=== PATIENT | male | born 1935 | race Caucasian/White ===

== ENCOUNTER 2018-01-04 08:06 | Inpatient (IN) ==
--- NOTE | 2018-01-04 08:20 | ED ---
HPI General Chief Complaint: Shortness of Breath/Dyspnea Stated Complaint: sob started last night/hx a-fib Time Seen by Provider: 01/04/18 08:12 Source: patient Mode of arrival: ambulatory Limitations: no limitations History of Present Illness The patient is a 82-year-old male who presents to the emergency department via private vehicle for shortness of breath. The patient states he went to the beach yesterday for swim, his vehicle got stuck, which subsequently caused some anxiety. The patient states he went home last night feeling well, went to bed, however, was awakened 2 hours later with shortness of breath. The patient does complain of mild shortness of breath without any significant cough. He denies any chest pain, nausea, vomiting, or diaphoresis. The patient does have a history of atrial fibrillation for which she takes Cardizem and Xarelto. The patient is followed by his primary physician, Dr. Lake, and his facility service manager, Dr. Gallagher. The patient denies any significant swelling to lower extremities and denies any history of congestive heart failure. Related Data Home Medications Medication Instructions Recorded Confirmed diltiazem HCl 240 mg PO DAILY 01/04/18 01/04/18 losartan 50 mg PO DAILY 01/04/18 01/04/18 rivaroxaban [Xarelto] 20 mg PO DAILY 01/04/18 01/04/18 Allergies Allergy/AdvReac Type Severity Reaction Status Date / Time No Known Allergies Allergy Unverified 01/04/18 08:13 Review of Systems ROS: all other systems reviewed are negative [facility] Medical History Medical History History of atrial fibrillation (Acute) Hx of primary hypertension (Acute) Surgical History Surgical History No history of previous surgery (Acute) Social History Social History Substance History: No History of Abuse Second Hand Smoke Exposure: No Smoking Status: Never smoker How Often Do You Have a Drink Containing Alcohol: Monthly or less Recent Travel in [facility] within the Last 8 Weeks: No Recent Out of Country Travel within the Last 8 Weeks: No Exam Narrative Exam Narrative: GENERAL: Awake, alert, pleasant 82-year-old male who appears his stated age and is in no acute respiratory distress. SKIN: Focused skin assessment warm/dry. HEAD: Atraumatic. Normocephalic. EYES: No injection or drainage. ENT: No nasal bleeding or discharge. Mucous membranes pink and moist. NECK: Trachea midline. No JVD. CARDIOVASCULAR: Irregularly irregular. Tachycardic with a heart rate in the 130s. Systolic murmur noted. RESPIRATORY: No accessory muscle use. Few rhonchi lower bases bilaterally. GASTROINTESTINAL: Abdomen soft, non-tender, nondistended. No rebound tenderness. MUSCULOSKELETAL: No obvious deformities. No clubbing. No cyanosis. No edema. NEUROLOGICAL: Awake and alert. No obvious cranial nerve deficits. Motor grossly within normal limits. Normal speech. Nonfocal. PSYCHIATRIC: Appropriate mood and affect; insight and judgment normal. Course Initial Documented Vital Signs Pulse Oximetry 93 L 01/04/18 08:13 Last Documented Vital Signs Temperature 97.4 F L 01/04/18 08:31 Pulse Rate 101 H 01/04/18 08:47 Respiratory Rate 16 01/04/18 08:47 Blood Pressure 113/53 L 01/04/18 08:47 Pulse Oximetry 94 L 01/04/18 08:47 Critical Care Time Critical Care Time: Yes Total Critical Care Time: 35 Attestation: Aggregate critical care time was 35 minutes. Time to perform other separately billable procedures was not included in the critical care time. My time did not include minutes spent treating any other patients simultaneously or on activities that did not directly contribute to the patient's treatment. The services I provided to this patient were to treat and/or prevent clinically significant deterioration that could result in: Dysrhythmia, hypoxia, sudden . I provided critical care services requiring my management, as noted below: Chart data review, documentation time, medication orders and management, vital sign assessments/reviewing monitor data, ordering and reviewing lab tests, ordering and interpreting/reviewing x-rays and diagnostic studies, care of the patient and discussion of the patient with the admitting physicians. Medical Decision Making MDM Narrative Medical decision making narrative: IV was established, labs were drawn and sent , and the patient was placed on cardiac telemetry monitoring and continuous pulse oximetry monitoring. EKG was ordered and interpreted. Chest x-ray was obtained. The patient was administered Cardizem 15 mg intravenously and normal saline bolus 250 cc. The patient's heart rate continued to be elevated, therefore, the patient was administered a second dose of Cardizem 10 mg intravenously which brought his heart rate down into the 90s. Patient's oxygen saturation was in the high 80s and low 90s, therefore, the patient was placed on oxygen via nasal cannula 2 L. I discussed the patient with the on-call medical service, Dr. Felipe, who agrees with admission. The patient will be admitted to a telemetry floor and may benefit from gentle diuresis and echocardiogram. Medical Screen Exam Complete: Yes Emergency Medical Condition: Yes Differential Diagnosis Differential Diagnosis: Differential diagnosis includes A. fib with RVR, aortic stenosis, mitral valve prolapse, aortic regurgitation, pulmonary edema, pleural effusion, pneumonia, bronchitis, ACS. Lab Data Lab results reviewed: Yes I reviewed the patient's lab results. Lab results narrative: BNP was elevated at 378. Result diagrams: 01/04/18 08:20 01/04/18 08:20 Lab Results 01/04/18 01/04/18 01/04/18 Range/Units 08:20 08:20 08:20 CBC w Diff Auto diff final WBC 10.3 (4.0-11.0) th/mm3 RBC 4.52 (4.50-5.90) mil/mm3 Hgb 15.5 (13.0-17.0) gm/dL Hct 43.9 (39.0-51.0) % MCV 97.1 (80.0-100.0) fL MCH 34.2 H (27.0-34.0) pg MCHC 35.2 (32.0-36.0) % RDW 12.3 (11.6-17.2) % Plt Count 204 (150-450) th/mm3 MPV 10.1 (7.0-11.0) fL Neut % (Auto) 82.0 H (16.0-70.0) % Lymph % (Auto) 8.9 L (9.0-44.0) % [place] % (Auto) 8.5 H (0.0-8.0) % Eos % (Auto) 0.1 (0.0-4.0) % Baso % (Auto) 0.5 (0.0-2.0) % Neut # (Auto) 8.4 H (1.8-7.7) th/mm3 Lymph # (Auto) 0.9 L (1.0-4.8) th/mm3 [place] # (Auto) 0.9 (0.0-0.9) th/mm3 Eos # (Auto) 0.0 (0.0-0.4) th/mm3 Baso # (Auto) 0.1 (0.0-0.2) th/mm3 WBC Differential . Differential Comment . PT 11.3 (9.8-11.6) sec INR 1.1 Ratio APTT 29.4 (24.3-30.1) sec Sodium 139 (136-145) meq/L Potassium 4.0 (3.5-5.1) meq/L Chloride 105 (98-107) meq/L Carbon Dioxide 22.3 (21.0-32.0) meq/L Anion Gap 12 (5-15) meq/L BUN 17 (7-18) mg/dL Creatinine 1.30 (0.60-1.30) mg/dL Estimated GFR 53 L (>89) mL/min Random Glucose 164 H (74-106) mg/dL Calcium 8.9 (8.5-10.1) mg/dL Magnesium 2.0 (1.5-2.5) mg/dL Total Bilirubin 1.4 H (0.2-1.0) mg/dL AST 22 (15-37) U/L ALT 21 (12-78) U/L Alkaline Phosphatase 74 (45-117) U/L Total Creatine Kinase 209 (39-308) U/L CK-MB (CK-2) 2.6 (0.5-3.6) ng/mL Troponin I 0.02 (0.02-0.05) ng/mL B-Natriuretic Peptide (0-100) pg/mL Total Protein 7.7 (6.4-8.2) g/dL Albumin 4.0 (3.4-5.0) g/dL 01/04/18 Range/Units 08:20 CBC w Diff WBC (4.0-11.0) th/mm3 RBC (4.50-5.90) mil/mm3 Hgb (13.0-17.0) gm/dL Hct (39.0-51.0) % MCV (80.0-100.0) fL MCH (27.0-34.0) pg MCHC (32.0-36.0) % RDW (11.6-17.2) % Plt Count (150-450) th/mm3 MPV (7.0-11.0) fL Neut % (Auto) (16.0-70.0) % Lymph % (Auto) (9.0-44.0) % [place] % (Auto) (0.0-8.0) % Eos % (Auto) (0.0-4.0) % Baso % (Auto) (0.0-2.0) % Neut # (Auto) (1.8-7.7) th/mm3 Lymph # (Auto) (1.0-4.8) th/mm3 [place] # (Auto) (0.0-0.9) th/mm3 Eos # (Auto) (0.0-0.4) th/mm3 Baso # (Auto) (0.0-0.2) th/mm3 WBC Differential Differential Comment PT (9.8-11.6) sec INR Ratio APTT (24.3-30.1) sec Sodium (136-145) meq/L Potassium (3.5-5.1) meq/L Chloride (98-107) meq/L Carbon Dioxide (21.0-32.0) meq/L Anion Gap (5-15) meq/L BUN (7-18) mg/dL Creatinine (0.60-1.30) mg/dL Estimated GFR (>89) mL/min Random Glucose (74-106) mg/dL Calcium (8.5-10.1) mg/dL Magnesium (1.5-2.5) mg/dL Total Bilirubin (0.2-1.0) mg/dL AST (15-37) U/L ALT (12-78) U/L Alkaline Phosphatase (45-117) U/L Total Creatine Kinase (39-308) U/L CK-MB (CK-2) (0.5-3.6) ng/mL Troponin I (0.02-0.05) ng/mL B-Natriuretic Peptide 378 H (0-100) pg/mL Total Protein (6.4-8.2) g/dL Albumin (3.4-5.0) g/dL Imaging Data Radiologist's impression: Chest X-Ray 01/04/18 08:13 CONCLUSION: 1. Acute interstitial lung disease and small bilateral effusions both characteristic of congestive heart failure. 2. No consolidating airspace disease. ECG Data EKG Prior to Arrival: No Attestation: I personally reviewed and interpreted this ECG as follows: Interpretation: EKG reveals atrial fibrillation with RVR. PVC noted. Voltage criteria for LVH. Nonspecific ST and T-wave changes. Discharge Plan Discharge Disposition Patient Disposition: 30 Still Patient Discharge Condition Condition: Stable Discharge Details Diagnosis: Atrial fibrillation with RVR, Congestive heart failure, Hypoxia Physicians Team ED Provider: David Morse Primary Care Provider: NON STAFF,PROVIDER Rxs /Orders / Referrals /Forms Prescriptions: No Action losartan 50 mg Tablet 50 mg PO DAILY RF: 0 diltiazem HCl 240 mg Capsule,Extended Release 24 Hr 240 mg PO DAILY RF: 0 rivaroxaban [Xarelto] 20 mg Tablet 20 mg PO DAILY RF: 0 Discharge Interventions Interventions: Vital Signs Last Done: 01/04/18 08:47 Status ED Status: Admitted Patient
[2018-01-04 08:31] LABS: Baso # (Auto) 0.1 th/mm3 (0.0-0.2); Baso % (Auto) 0.5 % (0.0-2.0); Eos % (Auto) 0.1 % (0.0-4.0); Hematocrit 43.9 % (39.0-51.0); Hemoglobin 15.5 gm/dL (13.0-17.0); Lymph # (Auto) 0.9 th/mm3 (1.0-4.8); Lymph % (Auto) 8.9 % (9.0-44.0); Mean Corpuscular HGB Conc 35.2 % (32.0-36.0); Mean Corpuscular Hemoglobin 34.2 pg (27.0-34.0); Mean Corpuscular Volume 97.1 fL (80.0-100.0); Mean Platelet Volume 10.1 fL (7.0-11.0); Mono # (Auto) 0.9 th/mm3 (0.0-0.9); Mono % (Auto) 8.5 % (0.0-8.0); Neut # (Auto) 8.4 th/mm3 (1.8-7.7); Platelet Count 204 th/mm3 (150-450); Red Blood Count 4.52 mil/mm3 (4.50-5.90); Red Cell Distribution Width 12.3 % (11.6-17.2); White Blood Count 10.3 th/mm3 (4.0-11.0)
--- NOTE | 2018-01-04 08:38 | XR ---
EXAM DATE: 01/04/2018 8:32 AM EDT AGE/SEX: 82 years / Male INDICATIONS: Short of breath. CLINICAL DATA: This is the patient's initial encounter. Patient reports that signs and symptoms have been present for 1 day and indicates a pain score of 0/10. MEDICAL/SURGICAL HISTORY: . Afib None. COMPARISON: POI, XR CHEST PA AND LAT, 03/05/2016. . FINDINGS: Interstitial prominence characteristic of interstitial edema has developed. The costophrenic angles a re blunted acoustical small effusions. Heart remains normal in size. Osseous structures are intact. There is [id number] bilateral shoulder arthropathy. CONCLUSION: 1. Acute interstitial lung disease and small bilateral effusions both characteristic of congestive h eart failure. 2. No consolidating airspace disease. Electronically signed by: Go Howell MD 01/04/2018 8:36 AM EDT
[2018-01-04 08:45] LABS: Chloride 105 meq/L (98-107); Sodium 139 meq/L (136-145)
[2018-01-04 08:49] LABS: Activated Partial Thrombo Time 29.4 sec (24.3-30.1); Calcium 8.9 mg/dL (8.5-10.1); INR 1.1 Ratio; Prothrombin Time 11.3 sec (9.8-11.6)
[2018-01-04 08:50] LABS: Anion Gap 12 meq/L (5-15); Blood Urea Nitrogen 17 mg/dL (7-18); Carbon Dioxide 22.3 meq/L (21.0-32.0); Glucose,Random 164 mg/dL (74-106)
[2018-01-04 08:53] LABS: Alanine Aminotransferase 21 U/L (12-78); Aspartate Aminotransferase 22 U/L (15-37); Glomerular Filtration Rate 53 mL/min (>89)
[2018-01-04 08:54] LABS: Total Protein 7.7 g/dL (6.4-8.2)
[2018-01-04 08:56] LABS: Alkaline Phosphatase 74 U/L (45-117); Creatine Kinase 209 U/L (39-308)
[2018-01-04 08:58] LABS: Troponin I 0.02 ng/mL (0.02-0.05)
[2018-01-04] MEDS ORDERED: Sodium Chlor 0.9% Inj 250 ML IV.SIG SCH (09:00)
[2018-01-04 09:08] LABS: Creatine Kinase MB 2.6 ng/mL (0.5-3.6)
[2018-01-04] MEDS ORDERED: Acetaminophen 325 MG Tablet PO PRN (09:28)
[2018-01-04] MEDS ORDERED: Rivaroxaban 20 MG Tablet PO SCH ×2 (09:30→18:00)
[2018-01-04] MEDS ORDERED: dilTIAZem CD 240 MG Capsule PO SCH (10:00)
[2018-01-04] MEDS ORDERED: dilTIAZem Inj 125 MG in Sodium Chlor 0.9% Inj 100 ML IV.CONT PRN (11:00)
--- NOTE | 2018-01-04 12:57 | P.HPIM ---
History of Present Illness Primary Care Physician: PROVIDER NON STAFF Chief Complaint: Shortness of breath History of Present Illness: The patient is an 82-year-old male with a past medical history of atrial fibrillation who is presenting to the hospital with shortness of breath. The patient says that yesterday he walked around for 2 miles and then he went to his car and it would not start. He said that [place] on the beach and high tide was approaching so he got very stressed out and upset. Eventually the car started and he got out of there. In the evening he started to experience shortness of breath so he tried walking around to alleviate that. He says laying down helps with his breathing. He has not been coughing or having any sputum production. He denied any chest pain. He says he has never had this shortness of breath before. He says the last time he saw his director home was about 4 months ago. He believes he had an echocardiogram done at that time. The patient says he did not sleep much last night and at 7:30 in the morning decided to come to the hospital for further evaluation. Inpatient Certification: I certify that the inpatient services were ordered in accordance with Medicare regulations governing the order. This includes certification that hospital inpatient services are reasonable and necessary and in the case of services not specified as inpatient-only under 42 CFR 419.22(n), that they are appropriately provided as inpatient services in accordance to with the 2-midnight benchmark under 43 CFR 412.3(e) Estimated Total Length of Stay (Days): 2 Plans for Post Hospital Care: Home Review of Systems All other systems reviewed negative except as stated in HPI [facility] - History History Provided By: Patient - Medical History Medical History: Medical History (Last Updated 01/04/18 @ 12:51 by Emmanuel Felipe DO) History of atrial fibrillation (Acute) Hx of primary hypertension (Acute) Ankylosing spondylitis IBS (irritable bowel syndrome) - Surgical History Surgical History: Surgical History (Last Updated 01/04/18 @ 08:32 by Nohemy Shah RN) No history of previous surgery (Acute) - Family History Family History: Family History (Last Updated 01/04/18 @ 12:51 by Emmanuel Felipe DO) Other CVA (cerebral vascular accident) - Tobacco History Second Hand Smoke Exposure: No Smoking Status: Never smoker - Alcohol History How Often Do You Have a Drink Containing Alcohol: 4 or more times a week - Substance Use History Substance History: No History of Abuse - Travel History Recent Travel in the [place] Within the Last 8 Weeks: No Recent Travel Out of the Country Within the Last 8 Weeks: No - Immunization History Tetanus Immunization: Unsure Hx Influenza Vaccine This Season: No Medications and Allergies Active Medications: Active Medications Acetaminophen (Tylenol) 650 mg PO Q4H PRN PRN Reason: Temp > 100.4 Diltiazem HCl (Cardizem Cd 24hr) 240 mg PO DAILY YOVANA Furosemide (Lasix Inj) 40 mg IV.PUSH BID@0900,1800 YOVANA Sodium Chloride (Ns Inj) 250 mls @ 0 mls/hr IV.SIG BOLUS YOVANA Last Infusion: 01/04/18 08:48 Dose: Infused Diltiazem HCl 125 mg/ Sodium (Chloride) 125 mls @ 5 mls/hr IV.CONT TITRATE PRN ; Protocol PRN Reason: Per Protocol Last Titration: 01/04/18 12:18 Dose: 15 mg/hr, 15 mls/hr Losartan Potassium (Cozaar) 50 mg PO DAILY YOVANA Last Admin: 01/04/18 10:23 Dose: Not Given Rivaroxaban (Xarelto) 20 mg PO DAILY@1800 YOVANA Sodium Chloride (Ns Flush) 2 ml IV.FLUSH UNSCH PRN PRN Reason: FLUSH AFTER USING IV ACCESS Allergies Allergy/AdvReac Type Severity Reaction Status Date / Time No Known Allergies Allergy Unverified 01/04/18 08:13 Home Medications Medication Instructions Recorded Confirmed Type diltiazem HCl 240 mg PO DAILY 01/04/18 01/04/18 History losartan 50 mg PO DAILY 01/04/18 01/04/18 History rivaroxaban [Xarelto] 20 mg PO DAILY 01/04/18 01/04/18 History Exam Vital signs: Vital Signs 01/04/18 08:13 01/04/18 08:16 01/04/18 08:31 Temperature 97.4 F L 97.4 F L Pulse Rate 124 H 100 H Respiratory Rate 16 16 Blood Pressure 145/65 H 145/65 H Pulse Oximetry 93 L 94 L 91 L 01/04/18 08:47 01/04/18 10:25 01/04/18 11:37 Temperature Pulse Rate 101 H 109 H 113 H Respiratory Rate 16 16 16 Blood Pressure 113/53 L 139/68 145/78 H Pulse Oximetry 94 L 92 L 90 L 01/04/18 12:02 Temperature 98.3 F Pulse Rate 144 H Respiratory Rate Blood Pressure 132/82 Pulse Oximetry Intake & Output 01/03/18 01/04/18 01/04/18 18:59 06:59 18:59 Intake Total 250 / 250 Balance 250 / 250 Weight 73 kg Intake: IV 250 / 250 NS Inj 250 ML @ Wide Open IV. 250 / 250 SIG BOLUS YOVANA Rx#:[id number] Other: Date of Last Bowel Movement 01/03/18 Narrative: GENERAL: No distress. SKIN: Focused skin assessment warm/dry. HEAD: Atraumatic. Normocephalic. EYES: No injection or drainage. ENT: No nasal bleeding or discharge. Mucous membranes pink and moist. NECK: Trachea midline. No JVD. CARDIOVASCULAR: Irregularly irregular, tachycardic. Systolic murmur noted. RESPIRATORY: No accessory muscle use. Few crackles lower bases bilaterally. GASTROINTESTINAL: Abdomen soft, non-tender, nondistended. No rebound tenderness. MUSCULOSKELETAL: No obvious deformities. No clubbing. No cyanosis. No edema. NEUROLOGICAL: Awake and alert. No obvious cranial nerve deficits. Motor grossly within normal limits. Normal speech. Nonfocal. PSYCHIATRIC: Appropriate mood and affect; insight and judgment normal. Results - Labs CBC & Chem 7: 01/04/18 08:20 01/04/18 08:20 Labs: Short CBC 01/04/18 Range/Units 08:20 WBC 10.3 (4.0-11.0) th/mm3 Hgb 15.5 (13.0-17.0) gm/dL Hct 43.9 (39.0-51.0) % Plt Count 204 (150-450) th/mm3 BMP 01/04/18 08:20 Sodium 139 Potassium 4.0 Chloride 105 Carbon Dioxide 22.3 BUN 17 Creatinine 1.30 Calcium 8.9 Cardiac Enzymes 01/04/18 Range/Units 08:20 Total Creatine Kinase 209 (39-308) U/L CK-MB (CK-2) 2.6 (0.5-3.6) ng/mL Troponin I 0.02 (0.02-0.05) ng/mL Liver Function 01/04/18 Range/Units 08:20 Total Bilirubin 1.4 H (0.2-1.0) mg/dL AST 22 (15-37) U/L ALT 21 (12-78) U/L Alkaline Phosphatase 74 (45-117) U/L Albumin 4.0 (3.4-5.0) g/dL - Imaging Impressions Chest X-Ray 01/04/18 08:13 CONCLUSION: 1. Acute interstitial lung disease and small bilateral effusions both characteristic of congestive heart failure. 2. No consolidating airspace disease. Caprini VTE Risk Assessment Caprini VTE Risk Assessment: Moderate/High Risk (score >= 2) Caprini Risk Assessment Model: Point Value = 1 Point Value = 2 Point Value = 3 Point Value = 5 Age 41-60 Minor surgery BMI > 25 kg/m2 Swollen legs Varicose veins or History of unexplained or recurrent spontaneous Oral contraceptives or hormone replacement Sepsis (< 1 month) Serious lung disease, including pneumonia (< 1 month) Abnormal pulmonary function Acute myocardial infarction Congestive heart failure (< 1 month) History of inflammatory bowel disease Medical patient at bed rest Age 61-74 Arthroscopic surgery Major open surgery (> 45 min) Laparoscopic surgery (> 45 min) Malignancy Confined to bed (> 72 hours) Immobilizing plaster cast Central venous access Age >= 75 History of VTE Family history of VTE Factor V Leiden Prothrombin [id number] Lupus anticoagulant Anticardiolipin antibodies Elevated serum homocysteine Heparin-induced thrombocytopenia Other congenital or acquired thrombophilia Stroke (< 1 month) Elective arthroplasty Hip, pelvis, or leg fracture Acute spinal cord injury (< 1 month) Prophylaxis Regimen: Total Risk Factor Score Risk Level Prophylaxis Regimen 0-1 Low Early ambulation 2 Moderate Order ONE of the following: *Sequential Compression Device (SCD) *Heparin 5000 units SQ BID 3-4 Higher Order ONE of the following medications: *Heparin 5000 units SQ TID *Enoxaparin/Lovenox 40 mg SQ daily (WT < 150 kg, CrCl > 30 mL/min) *Enoxaparin/Lovenox 30 mg SQ daily (WT < 150 kg, CrCl > 10-29 mL/min) *Enoxaparin/Lovenox 30 mg SQ BID (WT < 150 kg, CrCl > 30 mL/min) AND/OR *Sequential Compression Device (SCD) 5 or more Highest Order ONE of the following medications: *Heparin 5000 units SQ TID (Preferred with Epidurals) *Enoxaparin/Lovenox 40 mg SQ daily (WT < 150 kg, CrCl > 30 mL/min) *Enoxaparin/Lovenox 30 mg SQ daily (WT < 150 kg, CrCl > 10-29 mL/min) *Enoxaparin/Lovenox 30 mg SQ BID (WT < 150 kg, CrCl > 30 mL/min) AND *Sequential Compression Device (SCD) Assessment and Plan - Plan A fib with RVR The pt is on Cardizem and Xarelto as an outpt. S/p IV Cardizem in the ED. -continue Cardizem gtt along with PO Cardizem. -continue telemetry. -cardiology consult pending. -check a TSH. Acute respiratory failure CXR indicative of CHF. On 6L NC. BNP elevated. He believes he had a recent echo. -Lasix 40 mg IV BID. -oxygen and BiPAP as needed. -incentive spirometry. -follow up with cardiology. HTN Blood pressure well controlled. -resume home regimen. -Cardizem gtt as above. Hyperglycemia Likely a stress reaction. -follow BMP. PPx: Xarelto H&P: Quality - VTE Deep Vein Thrombosis/Pulmonary Embolism Present on Admission: No
[2018-01-04 14:07] LABS: ABG Base Excess -1.7 mmol/L (-2-2); ABG PO2 51 mmHg (61-120)
[2018-01-04 14:08] LABS: ABG PCO2 31 mmHg (38-42)
--- NOTE | 2018-01-04 14:48 | P.CONCA ---
History of Present Illness Reason for Consult: Afib RVR Primary Care Provider: PROVIDER NON STAFF Chief Complaint: Shortness of breath History of Present Illness: Pleasant 82 year old male well known to Dr. Gallagher with a history of chronic atrial fibrillation who presented to ER with complaints of SOB. [place], tide was coming in and he couldn't get his car started. This event caused a lot of anxiety. He went home tried to rest, but didn't sleep much lash night due to SOB. This AM he decided to come to ER. He was found to be in Afib RVR and CHF. Upon exam patient denies any chest pain. He reports feeling SOB. He is now on high flow o2 due to low oxygen sats and low P02. His HR is now controlled on cardizem drip, earlier today HR was 144. BNP elevated, crackles noted in base. IV lasix given in ER. Review of Systems Cardiovascular: Reports fast heart rate, Reports rapid, pounding, or irregular heartbeat Respiratory: Reports shortness of breath, Reports shortness of breath with activity [facility] - History History Provided By: Patient - Medical History Medical History: Medical History (Last Updated 01/04/18 @ 14:44 by LUCITA Muro) History of atrial fibrillation (Acute) Hx of primary hypertension (Acute) Ankylosing spondylitis History of cardioversion IBS (irritable bowel syndrome) - Surgical History Surgical History: Surgical History (Last Updated 01/04/18 @ 08:32 by Nohemy Shah RN) No history of previous surgery (Acute) - Family History Family History: Family History (Last Updated 01/04/18 @ 12:51 by Emmanuel Felipe DO) Other CVA (cerebral vascular accident) - Tobacco History Second Hand Smoke Exposure: No Smoking Status: Never smoker - Alcohol History How Often Do You Have a Drink Containing Alcohol: 4 or more times a week - Substance Use History Substance History: No History of Abuse - Travel History Recent Travel in the [place] Within the Last 8 Weeks: No Recent Travel Out of the Country Within the Last 8 Weeks: No - Immunization History Tetanus Immunization: Unsure Hx Influenza Vaccine This Season: No Medications and Allergies Allergies Allergy/AdvReac Type Severity Reaction Status Date / Time No Known Allergies Allergy Unverified 01/04/18 08:13 Home Medications Medication Instructions Recorded Confirmed Type diltiazem HCl 240 mg PO DAILY 01/04/18 01/04/18 History losartan 50 mg PO DAILY 01/04/18 01/04/18 History rivaroxaban [Xarelto] 20 mg PO DAILY 01/04/18 01/04/18 History Active Medications: Active Medications Acetaminophen (Tylenol) 650 mg PO Q4H PRN PRN Reason: Temp > 100.4 Diltiazem HCl (Cardizem Cd 24hr) 240 mg PO DAILY [facility] Furosemide (Lasix Inj) 40 mg IV.PUSH BID@0900,1800 [facility] Sodium Chloride (Ns Inj) 250 mls @ 0 mls/hr IV.SIG BOLUS [facility] Last Infusion: 01/04/18 08:48 Dose: Infused Diltiazem HCl 125 mg/ Sodium (Chloride) 125 mls @ 5 mls/hr IV.CONT TITRATE PRN ; Protocol PRN Reason: Per Protocol Last Titration: 01/04/18 12:18 Dose: 15 mg/hr, 15 mls/hr Losartan Potassium (Cozaar) 50 mg PO DAILY [facility] Last Admin: 01/04/18 10:23 Dose: Not Given Rivaroxaban (Xarelto) 20 mg PO DAILY@1800 [facility] Sodium Chloride (Ns Flush) 2 ml IV.FLUSH UNSCH PRN PRN Reason: FLUSH AFTER USING IV ACCESS Exam Vital signs: Vital Signs 01/04/18 08:13 01/04/18 08:16 01/04/18 08:31 Temperature 97.4 F L 97.4 F L Pulse Rate 124 H 100 H Respiratory Rate 16 16 Blood Pressure 145/65 H 145/65 H Pulse Oximetry 93 L 94 L 91 L 01/04/18 08:47 01/04/18 10:25 01/04/18 11:37 Temperature Pulse Rate 101 H 109 H 113 H Respiratory Rate 16 16 16 Blood Pressure 113/53 L 139/68 145/78 H Pulse Oximetry 94 L 92 L 90 L 01/04/18 12:02 01/04/18 13:43 Temperature 98.3 F Pulse Rate 144 H Respiratory Rate Blood Pressure 132/82 Pulse Oximetry 91 L Intake & Output 01/03/18 01/04/18 01/04/18 18:59 06:59 18:59 Intake Total 250 / 250 Balance 250 / 250 Weight 73 kg Intake: IV 250 / 250 NS Inj 250 ML @ Wide Open IV. 250 / 250 SIG BOLUS YOVANA Rx#:[id number] Other: Date of Last Bowel Movement 01/03/18 - Constitutional mild distress - Routine HEENT Exam Head: Present: normocephalic, atraumatic Eye: Present: normal accommodation ENT: Present: mucous membranes moist - Routine Neck Exam Present: supple - Routine Respiratory Exam Present: crackles, diminished air movement - Routine Cardiovascular Exam Present: irregularly irregular - Routine Extremities Exam Comments: no edema - Routine Skin Exam Present: intact - Routine Neurological Exam Present: alert, oriented X3 Results 01/04/18 08:20 01/04/18 08:20 Cardiac Enzymes 01/04/18 01/04/18 Range/Units 08:20 08:20 AST 22 (15-37) U/L CK-MB (CK-2) 2.6 (0.5-3.6) ng/mL Troponin I 0.02 (0.02-0.05) ng/mL B-Natriuretic Peptide 378 H (0-100) pg/mL Coagulation 01/04/18 01/04/18 Range/Units 08:20 08:20 PT 11.3 (9.8-11.6) sec APTT 29.4 (24.3-30.1) sec B-Natriuretic Peptide 378 H (0-100) pg/mL CBC 01/04/18 Range/Units 08:20 WBC 10.3 (4.0-11.0) th/mm3 RBC 4.52 (4.50-5.90) mil/mm3 Hgb 15.5 (13.0-17.0) gm/dL Hct 43.9 (39.0-51.0) % Plt Count 204 (150-450) th/mm3 Neut # (Auto) 8.4 H (1.8-7.7) th/mm3 Lymph # (Auto) 0.9 L (1.0-4.8) th/mm3 Castro # (Auto) 0.9 (0.0-0.9) th/mm3 Eos # (Auto) 0.0 (0.0-0.4) th/mm3 Baso # (Auto) 0.1 (0.0-0.2) th/mm3 Comprehensive Metabolic Panel 01/04/18 Range/Units 08:20 Sodium 139 (136-145) meq/L Potassium 4.0 (3.5-5.1) meq/L Chloride 105 (98-107) meq/L Carbon Dioxide 22.3 (21.0-32.0) meq/L BUN 17 (7-18) mg/dL Creatinine 1.30 (0.60-1.30) mg/dL Calcium 8.9 (8.5-10.1) mg/dL AST 22 (15-37) U/L ALT 21 (12-78) U/L Alkaline Phosphatase 74 (45-117) U/L Total Protein 7.7 (6.4-8.2) g/dL Albumin 4.0 (3.4-5.0) g/dL Intake and Output 01/03/18 01/04/18 01/04/18 22:59 06:59 14:59 Intake Total 250 / 250 Balance 250 / 250 Intake: IV 250 / 250 NS Inj 250 ML @ Wide Open IV. 250 / 250 SIG BOLUS YOVANA Rx#:[id number] Other: Date of Last Bowel Movement 01/03/18 Weight 73 kg Patient Weight 01/05/18 06:59 Weight 73 kg - Imaging and Cardiology Echo: pending (echo ordered) Assessment and Plan - Plan Afib RVR Acute respiratory failure- SOB -Anticoagulated with Xarelto. Continues on cardizem drip per protocol. Will add beta rajan and DC losartan. -IV lasix ordered, echo ordered. Creatnine 1.3, will repeat BMP in AM. The patient was seen and evaluated by Dr. Norris who completed face to face encounter and physical exam and participated in care and management. The exam, history, and the medical decision-making described in the above note were completed with the assistance of the mid-level provider. I reviewed and agree with the findings presented. I attest that I had a [id number]-[id number] encounter with the patient on the same day, and personally performed and documented my assessment and findings in the medical record. Will control hr on cardizem and betablocker, d/c one to 2 day s if hr stable and sob better.. HJ Code Status: DNR Discussed Condition With: Nurse, Respiratory therapist
[2018-01-04] MEDS: Metoprolol Tartrate 25 MG Tablet PO SCH (15:10)
--- NOTE | 2018-01-04 15:45 | ECG ---
Date Performed: 01/04/2018 Time Performed: 08:15:49 PTAGE: 82 years EKG: ATRIAL FIBRILLATION WITH RAPID VENTRICULAR RESPONSE WITH ABERRANT CONDUCTION OR VENTRICULAR PREMATURE COMPLEXES VOLTAGE CRITERIA FOR LVH NONSPECIFIC ST & T-WAVE ABNORMALITY ABNORMAL ECG INTERP RETATION BASED ON A DEFAULT AGE OF 40 YEARS PREVIOUS TRACING : 10/09/2011 09.18 Compared to previous tracing, atrial fibrillation is new Clinical correlation is recommended DOCTOR: Travis Steven Interpretating Date/Time 01/04/2018 15:44:48
--- NOTE | 2018-01-04 18:12 | ECHRPT ---
Indication: CONCLUSIONS The left ventricular systolic function is hyperdynamic with an estimated ejection fraction in the ra nge of 65- 70%. Wall thickness is normal. No regional wall motion abnormalities are present. Severe biatrial enlargement. A possible atrial level shunt is demonstrated by color flow Doppler interrogation, clinical correlat ion recommended. Moderate thickening of the mitral valve leaflets. Ruem-yb-ctcpunrd mitral valve regurgitation. Mitral annular calcification is present. Can not rule out a mobile echodensity located on the anterior mitral valve leaflet. Clinical correla tion recommended. Aortic valve sclerosis is present. Trace aortic valve regurgitation. There is moderate tricuspid regurgitation. The estimated pulmonary arterial pressure is 57.6 mmHg. BP: / HR: Rhythm: Atrial fibrillation MEASUREMENTS (Male / Female) Normal Values Technical Quality:Good 2D ECHO LV Diastolic Diameter PLAX 5.5 cm 4.2 - 5.9 / 3.9 - 5.3 cm LV Systolic Diameter PLAX 3.7 cm IVS Diastolic Thickness 0.8 cm 0.6 - 1.0 / 0.6 - 0.9 cm LVPW Diastolic Thickness 0.8 cm 0.6 - 1.0 / 0.6 - 0.9 cm LV Relative Wall Thickness 0.3 LVOT Diameter 2.0 cm LA Systolic Diameter LX 5.0 cm 3.0 - 4.0 / 2.7 - 3.8 cm M-MODE Aortic Root Diameter MM 2.1 cm LA Systolic Diameter MM 5.0 cm LA Ao Ratio MM 2.4 AV Cusp Separation MM 1.8 cm DOPPLER AV Peak Velocity 130.0 cm/s AV Peak Gradient 6.8 mmHg AI Peak Velocity 264.5 cm/s AI Peak Gradient 28.0 mmHg AI Pressure Half Time 1199.0 ms LVOT Peak Velocity 68.1 cm/s LVOT Peak Gradient 1.9 mmHg AV Area Cont Eq pk 1.6 cm MV Area PHT 5.9 cm LV E' Septal Velocity 7.7 cm/s TR Peak Velocity 345.0 cm/s TR Peak Gradient 47.6 mmHg Right Atrial Pressure 10.0 mmHg Pulmonary Artery Systolic Pressu 57.6 mmHg Right Ventricular Systolic Press 57.6 mmHg FINDINGS LEFT VENTRICLE The left ventricular systolic function is hyperdynamic with an estimated ejection fraction in the ra nge of 65- 70%. Wall thickness is normal. No regional wall motion abnormalities are present. RIGHT VENTRICLE Normal right ventricular size and systolic function. LEFT ATRIUM The left atrial size is severely dilated. RIGHT ATRIUM The right atrial size is normal. ATRIAL SEPTUM A possible atrial level shunt is demonstrated by color flow Doppler interrogation, clinical correlat ion recommended. AORTA The aortic root and proximal ascending aorta are normal in size on limited imaging. MITRAL VALVE Moderate thickening of the mitral valve leaflets. Btyy-gt-nsodwljz mitral valve regurgitation. Mitral annular calcification is present. Can not rule out a mobile echodensity located on the anterior mitral valve leaflet. AORTIC VALVE Trileaflet aortic valve. Aortic valve sclerosis is present. Trace aortic valve regurgitation. TRICUSPID VALVE Structurally normal tricuspid valve. There is moderate tricuspid regurgitation. The estimated pulmonary arterial pressure is 57.6 mmHg. PULMONARY VALVE No pulmonary valve regurgitation or stenosis. VESSELS The inferior vena cava is normal in size. PERICARDIUM No pericardial effusion. Brent Lam (Electronically Signed) Final Date:04 January 2018 18:11
[2018-01-04] MEDS ORDERED: dilTIAZem CD 240 MG Capsule PO ONE (20:00)
[2018-01-05 06:41] LABS: Baso % (Auto) 0.3 % (0.0-2.0); Eos % (Auto) 0.1 % (0.0-4.0); Hematocrit 44.9 % (39.0-51.0); Hemoglobin 15.3 gm/dL (13.0-17.0); Lymph # (Auto) 0.8 th/mm3 (1.0-4.8); Lymph % (Auto) 4.7 % (9.0-44.0); Mean Corpuscular HGB Conc 34.1 % (32.0-36.0); Mean Corpuscular Volume 99.8 fL (80.0-100.0); Mean Platelet Volume 10.4 fL (7.0-11.0); Mono # (Auto) 1.6 th/mm3 (0.0-0.9); Mono % (Auto) 9.8 % (0.0-8.0); Neut # (Auto) 14.1 th/mm3 (1.8-7.7); Neut % (Auto) 85.1 % (16.0-70.0); Platelet Count 167 th/mm3 (150-450); White Blood Count 16.5 th/mm3 (4.0-11.0)
[2018-01-05 06:54] LABS: Chloride 104 meq/L (98-107); Potassium 4.6 meq/L (3.5-5.1); Sodium 138 meq/L (136-145)
[2018-01-05 06:59] LABS: Albumin 3.5 g/dL (3.4-5.0); Calcium 8.7 mg/dL (8.5-10.1)
[2018-01-05 07:00] LABS: Anion Gap 11 meq/L (5-15); Carbon Dioxide 22.6 meq/L (21.0-32.0); Glucose,Random 111 mg/dL (74-106)
[2018-01-05 07:11] LABS: Alanine Aminotransferase 20 U/L (12-78); Alkaline Phosphatase 63 U/L (45-117); Aspartate Aminotransferase 27 U/L (15-37); Blood Urea Nitrogen 28 mg/dL (7-18); Glomerular Filtration Rate 39 mL/min (>89)
[2018-01-05] MEDS: dilTIAZem CD 240 MG Capsule PO SCH (08:25)
[2018-01-05] MEDS: Metoprolol Tartrate 25 MG Tablet PO SCH ×2 (08:25→21:31)
--- NOTE | 2018-01-05 09:01 | P.PNCA ---
Subjective Interval history: Still on high flow oxygen, o2 sats in the low 90s. HR 100-130s this AM. No longer on cardizem drip. Currently sitting on side of bed eating breakfast. Report minimal urine output. Small amount of ambered colored urine noted. Echo completed. Physical Exam Vital signs: Vital Signs 01/04/18 09:00 01/04/18 10:25 01/04/18 11:37 Temperature Pulse Rate 76 109 H 113 H Respiratory Rate 16 16 Blood Pressure 139/68 145/78 H Pulse Oximetry 92 L 90 L 01/04/18 12:02 01/04/18 13:00 01/04/18 13:43 Temperature 98.3 F 98.4 F Pulse Rate 144 H 122 H Respiratory Rate 26 H Blood Pressure 132/82 135/67 Pulse Oximetry 91 L 01/04/18 14:00 01/04/18 14:35 01/04/18 15:00 Temperature Pulse Rate 90 92 H Respiratory Rate 19 21 Blood Pressure 126/52 L 109/61 Pulse Oximetry 97 01/04/18 15:20 01/04/18 16:00 01/04/18 17:00 Temperature Pulse Rate 76 Respiratory Rate 22 18 Blood Pressure 96/49 L 101/48 L Pulse Oximetry 97 01/04/18 18:00 01/04/18 19:00 01/04/18 20:00 Temperature 98.5 F 98.1 F Pulse Rate 78 64 63 Respiratory Rate 19 20 20 Blood Pressure 92/47 L 94/51 L 93/43 L Pulse Oximetry 94 L 94 L 01/04/18 20:30 01/04/18 21:00 01/04/18 22:00 Temperature Pulse Rate 74 72 Respiratory Rate 20 20 Blood Pressure 94/58 L 95/58 L Pulse Oximetry 92 L 94 L 94 L 01/04/18 23:00 01/05/18 00:00 01/05/18 01:00 Temperature 98.1 F Pulse Rate 74 76 76 Respiratory Rate 20 19 22 Blood Pressure 92/52 L 104/51 L 94/54 L Pulse Oximetry 96 92 L 92 L 01/05/18 01:30 01/05/18 02:00 01/05/18 03:00 Temperature Pulse Rate 84 81 Respiratory Rate 26 H 28 H Blood Pressure 100/46 L 112/51 L Pulse Oximetry 95 100 96 01/05/18 04:00 01/05/18 04:05 01/05/18 05:00 Temperature 98.2 F Pulse Rate 102 H 92 H Respiratory Rate 22 22 Blood Pressure 109/56 L 113/56 L Pulse Oximetry 93 L 95 97 01/05/18 06:01 01/05/18 07:29 Temperature 98.2 F Pulse Rate 99 H Respiratory Rate 20 Blood Pressure 113/56 L Pulse Oximetry 97 93 L Intake & Output 01/04/18 01/05/18 01/05/18 18:59 06:59 18:59 Intake Total 250 / 250 Output Total 200 / 200 Balance 250 / 250 -200 / -200 Weight 73 kg 72.7 kg Intake: IV 250 / 250 NS Inj 250 ML @ Wide Open IV. 250 / 250 SIG BOLUS YOVANA Rx#:[id number] Output: Urine 200 / 200 Other: Post Void Residual 300 # Voids 2 Date of Last Bowel Movement 01/03/18 01/03/18 - Constitutional mild distress - Routine HEENT Exam Head: Present: normocephalic Eye: Present: normal accommodation ENT: Present: mucous membranes moist - Routine Neck Exam Present: supple - Routine Respiratory Exam Present: crackles, diminished air movement - Routine Cardiovascular Exam Present: tachycardia, irregularly irregular - Routine Abdominal Exam Present: soft - Routine Skin Exam Present: intact - Routine Neurological Exam Present: alert, oriented X3 - Detailed Neurological Exam: Coma Scale Eye Opening: Spontaneous Verbal Response: Oriented Motor Response: Obey commands Hipolito Coma Scale Total: 15 - Routine Psychiatric Exam Present: normal affect Assessment and Plan - Plan Afib RVR CHF Renal insuficiency Elevated White count -Anticoagulated with Xarelto. Will decrease Xarelto to 15mg daily based on creatinine clearance. No longer on cardizem drip. HR elevated this AM. Will continue on cardizem PO and Metoprolol. -Now on BiPap. Antibiotics and steroids started this AM. -Echocardiogram completed. EF normal. Cannot rule out mobile echo density located on anterior wall mitral valve leaflet. Echo reviewed in detail by Dr. Norris. --Not diuresing well, minimal urine output noted. Creatinine increased from 1.3 to 1.7 this AM. Will decrease Lasix to 40mg IV daily. Will order bladder scan and consider Plascencia Placement. -Elevated white count- abnormal echo- will obtain UA and repeat chest x-ray. Blood cultures pending. Antibiotics started. Will have the mud jack operator evaluate patient. The patient was seen and evaluated by Dr. Norris who completed face to face encounter and physical exam and participated in care and management. Code Status: DNR Discussed Condition With: PA and nurse.
[2018-01-05 09:40] LABS: ABG PCO2 36 mmHg (38-42); ABG PO2 71 mmHg (61-120)
[2018-01-05] MEDS ORDERED: Vancomycin Consult Pharmacy OTHER PRN (09:46)
--- NOTE | 2018-01-05 09:54 | XR ---
EXAM DATE: 01/05/2018 9:50 AM EDT AGE/SEX: 82 years / Male INDICATIONS: Short of breath. CLINICAL DATA: This is the patient's subsequent encounter. Patient reports that signs and symptoms h ave been present for 3 days and indicates a pain score of 0/10. MEDICAL/SURGICAL HISTORY: . Afib None. COMPARISON: HPO, CHEST 1V SINGLE AP, 01/04/2018. . FINDINGS: Significant change is identified compared to the prior exam. There is increasing interstitial vascula r prominence and significant development of bibasilar opacity characteristic of bilateral pleural eff usions and underlying airspace disease. CONCLUSION: Characteristic findings of acute congestive heart failure Electronically signed by: Go Howell MD 01/05/2018 9:53 AM EDT
[2018-01-05] MEDS ORDERED: Vancomycin Inj 1,000 MG in Sodium Chlor 0.9% Inj 250 ML IV.SIG ONE (10:00)
[2018-01-05] MEDS ORDERED: Sodium Chlor 0.9% Inj 250 ML IV.SIG SCH (11:00)
[2018-01-05] MEDS: Rivaroxaban 15 MG Tablet PO SCH (11:20)
[2018-01-05] MEDS: MethylPREDNISolone Sod Succinate Inj 40 MG/ML Vial IV.PUSH SCH ×3 (11:24→22:00)
--- NOTE | 2018-01-05 12:17 | P.PNIM ---
Subjective Interval history: The patient was requiring both high flow and BiPAP. He was experiencing shortness of breath but he denies any chest pain. He did complain of some abdominal discomfort. He confirmed that he did not want to be placed on a ventilator should his respiratory status get worse. Discussed with nursing. Physical Exam Vital signs: Vital Signs 01/04/18 13:00 01/04/18 13:43 01/04/18 14:00 Temperature 98.4 F Pulse Rate 122 H 90 Respiratory Rate 26 H 19 Blood Pressure 135/67 126/52 L Pulse Oximetry 91 L 01/04/18 14:35 01/04/18 15:00 01/04/18 15:20 Temperature Pulse Rate 92 H Respiratory Rate 21 Blood Pressure 109/61 Pulse Oximetry 97 97 01/04/18 16:00 01/04/18 17:00 01/04/18 18:00 Temperature 98.5 F Pulse Rate 76 78 Respiratory Rate 22 18 19 Blood Pressure 96/49 L 101/48 L 92/47 L Pulse Oximetry 01/04/18 19:00 01/04/18 20:00 01/04/18 20:30 Temperature 98.1 F Pulse Rate 64 63 Respiratory Rate 20 20 Blood Pressure 94/51 L 93/43 L Pulse Oximetry 94 L 94 L 92 L 01/04/18 21:00 01/04/18 22:00 01/04/18 23:00 Temperature Pulse Rate 74 72 74 Respiratory Rate 20 20 20 Blood Pressure 94/58 L 95/58 L 92/52 L Pulse Oximetry 94 L 94 L 96 01/05/18 00:00 01/05/18 01:00 01/05/18 01:30 Temperature 98.1 F Pulse Rate 76 76 Respiratory Rate 19 22 Blood Pressure 104/51 L 94/54 L Pulse Oximetry 92 L 92 L 95 01/05/18 02:00 01/05/18 03:00 01/05/18 04:00 Temperature 98.2 F Pulse Rate 84 81 102 H Respiratory Rate 26 H 28 H 22 Blood Pressure 100/46 L 112/51 L 109/56 L Pulse Oximetry 100 96 93 L 01/05/18 04:05 01/05/18 05:00 01/05/18 06:01 Temperature 98.2 F Pulse Rate 92 H 99 H Respiratory Rate 22 20 Blood Pressure 113/56 L 113/56 L Pulse Oximetry 95 97 97 01/05/18 07:29 01/05/18 08:00 01/05/18 09:15 Temperature 98.3 F Pulse Rate Respiratory Rate Blood Pressure Pulse Oximetry 93 L 93 L Intake & Output 01/04/18 01/05/18 01/05/18 18:59 06:59 18:59 Intake Total 250 / 250 85 / 85 Output Total 200 / 200 Balance 250 / 250 -115 / -115 Weight 73 kg 72.7 kg Intake: IV 250 / 250 85 / 85 NS Inj 250 ML @ Wide Open IV. 250 / 250 SIG BOLUS YOVANA Rx#:[id number] Output: Urine 200 / 200 Other: Post Void Residual 300 # Voids 2 Date of Last Bowel Movement 01/03/18 01/03/18 Narrative: GENERAL: In some respiratory distress. SKIN: Focused skin assessment warm/dry. HEAD: Atraumatic. Normocephalic. EYES: No injection or drainage. ENT: No nasal bleeding or discharge. Mucous membranes pink and moist. NECK: Trachea midline. No JVD. CARDIOVASCULAR: Irregularly irregular. Systolic murmur noted. RESPIRATORY: Few crackles lower bases bilaterally. GASTROINTESTINAL: Abdomen soft, non-tender, mildly distended. No rebound tenderness. MUSCULOSKELETAL: No obvious deformities. No clubbing. No cyanosis. No edema. NEUROLOGICAL: Awake and alert. No obvious cranial nerve deficits. Motor grossly within normal limits. Normal speech. Nonfocal. PSYCHIATRIC: Appropriate mood and affect; insight and judgment normal. Results - Labs CBC & Chem 7: 01/05/18 04:30 01/05/18 04:30 Laboratory Results - last 24 hr 01/04/18 01/04/18 01/04/18 08:20 13:58 15:31 CBC w Diff WBC RBC Hgb Hct MCV MCH MCHC RDW Plt Count MPV Neut % (Auto) Lymph % (Auto) Todd % (Auto) Eos % (Auto) Baso % (Auto) Neut # (Auto) Lymph # (Auto) Todd # (Auto) Eos # (Auto) Baso # (Auto) WBC Differential Differential Comment Puncture Site Right radial Patient Temperature 98.6 O2 Saturation 87 L* ABG pH 7.46 H ABG pCO2 31 L ABG pO2 51 L* ABG HCO3 22 ABG O2 Content 18.4 ABG Base Excess -1.7 ABG Methemoglobin 0.5 Trent Test Present Hemoglobin 15.0 Carboxyhemoglobin 1.3 O2 Delivery Device Nasal cannula Liter Flow 6.00 Vent Setting Inspired O2 Critical Value Yes Sodium Potassium Chloride Carbon Dioxide Anion Gap BUN Creatinine Estimated GFR Random Glucose Calcium Total Bilirubin AST ALT Alkaline Phosphatase Troponin I 0.04 Total Protein Albumin TSH 1.390 01/05/18 01/05/18 01/05/18 04:30 04:30 09:31 CBC w Diff Auto diff final WBC 16.5 H D RBC 4.50 Hgb 15.3 Hct 44.9 MCV 99.8 MCH 34.0 MCHC 34.1 RDW 12.0 Plt Count 167 MPV 10.4 Neut % (Auto) 85.1 H Lymph % (Auto) 4.7 L Todd % (Auto) 9.8 H Eos % (Auto) 0.1 Baso % (Auto) 0.3 Neut # (Auto) 14.1 H Lymph # (Auto) 0.8 L Todd # (Auto) 1.6 H Eos # (Auto) 0.0 Baso # (Auto) 0.0 WBC Differential . Differential Comment . Puncture Site Right radial Patient Temperature 98.6 O2 Saturation 93 ABG pH 7.35 L ABG pCO2 36 L ABG pO2 71 ABG HCO3 20 L ABG O2 Content 18.7 ABG Base Excess -5.0 L ABG Methemoglobin 0.4 Trent Test Present Hemoglobin 14.3 Carboxyhemoglobin 1.2 O2 Delivery Device Bipap Liter Flow Vent Setting 12 ipap/5 epap Inspired O2 75 Critical Value No Sodium 138 Potassium 4.6 Chloride 104 Carbon Dioxide 22.6 Anion Gap 11 BUN 28 H Creatinine 1.70 H Estimated GFR 39 L Random Glucose 111 H Calcium 8.7 Total Bilirubin 2.1 H AST 27 ALT 20 Alkaline Phosphatase 63 Troponin I Total Protein 7.0 D Albumin 3.5 TSH - Imaging Impressions Chest X-Ray 01/05/18 09:34 CONCLUSION: Characteristic findings of acute congestive heart failure Assessment and Plan - Plan Acute respiratory failure CXR indicative of CHF. BNP elevated. Echo with normal EF, possible atrial shunt , possible echodensity of mitral valve. Requiring high flow and BiPAP. -Lasix 40 mg IV daily per cardiology. -oxygen and BiPAP as needed. -incentive spirometry. -start IV Solumedrol, vancomycin and Zosyn. -blood cultures. -harness puller consulted for bedside thoracentesis. -pulmonology consult requested. -pt confirms DNR status at this time. A fib with RVR The pt is on Cardizem and Xarelto as an outpt. S/p IV Cardizem in the ED. Cardiology consult appreciated. S/p Cardizem gtt. Rate controlled at this time. -on PO metoprolol and Cardizem. Holding parameters as blood pressure has been low. -continue telemetry. Acute renal failure Exacerbated by diuresis. -place Plascencia. -check FENa. -nephrology consult if no improvement. HTN Blood pressure on low side. -holding parameters for meds. -fluids if needed. Hyperglycemia Likely a stress reaction. -follow BMP. Improved. PPx: Xarelto Discharge Planning: The patient is DNR and requiring high flow oxygen and BiPAP. Cyber Security Architect performing bedside thoracentesis for us today. Pulmonology consult pending. Continue IV steroids, antibiotics and Lasix. Follow blood cultures as concern for possible vegetation on echo. Follow up with pulmonology.
--- NOTE | 2018-01-05 12:51 | XR ---
EXAM DATE: 01/05/2018 12:49 PM EDT AGE/SEX: 82 years / Male INDICATIONS: Post right thoracentesis. CLINICAL DATA: This is the patient's subsequent encounter. Patient reports that signs and symptoms h ave been present for 3 days and indicates a pain score of 0/10. MEDICAL/SURGICAL HISTORY: . Afib None. COMPARISON: HPO, CHEST 1V SINGLE AP, 01/05/2018. . FINDINGS: There is improved aeration of both lungs. Small bilateral effusions are identified. This is significa ntly improved from previous study. There is patchy airspace disease greatest in the left lower lobe. I do not see a pneumothorax. CONCLUSION: Improved aeration. Electronically signed by: Saji Puentes MD 01/05/2018 12:50 PM EDT
--- NOTE | 2018-01-05 13:25 | P.PCN ---
Date of procedure: 01/05/18 Pre-op diagnosis: Hypoxia, Large right pleural effusion Post-op diagnosis: same Procedure: Ultrasound-guided right-sided thoracentesis CONSENT: Consent was obtained from patient prior to the procedure. Indications, risks, and benefits were explained at length. PROCEDURE SUMMARY: A time out was performed and the chest x-ray was reviewed, the appropriate side was confirmed and marked with ultrasound. My hands were washed immediately prior to the procedure. I wore a surgical cap, mask with protective eyewear, sterile gown and sterile gloves throughout the procedure. The patient was prepped and draped in a sterile manner using chlorhexidine scrub after the appropriate level was percussed and confirmed by ultrasound. 1% lidocaine was used to anesthetize the skin, subcutaneous tissue, superior aspect of the rib periosteum and parietal pleura. A finder needle was then introduced over the superior aspect of the rib to locate the pleural fluid; straw colored fluid was aspirated at a depth of approximately 1.5 cm. A 10-blade scalpel was used to gabi the skin at the insertion site. The thoracentesis Angiocath was then introduced through the skin incision into the pleural space using negative aspiration pressure and straw colored pleural fluid was obtained. The thoracentesis catheter was then threaded without difficulty, and the needle and syringe was removed. 850 ml of clear straw-colored fluid was removed without difficulty. The catheter was then removed. No immediate complications were noted during the procedure. A post-procedure chest x-ray is pending at the time of this note. The fluid will be sent for studies. Estimated blood loss is < 1ml. Anesthesia: local Surgeon: Melanie Barcenas Estimated blood loss (mL): 1 Pathology: other (Fluid studies sent) Condition: critical Disposition: ICU
[2018-01-05] MEDS ORDERED: Albumin Human 5% Inj 500 ML IV.SIG ONE ×2 (13:41→19:00)
[2018-01-05] MEDS: Piperacil/Tazo 2.25 GM Premix 50 ML IV.SIG SCH ×3 (13:43→22:04)
[2018-01-05] MEDS ORDERED: Sodium Chlor 0.9% Inj 500 ML IV.SIG SCH (13:50)
[2018-01-05 16:38] LABS: Lymphocytes,Pleural Fluid 25 %; Mesothelial,Pleural Fluid 2 %; Monocytes,Pleural Fluid 4 %; Neutrophils,Pleural Fluid 51 %; RBC,Pleural Fluid 369 /mm3 (0-0)
--- NOTE | 2018-01-05 17:50 | MB ---
cc: Lacie Ceballos MD DATE: 01/05/2018 REASON FOR CONSULTATION: Elevated BUN and creatinine, for evaluation. HISTORY OF PRESENT ILLNESS: This 82-year-old male with a past medical history of atrial fibrillation, hypertension, irritable bowel syndrome, ankylosing spondylitis, was admitted with complaints of worsening shortness of breath. I was called to see the patient because of elevated BUN and creatinine. His creatinine on admission was 1.3. The patient does not have any previous labs here, except the ones he had when he was admitted. Now the creatinine has gone to 1.7 from 1.3. The patient came with shortness of breath and he was found to have fluid overload status and he was started on Lasix 40 mg IV b.i.d. He was on a nasal cannula and when I saw him, he was on BiPAP. I saw him this morning. The patient has slight improvement in his breathing, but he still has shortness of breath. He has cough which is mainly dry. There is no chest pain. No palpitation. No nausea or vomiting. There is no history of diarrhea. The patient has not been eating since he came in here yesterday because of the respiratory status and being on the BiPAP. The patient has been following with a merchandising director. PAST MEDICAL HISTORY: Hypertension, ischemic heart disease, atrial fibrillation, ankylosing spondylitis, irritable bowel syndrome. PAST SURGICAL HISTORY: None. REVIEW OF SYSTEMS: The patient has a gradual worsening of shortness of breath associated with mild cough which is mainly dry. There is no chest pain. No palpitation. No nausea, vomiting. No history of diarrhea. No dysuria, hematuria or difficulty in passing urine. He has decreased urine output since yesterday evening. Bladder scan was done, which did not show much urine in the bladder. SOCIAL HISTORY: There is no history of smoking or heavy alcoholism. FAMILY HISTORY: Noncontributory. ALLERGIES: HE HAS NO KNOWN DRUG ALLERGIES. MEDICATIONS: Currently, he is on: 1. Tylenol. 2. Cardizem 240 mg once a day. 3. Lasix 40 mg IV daily. 4. Solu-Medrol 40 mg IV every 6 hours. 5. Metoprolol 25 mg b.i.d. 6. Zofran as needed. 7. Vancomycin dosing by the pharmacy. 8. Zosyn 2.25 grams IV every 6 hours. 9. Xarelto 15 mg once a day. PHYSICAL EXAMINATION: GENERAL: Patient is awake, alert. He is in moderate respiratory distress. VITAL SIGNS: Blood pressure is 113/56. He has some lower readings of the blood pressure in systolic 90s. Temperature is 98.3, oxygen saturation is 91-93% on BiPAP. HEENT: Pupils are mid constricted. Nonicteric sclerae. Conjunctivae are pale. NECK: Supple. JVD is slightly elevated. LUNGS: The patient has bilateral decreased air entry with basal rales and scattered wheezing. HEART: S1, S2. Regular rate and rhythm. ABDOMEN: Distended, soft, lax. There is no tenderness. Bowel sounds positive. EXTREMITIES: He has mild pedal edema. LABORATORY DATA: WBC count is 16.5, hemoglobin 15.3, platelet count of 167, neutrophils 85.1%. Sodium 138, potassium 4.6, chloride 104, bicarbonate 22.6, BUN 28, creatinine 1.7, total bilirubin is 2.1. AST, ALT normal. Total protein 7.0, albumin is 3.5. TSH is 1.39, INR is 1.1. Arterial blood gas showing pH of 7.35 and pCO2 of 36, bicarbonate of 20. There is no urinalysis done. IMAGING STUDIES: The patient had chest x-ray done which shows increased vascular marking. ASSESSMENT AND PLAN: 1. Acute kidney injury. 2. Congestive heart failure and fluid overload status. 3. Atrial fibrillation with rapid ventricular rate. 4. Respiratory failure. The patient had echocardiogram done, which shows that he has normal ejection fraction, possibly has a diastolic dysfunction. He also has mild to moderate mitral valve regurgitation along with aortic regurgitation. At present, he has acute kidney injury. Baseline creatinine is not known, but he came in with a creatinine of 1.3 and now the urine output has decreased. He is getting Lasix. The blood pressure is on the lower side. I gave him 1 dose of bolus IV fluids since he is not taking enough orally. Lasix has been decreased now to once a day. I will get the ultrasound of the kidneys. Most likely acute kidney injury is related to cardiorenal or possibility of acute tubular necrosis because of the hypotension. Cardiology is following. Optimize the patient hemodynamically and avoid nephrotoxins. Follow the urine output and the BUN and creatinine. Thank you for the consultation. I will follow the patient while he is in the hospital. MD SHANIQUA Guerra/zee , 04:21 PM , 04:33 PM
[2018-01-05 18:41] LABS: Bilirubin,Urine Negative (Negative); Clarity,Urine Clear (Clear); Color,Urine Yellow (Yellw/Straw); Glucose,Urine (UA) Negative (Negative); Leukocyte Esterase,Urine Negative (Negative); Nitrite,Urine Negative (Negative); Specific Gravity,Urine 1.025 (1.002-1.035); Urobilinogen,Urine 0.2 mg/dL (Less than 2)
[2018-01-05 18:52] LABS: Hyaline Casts,Urine 0-3 /lpf (0-3); Mucus,Urine Rare /lpf (Occasional); RBC,Urine 0-3 /hpf (0-3); WBC,Urine 0-5 /hpf (0-5)
[2018-01-05] MEDS ORDERED: Albumin Human 25% Inj 100 ML IV.SIG ONE (19:00)
[2018-01-05] MEDS ORDERED: Sodium Chlor 0.9% Inj 500 ML IV.SIG ONE (19:00)
[2018-01-05 19:42] LABS: Total Protein,Pleural Fluid 1.4 gm/dL
--- NOTE | 2018-01-05 22:03 | MB ---
cc: Reji Campbell MD DATE: 01/05/2018 REASON FOR CONSULTATION: Respiratory distress and pleural effusion. HISTORY OF PRESENT ILLNESS: This is an 82-year-old white male with a past history of atrial fibrillation and ASHD, who was brought to the emergency room with a history of shortness of breath and difficulty lying down. The patient was seen in the ER where a chest x-ray demonstrated evidence of fluid overload and a right pleural effusion. He was admitted and started on IV diuretics, and also placed on IV antibiotics since there was suspicion of pneumonia and sepsis. The patient did have a thoracentesis done earlier with removal of over 800 mL of serosanguineous fluid. Fluid results are pending. He is not running any fever, but has been restless and unable to sleep. Initially, he was started on a BiPAP mask, but this was weaned down. Now he is on high flow oxygen at 75% FiO2 and maintains saturation around 90. He has a cough, but does not bring up much sputum. He has no hemoptysis. No leg swelling. PAST MEDICAL HISTORY: Includes history of hypertension, atrial fibrillation, history of ankylosing spondylitis and irritable bowel. PAST SURGICAL HISTORY: None. HABITS: The patient never smoked. Alcohol use, moderate. FAMILY HISTORY: Significant for strokes and hypertension. REVIEW OF SYSTEMS: The patient has lost weight. Denies headaches or blackouts. He has some chest tightness. He has epigastric distress and reflux. He has urinary frequency. He has had no joint pains or neck pain. Denies any leg or calf muscle pains. MEDICATIONS: 1. Cardizem 240 mg daily. 2. Lasix 40 mg b.i.d. 3. Losartan 50 mg a day. 3. Xarelto 20 mg daily. PHYSICAL EXAMINATION: GENERAL: This is an averagely built, elderly man who is pale and mildly dyspneic. VITAL SIGNS: Blood pressure 130/70, pulse is 80, respirations 22, temperature 98.2. HEENT: Head is normocephalic. Pupils reactive. Arcus senilis was seen. Tongue was moist. Throat is injected. Nasal mucosa edematous. NECK: Supple, no bruits. There is mild venous distention while lying flat. Trachea midline. No thyroid enlargement. CHEST: Equal movements. Decreased breath sounds over the right lower chest with occasional basilar crackles. HEART: Sounds are irregularly irregular, S1 and S2. No murmur. ABDOMEN: Soft, protuberant without masses. No organomegaly or tenderness. EXTREMITIES: No edema. Peripheral pulses are diminished. Reflexes are 1+. There is no gross motor deficits. Cranial nerves are grossly intact. SKIN: No lesions are noted. ASSESSMENT: 1. Hypoxemic respiratory failure. 2. Pulmonary edema with right pleural effusion. 3. Probable underlying pneumonia. 4. Chronic atrial fibrillation. PLAN: The patient has been started on BiPAP at 15/5 cm and 50% FiO2. We will wean the O2 to keep saturations greater than 90. Nebulized DuoNeb solution added q.i.d. and p.r.n. Continue the antibiotic coverage for possible pneumonia, including Zosyn and vancomycin, and Lasix 40 mg a day. Continue with anticoagulation with Xarelto. The patient will have a chest x-ray repeated in the morning, and a CBC and basic metabolic profile to be repeated as well. The Lasix will be on hold if his creatinine rises. Thank you for this consultation. MD JOSEPH Pillai/zee , 07:42 PM , 07:52 PM
[2018-01-06 01:44] LABS: Creatinine,Urine Random 128 mg/dL (27-300)
[2018-01-06] MEDS: MethylPREDNISolone Sod Succinate Inj 40 MG/ML Vial IV.PUSH SCH ×4 (04:45→23:42)
[2018-01-06] MEDS: Piperacil/Tazo 2.25 GM Premix 50 ML IV.SIG SCH ×4 (04:46→23:42)
[2018-01-06 05:06] LABS: Baso % (Auto) 0.2 % (0.0-2.0); Lymph # (Auto) 0.5 th/mm3 (1.0-4.8); Lymph % (Auto) 2.7 % (9.0-44.0); Mean Corpuscular HGB Conc 33.3 % (32.0-36.0); Mean Corpuscular Hemoglobin 33.3 pg (27.0-34.0); Mean Corpuscular Volume 100.1 fL (80.0-100.0); Mean Platelet Volume 10.4 fL (7.0-11.0); Mono # (Auto) 1.1 th/mm3 (0.0-0.9); Mono % (Auto) 5.6 % (0.0-8.0); Neut # (Auto) 17.7 th/mm3 (1.8-7.7); Neut % (Auto) 91.5 % (16.0-70.0); Platelet Count 160 th/mm3 (150-450); Red Cell Distribution Width 12.1 % (11.6-17.2); White Blood Count 19.3 th/mm3 (4.0-11.0)
[2018-01-06 05:16] LABS: Potassium 4.5 meq/L (3.5-5.1)
[2018-01-06 05:19] LABS: Calcium 8.5 mg/dL (8.5-10.1)
[2018-01-06 05:20] LABS: Albumin 3.9 g/dL (3.4-5.0); Carbon Dioxide 19.6 meq/L (21.0-32.0); Magnesium 1.9 mg/dL (1.5-2.5)
[2018-01-06 06:44] LABS: Phosphorus 3.3 mg/dL (2.5-4.9)
[2018-01-06 06:45] LABS: Total Protein 7.3 g/dL (6.4-8.2)
[2018-01-06] MEDS: dilTIAZem CD 240 MG Capsule PO SCH (08:25)
--- NOTE | 2018-01-06 08:25 | US ---
EXAM DATE: 01/06/2018 8:19 AM EDT AGE/SEX: 82 years / Male INDICATIONS: Increased BUN/Creatinine. CLINICAL DATA: This is the patient's initial encounter. Patient reports that signs and symptoms have been present for 1 day and indicates a pain score of 0/10. MEDICAL/SURGICAL HISTORY: Hypertension. Ankylosing spondylitis. Atrial fibrillation. Cardiovers ion. IBS. None. COMPARISON: No prior exams available for comparison. MEASUREMENTS: Right Kidney:__11.2 x 5.2 x 5.3 cm Left Kidney:__12.5 x 6.0 x 5.9 cm FINDINGS: Right Kidney: Slightly less than 5.5 cm cyst involving the lower pole. No hydronephrosis.. Left Kidney: Focally unremarkable. No hydronephrosis. Bladder: Plascencia catheter is present. Bladder decompressed. Other: None. CONCLUSION: Right renal cyst. No hydronephrosis Electronically signed by: Narinder Olivera MD 01/06/2018 8:23 AM EDT
[2018-01-06] MEDS: Metoprolol Tartrate 25 MG Tablet PO SCH ×3 (08:26→20:26)
[2018-01-06] MEDS: Rivaroxaban 15 MG Tablet PO SCH ×2 (08:35→08:39)
--- NOTE | 2018-01-06 08:54 | XR ---
EXAM DATE: 01/06/2018 8:24 AM EDT AGE/SEX: 82 years / Male INDICATIONS: Short of breath. CLINICAL DATA: This is the patient's subsequent encounter. Patient reports that signs and symptoms h ave been present for 4 - 6 days and indicates a pain score of 0/10. MEDICAL/SURGICAL HISTORY: . Afib None. COMPARISON: [facility], CHEST 1V SINGLE AP, 01/05/2018. . FINDINGS: There are lung base opacities bilaterally, worsening on the right and grossly stable on the left. Car diac contours are grossly unchanged. CONCLUSION: Worsening aeration, particularly in the right lung base Electronically signed by: Narinder Olivera MD 01/06/2018 8:52 AM EDT
[2018-01-06] MEDS ORDERED: Vancomycin Inj 1,000 MG in Sodium Chlor 0.9% Inj 250 ML IV.SIG SCH (10:00)
--- NOTE | 2018-01-06 13:39 | P.PN ---
Subjective Interval history: 82-year-old male who is seen by acute hypoxic respiratory failure, renal failure , hypotension. Patient does not appear to have any significant improvement. Patient remained on BiPAP all night. Patient still with significantly low to saturations. Renal functions are worsening with decreased urinary output. Discussed with patient prognosis and treatment plan. Patient still requests to maintain DNR status. Patient remains afebrile. However patient continues to be hypoxic as well as low blood pressure Physical Exam Vital signs: Vital Signs 01/05/18 14:00 01/05/18 15:00 01/05/18 15:13 Temperature Pulse Rate 60 62 Respiratory Rate 33 H 31 H Blood Pressure 82/42 L Pulse Oximetry 93 L 94 L 93 L 01/05/18 16:00 01/05/18 16:54 01/05/18 17:00 Temperature 98.3 F Pulse Rate 66 76 Respiratory Rate 32 H 32 H Blood Pressure 86/46 L 90/45 L Pulse Oximetry 92 L 91 L 93 L 01/05/18 18:00 01/05/18 19:00 01/05/18 20:00 Temperature 98.8 F Pulse Rate 74 80 Respiratory Rate 20 Blood Pressure 87/50 L 91/48 L Pulse Oximetry 93 L 86 L 91 L 01/05/18 20:30 01/05/18 20:59 01/05/18 21:00 Temperature Pulse Rate 82 Respiratory Rate 22 Blood Pressure 98/45 L Pulse Oximetry 91 L 88 L 94 L 01/05/18 22:00 01/05/18 23:00 01/05/18 23:10 Temperature Pulse Rate 84 90 Respiratory Rate 22 24 Blood Pressure 100/51 L 107/49 L Pulse Oximetry 92 L 90 L 91 L 01/06/18 00:00 01/06/18 01:00 01/06/18 02:00 Temperature 98 F Pulse Rate 96 H 96 H 98 H Respiratory Rate 26 H 24 29 H Blood Pressure 108/53 L 112/64 122/56 L Pulse Oximetry 89 L 91 L 91 L 01/06/18 02:30 01/06/18 03:00 01/06/18 04:00 Temperature 97.5 F L Pulse Rate 96 H 106 H Respiratory Rate 28 H 20 Blood Pressure 115/58 L 114/54 L Pulse Oximetry 90 L 91 L 91 L 01/06/18 05:00 01/06/18 05:40 01/06/18 06:00 Temperature 97.3 F L Pulse Rate 100 H 106 H Respiratory Rate 30 H 31 H Blood Pressure 133/72 126/69 Pulse Oximetry 92 L 91 L 91 L 01/06/18 07:00 01/06/18 08:00 01/06/18 09:00 Temperature 97.9 F Pulse Rate 110 H 104 H 106 H Respiratory Rate 30 H 31 H 31 H Blood Pressure 143/61 H 133/61 119/61 Pulse Oximetry 91 L 91 L 88 L 01/06/18 09:40 01/06/18 10:00 01/06/18 11:00 Temperature Pulse Rate 91 H 94 H 96 H Respiratory Rate 16 31 H 32 H Blood Pressure 103/61 105/56 L Pulse Oximetry 90 L 90 L 01/06/18 12:00 01/06/18 13:00 Temperature Pulse Rate 96 H Respiratory Rate 32 H Blood Pressure 109/55 L Pulse Oximetry 89 L 87 L Intake & Output 01/05/18 01/06/18 01/06/18 18:59 06:59 18:59 Intake Total 1040 / 1040 700 / 700 350 / 350 Output Total 360 / 360 225 / 225 Balance 680 / 680 475 / 475 350 / 350 Weight 74.4 kg Intake: IV 800 / 800 700 / 700 350 / 350 Flexbumin 25% Inj 100 ML @ As 100 / 100 Directed 60 mls/hr IV.SIG ONCE ONE Rx#:[id number] Alburx 5% Inj 500 ML @ 250 mls/ 500 / 500 hr IV.SIG ONCE ONE Rx#: [id number] Zosyn 2.25 GM Premix 50 ML @ 50 / 50 100 / 100 100 / 100 100 mls/hr IV.SIG Q6H [facility] Rx#: [id number] NS Inj 500 ML @ As Directed IV. 500 / 500 SIG BOLUS ONE Rx#:[id number] Vancomycin Inj 1,000 MG In NS 250 / 250 250 / 250 Inj 250 ML @ 250 mls/hr IV.SIG DAILY@1000 [facility] Rx#:[id number] Oral 240 / 240 0 / 0 Output: Urine 360 / 360 225 / 225 Other: Date of Last Bowel Movement 01/05/18 01/05/18 01/05/18 Narrative: GENERAL: Well-developed, well-nourished, and acute respiratory failure. alert and orientated HEENT: Head is normocephalic without any lesions or masses noted. Facial features are symmetric. Eyes: Extraocular muscles are intact. Conjunctivae were clear. BiPAP mask in place NECK: Supple without any masses. Trachea midline no deviation. No JVD, CARDIAC: Regular rhythm, regular rate. S1/S2 are heard. 2/6 ejection murmur, no gallops or rubs. LUNGS: Diminished breath sounds noted throughout, minimal air movement. No wheeze, rhonchi or rales. No use of accessory muscles on inspiration or expiration. ABDOMEN: Soft, nontender. Nondistended. Bowel sounds heard in all 4 quadrants. No organomegaly or masses. Negative rebound, negative guarding EXTREMITIES: No edema, pulses are equal bilaterally. No cyanosis or clubbing NEUROLOGY: Mood and affect appear appropriate. Cranial nerves II through XII grossly intact. Moving all extremities, speech is clear - Urinary Catheter Management Indwelling Urethral Catheter Cath placed during this visit: yes Reason for continuing: Hourly intake/output Insertion date: 01/05/18 Insertion time: 18:00 Results - Labs CBC & Chem 7: 01/06/18 04:45 01/06/18 04:45 Laboratory Results - last 24 hr 01/05/18 01/05/18 01/05/18 12:20 12:20 17:50 CBC w Diff WBC RBC Hgb Hct MCV MCH MCHC RDW Plt Count MPV Neut % (Auto) Lymph % (Auto) [place] % (Auto) Eos % (Auto) Baso % (Auto) Neut # (Auto) Lymph # (Auto) [place] # (Auto) Eos # (Auto) Baso # (Auto) WBC Differential Differential Comment Sodium Potassium Chloride Carbon Dioxide Anion Gap BUN Creatinine Estimated GFR Random Glucose Calcium Phosphorus Magnesium Total Bilirubin Direct Bilirubin Indirect Bilirubin AST ALT Alkaline Phosphatase B-Natriuretic Peptide Total Protein Albumin Urine Color Urine Clarity Urine pH Ur Specific [place] Urine Protein Urine Glucose (UA) Urine Ketones Urine Occult Blood Urine Nitrate Urine Bilirubin Urine Urobilinogen Ur Leukocyte Esterase Urine RBC Urine WBC Hyaline Casts Urine Mucus Micro UA Comment Ur Microscopic Review Urine Culture Comments Urine Osmolality Ur Random Creatinine 128 Ur Random Sodium 47 Pleural pH 8.0 Pleural RBC 369 H Pleural Nuc Cells 283 H Pleural Neutrophils 51 Pleural Lymphocytes 25 Pleural Monocytes 4 Pleural Histocytes 8 Pleural Mesothelial 2 Pleural Total Protein 1.4 Pleural LDH 78 Pleural Glucose 141 Pleural Amylase 17 01/05/18 01/05/18 01/06/18 17:50 17:50 04:45 CBC w Diff Auto diff final WBC 19.3 H RBC 4.20 L Hgb 14.0 Hct 42.0 MCV 100.1 H MCH 33.3 MCHC 33.3 RDW 12.1 Plt Count 160 MPV 10.4 Neut % (Auto) 91.5 H Lymph % (Auto) 2.7 L [place] % (Auto) 5.6 Eos % (Auto) 0.0 Baso % (Auto) 0.2 Neut # (Auto) 17.7 H Lymph # (Auto) 0.5 L [place] # (Auto) 1.1 H Eos # (Auto) 0.0 Baso # (Auto) 0.0 WBC Differential . Differential Comment . Sodium Potassium Chloride Carbon Dioxide Anion Gap BUN Creatinine Estimated GFR Random Glucose Calcium Phosphorus Magnesium Total Bilirubin Direct Bilirubin Indirect Bilirubin AST ALT Alkaline Phosphatase B-Natriuretic Peptide Total Protein Albumin Urine Color Yellow Urine Clarity Clear Urine pH 5.0 Ur Specific [place] 1.025 Urine Protein Negative Urine Glucose (UA) Negative Urine Ketones Negative Urine Occult Blood Negative Urine Nitrate Negative Urine Bilirubin Negative Urine Urobilinogen 0.2 Ur Leukocyte Esterase Negative Urine RBC 0-3 Urine WBC 0-5 Hyaline Casts 0-3 Urine Mucus Rare H Micro UA Comment Cath-culture not ind Ur Microscopic Review Microscopic reviewed Urine Culture Comments Cath-cult not ind Urine Osmolality 384 Ur Random Creatinine Ur Random Sodium Pleural pH Pleural RBC Pleural Nuc Cells Pleural Neutrophils Pleural Lymphocytes Pleural Monocytes Pleural Histocytes Pleural Mesothelial Pleural Total Protein Pleural LDH Pleural Glucose Pleural Amylase 01/06/18 01/06/18 04:45 04:45 CBC w Diff WBC RBC Hgb Hct MCV MCH MCHC RDW Plt Count MPV Neut % (Auto) Lymph % (Auto) [place] % (Auto) Eos % (Auto) Baso % (Auto) Neut # (Auto) Lymph # (Auto) [place] # (Auto) Eos # (Auto) Baso # (Auto) WBC Differential Differential Comment Sodium 137 Potassium 4.5 Chloride 106 Carbon Dioxide 19.6 L Anion Gap 11 BUN 45 H Creatinine 2.00 H Estimated GFR 32 L Random Glucose 145 H Calcium 8.5 Phosphorus 3.3 Magnesium 1.9 Total Bilirubin 1.8 H Direct Bilirubin 0.7 H Indirect Bilirubin 1.1 H AST 32 ALT 33 Alkaline Phosphatase 48 B-Natriuretic Peptide 402 H Total Protein 7.3 Albumin 3.9 Urine Color Urine Clarity Urine pH Ur Specific [place] Urine Protein Urine Glucose (UA) Urine Ketones Urine Occult Blood Urine Nitrate Urine Bilirubin Urine Urobilinogen Ur Leukocyte Esterase Urine RBC Urine WBC Hyaline Casts Urine Mucus Micro UA Comment Ur Microscopic Review Urine Culture Comments Urine Osmolality Ur Random Creatinine Ur Random Sodium Pleural pH Pleural RBC Pleural Nuc Cells Pleural Neutrophils Pleural Lymphocytes Pleural Monocytes Pleural Histocytes Pleural Mesothelial Pleural Total Protein Pleural LDH Pleural Glucose Pleural Amylase Microbiology 01/05/18 10:50 Blood - Peripheral Aerobic Blood Culture - Preliminary No growth in 1 day 01/05/18 10:50 Blood - Peripheral Anaerobic Blood Culture - Preliminary No growth in 1 day 01/05/18 10:40 Blood - Peripheral Aerobic Blood Culture - Preliminary No growth in 1 day 01/05/18 10:40 Blood - Peripheral Anaerobic Blood Culture - Preliminary No growth in 1 day 01/05/18 12:20 Fluid - Pleural fluid Fungal Smear - Final No fungal elements seen 01/05/18 12:20 Fluid - Pleural fluid Gram Stain - Final - Imaging Impressions Abdomen/Bladder Ultrasound 01/06/18 00:00 CONCLUSION: Right renal cyst. No hydronephrosis Chest X-Ray 01/06/18 00:00 CONCLUSION: Worsening aeration, particularly in the right lung base Assessment and Plan - Plan Acute hypoxic respiratory failure -Multifactorial with findings of congestive heart failure, elevated BNP, significant pleural effusion, severe biatrial enlargement, possible atrial level shunt -Unable to treat effectively without intubation, patient is a DO NOT RESUSCITATE , will respect the patient's wishes -Continue high flow oxygen and BiPAP to maintain O2 sats greater than 92% -Marzipan Molder was consulted who performed right-sided thoracentesis with 800 cc of fluid removal -Fluid studies indicating transudate fluid -Patient currently on Lasix 40 mg IV twice daily, will change the Bumex 1 mg IV twice daily -Continue Solu-Medrol 40 mg every 6 hours -Continue empirical antibiotics include vancomycin and Zosyn -Domestic Technician following the patient -Palliative care consulted for further recommendations and treatment plan goals Acute renal failure with decreased urinary output -Could be secondary to tubular necrosis from hypotension -Renal bladder ultrasound was performed which showed right renal cyst no hydronephrosis -Renal functions continue to worsen -Avoid nephrotoxins -Supervisor Tumbling [employer] Rolling following the patient -Plascencia for strict ins and outs management Hypotension -Unknown if this is related to diuresis, sepsis, cardiorenal syndrome -Patient was given fluid boluses, albumin bolus -Patient blood pressure medications have hold parameters Atrial fibrillation with RVR -Status post Cardizem IV with discontinuation -Patient continued on Cardizem CD 240 mg daily -Adjust to metoprolol 12.5 mg twice daily, -Need to adjust medications for hypotension, heart rate may worsen -If heart rate worsens possible consider digoxin to help with rate control and cardiac function -Patient is on Xarelto for anticoagulation Hyperglycemia -Likely secondary to stress and Solu-Medrol -Obtain hemoglobin A1c -Continue monitor and start Accu-Cheks with sliding scale insulin if needed DVT prevention -Xarelto
--- NOTE | 2018-01-06 14:19 | P.CONPAL ---
Consult Service: Palliative Care Requesting Physician: Chantale Smith Reason for Consult: a. To assist with evaluation and management of symptoms including: Dyspnea b. To assist medical decision maker(s) with: better understanding of current medical conditions; weighing benefits/burdens of medical treatment options; making medical treatment decisions. Primary Care Provider: PROVIDER NON STAFF History of Present Illness History of Present Illness: This 82-year-old male has been declining for several months, losing significant weight and getting weaker. He has a past history of recurrent atrial fibrillation, hypertension, ankylosing spondylitis, and irritable bowel syndrome. He did not have a past history of cardiac disease. [place] and then had difficulty getting his car away from the high [place], but made it home and was feeling quite worn out. During the night, he became more short of breath, and finally came to the emergency department on the morning of . Findings in the emergency department included: * Moderate dyspnea * Temp 97.4, pulse 101, respirations 16, blood pressure 113/53, oxygen saturation 9 4% * Sodium 139, creatinine 1.3, albumin 4.0 * White count 10.3, hemoglobin 15.5 * BNP elevated * Chest x-ray with findings consistent with CHF and pleural effusion * Echocardiogram with ejection fraction 65%, but severe bilateral atrial enlargement, mitral and tricuspid valve regurgitations, and pulmonary artery pressure of 57. The patient was admitted and placed on high flow oxygen. By the following day, he was not diuresing well, and his creatinine had increased to 1.7. BiPAP was required because of hypoxia. Patient told his providers that he did not want to be intubated or mechanically ventilated or resuscitated. On the day of this consultation, the chest x-ray looked worse on the right, and same interstitial disease on the left. His creatinine was up to 2.0, GFR 32, but some diuresis was occurring. The patient remained on BiPAP. Palliative Care was consulted to assist with symptom management, and to enter into discussions with the patient and family regarding his illnesses, the prognosis, and the benefits and burdens of the various treatment choices. Function/Cognitive Trajectory: The patient has lived independently since he was in recent years. However, he has been declining significantly over the past year, with significant weight loss and worsening with he was eating less. He remains cognitively sharp. Review of Systems Constitutional: Reports weight loss Eyes: Denies irritation Ears, Nose, Mouth, and Throat: Denies difficulty swallowing, Denies neck pain Cardiovascular: Denies chest pain, Denies fast heart rate Respiratory: Reports cough, Reports shortness of breath, Denies coughing up blood Gastrointestinal: Denies abdominal pain, Denies loose stools, Denies nausea, Denies vomiting Genitourinary: Denies blood in urine Musculoskeletal: Reports back pain (Mild, chronic: Ankylosing spondylitis) Skin/Breast: Denies rash Neurologic: Denies confusion, Denies memory loss, Denies numbness, Denies convulsions Psychiatric: Denies confusion, Denies depression Endocrine: Denies flushing Hematologic/Lymphatic: Denies easy bruising Allergic/Immunologic: Denies GI upset with certain foods PMFSH - History History Provided By: Patient - Medical History Medical History: Medical History (Last Updated 01/04/18 @ 14:44 by LUCITA Muro) History of atrial fibrillation (Acute) Hx of primary hypertension (Acute) Ankylosing spondylitis History of cardioversion IBS (irritable bowel syndrome) - Surgical History Surgical History: Surgical History (Last Updated 01/06/18 @ 14:06 by Megha Day MD) No history of previous surgery (Acute) S/P thoracentesis - Family History Family History: Family History (Last Updated 01/06/18 @ 14:08 by Megha Day MD) Mother CVA (cerebral vascular accident) Father Blood transfusion reaction - Social History I have reviewed the patient's Social History: Yes - Tobacco History Second Hand Smoke Exposure: No Tobacco Use In Past 30 Days: No Smoking Status: Never smoker - Alcohol History How Often Do You Have a Drink Containing Alcohol: 4 or more times a week - Substance Use History Substance History: No History of Abuse - Travel History Recent Travel in the [place] Within the Last 8 Weeks: No Recent Travel Out of the Country Within the Last 8 Weeks: No - Immunization History Tetanus Immunization: Unsure Hx Influenza Vaccine This Season: No Medications and Allergies Active Medications: Active Medications Acetaminophen (Tylenol) 650 mg PO Q4H PRN PRN Reason: Temp > 100.4 Albuterol (Duoneb Neb (Faby)) 1 ampul NEB Q6HR ALT NEB FABY Last Admin: 01/06/18 09:34 Dose: 1 ampul Bumetanide (Bumex Inj) 1 mg IV.PUSH BID@0900,1800 [facility] Diltiazem HCl (Cardizem Cd 24hr) 240 mg PO DAILY [facility] Last Admin: 01/06/18 08:25 Dose: 240 mg Sodium Chloride (Ns Inj) 250 mls @ 0 mls/hr IV.SIG BOLUS [facility] Last Infusion: 01/04/18 08:48 Dose: Infused Piperacillin/Tazobactam/Dextrose (Zosyn 2.25 Gm Premix) 50 mls @ 100 mls/hr IV.SIG Q6H [facility] Last Infusion: 01/06/18 11:30 Dose: Infused Vancomycin HCl 1,000 mg/ (Sodium Chloride) 250 mls @ 250 mls/hr IV.SIG DAILY@ 1000 FABY Last Infusion: 01/06/18 10:55 Dose: Infused Sodium Chloride (Ns Inj) 250 mls @ 0 mls/hr IV.SIG BOLUS FABY Sodium Chloride (Ns Inj) 500 mls @ 0 mls/hr IV.SIG BOLUS FABY Methylprednisolone Sodium Succinate (Solumedrol Inj) 40 mg IV.PUSH Q6H [facility] Last Admin: 01/06/18 10:14 Dose: 40 mg Metoprolol Tartrate (Lopressor) 12.5 mg PO BID [facility] Miscellaneous Information ([facility] Ordered Lab Info) 1 each OTHER ONCE ONE Stop: 01/08/18 09:46 Ondansetron HCl (Zofran Inj) 4 mg IV.PUSH Q6H PRN PRN Reason: n/v Last Admin: 01/04/18 17:29 Dose: 4 mg Pharmacy Profile Note (Vancomycin Consult Pharmacy) 1 each OTHER UNSCH PRN PRN Reason: Pharmacy to dose Rivaroxaban (Xarelto) 15 mg PO DAILY [facility] Last Admin: 01/06/18 08:39 Dose: Not Given Sodium Chloride (Ns Flush) 2 ml IV.FLUSH UNSCH PRN PRN Reason: FLUSH AFTER USING IV ACCESS Last Admin: 01/05/18 22:01 Dose: 2 ml Allergies Allergy/AdvReac Type Severity Reaction Status Date / Time No Known Allergies Allergy Unverified 01/04/18 08:13 Home Medications Medication Instructions Recorded Confirmed Type diltiazem HCl 240 mg PO DAILY 01/04/18 01/04/18 History losartan 50 mg PO DAILY 01/04/18 01/04/18 History rivaroxaban [Xarelto] 20 mg PO DAILY 01/04/18 01/04/18 History Advance Directives Living Will: Yes Healthcare Surrogate: Yes Health Care Surrogate Name and Number: Nephjill Webster and eddie Zaragoza Power of Medical Lab Scientist: Yes Today's verbally stated goals: The patient is very clear that he wants us to honor his previously expressed wishes and his living will. He does not want to be resuscitated or mechanically ventilated. He tells me that "if this is as good as it gets, then I want to go to hospice and have them let me go." He says he is not afraid to . Family/friends goals: The patient's niece supports his wishes Ethical and Legal Issues: There are no ethical issues that would impact his care were decision-making at this time. The patient has capacity for decision-making; he has designated his nephew Darin and eddie Zaragoza as healthcare surrogates. Physical Exam Vital Signs: Vital Signs - 24 hr 01/05/18 14:00 01/05/18 15:00 01/05/18 15:13 Temperature Pulse Rate 60 62 Respiratory Rate 33 H 31 H Blood Pressure 82/42 L Pulse Oximetry 93 L 94 L 93 L 01/05/18 16:00 01/05/18 16:54 01/05/18 17:00 Temperature 98.3 F Pulse Rate 66 76 Respiratory Rate 32 H 32 H Blood Pressure 86/46 L 90/45 L Pulse Oximetry 92 L 91 L 93 L 01/05/18 18:00 01/05/18 19:00 01/05/18 20:00 Temperature 98.8 F Pulse Rate 74 80 Respiratory Rate 20 Blood Pressure 87/50 L 91/48 L Pulse Oximetry 93 L 86 L 91 L 01/05/18 20:30 01/05/18 20:59 01/05/18 21:00 Temperature Pulse Rate 82 Respiratory Rate 22 Blood Pressure 98/45 L Pulse Oximetry 91 L 88 L 94 L 01/05/18 22:00 01/05/18 23:00 01/05/18 23:10 Temperature Pulse Rate 84 90 Respiratory Rate 22 24 Blood Pressure 100/51 L 107/49 L Pulse Oximetry 92 L 90 L 91 L 01/06/18 00:00 01/06/18 01:00 01/06/18 02:00 Temperature 98 F Pulse Rate 96 H 96 H 98 H Respiratory Rate 26 H 24 29 H Blood Pressure 108/53 L 112/64 122/56 L Pulse Oximetry 89 L 91 L 91 L 01/06/18 02:30 01/06/18 03:00 01/06/18 04:00 Temperature 97.5 F L Pulse Rate 96 H 106 H Respiratory Rate 28 H 20 Blood Pressure 115/58 L 114/54 L Pulse Oximetry 90 L 91 L 91 L 01/06/18 05:00 01/06/18 05:40 01/06/18 06:00 Temperature 97.3 F L Pulse Rate 100 H 106 H Respiratory Rate 30 H 31 H Blood Pressure 133/72 126/69 Pulse Oximetry 92 L 91 L 91 L 01/06/18 07:00 01/06/18 08:00 01/06/18 09:00 Temperature 97.9 F Pulse Rate 110 H 104 H 106 H Respiratory Rate 30 H 31 H 31 H Blood Pressure 143/61 H 133/61 119/61 Pulse Oximetry 91 L 91 L 88 L 01/06/18 09:40 01/06/18 10:00 01/06/18 11:00 Temperature Pulse Rate 91 H 94 H 96 H Respiratory Rate 16 31 H 32 H Blood Pressure 103/61 105/56 L Pulse Oximetry 90 L 90 L 01/06/18 12:00 01/06/18 13:00 Temperature Pulse Rate 96 H Respiratory Rate 32 H Blood Pressure 109/55 L Pulse Oximetry 89 L 87 L I&O: Intake & Output 01/04/18 01/05/18 01/06/18 01/07/18 06:59 06:59 06:59 06:59 Intake Total 335 / 335 1740 / 1740 350 / 350 Output Total 200 / 200 585 / 585 Balance 135 / 135 1155 / 1155 350 / 350 Weight 72.7 kg 74.4 kg Physical Exam: CONSTITUTIONAL/GENERAL: This is an elderly, mildly tachypneic patient, in mild respiratory distress. TUBES/LINES/DRAINS: BiPAP, IV access SKIN: No jaundice, rashes, or lesions. Ecchymoses on upper extremities. No wounds seen anteriorly. Skin temperature appropriate. Not diaphoretic. HEAD: Atraumatic. Normocephalic. EYES: Pupils equal and round and reactive. Extraocular motions intact. No scleral icterus. No injection or drainage. Fundi not examined. ENT: Hearing grossly normal. Nose without bleeding or purulent drainage. NECK: Trachea midline. Supple, nontender. No palpable thyroid enlargement or nodularity. CARDIOVASCULAR: Irregular rhythm without murmurs, gallops, or rubs. No JVD. Peripheral pulses diminished. RESPIRATORY/CHEST: Symmetric, mildly labored respirations. A few scattered rales bilateral. GASTROINTESTINAL: Abdomen soft, non-tender, nondistended. No hepato-splenomegaly , or palpable masses. No guarding. Bowel sounds present. GENITOURINARY: Without palpable bladder distension. MUSCULOSKELETAL: Extremities without clubbing, cyanosis, or edema. No joint tenderness or effusion noted. No calf tenderness. No mottling or clubbing. LYMPHATICS: No palpable cervical or supraclavicular adenopathy. NEUROLOGICAL: Awake and alert. Motor and sensory grossly within normal limits. Follows commands. Cognitively sharp. Moves all extremities. PSYCHIATRIC: No obvious anxiety/depression. no apparent hallucinations or other psychotic thought process. Diagnostic Tests Laboratory: Laboratory Results - last 72 hr 01/04/18 01/04/18 01/04/18 08:20 08:20 08:20 CBC w Diff Auto diff final WBC 10.3 RBC 4.52 Hgb 15.5 Hct 43.9 MCV 97.1 MCH 34.2 H MCHC 35.2 RDW 12.3 Plt Count 204 MPV 10.1 Neut % (Auto) 82.0 H Lymph % (Auto) 8.9 L [place] % (Auto) 8.5 H Eos % (Auto) 0.1 Baso % (Auto) 0.5 Neut # (Auto) 8.4 H Lymph # (Auto) 0.9 L [place] # (Auto) 0.9 Eos # (Auto) 0.0 Baso # (Auto) 0.1 WBC Differential . Differential Comment . PT 11.3 INR 1.1 APTT 29.4 Puncture Site Patient Temperature O2 Saturation ABG pH ABG pCO2 ABG pO2 ABG HCO3 ABG O2 Content ABG Base Excess ABG Methemoglobin Trent Test Hemoglobin Carboxyhemoglobin O2 Delivery Device Liter Flow Vent Setting Inspired O2 Critical Value Sodium 139 Potassium 4.0 Chloride 105 Carbon Dioxide 22.3 Anion Gap 12 BUN 17 Creatinine 1.30 Estimated GFR 53 L Random Glucose 164 H Calcium 8.9 Phosphorus Magnesium 2.0 Total Bilirubin 1.4 H Direct Bilirubin Indirect Bilirubin AST 22 ALT 21 Alkaline Phosphatase 74 Total Creatine Kinase 209 CK-MB (CK-2) 2.6 Troponin I 0.02 B-Natriuretic Peptide Total Protein 7.7 Albumin 4.0 TSH Urine Color Urine Clarity Urine pH Ur Specific [place] Urine Protein Urine Glucose (UA) Urine Ketones Urine Occult Blood Urine Nitrate Urine Bilirubin Urine Urobilinogen Ur Leukocyte Esterase Urine RBC Urine WBC Hyaline Casts Urine Mucus Micro UA Comment Ur Microscopic Review Urine Culture Comments Urine Osmolality Ur Random Creatinine Ur Random Sodium Pleural pH Pleural RBC Pleural Nuc Cells Pleural Neutrophils Pleural Lymphocytes Pleural Monocytes Pleural Histocytes Pleural Mesothelial Pleural Total Protein Pleural LDH Pleural Glucose Pleural Amylase 01/04/18 01/04/18 01/04/18 08:20 08:20 13:58 CBC w Diff WBC RBC Hgb Hct MCV MCH MCHC RDW Plt Count MPV Neut % (Auto) Lymph % (Auto) [place] % (Auto) Eos % (Auto) Baso % (Auto) Neut # (Auto) Lymph # (Auto) [place] # (Auto) Eos # (Auto) Baso # (Auto) WBC Differential Differential Comment PT INR APTT Puncture Site Right radial Patient Temperature 98.6 O2 Saturation 87 L* ABG pH 7.46 H ABG pCO2 31 L ABG pO2 51 L* ABG HCO3 22 ABG O2 Content 18.4 ABG Base Excess -1.7 ABG Methemoglobin 0.5 Trent Test Present Hemoglobin 15.0 Carboxyhemoglobin 1.3 O2 Delivery Device Nasal cannula Liter Flow 6.00 Vent Setting Inspired O2 Critical Value Yes Sodium Potassium Chloride Carbon Dioxide Anion Gap BUN Creatinine Estimated GFR Random Glucose Calcium Phosphorus Magnesium Total Bilirubin Direct Bilirubin Indirect Bilirubin AST ALT Alkaline Phosphatase Total Creatine Kinase CK-MB (CK-2) Troponin I B-Natriuretic Peptide 378 H Total Protein Albumin TSH 1.390 Urine Color Urine Clarity Urine pH Ur Specific [place] Urine Protein Urine Glucose (UA) Urine Ketones Urine Occult Blood Urine Nitrate Urine Bilirubin Urine Urobilinogen Ur Leukocyte Esterase Urine RBC Urine WBC Hyaline Casts Urine Mucus Micro UA Comment Ur Microscopic Review Urine Culture Comments Urine Osmolality Ur Random Creatinine Ur Random Sodium Pleural pH Pleural RBC Pleural Nuc Cells Pleural Neutrophils Pleural Lymphocytes Pleural Monocytes Pleural Histocytes Pleural Mesothelial Pleural Total Protein Pleural LDH Pleural Glucose Pleural Amylase 01/04/18 01/05/18 01/05/18 15:31 04:30 04:30 CBC w Diff Auto diff final WBC 16.5 H D RBC 4.50 Hgb 15.3 Hct 44.9 MCV 99.8 MCH 34.0 MCHC 34.1 RDW 12.0 Plt Count 167 MPV 10.4 Neut % (Auto) 85.1 H Lymph % (Auto) 4.7 L [place] % (Auto) 9.8 H Eos % (Auto) 0.1 Baso % (Auto) 0.3 Neut # (Auto) 14.1 H Lymph # (Auto) 0.8 L [place] # (Auto) 1.6 H Eos # (Auto) 0.0 Baso # (Auto) 0.0 WBC Differential . Differential Comment . PT INR APTT Puncture Site Patient Temperature O2 Saturation ABG pH ABG pCO2 ABG pO2 ABG HCO3 ABG O2 Content ABG Base Excess ABG Methemoglobin Trent Test Hemoglobin Carboxyhemoglobin O2 Delivery Device Liter Flow Vent Setting Inspired O2 Critical Value Sodium 138 Potassium 4.6 Chloride 104 Carbon Dioxide 22.6 Anion Gap 11 BUN 28 H Creatinine 1.70 H Estimated GFR 39 L Random Glucose 111 H Calcium 8.7 Phosphorus Magnesium Total Bilirubin 2.1 H Direct Bilirubin Indirect Bilirubin AST 27 ALT 20 Alkaline Phosphatase 63 Total Creatine Kinase CK-MB (CK-2) Troponin I 0.04 B-Natriuretic Peptide Total Protein 7.0 D Albumin 3.5 TSH Urine Color Urine Clarity Urine pH Ur Specific [place] Urine Protein Urine Glucose (UA) Urine Ketones Urine Occult Blood Urine Nitrate Urine Bilirubin Urine Urobilinogen Ur Leukocyte Esterase Urine RBC Urine WBC Hyaline Casts Urine Mucus Micro UA Comment Ur Microscopic Review Urine Culture Comments Urine Osmolality Ur Random Creatinine Ur Random Sodium Pleural pH Pleural RBC Pleural Nuc Cells Pleural Neutrophils Pleural Lymphocytes Pleural Monocytes Pleural Histocytes Pleural Mesothelial Pleural Total Protein Pleural LDH Pleural Glucose Pleural Amylase 01/05/1818 01/05/18 09:31 12:20 12:20 CBC w Diff WBC RBC Hgb Hct MCV MCH MCHC RDW Plt Count MPV Neut % (Auto) Lymph % (Auto) [place] % (Auto) Eos % (Auto) Baso % (Auto) Neut # (Auto) Lymph # (Auto) [place] # (Auto) Eos # (Auto) Baso # (Auto) WBC Differential Differential Comment PT INR APTT Puncture Site Right radial Patient Temperature 98.6 O2 Saturation 93 ABG pH 7.35 L ABG pCO2 36 L ABG pO2 71 ABG HCO3 20 L ABG O2 Content 18.7 ABG Base Excess -5.0 L ABG Methemoglobin 0.4 Trent Test Present Hemoglobin 14.3 Carboxyhemoglobin 1.2 O2 Delivery Device Bipap Liter Flow Vent Setting 12 ipap/5 epap Inspired O2 75 Critical Value No Sodium Potassium Chloride Carbon Dioxide Anion Gap BUN Creatinine Estimated GFR Random Glucose Calcium Phosphorus Magnesium Total Bilirubin Direct Bilirubin Indirect Bilirubin AST ALT Alkaline Phosphatase Total Creatine Kinase CK-MB (CK-2) Troponin I B-Natriuretic Peptide Total Protein Albumin TSH Urine Color Urine Clarity Urine pH Ur Specific [place] Urine Protein Urine Glucose (UA) Urine Ketones Urine Occult Blood Urine Nitrate Urine Bilirubin Urine Urobilinogen Ur Leukocyte Esterase Urine RBC Urine WBC Hyaline Casts Urine Mucus Micro UA Comment Ur Microscopic Review Urine Culture Comments Urine Osmolality Ur Random Creatinine Ur Random Sodium Pleural pH 8.0 Pleural RBC 369 H Pleural Nuc Cells 283 H Pleural Neutrophils 51 Pleural Lymphocytes 25 Pleural Monocytes 4 Pleural Histocytes 8 Pleural Mesothelial 2 Pleural Total Protein 1.4 Pleural LDH 78 Pleural Glucose 141 Pleural Amylase 17 01/05/18 01/05/18 01/05/18 17:50 17:50 17:50 CBC w Diff WBC RBC Hgb Hct MCV MCH MCHC RDW Plt Count MPV Neut % (Auto) Lymph % (Auto) [place] % (Auto) Eos % (Auto) Baso % (Auto) Neut # (Auto) Lymph # (Auto) [place] # (Auto) Eos # (Auto) Baso # (Auto) WBC Differential Differential Comment PT INR APTT Puncture Site Patient Temperature O2 Saturation ABG pH ABG pCO2 ABG pO2 ABG HCO3 ABG O2 Content ABG Base Excess ABG Methemoglobin Trent Test Hemoglobin Carboxyhemoglobin O2 Delivery Device Liter Flow Vent Setting Inspired O2 Critical Value Sodium Potassium Chloride Carbon Dioxide Anion Gap BUN Creatinine Estimated GFR Random Glucose Calcium Phosphorus Magnesium Total Bilirubin Direct Bilirubin Indirect Bilirubin AST ALT Alkaline Phosphatase Total Creatine Kinase CK-MB (CK-2) Troponin I B-Natriuretic Peptide Total Protein Albumin TSH Urine Color Yellow Urine Clarity Clear Urine pH 5.0 Ur Specific [place] 1.025 Urine Protein Negative Urine Glucose (UA) Negative Urine Ketones Negative Urine Occult Blood Negative Urine Nitrate Negative Urine Bilirubin Negative Urine Urobilinogen 0.2 Ur Leukocyte Esterase Negative Urine RBC 0-3 Urine WBC 0-5 Hyaline Casts 0-3 Urine Mucus Rare H Micro UA Comment Cath-culture not ind Ur Microscopic Review Microscopic reviewed Urine Culture Comments Cath-cult not ind Urine Osmolality 384 Ur Random Creatinine 128 Ur Random Sodium 47 Pleural pH Pleural RBC Pleural Nuc Cells Pleural Neutrophils Pleural Lymphocytes Pleural Monocytes Pleural Histocytes Pleural Mesothelial Pleural Total Protein Pleural LDH Pleural Glucose Pleural Amylase 01/06/18 01/06/18 01/06/18 04:45 04:45 04:45 CBC w Diff Auto diff final WBC 19.3 H RBC 4.20 L Hgb 14.0 Hct 42.0 MCV 100.1 H MCH 33.3 MCHC 33.3 RDW 12.1 Plt Count 160 MPV 10.4 Neut % (Auto) 91.5 H Lymph % (Auto) 2.7 L [place] % (Auto) 5.6 Eos % (Auto) 0.0 Baso % (Auto) 0.2 Neut # (Auto) 17.7 H Lymph # (Auto) 0.5 L [place] # (Auto) 1.1 H Eos # (Auto) 0.0 Baso # (Auto) 0.0 WBC Differential . Differential Comment . PT INR APTT Puncture Site Patient Temperature O2 Saturation ABG pH ABG pCO2 ABG pO2 ABG HCO3 ABG O2 Content ABG Base Excess ABG Methemoglobin Trent Test Hemoglobin Carboxyhemoglobin O2 Delivery Device Liter Flow Vent Setting Inspired O2 Critical Value Sodium 137 Potassium 4.5 Chloride 106 Carbon Dioxide 19.6 L Anion Gap 11 BUN 45 H Creatinine 2.00 H Estimated GFR 32 L Random Glucose 145 H Calcium 8.5 Phosphorus 3.3 Magnesium 1.9 Total Bilirubin 1.8 H Direct Bilirubin 0.7 H Indirect Bilirubin 1.1 H AST 32 ALT 33 Alkaline Phosphatase 48 Total Creatine Kinase CK-MB (CK-2) Troponin I B-Natriuretic Peptide 402 H Total Protein 7.3 Albumin 3.9 TSH Urine Color Urine Clarity Urine pH Ur Specific [place] Urine Protein Urine Glucose (UA) Urine Ketones Urine Occult Blood Urine Nitrate Urine Bilirubin Urine Urobilinogen Ur Leukocyte Esterase Urine RBC Urine WBC Hyaline Casts Urine Mucus Micro UA Comment Ur Microscopic Review Urine Culture Comments Urine Osmolality Ur Random Creatinine Ur Random Sodium Pleural pH Pleural RBC Pleural Nuc Cells Pleural Neutrophils Pleural Lymphocytes Pleural Monocytes Pleural Histocytes Pleural Mesothelial Pleural Total Protein Pleural LDH Pleural Glucose Pleural Amylase Result Diagrams: 01/06/18 04:45 01/06/18 04:45 Microbiology: Microbiology 01/05/18 12:20 Gram Stain - Final Fluid - Pleural fluid Body Fluid Culture - Preliminary No growth in 24 hours 01/05/18 10:50 Aerobic Blood Culture - Preliminary Blood - Peripheral No growth in 1 day Anaerobic Blood Culture - Preliminary No growth in 1 day 01/05/18 10:40 Aerobic Blood Culture - Preliminary Blood - Peripheral No growth in 1 day Anaerobic Blood Culture - Preliminary No growth in 1 day 01/05/18 12:20 Fungal Smear - Final Fluid - Pleural fluid No fungal elements seen Imaging: Abdomen/Bladder Ultrasound 01/06/18 00:00 CONCLUSION: Right renal cyst. No hydronephrosis Chest X-Ray 01/06/18 00:00 CONCLUSION: Worsening aeration, particularly in the right lung base Procedures: Thoracentesis 01/05/18 (850 cc) Patient/Family Conference Present at Family Conference: Patient and me in the room, then niece by telephone. Family Conference Time: 49 Family Conference Location: Bedside, Telephone Issues Discussed: * Palliative care role, purpose, approach * Hospice care role, purpose, approach * Additional medical, psychosocial, and spiritual history * Patients general health, functional status, and cognitive changes in the months leading up to the current hospitalization * Patient/family understanding of the current medical problems * Patient/family understanding of prognosis * Patients goals of care as best understood from advance directives and/or conversations and/or values * Current medical treatment options and benefits/burdens of those options * Likely scenarios comparing ongoing aggressive care with a transition to comfort measures only * Questions answered to the best of my ability * Palliative care contact information provided Assessment and Plan - Disease Oriented Problem List (1) Respiratory failure (2) Acute kidney injury (3) Heart failure (4) Pulmonary hypertension - Symptom Scale (1) Dyspnea 0-10 Scale: 2 Pertinent Non-Medical Issues: Psychosocial: Originally from [place], [place], moved to the [facility] to work for [employer] in 1969. Works as an watch electrician for many years. and twice; has no children, but does have 1 stepson from his first . Niece and nephew are frequent visitors. Spiritual: Denominational background, members of his mormonism have visited him here. Legal: The patient has capacity for decision-making; he has designated his nephew Darin and niece Mila as healthcare surrogates. Ethical issues impacting care: Important Contacts: Nephew: Darin Meyers, Niece: Mila Borden (Palliative Medicine [facility] in [place]): [phone] Prognosis: The patient has been declining for months, and now has worsening/symptomatic pulmonary hypertension, heart failure, and kidney injury. His overall prognosis is poor, and if things do not improve soon, he would like hospice services for end-of-life. Code Status: No Code DNR Plan: * DO NOT RESUSCITATE * DECISION-MAKING: The patient has capacity for decision-making; he has designated his nephew Darin and niece Mila as healthcare surrogates. * GOALS: Patient requests that we honor his previously expressed wishes and his living will; he does not want resuscitation, and quality of life is most important for him. He tells me that if he does not improve soon, he does not want to go on living this way and he would want hospice services for comfort measures at end of life. * SYMPTOMS: The patient is mildly dyspneic with the BiPAP. I will add opiates and benzodiazepines to his PRN orders in case his dyspnea worsens or he develops anxiety. * I will recheck him tomorrow morning, and rediscuss his condition with his niece (palliative medicine [employer]PERVISOR in [place]), and we will make a decision with the patient at that time regarding hospice or continued intensive care services. Time Spent Total Floor Time (mins): 79 Face to Face Time (mins): 52 >50% Time in Counseling or Coordination of Care: Yes Appreciation Thank you for the opportunity to participate in the care of Wes Meyers.
[2018-01-06] MEDS ORDERED: HYDROmorphone PF Inj 0.5 MG/0.5 ML Syringe IV.PUSH PRN (14:23)
--- NOTE | 2018-01-06 17:10 | P.PN ---
Subjective Interval history: He is on high flow O2 at 80 % FIo2. Was on BiPAP last night. Able to take a diet. Physical Exam Vital signs: Vital Signs 01/05/18 18:00 01/05/18 19:00 01/05/18 20:00 Temperature 98.8 F Pulse Rate 74 80 Respiratory Rate 20 Blood Pressure 87/50 L 91/48 L Pulse Oximetry 93 L 86 L 91 L 01/05/18 20:30 01/05/18 20:59 01/05/18 21:00 Temperature Pulse Rate 82 Respiratory Rate 22 Blood Pressure 98/45 L Pulse Oximetry 91 L 88 L 94 L 01/05/18 22:00 01/05/18 23:00 01/05/18 23:10 Temperature Pulse Rate 84 90 Respiratory Rate 22 24 Blood Pressure 100/51 L 107/49 L Pulse Oximetry 92 L 90 L 91 L 01/06/18 00:00 01/06/18 01:00 01/06/18 02:00 Temperature 98 F Pulse Rate 96 H 96 H 98 H Respiratory Rate 26 H 24 29 H Blood Pressure 108/53 L 112/64 122/56 L Pulse Oximetry 89 L 91 L 91 L 01/06/18 02:30 01/06/18 03:00 01/06/18 04:00 Temperature 97.5 F L Pulse Rate 96 H 106 H Respiratory Rate 28 H 20 Blood Pressure 115/58 L 114/54 L Pulse Oximetry 90 L 91 L 91 L 01/06/18 05:00 01/06/18 05:40 01/06/18 06:00 Temperature 97.3 F L Pulse Rate 100 H 106 H Respiratory Rate 30 H 31 H Blood Pressure 133/72 126/69 Pulse Oximetry 92 L 91 L 91 L 01/06/18 07:00 01/06/18 08:00 01/06/18 09:00 Temperature 97.9 F Pulse Rate 110 H 104 H 106 H Respiratory Rate 30 H 31 H 31 H Blood Pressure 143/61 H 133/61 119/61 Pulse Oximetry 91 L 91 L 88 L 01/06/18 09:40 01/06/18 10:00 01/06/18 11:00 Temperature Pulse Rate 91 H 94 H 96 H Respiratory Rate 16 31 H 32 H Blood Pressure 103/61 105/56 L Pulse Oximetry 90 L 90 L 01/06/18 12:00 01/06/18 13:00 09/13/18 14:27 Temperature Pulse Rate 96 H 87 Respiratory Rate 32 H 35 H Blood Pressure 109/55 L Pulse Oximetry 89 L 87 L 01/06/18 16:40 Temperature Pulse Rate Respiratory Rate Blood Pressure Pulse Oximetry 88 L Intake & Output 01/05/18 01/06/18 01/06/18 18:59 06:59 18:59 Intake Total 1040 / 1040 700 / 700 350 / 350 Output Total 360 / 360 225 / 225 Balance 680 / 680 475 / 475 350 / 350 Weight 74.4 kg Intake: IV 800 / 800 700 / 700 350 / 350 Flexbumin 25% Inj 100 ML @ As 100 / 100 Directed 60 mls/hr IV.SIG ONCE ONE Rx#:[id number] Alburx 5% Inj 500 ML @ 250 mls/ 500 / 500 hr IV.SIG ONCE ONE Rx#: [id number] Zosyn 2.25 GM Premix 50 ML @ 50 / 50 100 / 100 100 / 100 100 mls/hr IV.SIG Q6H YOVANA Rx#: [id number] NS Inj 500 ML @ As Directed IV. 500 / 500 SIG BOLUS ONE Rx#:[id number] Vancomycin Inj 1,000 MG In NS 250 / 250 250 / 250 Inj 250 ML @ 250 mls/hr IV.SIG DAILY@1000 YOVANA Rx#:[id number] Oral 240 / 240 0 / 0 Output: Urine 360 / 360 225 / 225 Other: Date of Last Bowel Movement 01/05/18 01/05/18 01/05/18 Narrative: GENERAL: Well-developed, well-nourished,. alert and orientated HEENT: Head is normocephalic without any lesions or masses noted. Facial features are symmetric. Eyes: Extraocular muscles are intact. Conjunctivae were clear. NECK: Supple without any masses. Trachea midline no deviation. No JVD, CARDIAC: Regular rhythm, regular rate. S1/S2 are heard. 2/6 ejection murmur, no gallops or rubs. LUNGS: Diminished breath sounds noted throughout, minimal air movement. No wheeze, rhonchi or rales. using accessory. ABDOMEN: Soft, nontender. Nondistended. Bowel sounds heard in all 4 quadrants. No organomegaly or masses. Negative rebound, negative guarding EXTREMITIES: No edema, pulses are equal bilaterally. No cyanosis or clubbing NEUROLOGY: Mood and affect appear appropriate. Cranial nerves II through XII grossly intact. Moving all extremities, speech is clear - Urinary Catheter Management Indwelling Urethral Catheter Cath placed during this visit: yes Reason for continuing: Hourly intake/output Insertion date: 01/05/18 Insertion time: 18:00 Results - Labs CBC & Chem 7: 01/06/18 04:45 01/06/18 04:45 Laboratory Results - last 24 hr 01/05/18 01/05/18 01/05/18 12:20 17:50 17:50 CBC w Diff WBC RBC Hgb Hct MCV MCH MCHC RDW Plt Count MPV Neut % (Auto) Lymph % (Auto) [place] % (Auto) Eos % (Auto) Baso % (Auto) Neut # (Auto) Lymph # (Auto) [place] # (Auto) Eos # (Auto) Baso # (Auto) WBC Differential Differential Comment Sodium Potassium Chloride Carbon Dioxide Anion Gap BUN Creatinine Estimated GFR Random Glucose Calcium Phosphorus Magnesium Total Bilirubin Direct Bilirubin Indirect Bilirubin AST ALT Alkaline Phosphatase B-Natriuretic Peptide Total Protein Albumin Urine Color Urine Clarity Urine pH Ur Specific [place] Urine Protein Urine Glucose (UA) Urine Ketones Urine Occult Blood Urine Nitrate Urine Bilirubin Urine Urobilinogen Ur Leukocyte Esterase Urine RBC Urine WBC Hyaline Casts Urine Mucus Micro UA Comment Ur Microscopic Review Urine Culture Comments Urine Osmolality 384 Ur Random Creatinine 128 Ur Random Sodium 47 Pleural pH 8.0 Pleural Total Protein 1.4 Pleural LDH 78 Pleural Glucose 141 Pleural Amylase 17 01/05/18 01/06/18 01/06/18 17:50 04:45 04:45 CBC w Diff Auto diff final WBC 19.3 H RBC 4.20 L Hgb 14.0 Hct 42.0 MCV 100.1 H MCH 33.3 MCHC 33.3 RDW 12.1 Plt Count 160 MPV 10.4 Neut % (Auto) 91.5 H Lymph % (Auto) 2.7 L [place] % (Auto) 5.6 Eos % (Auto) 0.0 Baso % (Auto) 0.2 Neut # (Auto) 17.7 H Lymph # (Auto) 0.5 L [place] # (Auto) 1.1 H Eos # (Auto) 0.0 Baso # (Auto) 0.0 WBC Differential . Differential Comment . Sodium 137 Potassium 4.5 Chloride 106 Carbon Dioxide 19.6 L Anion Gap 11 BUN 45 H Creatinine 2.00 H Estimated GFR 32 L Random Glucose 145 H Calcium 8.5 Phosphorus 3.3 Magnesium 1.9 Total Bilirubin 1.8 H Direct Bilirubin 0.7 H Indirect Bilirubin 1.1 H AST 32 ALT 33 Alkaline Phosphatase 48 B-Natriuretic Peptide Total Protein 7.3 Albumin 3.9 Urine Color Yellow Urine Clarity Clear Urine pH 5.0 Ur Specific Leonore 1.025 Urine Protein Negative Urine Glucose (UA) Negative Urine Ketones Negative Urine Occult Blood Negative Urine Nitrate Negative Urine Bilirubin Negative Urine Urobilinogen 0.2 Ur Leukocyte Esterase Negative Urine RBC 0-3 Urine WBC 0-5 Hyaline Casts 0-3 Urine Mucus Rare H Micro UA Comment Cath-culture not ind Ur Microscopic Review Microscopic reviewed Urine Culture Comments Cath-cult not ind Urine Osmolality Ur Random Creatinine Ur Random Sodium Pleural pH Pleural Total Protein Pleural LDH Pleural Glucose Pleural Amylase 01/06/18 04:45 CBC w Diff WBC RBC Hgb Hct MCV MCH MCHC RDW Plt Count MPV Neut % (Auto) Lymph % (Auto) [place] % (Auto) Eos % (Auto) Baso % (Auto) Neut # (Auto) Lymph # (Auto) [place] # (Auto) Eos # (Auto) Baso # (Auto) WBC Differential Differential Comment Sodium Potassium Chloride Carbon Dioxide Anion Gap BUN Creatinine Estimated GFR Random Glucose Calcium Phosphorus Magnesium Total Bilirubin Direct Bilirubin Indirect Bilirubin AST ALT Alkaline Phosphatase B-Natriuretic Peptide 402 H Total Protein Albumin Urine Color Urine Clarity Urine pH Ur Specific [place] Urine Protein Urine Glucose (UA) Urine Ketones Urine Occult Blood Urine Nitrate Urine Bilirubin Urine Urobilinogen Ur Leukocyte Esterase Urine RBC Urine WBC Hyaline Casts Urine Mucus Micro UA Comment Ur Microscopic Review Urine Culture Comments Urine Osmolality Ur Random Creatinine Ur Random Sodium Pleural pH Pleural Total Protein Pleural LDH Pleural Glucose Pleural Amylase Microbiology 01/05/18 12:20 Fluid - Pleural fluid Gram Stain - Final 01/05/18 12:20 Fluid - Pleural fluid Body Fluid Culture - Preliminary No growth in 24 hours 01/05/18 10:50 Blood - Peripheral Aerobic Blood Culture - Preliminary No growth in 1 day 01/05/18 10:50 Blood - Peripheral Anaerobic Blood Culture - Preliminary No growth in 1 day 01/05/18 10:40 Blood - Peripheral Aerobic Blood Culture - Preliminary No growth in 1 day 01/05/18 10:40 Blood - Peripheral Anaerobic Blood Culture - Preliminary No growth in 1 day 01/05/18 12:20 Fluid - Pleural fluid Fungal Smear - Final No fungal elements seen - Imaging Impressions Abdomen/Bladder Ultrasound 01/06/18 00:00 CONCLUSION: Right renal cyst. No hydronephrosis Chest X-Ray 01/06/18 00:00 CONCLUSION: Worsening aeration, particularly in the right lung base Assessment and Plan - Assessment (1) Pneumonia Code(s): J18.9 - Pneumonia, unspecified organism Status: Acute (2) Atrial fibrillation with RVR Code(s): I48.91 - Unspecified atrial fibrillation Status: Acute (3) Congestive heart failure Code(s): I50.9 - Heart failure, unspecified Status: Acute (4) Hypoxia Code(s): R09.02 - Hypoxemia Status: Acute (5) Respiratory failure Code(s): J96.90 - Respiratory failure, unspecified, unspecified whether with hypoxia or hypercapnia Status: Acute (6) Acute kidney injury Code(s): N17.9 - Acute kidney failure, unspecified Status: Acute (7) Heart failure Code(s): I50.9 - Heart failure, unspecified Status: Acute (8) Pulmonary hypertension Code(s): I27.20 - Pulmonary hypertension, unspecified Status: Acute (9) Dyspnea Code(s): R06.00 - Dyspnea, unspecified Status: Acute - Plan 1. Continue BiPAP at HS and PRN 2. Wean O2 to Keep sat >92. 3. Duonebs qid. 4. Continue antibiotic Zosyn and D/C vanco. 5. Cont solumedrol 40 mg IV Q8H 6. Bumex IV 1 mg daily 7. CXR labs in am (3) Congestive heart failure Qualifiers: Heart failure type: unspecified Heart failure chronicity: acute Qualified Code(s): I50.9 - Heart failure, unspecified
[2018-01-06] MEDS: Azithromycin Inj 500 MG in Sodium Chlor 0.9% Inj 250 ML IV.SIG SCH (17:43)
--- NOTE | 2018-01-06 18:32 | P.PNCA ---
Subjective Interval history: Late entry Patient seen earlier this AM. He continues to have significant SOB. Minimal urine output despite IV lasix. Was on BiPaP overnight, now on high flow o2 via nasal cannula. Nephrology and pulmonology following. Status post bedside thoracentesis yesterday with 850cc fluid removed. Pt denies any chest pain. Continues in Atrial fibrillation rate 100-130. BP running low. On Cardizem and Metoprolol. Physical Exam Vital signs: Vital Signs 01/05/18 19:00 01/05/18 20:00 01/05/18 20:30 Temperature 98.8 F Pulse Rate 80 Respiratory Rate 20 Blood Pressure 91/48 L Pulse Oximetry 86 L 91 L 91 L 01/05/18 20:59 01/05/18 21:00 01/05/18 22:00 Temperature Pulse Rate 82 84 Respiratory Rate 22 22 Blood Pressure 98/45 L 100/51 L Pulse Oximetry 88 L 94 L 92 L 01/05/18 23:00 01/05/18 23:10 01/06/18 00:00 Temperature 98 F Pulse Rate 90 96 H Respiratory Rate 24 26 H Blood Pressure 107/49 L 108/53 L Pulse Oximetry 90 L 91 L 89 L 01/06/18 01:00 01/06/18 02:00 01/06/18 02:30 Temperature Pulse Rate 96 H 98 H Respiratory Rate 24 29 H Blood Pressure 112/64 122/56 L Pulse Oximetry 91 L 91 L 90 L 01/06/18 03:00 01/06/18 04:00 01/06/18 05:00 Temperature 97.5 F L Pulse Rate 96 H 106 H 100 H Respiratory Rate 28 H 20 30 H Blood Pressure 115/58 L 114/54 L 133/72 Pulse Oximetry 91 L 91 L 92 L 01/06/18 05:40 01/06/18 06:00 01/06/18 07:00 Temperature 97.3 F L 97.9 F Pulse Rate 106 H 110 H Respiratory Rate 31 H 30 H Blood Pressure 126/69 143/61 H Pulse Oximetry 91 L 91 L 91 L 01/06/18 08:00 01/06/18 09:00 01/06/18 09:40 Temperature Pulse Rate 104 H 106 H 91 H Respiratory Rate 31 H 31 H 16 Blood Pressure 133/61 119/61 Pulse Oximetry 91 L 88 L 01/06/18 10:00 01/06/18 11:00 01/06/18 12:00 Temperature Pulse Rate 94 H 96 H 96 H Respiratory Rate 31 H 32 H 32 H Blood Pressure 103/61 105/56 L 109/55 L Pulse Oximetry 90 L 90 L 89 L 01/06/18 13:00 01/06/18 14:27 01/06/18 16:40 Temperature Pulse Rate 87 Respiratory Rate 35 H Blood Pressure Pulse Oximetry 87 L 88 L Intake & Output 01/05/18 01/06/18 01/06/18 18:59 06:59 18:59 Intake Total 1040 / 1040 700 / 700 350 / 350 Output Total 360 / 360 225 / 225 Balance 680 / 680 475 / 475 350 / 350 Weight 74.4 kg Intake: IV 800 / 800 700 / 700 350 / 350 Flexbumin 25% Inj 100 ML @ As 100 / 100 Directed 60 mls/hr IV.SIG ONCE ONE Rx#:[id number] Alburx 5% Inj 500 ML @ 250 mls/ 500 / 500 hr IV.SIG ONCE ONE Rx#: [id number] Zosyn 2.25 GM Premix 50 ML @ 50 / 50 100 / 100 100 / 100 100 mls/hr IV.SIG Q6H YOVANA Rx#: [id number] NS Inj 500 ML @ As Directed IV. 500 / 500 SIG BOLUS ONE Rx#:[id number] Vancomycin Inj 1,000 MG In NS 250 / 250 250 / 250 Inj 250 ML @ 250 mls/hr IV.SIG DAILY@1000 YOVANA Rx#:[id number] Oral 240 / 240 0 / 0 Output: Urine 360 / 360 225 / 225 Other: Date of Last Bowel Movement 01/05/18 01/05/18 01/05/18 - Constitutional mild distress - Routine HEENT Exam Head: Present: normocephalic Eye: Present: PERRL ENT: Present: mucous membranes dry - Routine Neck Exam Present: supple - Routine Respiratory Exam Present: crackles, diminished air movement - Routine Cardiovascular Exam Present: tachycardia, irregularly irregular - Routine Abdominal Exam Present: soft - Routine Skin Exam Present: intact - Routine Neurological Exam Present: alert, oriented X3 - Detailed Neurological Exam: Coma Scale Eye Opening: Spontaneous Verbal Response: Oriented Motor Response: Obey commands [place] Coma Scale Total: 15 - Routine Psychiatric Exam Present: normal affect - Urinary Catheter Management Indwelling Urethral Catheter Cath placed during this visit: yes Reason for continuing: Hourly intake/output Insertion date: 01/05/18 Insertion time: 18:00 Assessment and Plan - Plan Afib RVR CHF Renal insuficiency Elevated White count -Anticoagulated with Xarelto. HR elevated this AM. Will continue on cardizem PO and Metoprolol with hold parameters for BP. -Was on BiPap overnight. On steroid and Antibiotics. Pulmonology following. -Echocardiogram completed. EF normal. Cannot rule out mobile echo density located on anterior wall mitral valve leaflet. Echo reviewed in detail by Dr. Norris. --Not diuresing well, minimal urine output noted. Creatinine continues to increase. Nephrology following. -Elevated white count prior to receiving steroids. Now on antibiotics. Afebrile. Blood cultures negative. Palliative care consulted per patients request. The patient was seen and evaluated by Dr. Norris who completed face to face encounter and physical exam and participated in care and management. The exam, history, and the medical decision-making described in the above note were completed with the assistance of the mid-level provider. I reviewed and agree with the findings presented. I attest that I had a [id number] encounter with the patient on the same day, and personally performed and documented my assessment and findings in the medical record. Overall has prema Gallagher will be back Wednesday will see prn. Code Status: DNR Discussed Condition With: Nurse
[2018-01-06] MEDS ORDERED: HYDROmorphone PF Inj 2 MG/ML Vial IV.PUSH PRN (20:45)
[2018-01-06 22:19] LABS: Hemoglobin A1c 4.7 % (4.3-6.0)
[2018-01-07] MEDS: MethylPREDNISolone Sod Succinate Inj 40 MG/ML Vial IV.PUSH SCH ×4 (03:20→21:49)
[2018-01-07] MEDS: Piperacil/Tazo 2.25 GM Premix 50 ML IV.SIG SCH ×4 (04:41→22:28)
[2018-01-07 04:50] LABS: Baso # (Auto) 0.5 th/mm3 (0.0-0.2); Baso % (Auto) 3.1 % (0.0-2.0); Eos % (Auto) 0.2 % (0.0-4.0); Hematocrit 39.4 % (39.0-51.0); Hemoglobin 13.4 gm/dL (13.0-17.0); Lymph # (Auto) 0.6 th/mm3 (1.0-4.8); Lymph % (Auto) 3.2 % (9.0-44.0); Mean Corpuscular HGB Conc 34.1 % (32.0-36.0); Mean Corpuscular Hemoglobin 33.9 pg (27.0-34.0); Mean Corpuscular Volume 99.4 fL (80.0-100.0); Mean Platelet Volume 10.3 fL (7.0-11.0); Mono # (Auto) 1.1 th/mm3 (0.0-0.9); Mono % (Auto) 6.1 % (0.0-8.0); Neut # (Auto) 15.2 th/mm3 (1.8-7.7); Neut % (Auto) 87.4 % (16.0-70.0); Platelet Count 146 th/mm3 (150-450); Red Blood Count 3.96 mil/mm3 (4.50-5.90); Red Cell Distribution Width 12.5 % (11.6-17.2); White Blood Count 17.4 th/mm3 (4.0-11.0)
[2018-01-07 04:57] LABS: Potassium 4.8 meq/L (3.5-5.1)
[2018-01-07 05:00] LABS: Calcium 8.3 mg/dL (8.5-10.1)
[2018-01-07 05:01] LABS: Carbon Dioxide 21.6 meq/L (21.0-32.0)
--- NOTE | 2018-01-07 06:03 | XR ---
EXAM DATE: 01/07/2018 5:38 AM EDT AGE/SEX: 82 years / Male INDICATIONS: Shortness of breath. CLINICAL DATA: This is the patient's subsequent encounter. Patient reports that signs and symptoms h ave been present for 4 - 6 days and indicates a pain score of 0/10. MEDICAL/SURGICAL HISTORY: . Hypertension. Ankylosing spondylitis. Atrial fibrillation. Cardiove rsion. IBS. None. COMPARISON: [facility], CHEST 1V SINGLE AP, 01/06/2018. . FINDINGS: Persistent small to moderate bilateral pleural effusions with associated airspace disease in the lowe r lung zones. Cardiomegaly saw contours are stable. Mild diffuse interstitial prominence. Remainder o f the exam is unchanged. CONCLUSION: 1. No significant interval change. 2. Persistent [id number] bilateral pleural effusions with associated lower lung zone airspace disease. Electronically signed by: Alfred Santos MD 01/07/2018 6:02 AM EDT
--- NOTE | 2018-01-07 08:29 | P.PN ---
Subjective Interval history: 82-year-old male who is seen and examined today for follow-up on multisystem organ failure, respiratory failure, renal failure, hypotension. Patient maintained on BiPAP for respiratory support. Patient had to be increased to 100 % FiO2 in order to maintain O2 sats greater than 92%. Patient did have episode of hypoxia in the 80s throughout the evening. Patient had decreased urinary output with worsening renal function. Patient did meet with palliative care yesterday and anticipates making the incision today. At the time of seeing the patient he still does not want any heroic measures done. Deferred any intubation. Indicating that he is going to speak to palliative care again today and likely accept hospice. Patient remains afebrile Physical Exam Vital signs: Vital Signs 01/06/18 09:00 01/06/18 09:40 01/06/18 10:00 Temperature Pulse Rate 106 H 91 H 94 H Respiratory Rate 31 H 16 31 H Blood Pressure 119/61 103/61 Pulse Oximetry 88 L 90 L 01/06/18 11:00 01/06/18 12:00 01/06/18 13:00 Temperature Pulse Rate 96 H 96 H 90 Respiratory Rate 32 H 32 H 34 H Blood Pressure 105/56 L 109/55 L 111/55 L Pulse Oximetry 90 L 89 L 82 L 01/06/18 14:00 01/06/18 14:27 01/06/18 15:00 Temperature Pulse Rate 84 87 86 Respiratory Rate 32 H 35 H 30 H Blood Pressure 104/69 119/58 L Pulse Oximetry 88 L 89 L 01/06/18 16:00 01/06/18 16:40 01/06/18 17:00 Temperature 98 F Pulse Rate 94 H 98 H Respiratory Rate 29 H 31 H Blood Pressure 117/64 112/67 Pulse Oximetry 91 L 88 L 84 L 01/06/18 18:00 01/06/18 18:24 01/06/18 19:00 Temperature Pulse Rate 102 H 102 H Respiratory Rate 34 H 32 H Blood Pressure 111/56 L 104/63 Pulse Oximetry 82 L 87 L 88 L 01/06/18 20:00 01/06/18 20:11 01/06/18 20:26 Temperature 97.4 F L Pulse Rate 90 87 108 H Respiratory Rate 30 H 28 H 33 H Blood Pressure 102/56 L 105/55 L Pulse Oximetry 88 L 89 L 87 L 01/06/18 20:35 01/06/18 21:00 01/06/18 22:00 Temperature Pulse Rate 96 H 94 H Respiratory Rate 25 H 21 Blood Pressure 113/59 L 101/50 L Pulse Oximetry 87 L 90 L 88 L 01/06/18 23:00 01/06/18 23:05 01/07/18 00:00 Temperature 96.5 F L Pulse Rate 96 H 94 H Respiratory Rate 21 26 H Blood Pressure 105/56 L 94/64 L Pulse Oximetry 90 L 89 L 89 L 01/07/18 01:00 01/07/18 01:10 01/07/18 01:18 Temperature Pulse Rate 92 H 88 Respiratory Rate 22 17 Blood Pressure 112/66 Pulse Oximetry 87 L 89 L 01/07/18 01:21 01/07/18 02:00 01/07/18 03:00 Temperature Pulse Rate 88 96 H Respiratory Rate 20 43 H Blood Pressure 104/55 L 117/61 Pulse Oximetry 89 L 86 L 84 L 01/07/18 04:01 01/07/18 04:10 01/07/18 05:00 Temperature 98 F Pulse Rate 84 84 Respiratory Rate 22 20 Blood Pressure 94/47 L 93/57 L Pulse Oximetry 93 L 94 L 93 L 01/07/18 06:00 01/07/18 07:32 Temperature Pulse Rate 86 108 H Respiratory Rate 25 H 21 Blood Pressure 101/56 L Pulse Oximetry 93 L 94 L Intake & Output 01/06/18 01/07/18 01/07/18 18:59 06:59 18:59 Intake Total 590 / 590 350 / 350 Output Total 555 / 555 250 / 250 Balance 35 / 35 100 / 100 Weight 74.2 kg Intake: IV 350 / 350 350 / 350 Azithromycin Inj 500 MG In NS 250 / 250 Inj 250 ML @ 250 mls/hr IV.SIG Q24H YOVANA Rx#:[id number] Zosyn 2.25 GM Premix 50 ML @ 100 / 100 100 / 100 100 mls/hr IV.SIG Q6H YOVANA Rx#: [id number] Vancomycin Inj 1,000 MG In NS 250 / 250 Inj 250 ML @ 250 mls/hr IV.SIG DAILY@1000 YOVANA Rx#:[id number] Oral 240 / 240 Output: Urine 555 / 555 Urine Amount (Catheter) 250 / 250 Indwelling Urethral Catheter 250 / 250 Other: Date of Last Bowel Movement 01/05/18 01/05/18 Narrative: GENERAL: Well-developed, well-nourished, patient continues to be in respiratory failure. alert and orientated HEENT: Head is normocephalic without any lesions or masses noted. Facial features are symmetric. Eyes: Extraocular muscles are intact. Conjunctivae were clear. NECK: Supple without any masses. Trachea midline no deviation. No JVD, CARDIAC: Regular rhythm, regular rate. S1/S2 are heard. 2/6 ejection murmur, no gallops or rubs. LUNGS: Diminished breath sounds noted throughout, minimal air movement. No wheeze, rhonchi or rales. using accessory. ABDOMEN: Soft, nontender. Nondistended. Bowel sounds heard in all 4 quadrants. No organomegaly or masses. Negative rebound, negative guarding have urinary Plascencia shown decreased urinary output with dark urine. EXTREMITIES: No edema, pulses are equal bilaterally. No cyanosis or clubbing NEUROLOGY: Mood and affect appear appropriate. Cranial nerves II through XII grossly intact. Moving all extremities, speech is clear - Urinary Catheter Management Indwelling Urethral Catheter Cath placed during this visit: yes Reason for continuing: Hourly intake/output Insertion date: 01/05/18 Insertion time: 18:00 Results - Labs CBC & Chem 7: 01/07/18 04:38 01/07/18 04:38 Laboratory Results - last 24 hr 01/06/18 01/07/18 01/07/18 14:24 04:38 04:38 CBC w Diff Auto diff final WBC 17.4 H RBC 3.96 L Hgb 13.4 Hct 39.4 MCV 99.4 MCH 33.9 MCHC 34.1 RDW 12.5 Plt Count 146 L MPV 10.3 Neut % (Auto) 87.4 H Lymph % (Auto) 3.2 L [place] % (Auto) 6.1 Eos % (Auto) 0.2 Baso % (Auto) 3.1 H Neut # (Auto) 15.2 H Lymph # (Auto) 0.6 L [place] # (Auto) 1.1 H Eos # (Auto) 0.0 Baso # (Auto) 0.5 H WBC Differential . Differential Comment . Sodium 139 Potassium 4.8 Chloride 107 Carbon Dioxide 21.6 Anion Gap 10 BUN 64 H Creatinine 2.50 H Estimated GFR 25 L Random Glucose 162 H Hemoglobin A1c 4.7 Calcium 8.3 L Microbiology 01/05/18 12:20 Fluid - Pleural fluid Acid Fast Bacilli Smear - Final No acid fast bacilli seen 01/05/18 12:20 Fluid - Pleural fluid Gram Stain - Final 01/05/18 12:20 Fluid - Pleural fluid Body Fluid Culture - Preliminary No growth in 24 hours 01/05/18 10:50 Blood - Peripheral Aerobic Blood Culture - Preliminary No growth in 1 day 01/05/18 10:50 Blood - Peripheral Anaerobic Blood Culture - Preliminary No growth in 1 day 01/05/18 10:40 Blood - Peripheral Aerobic Blood Culture - Preliminary No growth in 1 day 01/05/18 10:40 Blood - Peripheral Anaerobic Blood Culture - Preliminary No growth in 1 day 01/05/18 12:20 Fluid - Pleural fluid Fungal Smear - Final No fungal elements seen - Imaging Impressions Abdomen/Bladder Ultrasound 01/06/18 00:00 CONCLUSION: Right renal cyst. No hydronephrosis Chest X-Ray 01/06/18 00:00 CONCLUSION: Worsening aeration, particularly in the right lung base Chest X-Ray 01/07/18 00:00 CONCLUSION: 1. No significant interval change. 2. Persistent [id number] bilateral pleural effusions with associated lower lung zone airspace disease. Assessment and Plan - Plan Acute hypoxic respiratory failure, worsening -Multifactorial with findings of congestive heart failure, elevated BNP, significant pleural effusion, severe biatrial enlargement, possible atrial level shunt -Unable to treat effectively without intubation, patient is a DO NOT RESUSCITATE , will respect the patient's wishes -Continue high flow oxygen and BiPAP to maintain O2 sats greater than 92% -Cold Meat Chef was consulted who performed right-sided thoracentesis with 800 cc of fluid removal -Fluid studies indicating transudate fluid -Patient was on Lasix 40 mg IV twice daily without any significant response, changed the Bumex 1 mg IV twice daily -Continue Solu-Medrol 40 mg every 6 hours -Continue empirical antibiotics include vancomycin and Zosyn -Customs Broker following the patient -Patient would benefit from repeat thoracentesis, possible may require chest tube placement since fluid continues to reaccumulate -Palliative care consulted for further recommendations and treatment plan goals Acute renal failure with decreased urinary output, continues to worsen -Could be secondary to tubular necrosis from hypotension -Renal bladder ultrasound was performed which showed right renal cyst no hydronephrosis -Renal functions continue to worsen, creatinine now 2.5 -Avoid nephrotoxins -Hydraulic Technician following the patient -[place] for strict ins and outs management -Patient will likely need dialysis in order to manage appropriately to help with renal function, fluid removal Hypotension, continue to be intermittent -Unknown if this is related to diuresis, sepsis, cardiorenal syndrome -Patient was given fluid boluses, albumin bolus -Patient blood pressure medications have hold parameters Atrial fibrillation with RVR -Status post Cardizem IV with discontinuation -Patient continued on Cardizem CD 240 mg daily -Adjusted to metoprolol 12.5 mg twice daily, -Need to adjust medications for hypotension, heart rate may worsen -If heart rate worsens possible consider digoxin to help with rate control and cardiac function -Patient is on Xarelto for anticoagulation Hyperglycemia -Likely secondary to stress and Solu-Medrol -Hemoglobin A1c 4.7 -Continue monitor and start Accu-Cheks with sliding scale insulin if needed DVT prevention -Xarelto
--- NOTE | 2018-01-07 09:14 | P.PNPAL ---
Reason for Visit Reason for visit: a. To assist with evaluation and management of symptoms including: Dyspnea b. To assist medical decision maker(s) with: better understanding of current medical conditions; weighing benefits/burdens of medical treatment options; making medical treatment decisions. Subjective Subjective/Interval History: INTERVAL NOTE: Patient seen to reevaluate his dyspnea and renal function. Overnight, the patient has made very little urine, he remains dyspneic. When he is tried on high flow O2 his O2 saturations dropped into the 80s. The patient is denying any pain at this time but does feel a little short of breath while he is on the high flow O2 while I am seeing him. He tells me that he is ready to speak with hospice and ready to transition "for my last days" to the hospice care center. Family/Friend Interactions: Discussed by telephone again with the patient's (palliative medicine EMPLOYMENT SPECIALIST/PROGRAM MANAGER) eddie Zaragoza, and she concurs with the decision to proceed with hospice services. She has a very clear understanding of his situation and prognosis, and requests that we do our best to just keep him comfortable for his final days. Advance Directives Living Will: Copy in medical record Health Care Surrogate: Copy in medical record Health Care Surrogate Name and Number: Isa Webster and eddie Zaragoza Significant change in goals:: Transition to hospice today Objective Vital Signs: Vital Signs 01/06/18 09:40 01/06/18 10:00 01/06/18 11:00 Temperature Pulse Rate 91 H 94 H 96 H Respiratory Rate 16 31 H 32 H Blood Pressure 103/61 105/56 L Pulse Oximetry 90 L 90 L 01/06/18 12:00 01/06/18 13:00 01/06/18 14:00 Temperature Pulse Rate 96 H 90 84 Respiratory Rate 32 H 34 H 32 H Blood Pressure 109/55 L 111/55 L 104/69 Pulse Oximetry 89 L 82 L 88 L 01/06/18 14:27 01/06/18 15:00 01/06/18 16:00 Temperature 98 F Pulse Rate 87 86 94 H Respiratory Rate 35 H 30 H 29 H Blood Pressure 119/58 L 117/64 Pulse Oximetry 89 L 91 L 01/06/18 16:40 01/06/18 17:00 01/06/18 18:00 Temperature Pulse Rate 98 H 102 H Respiratory Rate 31 H 34 H Blood Pressure 112/67 111/56 L Pulse Oximetry 88 L 84 L 82 L 01/06/18 18:24 01/06/18 19:00 01/06/18 20:00 Temperature 97.4 F L Pulse Rate 102 H 90 Respiratory Rate 32 H 30 H Blood Pressure 104/63 102/56 L Pulse Oximetry 87 L 88 L 88 L 01/06/18 20:11 01/06/18 20:26 01/06/18 20:35 Temperature Pulse Rate 87 108 H Respiratory Rate 28 H 33 H Blood Pressure 105/55 L Pulse Oximetry 89 L 87 L 87 L 01/06/18 21:00 01/06/18 22:00 01/06/18 23:00 Temperature Pulse Rate 96 H 94 H 96 H Respiratory Rate 25 H 21 21 Blood Pressure 113/59 L 101/50 L 105/56 L Pulse Oximetry 90 L 88 L 90 L 01/06/18 23:05 01/07/18 00:00 01/07/18 01:00 Temperature 96.5 F L Pulse Rate 94 H 92 H Respiratory Rate 26 H 22 Blood Pressure 94/64 L 112/66 Pulse Oximetry 89 L 89 L 87 L 01/07/18 01:10 01/07/18 01:18 01/07/18 01:21 Temperature Pulse Rate 88 Respiratory Rate 17 Blood Pressure Pulse Oximetry 89 L 89 L 01/07/18 02:00 01/07/18 03:00 01/07/18 04:01 Temperature 98 F Pulse Rate 88 96 H 84 Respiratory Rate 20 43 H 22 Blood Pressure 104/55 L 117/61 94/47 L Pulse Oximetry 86 L 84 L 93 L 01/07/18 04:10 01/07/18 05:00 01/07/18 06:00 Temperature Pulse Rate 84 86 Respiratory Rate 20 25 H Blood Pressure 93/57 L 101/56 L Pulse Oximetry 94 L 93 L 93 L 01/07/18 07:32 Temperature Pulse Rate 108 H Respiratory Rate 21 Blood Pressure Pulse Oximetry 94 L Intake & Output 01/06/18 01/07/18 01/07/18 18:59 06:59 18:59 Intake Total 590 / 590 350 / 350 Output Total 555 / 555 250 / 250 Balance 35 / 35 100 / 100 Weight 74.2 kg Intake: IV 350 / 350 350 / 350 Azithromycin Inj 500 MG In NS 250 / 250 Inj 250 ML @ 250 mls/hr IV.SIG Q24H [facility] Rx#:[id number] Zosyn 2.25 GM Premix 50 ML @ 100 / 100 100 / 100 100 mls/hr IV.SIG Q6H [facility] Rx#: [id number] Vancomycin Inj 1,000 MG In NS 250 / 250 Inj 250 ML @ 250 mls/hr IV.SIG DAILY@1000 [facility] Rx#:[id number] Oral 240 / 240 Output: Urine 555 / 555 Urine Amount (Catheter) 250 / 250 Indwelling Urethral Catheter 250 / 250 Other: Date of Last Bowel Movement 01/05/18 01/05/18 Physical Exam: CONSTITUTIONAL/GENERAL: This is an elderly, mildly tachypneic patient, in mild respiratory distress. TUBES/LINES/DRAINS: BiPAP, IV access, Plascencia SKIN: No jaundice, rashes, or lesions. Ecchymoses on upper extremities. No wounds seen anteriorly. Skin temperature appropriate. Not CARDIOVASCULAR: Irregular rhythm without murmurs, gallops, or rubs. No JVD. Peripheral pulses diminished. RESPIRATORY/CHEST: Symmetric, mildly labored respirations, using some accessory muscles. A few scattered rales bilateral. GASTROINTESTINAL: Abdomen soft, non-tender, nondistended. No hepato-splenomegaly , or palpable masses. No guarding. Bowel sounds present. GENITOURINARY: Without palpable bladder distension. MUSCULOSKELETAL: Extremities without clubbing, cyanosis, or edema. No joint tenderness or effusion noted. No calf tenderness. No mottling or clubbing. NEUROLOGICAL: Awake and alert. Motor and sensory grossly within normal limits. Follows commands. Cognitively sharp. Moves all extremities. PSYCHIATRIC: No obvious anxiety/depression. no apparent hallucinations or other psychotic thought process. Diagnostic Tests Laboratory: Laboratory Results - last 72 hr 01/04/18 01/04/18 01/04/18 08:20 08:20 13:58 CBC w Diff WBC RBC Hgb Hct MCV MCH MCHC RDW Plt Count MPV Neut % (Auto) Lymph % (Auto) [place] % (Auto) Eos % (Auto) Baso % (Auto) Neut # (Auto) Lymph # (Auto) [place] # (Auto) Eos # (Auto) Baso # (Auto) WBC Differential Differential Comment Puncture Site Right radial Patient Temperature 98.6 O2 Saturation 87 L* ABG pH 7.46 H ABG pCO2 31 L ABG pO2 51 L* ABG HCO3 22 ABG O2 Content 18.4 ABG Base Excess -1.7 ABG Methemoglobin 0.5 Trent Test Present Hemoglobin 15.0 Carboxyhemoglobin 1.3 O2 Delivery Device Nasal cannula Liter Flow 6.00 Vent Setting Inspired O2 Critical Value Yes Sodium Potassium Chloride Carbon Dioxide Anion Gap BUN Creatinine Estimated GFR Random Glucose Hemoglobin A1c Calcium Phosphorus Magnesium Total Bilirubin Direct Bilirubin Indirect Bilirubin AST ALT Alkaline Phosphatase CK-MB (CK-2) 2.6 Troponin I B-Natriuretic Peptide Total Protein Albumin TSH 1.390 Urine Color Urine Clarity Urine pH Ur Specific [place] Urine Protein Urine Glucose (UA) Urine Ketones Urine Occult Blood Urine Nitrate Urine Bilirubin Urine Urobilinogen Ur Leukocyte Esterase Urine RBC Urine WBC Hyaline Casts Urine Mucus Micro UA Comment Ur Microscopic Review Urine Culture Comments Urine Osmolality Ur Random Creatinine Ur Random Sodium Pleural pH Pleural RBC Pleural Nuc Cells Pleural Neutrophils Pleural Lymphocytes Pleural Monocytes Pleural Histocytes Pleural Mesothelial Pleural Total Protein Pleural LDH Pleural Glucose Pleural Amylase 01/04/18 01/05/18 01/05/18 15:31 04:30 04:30 CBC w Diff Auto diff final WBC 16.5 H D RBC 4.50 Hgb 15.3 Hct 44.9 MCV 99.8 MCH 34.0 MCHC 34.1 RDW 12.0 Plt Count 167 MPV 10.4 Neut % (Auto) 85.1 H Lymph % (Auto) 4.7 L [place] % (Auto) 9.8 H Eos % (Auto) 0.1 Baso % (Auto) 0.3 Neut # (Auto) 14.1 H Lymph # (Auto) 0.8 L [place] # (Auto) 1.6 H Eos # (Auto) 0.0 Baso # (Auto) 0.0 WBC Differential . Differential Comment . Puncture Site Patient Temperature O2 Saturation ABG pH ABG pCO2 ABG pO2 ABG HCO3 ABG O2 Content ABG Base Excess ABG Methemoglobin Trent Test Hemoglobin Carboxyhemoglobin O2 Delivery Device Liter Flow Vent Setting Inspired O2 Critical Value Sodium 138 Potassium 4.6 Chloride 104 Carbon Dioxide 22.6 Anion Gap 11 BUN 28 H Creatinine 1.70 H Estimated GFR 39 L Random Glucose 111 H Hemoglobin A1c Calcium 8.7 Phosphorus Magnesium Total Bilirubin 2.1 H Direct Bilirubin Indirect Bilirubin AST 27 ALT 20 Alkaline Phosphatase 63 CK-MB (CK-2) Troponin I 0.04 B-Natriuretic Peptide Total Protein 7.0 D Albumin 3.5 TSH Urine Color Urine Clarity Urine pH Ur Specific [place] Urine Protein Urine Glucose (UA) Urine Ketones Urine Occult Blood Urine Nitrate Urine Bilirubin Urine Urobilinogen Ur Leukocyte Esterase Urine RBC Urine WBC Hyaline Casts Urine Mucus Micro UA Comment Ur Microscopic Review Urine Culture Comments Urine Osmolality Ur Random Creatinine Ur Random Sodium Pleural pH Pleural RBC Pleural Nuc Cells Pleural Neutrophils Pleural Lymphocytes Pleural Monocytes Pleural Histocytes Pleural Mesothelial Pleural Total Protein Pleural LDH Pleural Glucose Pleural Amylase 01/05/18 01/05/18 01/05/18 09:31 12:20 12:20 CBC w Diff WBC RBC Hgb Hct MCV MCH MCHC RDW Plt Count MPV Neut % (Auto) Lymph % (Auto) [place] % (Auto) Eos % (Auto) Baso % (Auto) Neut # (Auto) Lymph # (Auto) [place] # (Auto) Eos # (Auto) Baso # (Auto) WBC Differential Differential Comment Puncture Site Right radial Patient Temperature 98.6 O2 Saturation 93 ABG pH 7.35 L ABG pCO2 36 L ABG pO2 71 ABG HCO3 20 L ABG O2 Content 18.7 ABG Base Excess -5.0 L ABG Methemoglobin 0.4 Trent Test Present Hemoglobin 14.3 Carboxyhemoglobin 1.2 O2 Delivery Device Bipap Liter Flow Vent Setting 12 ipap/5 epap Inspired O2 75 Critical Value No Sodium Potassium Chloride Carbon Dioxide Anion Gap BUN Creatinine Estimated GFR Random Glucose Hemoglobin A1c Calcium Phosphorus Magnesium Total Bilirubin Direct Bilirubin Indirect Bilirubin AST ALT Alkaline Phosphatase CK-MB (CK-2) Troponin I B-Natriuretic Peptide Total Protein Albumin TSH Urine Color Urine Clarity Urine pH Ur Specific [place] Urine Protein Urine Glucose (UA) Urine Ketones Urine Occult Blood Urine Nitrate Urine Bilirubin Urine Urobilinogen Ur Leukocyte Esterase Urine RBC Urine WBC Hyaline Casts Urine Mucus Micro UA Comment Ur Microscopic Review Urine Culture Comments Urine Osmolality Ur Random Creatinine Ur Random Sodium Pleural pH 8.0 Pleural RBC 369 H Pleural Nuc Cells 283 H Pleural Neutrophils 51 Pleural Lymphocytes 25 Pleural Monocytes 4 Pleural Histocytes 8 Pleural Mesothelial 2 Pleural Total Protein 1.4 Pleural LDH 78 Pleural Glucose 141 Pleural Amylase 17 01/05/18 01/05/18 01/05/18 17:50 17:50 17:50 CBC w Diff WBC RBC Hgb Hct MCV MCH MCHC RDW Plt Count MPV Neut % (Auto) Lymph % (Auto) [place] % (Auto) Eos % (Auto) Baso % (Auto) Neut # (Auto) Lymph # (Auto) [place] # (Auto) Eos # (Auto) Baso # (Auto) WBC Differential Differential Comment Puncture Site Patient Temperature O2 Saturation ABG pH ABG pCO2 ABG pO2 ABG HCO3 ABG O2 Content ABG Base Excess ABG Methemoglobin Trent Test Hemoglobin Carboxyhemoglobin O2 Delivery Device Liter Flow Vent Setting Inspired O2 Critical Value Sodium Potassium Chloride Carbon Dioxide Anion Gap BUN Creatinine Estimated GFR Random Glucose Hemoglobin A1c Calcium Phosphorus Magnesium Total Bilirubin Direct Bilirubin Indirect Bilirubin AST ALT Alkaline Phosphatase CK-MB (CK-2) Troponin I B-Natriuretic Peptide Total Protein Albumin TSH Urine Color Yellow Urine Clarity Clear Urine pH 5.0 Ur Specific [place] 1.025 Urine Protein Negative Urine Glucose (UA) Negative Urine Ketones Negative Urine Occult Blood Negative Urine Nitrate Negative Urine Bilirubin Negative Urine Urobilinogen 0.2 Ur Leukocyte Esterase Negative Urine RBC 0-3 Urine WBC 0-5 Hyaline Casts 0-3 Urine Mucus Rare H Micro UA Comment Cath-culture not ind Ur Microscopic Review Microscopic reviewed Urine Culture Comments Cath-cult not ind Urine Osmolality 384 Ur Random Creatinine 128 Ur Random Sodium 47 Pleural pH Pleural RBC Pleural Nuc Cells Pleural Neutrophils Pleural Lymphocytes Pleural Monocytes Pleural Histocytes Pleural Mesothelial Pleural Total Protein Pleural LDH Pleural Glucose Pleural Amylase 01/06/18 01/06/18 01/06/18 04:45 04:45 04:45 CBC w Diff Auto diff final WBC 19.3 H RBC 4.20 L Hgb 14.0 Hct 42.0 MCV 100.1 H MCH 33.3 MCHC 33.3 RDW 12.1 Plt Count 160 MPV 10.4 Neut % (Auto) 91.5 H Lymph % (Auto) 2.7 L [place] % (Auto) 5.6 Eos % (Auto) 0.0 Baso % (Auto) 0.2 Neut # (Auto) 17.7 H Lymph # (Auto) 0.5 L [place] # (Auto) 1.1 H Eos # (Auto) 0.0 Baso # (Auto) 0.0 WBC Differential . Differential Comment . Puncture Site Patient Temperature O2 Saturation ABG pH ABG pCO2 ABG pO2 ABG HCO3 ABG O2 Content ABG Base Excess ABG Methemoglobin Trent Test Hemoglobin Carboxyhemoglobin O2 Delivery Device Liter Flow Vent Setting Inspired O2 Critical Value Sodium 137 Potassium 4.5 Chloride 106 Carbon Dioxide 19.6 L Anion Gap 11 BUN 45 H Creatinine 2.00 H Estimated GFR 32 L Random Glucose 145 H Hemoglobin A1c Calcium 8.5 Phosphorus 3.3 Magnesium 1.9 Total Bilirubin 1.8 H Direct Bilirubin 0.7 H Indirect Bilirubin 1.1 H AST 32 ALT 33 Alkaline Phosphatase 48 CK-MB (CK-2) Troponin I B-Natriuretic Peptide 402 H Total Protein 7.3 Albumin 3.9 TSH Urine Color Urine Clarity Urine pH Ur Specific [place] Urine Protein Urine Glucose (UA) Urine Ketones Urine Occult Blood Urine Nitrate Urine Bilirubin Urine Urobilinogen Ur Leukocyte Esterase Urine RBC Urine WBC Hyaline Casts Urine Mucus Micro UA Comment Ur Microscopic Review Urine Culture Comments Urine Osmolality Ur Random Creatinine Ur Random Sodium Pleural pH Pleural RBC Pleural Nuc Cells Pleural Neutrophils Pleural Lymphocytes Pleural Monocytes Pleural Histocytes Pleural Mesothelial Pleural Total Protein Pleural LDH Pleural Glucose Pleural Amylase 01/06/18 01/07/18 01/07/18 14:24 04:38 04:38 CBC w Diff Auto diff final WBC 17.4 H RBC 3.96 L Hgb 13.4 Hct 39.4 MCV 99.4 MCH 33.9 MCHC 34.1 RDW 12.5 Plt Count 146 L MPV 10.3 Neut % (Auto) 87.4 H Lymph % (Auto) 3.2 L [place] % (Auto) 6.1 Eos % (Auto) 0.2 Baso % (Auto) 3.1 H Neut # (Auto) 15.2 H Lymph # (Auto) 0.6 L [place] # (Auto) 1.1 H Eos # (Auto) 0.0 Baso # (Auto) 0.5 H WBC Differential . Differential Comment . Puncture Site Patient Temperature O2 Saturation ABG pH ABG pCO2 ABG pO2 ABG HCO3 ABG O2 Content ABG Base Excess ABG Methemoglobin Trent Test Hemoglobin Carboxyhemoglobin O2 Delivery Device Liter Flow Vent Setting Inspired O2 Critical Value Sodium 139 Potassium 4.8 Chloride 107 Carbon Dioxide 21.6 Anion Gap 10 BUN 64 H Creatinine 2.50 H Estimated GFR 25 L Random Glucose 162 H Hemoglobin A1c 4.7 Calcium 8.3 L Phosphorus Magnesium Total Bilirubin Direct Bilirubin Indirect Bilirubin AST ALT Alkaline Phosphatase CK-MB (CK-2) Troponin I B-Natriuretic Peptide Total Protein Albumin TSH Urine Color Urine Clarity Urine pH Ur Specific [place] Urine Protein Urine Glucose (UA) Urine Ketones Urine Occult Blood Urine Nitrate Urine Bilirubin Urine Urobilinogen Ur Leukocyte Esterase Urine RBC Urine WBC Hyaline Casts Urine Mucus Micro UA Comment Ur Microscopic Review Urine Culture Comments Urine Osmolality Ur Random Creatinine Ur Random Sodium Pleural pH Pleural RBC Pleural Nuc Cells Pleural Neutrophils Pleural Lymphocytes Pleural Monocytes Pleural Histocytes Pleural Mesothelial Pleural Total Protein Pleural LDH Pleural Glucose Pleural Amylase Result Diagrams: 01/07/18 04:38 01/07/18 04:38 Microbiology: Microbiology 01/05/18 12:20 Gram Stain - Final Fluid - Pleural fluid Body Fluid Culture - Preliminary No growth in 48 hours 01/05/18 12:20 Acid Fast Bacilli Smear - Final Fluid - Pleural fluid No acid fast bacilli seen 01/05/18 10:50 Aerobic Blood Culture - Preliminary Blood - Peripheral No growth in 1 day Anaerobic Blood Culture - Preliminary No growth in 1 day 01/05/18 10:40 Aerobic Blood Culture - Preliminary Blood - Peripheral No growth in 1 day Anaerobic Blood Culture - Preliminary No growth in 1 day 01/05/18 12:20 Fungal Smear - Final Fluid - Pleural fluid No fungal elements seen Imaging: Abdomen/Bladder Ultrasound 01/06/18 00:00 CONCLUSION: Right renal cyst. No hydronephrosis Chest X-Ray 01/07/18 00:00 CONCLUSION: 1. No significant interval change. 2. Persistent [id number] bilateral pleural effusions with associated lower lung zone airspace disease. Procedures: Thoracentesis 01/05/18 (850 cc) Assessment and Plan - Disease Oriented Problem List (1) Respiratory failure (2) Acute kidney injury Comment: Creatinine and GFR worsening each day (3) Heart failure (4) Pulmonary hypertension Pertinent Non-Medical Issues: Psychosocial: Originally from [place], [place], moved to the [facility] to work for [employer] in 1969. Works as an electrician chief for many years. and twice; has no children, but does have 1 stepson from his first . Niece and nephew are frequent visitors. Spiritual: [employer] background, members of his religious have visited him here. Legal: The patient has capacity for decision-making; he has designated his nephew Darin and niece Mila as healthcare surrogates. Ethical issues impacting care: Important Contacts: Nephew: Darin Meyers, Niece: Mila Borden (Palliative Medicine [facility] [place] in [place]): [phone] Prognosis: The patient has been declining for months, and now has worsening/symptomatic pulmonary hypertension, heart failure, and kidney injury. His overall prognosis is poor, and he now wants to transition to hospice services for end-of -life. Code Status: No Code DNR Plan: * DO NOT RESUSCITATE * DECISION-MAKING: The patient has capacity for decision-making; he has designated his nephew Darin and eddie Zaragoza as healthcare surrogates. * GOALS: Patient requests that we honor his previously expressed wishes and his living will; he does not want resuscitation, and quality of life is most important for him. He now wants to transition to hospice at the [facility] for end-of-life care. * Discussed by telephone again with the patient's (palliative medicine EMPLOYMENT SPECIALIST/PROGRAM MANAGER) eddie Zaragoza, and she concurs with the decision to proceed with hospice services. She has a very clear understanding of his situation and prognosis, and requests that we do our best to just keep him comfortable for his final days. * SYMPTOMS: The patient remains somewhat dyspneic; morphine and Ativan are available. * Hospice consult placed.. Time Spent Total Floor Time (mins): 39 Face to Face Time (mins): 20 >50% Time in Counseling or Coordination of Care: Yes Attestation Attestation: To help prompt me to consider important information that might be impacting today's encounter and assessment, information from prior notes written by myself or my colleagues may have been "brought forward" into today's note. My signature on this note, however, is an attestation that I personally performed the exam, history, and/or decision-making noted today, and, unless otherwise indicated, the interactions with patient, family, and staff as well as the review of records all occurred today. I also attest that the listed assessment and stated plan reflect my best clinical judgment today based on the combination of historical information, prior notes, and today's exam/ interactions. When time spent is documented, it refers only to time spent today by the signer, or if indicated, combined time spent today by collaborating physician/nurse practitioner.
[2018-01-07] MEDS: dilTIAZem CD 240 MG Capsule PO SCH (10:29)
[2018-01-07] MEDS: Metoprolol Tartrate 25 MG Tablet PO SCH ×2 (10:29→21:48)
[2018-01-07] MEDS: Rivaroxaban 15 MG Tablet PO SCH (10:29)
--- NOTE | 2018-01-07 15:03 | P.PNNP ---
Subjective Interval history: This is a late entry, note for 01/06/18. Patient seen, alert, still on BIPAP and with respiratory distress. Physical Exam Vital signs: Vital Signs 01/06/18 16:00 01/06/18 16:40 01/06/18 17:00 Temperature 98 F Pulse Rate 94 H 98 H Respiratory Rate 29 H 31 H Blood Pressure 117/64 112/67 Pulse Oximetry 91 L 88 L 84 L 01/06/18 18:00 01/06/18 18:24 01/06/18 19:00 Temperature Pulse Rate 102 H 102 H Respiratory Rate 34 H 32 H Blood Pressure 111/56 L 104/63 Pulse Oximetry 82 L 87 L 88 L 01/06/18 20:00 01/06/18 20:11 01/06/18 20:26 Temperature 97.4 F L Pulse Rate 90 87 108 H Respiratory Rate 30 H 28 H 33 H Blood Pressure 102/56 L 105/55 L Pulse Oximetry 88 L 89 L 87 L 01/06/18 20:35 01/06/18 21:00 01/06/18 22:00 Temperature Pulse Rate 96 H 94 H Respiratory Rate 25 H 21 Blood Pressure 113/59 L 101/50 L Pulse Oximetry 87 L 90 L 88 L 01/06/18 23:00 01/06/18 23:05 01/07/18 00:00 Temperature 96.5 F L Pulse Rate 96 H 94 H Respiratory Rate 21 26 H Blood Pressure 105/56 L 94/64 L Pulse Oximetry 90 L 89 L 89 L 01/07/18 01:00 01/07/18 01:10 01/07/18 01:18 Temperature Pulse Rate 92 H 88 Respiratory Rate 22 17 Blood Pressure 112/66 Pulse Oximetry 87 L 89 L 01/07/18 01:21 01/07/18 02:00 01/07/18 03:00 Temperature Pulse Rate 88 96 H Respiratory Rate 20 43 H Blood Pressure 104/55 L 117/61 Pulse Oximetry 89 L 86 L 84 L 01/07/18 04:01 01/07/18 04:10 01/07/18 05:00 Temperature 98 F Pulse Rate 84 84 Respiratory Rate 22 20 Blood Pressure 94/47 L 93/57 L Pulse Oximetry 93 L 94 L 93 L 01/07/18 06:00 01/07/18 07:32 01/07/18 11:09 Temperature Pulse Rate 86 108 H Respiratory Rate 25 H 21 Blood Pressure 101/56 L Pulse Oximetry 93 L 94 L 92 L 01/07/18 13:37 Temperature Pulse Rate 93 H Respiratory Rate 33 H Blood Pressure Pulse Oximetry Intake & Output 01/06/18 01/07/18 01/07/18 18:59 06:59 18:59 Intake Total 590 / 590 400 / 400 Output Total 555 / 555 250 / 250 Balance 35 / 35 150 / 150 Weight 74.2 kg Intake: IV 350 / 350 400 / 400 Azithromycin Inj 500 MG In NS 250 / 250 Inj 250 ML @ 250 mls/hr IV.SIG Q24H [facility] Rx#:[id number] Zosyn 2.25 GM Premix 50 ML @ 100 / 100 150 / 150 100 mls/hr IV.SIG Q6H [facility] Rx#: [id number] Vancomycin Inj 1,000 MG In NS 250 / 250 Inj 250 ML @ 250 mls/hr IV.SIG DAILY@1000 [facility] Rx#:[id number] Oral 240 / 240 Output: Urine 555 / 555 Urine Amount (Catheter) 250 / 250 Indwelling Urethral Catheter 250 / 250 Other: Date of Last Bowel Movement 01/05/18 01/05/18 01/05/18 Narrative: GENERAL: Well-developed, well-nourished, patient continues to be in respiratory failure. alert and orientated HEENT: Head is normocephalic without any lesions or masses noted. Facial features are symmetric. Eyes: Extraocular muscles are intact. Conjunctivae were clear. NECK: Supple without any masses. Trachea midline no deviation. No JVD, CARDIAC: Regular rhythm, regular rate. S1/S2 are heard. 2/6 ejection murmur, no gallops or rubs. LUNGS: Diminished breath sounds noted throughout, minimal air movement. No wheeze, rhonchi or rales. using accessory. ABDOMEN: Soft, nontender. Nondistended. Bowel sounds heard in all 4 quadrants. No organomegaly or masses. Negative rebound, negative guarding have urinary Plascencia shown decreased urinary output with dark urine. EXTREMITIES: No edema, pulses are equal bilaterally. No cyanosis or clubbing NEUROLOGY: Mood and affect appear appropriate. Cranial nerves II through XII grossly intact. Moving all extremities, speech is clear - Urinary Catheter Management Indwelling Urethral Catheter Cath placed during this visit: yes Reason for continuing: Hourly intake/output Insertion date: 01/05/18 Insertion time: 18:00 Assessment and Plan - Plan Assessment: 1. Acute kidney injury. 2. Congestive heart failure and fluid overload status. 3. Atrial fibrillation with rapid ventricular rate. 4. Respiratory failure. Plan: Patient has LINK , mainly either cardio renal or ATN. Urine out put is on the lower side. Creatinine is increasing. Increase Lasix to BID. Try to keep in negative fluid balance. Renal U/S noted.
--- NOTE | 2018-01-07 15:10 | P.PNNP ---
Subjective Interval history: Patient on BIPAP and in moderate respiratory distress. Physical Exam Vital signs: Vital Signs 01/06/18 16:00 01/06/18 16:40 01/06/18 17:00 Temperature 98 F Pulse Rate 94 H 98 H Respiratory Rate 29 H 31 H Blood Pressure 117/64 112/67 Pulse Oximetry 91 L 88 L 84 L 01/06/18 18:00 01/06/18 18:24 01/06/18 19:00 Temperature Pulse Rate 102 H 102 H Respiratory Rate 34 H 32 H Blood Pressure 111/56 L 104/63 Pulse Oximetry 82 L 87 L 88 L 01/06/18 20:00 01/06/18 20:11 01/06/18 20:26 Temperature 97.4 F L Pulse Rate 90 87 108 H Respiratory Rate 30 H 28 H 33 H Blood Pressure 102/56 L 105/55 L Pulse Oximetry 88 L 89 L 87 L 01/06/18 20:35 01/06/18 21:00 01/06/18 22:00 Temperature Pulse Rate 96 H 94 H Respiratory Rate 25 H 21 Blood Pressure 113/59 L 101/50 L Pulse Oximetry 87 L 90 L 88 L 01/06/18 23:00 01/06/18 23:05 01/07/18 00:00 Temperature 96.5 F L Pulse Rate 96 H 94 H Respiratory Rate 21 26 H Blood Pressure 105/56 L 94/64 L Pulse Oximetry 90 L 89 L 89 L 01/07/18 01:00 01/07/18 01:10 01/07/18 01:18 Temperature Pulse Rate 92 H 88 Respiratory Rate 22 17 Blood Pressure 112/66 Pulse Oximetry 87 L 89 L 01/07/18 01:21 01/07/18 02:00 01/07/18 03:00 Temperature Pulse Rate 88 96 H Respiratory Rate 20 43 H Blood Pressure 104/55 L 117/61 Pulse Oximetry 89 L 86 L 84 L 01/07/18 04:01 01/07/18 04:10 01/07/18 05:00 Temperature 98 F Pulse Rate 84 84 Respiratory Rate 22 20 Blood Pressure 94/47 L 93/57 L Pulse Oximetry 93 L 94 L 93 L 01/07/18 06:00 01/07/18 07:32 01/07/18 11:09 Temperature Pulse Rate 86 108 H Respiratory Rate 25 H 21 Blood Pressure 101/56 L Pulse Oximetry 93 L 94 L 92 L 01/07/18 13:37 Temperature Pulse Rate 93 H Respiratory Rate 33 H Blood Pressure Pulse Oximetry Intake & Output 01/06/18 01/07/18 01/07/18 18:59 06:59 18:59 Intake Total 590 / 590 400 / 400 Output Total 555 / 555 250 / 250 Balance 35 / 35 150 / 150 Weight 74.2 kg Intake: IV 350 / 350 400 / 400 Azithromycin Inj 500 MG In NS 250 / 250 Inj 250 ML @ 250 mls/hr IV.SIG Q24H [facility] Rx#:[id number] Zosyn 2.25 GM Premix 50 ML @ 100 / 100 150 / 150 100 mls/hr IV.SIG Q6H [facility] Rx#: [id number] Vancomycin Inj 1,000 MG In NS 250 / 250 Inj 250 ML @ 250 mls/hr IV.SIG DAILY@1000 [facility] Rx#:[id number] Oral 240 / 240 Output: Urine 555 / 555 Urine Amount (Catheter) 250 / 250 Indwelling Urethral Catheter 250 / 250 Other: Date of Last Bowel Movement 01/05/18 01/05/18 01/05/18 Narrative: GENERAL: Well-developed, well-nourished, patient continues to be in respiratory failure. alert and orientated HEENT: Head is normocephalic without any lesions or masses noted. Facial features are symmetric. Eyes: Extraocular muscles are intact. Conjunctivae were clear. NECK: Supple without any masses. Trachea midline no deviation. No JVD, CARDIAC: Regular rhythm, regular rate. S1/S2 are heard. 2/6 ejection murmur, no gallops or rubs. LUNGS: Diminished breath sounds noted throughout, minimal air movement, diffuse wheeze, and basal rales. ABDOMEN: Soft, nontender. Nondistended. Bowel sounds heard in all 4 quadrants. No organomegaly or masses. Negative rebound, negative guarding have urinary Plascencia shown decreased urinary output with dark urine. EXTREMITIES:Mild edema both legs. NEUROLOGY: Moving all extremities, speech is clear - Urinary Catheter Management Indwelling Urethral Catheter Cath placed during this visit: yes Reason for continuing: Hourly intake/output Insertion date: 01/05/18 Insertion time: 18:00 Assessment and Plan - Plan Assessment: 1. Acute kidney injury. 2. Congestive heart failure and fluid overload status. 3. Atrial fibrillation with rapid ventricular rate. 4. Respiratory failure. Plan: Patient has LINK , mainly either cardio renal or ATN. Urine out put is on the lower side. Creatinine is increasing. Try to keep in negative fluid balance. Now started on Bumex. Palliative care is following, possibly Hospice.
[2018-01-07] MEDS: Azithromycin Inj 500 MG in Sodium Chlor 0.9% Inj 250 ML IV.SIG SCH (19:31)
--- NOTE | 2018-01-07 19:38 | P.PN ---
Subjective Interval history: On Bipap still. had thoracentesis with removal of 800 CC of fluid from right chest. Renal profile worse. Physical Exam Vital signs: Vital Signs 01/06/18 20:00 01/06/18 20:11 01/06/18 20:26 Temperature 97.4 F L Pulse Rate 90 87 108 H Respiratory Rate 30 H 28 H 33 H Blood Pressure 102/56 L 105/55 L Pulse Oximetry 88 L 89 L 87 L 01/06/18 20:35 01/06/18 21:00 01/06/18 22:00 Temperature Pulse Rate 96 H 94 H Respiratory Rate 25 H 21 Blood Pressure 113/59 L 101/50 L Pulse Oximetry 87 L 90 L 88 L 01/06/18 23:00 01/06/18 23:05 01/07/18 00:00 Temperature 96.5 F L Pulse Rate 96 H 94 H Respiratory Rate 21 26 H Blood Pressure 105/56 L 94/64 L Pulse Oximetry 90 L 89 L 89 L 01/07/18 01:00 01/07/18 01:10 01/07/18 01:18 Temperature Pulse Rate 92 H 88 Respiratory Rate 22 17 Blood Pressure 112/66 Pulse Oximetry 87 L 89 L 01/07/18 01:21 01/07/18 02:00 01/07/18 03:00 Temperature Pulse Rate 88 96 H Respiratory Rate 20 43 H Blood Pressure 104/55 L 117/61 Pulse Oximetry 89 L 86 L 84 L 01/07/18 04:01 01/07/18 04:10 01/07/18 05:00 Temperature 98 F Pulse Rate 84 84 Respiratory Rate 22 20 Blood Pressure 94/47 L 93/57 L Pulse Oximetry 93 L 94 L 93 L 01/07/18 06:00 01/07/18 07:00 01/07/18 07:32 Temperature Pulse Rate 86 106 H 108 H Respiratory Rate 25 H 34 H 21 Blood Pressure 101/56 L 137/68 Pulse Oximetry 93 L 92 L 94 L 01/07/18 08:00 01/07/18 09:00 01/07/18 10:00 Temperature Pulse Rate 108 H 112 H 112 H Respiratory Rate 22 27 H 28 H Blood Pressure 140/60 136/68 131/60 Pulse Oximetry 95 87 L 85 L 01/07/18 11:00 01/07/18 11:09 01/07/18 12:00 Temperature Pulse Rate 118 H 102 H Respiratory Rate 30 H 28 H Blood Pressure 156/67 H 123/66 Pulse Oximetry 83 L 92 L 95 01/07/18 13:00 01/07/18 13:37 01/07/18 14:00 Temperature Pulse Rate 104 H 93 H 110 H Respiratory Rate 26 H 33 H 23 Blood Pressure 119/61 116/66 Pulse Oximetry 97 86 L 01/07/18 15:00 01/07/18 16:00 01/07/18 16:55 Temperature Pulse Rate 100 H 94 H Respiratory Rate 27 H 23 Blood Pressure 111/56 L 119/50 L Pulse Oximetry 88 L 97 96 01/07/18 19:05 Temperature Pulse Rate 117 H Respiratory Rate 30 H Blood Pressure Pulse Oximetry 97 Intake & Output 01/07/18 01/07/18 01/08/18 06:59 18:59 06:59 Intake Total 400 / 400 50 / 50 50 / 50 Output Total 250 / 250 Balance 150 / 150 50 / 50 50 / 50 Weight 74.2 kg Intake: IV 400 / 400 50 / 50 50 / 50 Azithromycin Inj 500 MG In NS 250 / 250 Inj 250 ML @ 250 mls/hr IV.SIG Q24H [facility] Rx#:[id number] Zosyn 2.25 GM Premix 50 ML @ 150 / 150 50 / 50 50 / 50 100 mls/hr IV.SIG Q6H [facility] Rx#: [id number] Output: Urine Amount (Catheter) 250 / 250 Indwelling Urethral Catheter 250 / 250 Other: Date of Last Bowel Movement 01/05/18 01/05/18 Narrative: GENERAL: Well-developed, well-nourished, patient continues to be in respiratory failure. alert and orientated HEENT: Head is normocephalic without any lesions or masses noted. Facial features are symmetric. Eyes: Extraocular muscles are intact. Conjunctivae were clear. NECK: Supple without any masses. Trachea midline no deviation. No JVD, CARDIAC: Regular rhythm, regular rate. S1/S2 are heard. 2/6 ejection murmur, no gallops or rubs. LUNGS: Diminished breath sounds at bases, minimal air movement, diffuse wheeze , and basal rales. ABDOMEN: Soft, nontender. Nondistended. Bowel sounds heard in all 4 quadrants. No organomegaly or masses. EXTREMITIES:Mild edema both legs. NEUROLOGY: Moving all extremities, no gross deficit. - Urinary Catheter Management Indwelling Urethral Catheter Cath placed during this visit: yes Reason for continuing: Hourly intake/output Insertion date: 01/05/18 Insertion time: 18:00 Results - Labs CBC & Chem 7: 01/07/18 04:38 01/07/18 04:38 Laboratory Results - last 24 hr 01/06/18 01/07/18 01/07/18 14:24 04:38 04:38 CBC w Diff Auto diff final WBC 17.4 H RBC 3.96 L Hgb 13.4 Hct 39.4 MCV 99.4 MCH 33.9 MCHC 34.1 RDW 12.5 Plt Count 146 L MPV 10.3 Neut % (Auto) 87.4 H Lymph % (Auto) 3.2 L Sebastian % (Auto) 6.1 Eos % (Auto) 0.2 Baso % (Auto) 3.1 H Neut # (Auto) 15.2 H Lymph # (Auto) 0.6 L Sebastian # (Auto) 1.1 H Eos # (Auto) 0.0 Baso # (Auto) 0.5 H WBC Differential . Differential Comment . Sodium 139 Potassium 4.8 Chloride 107 Carbon Dioxide 21.6 Anion Gap 10 BUN 64 H Creatinine 2.50 H Estimated GFR 25 L Random Glucose 162 H Hemoglobin A1c 4.7 Calcium 8.3 L Microbiology 01/05/18 10:50 Blood - Peripheral Aerobic Blood Culture - Preliminary No growth in 2 days 01/05/18 10:50 Blood - Peripheral Anaerobic Blood Culture - Preliminary No growth in 2 days 01/05/18 10:40 Blood - Peripheral Aerobic Blood Culture - Preliminary No growth in 2 days 01/05/18 10:40 Blood - Peripheral Anaerobic Blood Culture - Preliminary No growth in 2 days 01/05/18 12:20 Fluid - Pleural fluid Gram Stain - Final 01/05/18 12:20 Fluid - Pleural fluid Body Fluid Culture - Preliminary No growth in 48 hours 01/05/18 12:20 Fluid - Pleural fluid Acid Fast Bacilli Smear - Final No acid fast bacilli seen - Imaging Impressions Chest X-Ray 01/07/18 00:00 CONCLUSION: 1. No significant interval change. 2. Persistent [id number] bilateral pleural effusions with associated lower lung zone airspace disease. Assessment and Plan - Assessment (1) Pneumonia Code(s): J18.9 - Pneumonia, unspecified organism Status: Acute (2) Atrial fibrillation with RVR Code(s): I48.91 - Unspecified atrial fibrillation Status: Acute (3) Congestive heart failure Code(s): I50.9 - Heart failure, unspecified Status: Acute (4) Hypoxia Code(s): R09.02 - Hypoxemia Status: Acute (5) Respiratory failure Code(s): J96.90 - Respiratory failure, unspecified, unspecified whether with hypoxia or hypercapnia Status: Acute (6) Acute kidney injury Code(s): N17.9 - Acute kidney failure, unspecified Status: Acute (7) Heart failure Code(s): I50.9 - Heart failure, unspecified Status: Acute (8) Pulmonary hypertension Code(s): I27.20 - Pulmonary hypertension, unspecified Status: Acute (9) Dyspnea Code(s): R06.00 - Dyspnea, unspecified Status: Acute - Plan 1. Continue BiPAP 15/5 cm , FIo2 35 % at HS and PRN 2. Wean O2 to Keep sat >92. 3. Duonebs qid. 4. Continue antibiotic Zosyn 5. Cont solumedrol 40 mg IV Q8H 6. Bumex IV 1 mg bid daily 7. CXR ,labs in am (3) Congestive heart failure Qualifiers: Heart failure type: unspecified Heart failure chronicity: acute Qualified Code(s): I50.9 - Heart failure, unspecified
[2018-01-08] MEDS: Piperacil/Tazo 2.25 GM Premix 50 ML IV.SIG SCH ×4 (04:27→23:38)
[2018-01-08] MEDS: MethylPREDNISolone Sod Succinate Inj 40 MG/ML Vial IV.PUSH SCH ×4 (04:27→21:14)
--- NOTE | 2018-01-08 05:26 | XR ---
EXAM DATE: 01/08/2018 5:17 AM EDT AGE/SEX: 82 years / Male INDICATIONS: Shortness of breath CLINICAL DATA: This is the patient's subsequent encounter. Patient reports that signs and symptoms h ave been present for 4 - 6 days and indicates a pain score of 0/10. MEDICAL/SURGICAL HISTORY: . Hypertension. Ankylosing spondylitis. Atrial fibrillation. Cardiove rsion. IBS. None. COMPARISON: [facility], CHEST 1V SINGLE AP, 01/07/2018. . FINDINGS: Persistent mild to moderate bilateral pleural effusions with patchy lower lung zone airspace disease. Mild diffuse interstitial prominence. Cardiomediastinal contours are stable. Remainder of exam is un changed. CONCLUSION: 1. No significant interval change. 2. Stable interstitial edema with small to moderate bilateral pleural effusions and associated lower lung zone airspace disease. Electronically signed by: Alfred Santos MD 01/08/2018 5:24 AM EDT
[2018-01-08 07:00] LABS: Baso % (Auto) 0.1 % (0.0-2.0); Hematocrit 38.9 % (39.0-51.0); Hemoglobin 13.4 gm/dL (13.0-17.0); Lymph # (Auto) 0.3 th/mm3 (1.0-4.8); Lymph % (Auto) 1.7 % (9.0-44.0); Mean Corpuscular HGB Conc 34.5 % (32.0-36.0); Mean Corpuscular Hemoglobin 33.8 pg (27.0-34.0); Mean Corpuscular Volume 98.1 fL (80.0-100.0); Mean Platelet Volume 10.9 fL (7.0-11.0); Mono # (Auto) 0.9 th/mm3 (0.0-0.9); Mono % (Auto) 6.2 % (0.0-8.0); Neut # (Auto) 13.9 th/mm3 (1.8-7.7); Platelet Count 163 th/mm3 (150-450); Red Blood Count 3.97 mil/mm3 (4.50-5.90); Red Cell Distribution Width 11.9 % (11.6-17.2); White Blood Count 15.1 th/mm3 (4.0-11.0)
[2018-01-08 07:06] LABS: Calcium 8.5 mg/dL (8.5-10.1); Carbon Dioxide 22.8 meq/L (21.0-32.0); Potassium 3.7 meq/L (3.5-5.1)
--- NOTE | 2018-01-08 09:39 | P.PN ---
Subjective Interval history: 82-year-old male with rather extensive medical condition during the hospitalization with respiratory failure, renal failure, fluid overload. Patient does appear to have a mild improvement today. Did have better diuresis with 800 cc of urine overnight. Renal functions are mildly improved today. Patient still requires BiPAP for respiratory support. Patient continues to inform me of his discomfort wearing the BiPAP mask. Patient still with significant tachycardia, tachypnea. Blood pressure appears to be improved. Patient remains afebrile Physical Exam Vital signs: Vital Signs 01/07/18 10:00 01/07/18 11:00 01/07/18 11:09 Temperature Pulse Rate 112 H 118 H Respiratory Rate 28 H 30 H Blood Pressure 131/60 156/67 H Pulse Oximetry 85 L 83 L 92 L 01/07/18 12:00 01/07/18 13:00 01/07/18 13:37 Temperature Pulse Rate 102 H 104 H 93 H Respiratory Rate 28 H 26 H 33 H Blood Pressure 123/66 119/61 Pulse Oximetry 95 97 01/07/18 14:00 01/07/18 15:00 01/07/18 16:00 Temperature Pulse Rate 110 H 100 H 94 H Respiratory Rate 23 27 H 23 Blood Pressure 116/66 111/56 L 119/50 L Pulse Oximetry 86 L 88 L 97 01/07/18 16:55 01/07/18 17:00 01/07/18 18:00 Temperature Pulse Rate 98 H 104 H Respiratory Rate 31 H 30 H Blood Pressure 119/70 119/56 L Pulse Oximetry 96 96 97 01/07/18 19:05 01/07/18 20:00 01/07/18 20:30 Temperature 98 F Pulse Rate 117 H 104 H Respiratory Rate 30 H 31 H Blood Pressure 138/70 Pulse Oximetry 97 94 L 92 L 01/07/18 22:00 01/07/18 22:30 01/08/18 00:00 Temperature 97.8 F Pulse Rate 112 H 94 H Respiratory Rate 30 H Blood Pressure 112/63 Pulse Oximetry 95 98 01/08/18 00:15 01/08/18 00:59 01/08/18 01:00 Temperature Pulse Rate 94 H 102 H Respiratory Rate 28 H Blood Pressure Pulse Oximetry 96 01/08/18 02:15 01/08/18 04:00 01/08/18 04:15 Temperature 97.9 F Pulse Rate 106 H 106 H 106 H Respiratory Rate 32 H Blood Pressure 117/51 L Pulse Oximetry 98 01/08/18 06:00 01/08/18 07:33 01/08/18 08:00 Temperature 98 F Pulse Rate 85 115 H 115 H Respiratory Rate 30 H 34 H Blood Pressure 128/63 Pulse Oximetry 97 96 Intake & Output 01/07/18 01/08/18 01/08/18 18:59 06:59 18:59 Intake Total 410 / 410 1120 / 1120 Output Total 650 / 650 800 / 800 Balance -240 / -240 320 / 320 Weight 74.9 kg Intake: IV 50 / 50 400 / 400 Azithromycin Inj 500 MG In NS 250 / 250 Inj 250 ML @ 250 mls/hr IV.SIG Q24H [facility] Rx#:[id number] Zosyn 2.25 GM Premix 50 ML @ 50 / 50 150 / 150 100 mls/hr IV.SIG Q6H [facility] Rx#: [id number] Oral 360 / 360 720 / 720 Output: Urine 650 / 650 Urine Amount (Catheter) 800 / 800 Indwelling Urethral Catheter 800 / 800 Other: Date of Last Bowel Movement 01/07/18 01/08/18 # Bowel Movements 3 Narrative: GENERAL: Well-developed, well-nourished, patient continues to be in respiratory failure. alert and orientated HEENT: Head is normocephalic without any lesions or masses noted. Facial features are symmetric. Eyes: Extraocular muscles are intact. Conjunctivae were clear. NECK: Supple without any masses. Trachea midline no deviation. No JVD, CARDIAC: Regular rhythm, regular rate. S1/S2 are heard. 2/6 ejection murmur, no gallops or rubs. LUNGS: Diminished breath sounds noted throughout, minimal air movement. No wheeze, rhonchi or rales. using accessory. ABDOMEN: Soft, nontender. Nondistended. Bowel sounds heard in all 4 quadrants. No organomegaly or masses. Negative rebound, negative guarding. Urinary Plascencia in place with improved urinary output, still dark urine EXTREMITIES: No edema, pulses are equal bilaterally. No cyanosis or clubbing NEUROLOGY: Mood and affect appear appropriate. Cranial nerves II through XII grossly intact. Moving all extremities, speech is clear - Urinary Catheter Management Indwelling Urethral Catheter Cath placed during this visit: yes Reason for continuing: Hourly intake/output Insertion date: 01/05/18 Insertion time: 18:00 Results - Labs CBC & Chem 7: 01/08/18 06:20 01/08/18 06:20 Laboratory Results - last 24 hr 01/08/18 01/08/18 06:20 06:20 CBC w Diff Auto diff final WBC 15.1 H RBC 3.97 L Hgb 13.4 Hct 38.9 L MCV 98.1 MCH 33.8 MCHC 34.5 RDW 11.9 Plt Count 163 MPV 10.9 Neut % (Auto) 92.0 H Lymph % (Auto) 1.7 L Faulk % (Auto) 6.2 Eos % (Auto) 0.0 Baso % (Auto) 0.1 Neut # (Auto) 13.9 H Lymph # (Auto) 0.3 L Faulk # (Auto) 0.9 Eos # (Auto) 0.0 Baso # (Auto) 0.0 WBC Differential . Differential Comment . Sodium 143 Potassium 3.7 D Chloride 107 Carbon Dioxide 22.8 Anion Gap 13 BUN 69 H Creatinine 2.10 H Estimated GFR 30 L Random Glucose 144 H Calcium 8.5 Microbiology 01/05/18 12:20 Fluid - Pleural fluid Gram Stain - Final 01/05/18 12:20 Fluid - Pleural fluid Body Fluid Culture - Final No growth in 72 hours (aerobically and anaerobically ) 01/05/18 10:50 Blood - Peripheral Aerobic Blood Culture - Preliminary No growth in 2 days 01/05/18 10:50 Blood - Peripheral Anaerobic Blood Culture - Preliminary No growth in 2 days 01/05/18 10:40 Blood - Peripheral Aerobic Blood Culture - Preliminary No growth in 2 days 01/05/18 10:40 Blood - Peripheral Anaerobic Blood Culture - Preliminary No growth in 2 days - Imaging Impressions Chest X-Ray 01/08/18 00:00 CONCLUSION: 1. No significant interval change. 2. Stable interstitial edema with small to moderate bilateral pleural effusions and associated lower lung zone airspace disease. - Procedures ECHOCARDIOGRAM CONCLUSIONS The left ventricular systolic function is hyperdynamic with an estimated ejection fraction in the range of 65- 70%. Wall thickness is normal. No regional wall motion abnormalities are present. Severe biatrial enlargement. A possible atrial level shunt is demonstrated by color flow Doppler interrogation, clinical correlation recommended. Moderate thickening of the mitral valve leaflets. [id number] mitral valve regurgitation. Mitral annular calcification is present. Can not rule out a mobile echodensity located on the anterior mitral valve leaflet. Clinical correlation recommended. Aortic valve sclerosis is present. Trace aortic valve regurgitation. There is moderate tricuspid regurgitation. The estimated pulmonary arterial pressure is 57.6 mmHg. 01/05/18: Thoracentesis with 850 cc of fluid removal from the right side Assessment and Plan - Plan Acute hypoxic respiratory failure, stabilized -Multifactorial with findings of congestive heart failure, elevated BNP, significant pleural effusion, severe biatrial enlargement, possible atrial level shunt -Unable to treat effectively without intubation, patient is a DO NOT RESUSCITATE , will respect the patient's wishes -Continue high flow oxygen and BiPAP to maintain O2 sats greater than 92% -It Security Administrator was consulted who performed right-sided thoracentesis with 850 cc of fluid removal -Fluid studies indicating transudate fluid -Bumex 1 mg IV twice daily, patient has increased diuresis secondary to changing to Bumex -Continue Solu-Medrol 40 mg every 6 hours -Continue empirical antibiotics include vancomycin and Zosyn -Civil Engineering Teacher following the patient -Patient would benefit from repeat thoracentesis, possible may require chest tube placement since fluid continues to reaccumulate -Palliative care consulted for further recommendations and treatment plan goals Acute renal failure with decreased urinary output, mild improvement today -Could be secondary to tubular necrosis from hypotension -Renal bladder ultrasound was performed which showed right renal cyst no hydronephrosis -Renal functions have started to improved, creatinine now 2.1 -Avoid nephrotoxins -[employer] Attendant following the patient -Plascencia for strict ins and outs management -Patient will likely need dialysis in order to manage appropriately to help with renal function, fluid removal Hypotension, improved -Unknown if this is related to diuresis, sepsis, cardiorenal syndrome -Patient was given fluid boluses, albumin bolus -Patient blood pressure medications have hold parameters Atrial fibrillation with RVR, heart rate 85-115 -Status post Cardizem IV with discontinuation -Patient continued on Cardizem CD 240 mg daily -Adjusted to metoprolol 12.5 mg twice daily, -Needed to adjust medications for hypotension, heart rate may worsen -If heart rate worsens possible consider digoxin to help with rate control and cardiac function -Patient is on Xarelto for anticoagulation Hyperglycemia -Likely secondary to stress and Solu-Medrol -Hemoglobin A1c 4.7 -Continue monitor and start Accu-Cheks with sliding scale insulin if needed DVT prevention -Felicitato
[2018-01-08] MEDS ORDERED: Pharmacy Ordered Lab Info OTHER ONE (09:45)
[2018-01-08] MEDS: dilTIAZem CD 240 MG Capsule PO SCH (10:04)
[2018-01-08] MEDS: Metoprolol Tartrate 25 MG Tablet PO SCH ×2 (10:04→21:15)
[2018-01-08] MEDS: Rivaroxaban 15 MG Tablet PO SCH (10:04)
--- NOTE | 2018-01-08 12:56 | P.PNNP ---
Subjective Interval history: Patient is more alert, on BIPAP, in mild respiratory distress. Physical Exam Vital signs: Vital Signs 01/07/18 13:00 01/07/18 13:37 01/07/18 14:00 Temperature Pulse Rate 104 H 93 H 110 H Respiratory Rate 26 H 33 H 23 Blood Pressure 119/61 116/66 Pulse Oximetry 97 86 L 01/07/18 15:00 01/07/18 16:00 01/07/18 16:55 Temperature Pulse Rate 100 H 94 H Respiratory Rate 27 H 23 Blood Pressure 111/56 L 119/50 L Pulse Oximetry 88 L 97 96 01/07/18 17:00 01/07/18 18:00 01/07/18 19:05 Temperature Pulse Rate 98 H 104 H 117 H Respiratory Rate 31 H 30 H 30 H Blood Pressure 119/70 119/56 L Pulse Oximetry 96 97 97 01/07/18 20:00 01/07/18 20:30 01/07/18 22:00 Temperature 98 F Pulse Rate 104 H 112 H Respiratory Rate 31 H Blood Pressure 138/70 Pulse Oximetry 94 L 92 L 01/07/18 22:30 01/08/18 00:00 01/08/18 00:15 Temperature 97.8 F Pulse Rate 94 H 94 H Respiratory Rate 30 H Blood Pressure 112/63 Pulse Oximetry 95 98 01/08/18 00:59 01/08/18 01:00 01/08/18 02:15 Temperature Pulse Rate 102 H 106 H Respiratory Rate 28 H Blood Pressure Pulse Oximetry 96 01/08/18 04:00 01/08/18 04:15 01/08/18 06:00 Temperature 97.9 F Pulse Rate 106 H 106 H 85 Respiratory Rate 32 H Blood Pressure 117/51 L Pulse Oximetry 98 01/08/18 07:33 01/08/18 08:00 01/08/18 08:30 Temperature 98 F Pulse Rate 115 H 115 H Respiratory Rate 30 H 34 H Blood Pressure 128/63 Pulse Oximetry 97 98 94 L 01/08/18 12:00 Temperature 98.5 F Pulse Rate 117 H Respiratory Rate 28 H Blood Pressure 112/60 Pulse Oximetry 95 Intake & Output 01/07/18 01/08/18 01/08/18 18:59 06:59 18:59 Intake Total 410 / 410 1120 / 1120 Output Total 650 / 650 800 / 800 Balance -240 / -240 320 / 320 Weight 74.9 kg Intake: IV 50 / 50 400 / 400 Azithromycin Inj 500 MG In NS 250 / 250 Inj 250 ML @ 250 mls/hr IV.SIG Q24H [facility] Rx#:[id number] Zosyn 2.25 GM Premix 50 ML @ 50 / 50 150 / 150 100 mls/hr IV.SIG Q6H [facility] Rx#: [id number] Oral 360 / 360 720 / 720 Output: Urine 650 / 650 Urine Amount (Catheter) 800 / 800 Indwelling Urethral Catheter 800 / 800 Other: Date of Last Bowel Movement 01/07/18 01/08/18 # Bowel Movements 3 Narrative: GENERAL: Well-developed, well-nourished, patient continues to be in respiratory failure. alert and orientated HEENT: Head is normocephalic without any lesions or masses noted. Facial features are symmetric. Eyes: Extraocular muscles are intact. Conjunctivae were clear. NECK: Supple without any masses. Trachea midline no deviation. No JVD, CARDIAC: Regular rhythm, regular rate. S1/S2 are heard. 2/6 ejection murmur, no gallops or rubs. LUNGS: Diminished breath sounds noted throughout, air movement improving. No wheeze, rhonchi or rales. using accessory. ABDOMEN: Soft, nontender. Nondistended. Bowel sounds heard in all 4 quadrants. No organomegaly or masses. Negative rebound, negative guarding. Urinary Plascencia in place with improved urinary output, still dark urine EXTREMITIES: No edema, pulses are equal bilaterally. No cyanosis or clubbing NEUROLOGY: Mood and affect appear appropriate. Cranial nerves II through XII grossly intact. Moving all extremities, speech is clear - Urinary Catheter Management Indwelling Urethral Catheter Cath placed during this visit: yes Reason for continuing: Hourly intake/output Insertion date: 01/05/18 Insertion time: 18:00 Assessment and Plan - Plan Assessment: 1. Acute kidney injury. 2. Congestive heart failure and fluid overload status. 3. Atrial fibrillation with rapid ventricular rate. 4. Respiratory failure. Plan: Patient has LINK , mainly either cardio renal or ATN. Urine out put is on the lower side. Creatinine is slightly better. Try to keep in negative fluid balance. Now started on Bumex. Palliative care is following, patient want all active treatment so far.
--- NOTE | 2018-01-08 18:22 | P.PN ---
Subjective Interval history: On High flow O2 at 75 % FIo2 he is diuresing well. On BiPAP at HS Physical Exam Vital signs: Vital Signs 01/07/18 19:05 01/07/18 20:00 01/07/18 20:30 Temperature 98 F Pulse Rate 117 H 104 H Respiratory Rate 30 H 31 H Blood Pressure 138/70 Pulse Oximetry 97 94 L 92 L 01/07/18 22:00 01/07/18 22:30 01/08/18 00:00 Temperature 97.8 F Pulse Rate 112 H 94 H Respiratory Rate 30 H Blood Pressure 112/63 Pulse Oximetry 95 98 01/08/18 00:15 01/08/18 00:59 01/08/18 01:00 Temperature Pulse Rate 94 H 102 H Respiratory Rate 28 H Blood Pressure Pulse Oximetry 96 01/08/18 02:15 01/08/18 04:00 01/08/18 04:15 Temperature 97.9 F Pulse Rate 106 H 106 H 106 H Respiratory Rate 32 H Blood Pressure 117/51 L Pulse Oximetry 98 01/08/18 06:00 01/08/18 07:33 01/08/18 08:00 Temperature 98 F Pulse Rate 85 115 H 115 H Respiratory Rate 30 H 34 H Blood Pressure 128/63 Pulse Oximetry 97 98 01/08/18 08:30 01/08/18 12:00 01/08/18 14:20 Temperature 98.5 F Pulse Rate 117 H 83 Respiratory Rate 28 H 31 H Blood Pressure 112/60 Pulse Oximetry 94 L 95 98 01/08/18 16:00 Temperature 97.9 F Pulse Rate 110 H Respiratory Rate 23 Blood Pressure 119/58 L Pulse Oximetry 95 Intake & Output 01/07/18 01/08/18 01/08/18 18:59 06:59 18:59 Intake Total 410 / 410 1120 / 1120 50 / 50 Output Total 650 / 650 800 / 800 600 / 600 Balance -240 / -240 320 / 320 -550 / -550 Weight 74.9 kg Intake: IV 50 / 50 400 / 400 50 / 50 Azithromycin Inj 500 MG In NS 250 / 250 Inj 250 ML @ 250 mls/hr IV.SIG Q24H [facility] Rx#:[id number] Zosyn 2.25 GM Premix 50 ML @ 50 / 50 150 / 150 50 / 50 100 mls/hr IV.SIG Q6H YOVANA Rx#: [id number] Oral 360 / 360 720 / 720 Output: Urine 650 / 650 Urine Amount (Catheter) 800 / 800 600 / 600 Indwelling Urethral Catheter 800 / 800 600 / 600 Other: Date of Last Bowel Movement 01/07/18 01/08/18 01/08/18 # Bowel Movements 3 Narrative: GENERAL: Well-developed, well-nourished, patient alert and orientated HEENT: Head is normocephalic without any lesions or masses noted. Facial features are symmetric. Eyes: Conjunctivae were clear. NECK: Supple without any masses. Trachea midline no deviation. No JVD, CARDIAC: Regular rhythm, regular rate. S1/S2 are heard. 2/6 ejection murmur, no gallops or rubs. LUNGS: Diminished breath sounds noted throughout, minimal air movement. No wheeze, but has Crackles at bases. using accessory. ABDOMEN: Soft, nontender. Nondistended. Bowel sounds heard in all 4 quadrants. No organomegaly or masses. Negative rebound. EXTREMITIES: No edema, pulses are equal bilaterally. No cyanosis or clubbing NEUROLOGY: Mood and affect appear appropriate. Cranial nerves II through XII grossly intact. Moving all extremities, speech is clear - Urinary Catheter Management Indwelling Urethral Catheter Cath placed during this visit: yes Reason for continuing: Hourly intake/output Insertion date: 01/05/18 Insertion time: 18:00 Results - Labs CBC & Chem 7: 01/08/18 06:20 01/08/18 06:20 Laboratory Results - last 24 hr 01/08/18 01/08/18 06:20 06:20 CBC w Diff Auto diff final WBC 15.1 H RBC 3.97 L Hgb 13.4 Hct 38.9 L MCV 98.1 MCH 33.8 MCHC 34.5 RDW 11.9 Plt Count 163 MPV 10.9 Neut % (Auto) 92.0 H Lymph % (Auto) 1.7 L [place] % (Auto) 6.2 Eos % (Auto) 0.0 Baso % (Auto) 0.1 Neut # (Auto) 13.9 H Lymph # (Auto) 0.3 L [place] # (Auto) 0.9 Eos # (Auto) 0.0 Baso # (Auto) 0.0 WBC Differential . Differential Comment . Sodium 143 Potassium 3.7 D Chloride 107 Carbon Dioxide 22.8 Anion Gap 13 BUN 69 H Creatinine 2.10 H Estimated GFR 30 L Random Glucose 144 H Calcium 8.5 Microbiology 01/05/18 10:50 Blood - Peripheral Aerobic Blood Culture - Preliminary No growth in 3 days 01/05/18 10:50 Blood - Peripheral Anaerobic Blood Culture - Preliminary No growth in 3 days 01/05/18 10:40 Blood - Peripheral Aerobic Blood Culture - Preliminary No growth in 3 days 01/05/18 10:40 Blood - Peripheral Anaerobic Blood Culture - Preliminary No growth in 3 days 01/05/18 12:20 Fluid - Pleural fluid Gram Stain - Final 01/05/18 12:20 Fluid - Pleural fluid Body Fluid Culture - Final No growth in 72 hours (aerobically and anaerobically ) - Imaging Impressions Chest X-Ray 01/08/18 00:00 CONCLUSION: 1. No significant interval change. 2. Stable interstitial edema with small to moderate bilateral pleural effusions and associated lower lung zone airspace disease. - Procedures ECHOCARDIOGRAM CONCLUSIONS The left ventricular systolic function is hyperdynamic with an estimated ejection fraction in the range of 65- 70%. Wall thickness is normal. No regional wall motion abnormalities are present. Severe biatrial enlargement. A possible atrial level shunt is demonstrated by color flow Doppler interrogation, clinical correlation recommended. Moderate thickening of the mitral valve leaflets. Ipfl-ny-[id number] mitral valve regurgitation. Mitral annular calcification is present. Can not rule out a mobile echodensity located on the anterior mitral valve leaflet. Clinical correlation recommended. Aortic valve sclerosis is present. Trace aortic valve regurgitation. There is moderate tricuspid regurgitation. The estimated pulmonary arterial pressure is 57.6 mmHg. 01/05/18: Thoracentesis with 850 cc of fluid removal from the right side Assessment and Plan - Assessment (1) Pneumonia Code(s): J18.9 - Pneumonia, unspecified organism Status: Acute (2) Atrial fibrillation with RVR Code(s): I48.91 - Unspecified atrial fibrillation Status: Acute (3) Congestive heart failure Code(s): I50.9 - Heart failure, unspecified Status: Acute (4) Hypoxia Code(s): R09.02 - Hypoxemia Status: Acute (5) Respiratory failure Code(s): J96.90 - Respiratory failure, unspecified, unspecified whether with hypoxia or hypercapnia Status: Acute (6) Acute kidney injury Code(s): N17.9 - Acute kidney failure, unspecified Status: Acute (7) Heart failure Code(s): I50.9 - Heart failure, unspecified Status: Acute (8) Pulmonary hypertension Code(s): I27.20 - Pulmonary hypertension, unspecified Status: Acute (9) Dyspnea Code(s): R06.00 - Dyspnea, unspecified Status: Acute - Plan 1. Continue BiPAP 15/5 cm , FIo2 35 % at HS and PRN 2. Wean O2 to Keep sat >92. 3. Duonebs qid. 4. Continue antibiotic Zosyn 5. Cont solumedrol 40 mg IV Q8H 6. Bumex IV 1 mg bid daily 7. CXR ,labs in am (3) Congestive heart failure Qualifiers: Heart failure type: unspecified Heart failure chronicity: acute Qualified Code(s): I50.9 - Heart failure, unspecified
[2018-01-08] MEDS: Azithromycin Inj 500 MG in Sodium Chlor 0.9% Inj 250 ML IV.SIG SCH (18:50)
[2018-01-09] MEDS: MethylPREDNISolone Sod Succinate Inj 40 MG/ML Vial IV.PUSH SCH ×3 (05:43→20:23)
[2018-01-09] MEDS: Piperacil/Tazo 2.25 GM Premix 50 ML IV.SIG SCH ×3 (05:44→16:13)
[2018-01-09 06:57] LABS: Potassium 3.5 meq/L (3.5-5.1)
[2018-01-09 06:59] LABS: Calcium 8.3 mg/dL (8.5-10.1)
[2018-01-09 07:00] LABS: Carbon Dioxide 25.3 meq/L (21.0-32.0)
[2018-01-09 07:01] LABS: Baso # (Auto) 0.1 th/mm3 (0.0-0.2); Hematocrit 39.5 % (39.0-51.0); Hemoglobin 13.5 gm/dL (13.0-17.0); Lymph # (Auto) 0.5 th/mm3 (1.0-4.8); Lymph % (Auto) 3.7 % (9.0-44.0); Mean Corpuscular HGB Conc 34.3 % (32.0-36.0); Mean Corpuscular Hemoglobin 34.1 pg (27.0-34.0); Mean Corpuscular Volume 99.4 fL (80.0-100.0); Mean Platelet Volume 10.9 fL (7.0-11.0); Mono # (Auto) 0.4 th/mm3 (0.0-0.9); Mono % (Auto) 3.2 % (0.0-8.0); Neut # (Auto) 11.2 th/mm3 (1.8-7.7); Neut % (Auto) 92.1 % (16.0-70.0); Platelet Count 148 th/mm3 (150-450); Red Blood Count 3.97 mil/mm3 (4.50-5.90); White Blood Count 12.2 th/mm3 (4.0-11.0)
--- NOTE | 2018-01-09 07:29 | P.PN ---
Subjective Interval history: 82-year-old male who is seen and examined today respiratory failure, renal failure, atrial fibrillation. Patient appears to be improving on a daily basis. Patient with increased urinary output. Patient states his breathing appears to be improving. Vital signs are stable, heart rate 91-118. Patient remains afebrile Physical Exam Vital signs: Vital Signs 01/08/18 07:33 01/08/18 08:00 01/08/18 08:30 Temperature 98 F Pulse Rate 115 H 109 H Respiratory Rate 30 H 34 H Blood Pressure 128/63 Pulse Oximetry 97 98 94 L 01/08/18 12:00 01/08/18 14:20 01/08/18 16:00 Temperature 98.5 F 97.9 F Pulse Rate 117 H 83 110 H Respiratory Rate 28 H 31 H 23 Blood Pressure 112/60 119/58 L Pulse Oximetry 95 98 95 01/08/18 19:19 01/08/18 19:20 01/08/18 19:21 Temperature Pulse Rate 118 H 118 H Respiratory Rate 23 23 Blood Pressure Pulse Oximetry 94 L 01/08/18 19:37 01/08/18 20:00 01/09/18 00:00 Temperature 98.1 F 97.9 F Pulse Rate 105 H 108 H Respiratory Rate 28 H 24 Blood Pressure 91/45 L 104/53 L Pulse Oximetry 94 L 95 95 01/09/18 00:45 01/09/18 00:47 01/09/18 04:00 Temperature 97.6 F Pulse Rate 96 H 91 H Respiratory Rate 34 H 20 Blood Pressure 113/58 L Pulse Oximetry 97 95 01/09/18 04:10 Temperature Pulse Rate Respiratory Rate Blood Pressure Pulse Oximetry 99 Intake & Output 01/08/18 01/09/18 01/09/18 18:59 06:59 18:59 Intake Total 50 / 50 830 / 830 Output Total 600 / 600 900 / 900 Balance -550 / -550 -70 / -70 Intake: IV 50 / 50 350 / 350 Azithromycin Inj 500 MG In NS 250 / 250 Inj 250 ML @ 250 mls/hr IV.SIG Q24H [facility] Rx#:[id number] Zosyn 2.25 GM Premix 50 ML @ 50 / 50 100 / 100 100 mls/hr IV.SIG Q6H [facility] Rx#: [id number] Oral 480 / 480 Output: Urine 900 / 900 Urine Amount (Catheter) 600 / 600 Indwelling Urethral Catheter 600 / 600 Other: Date of Last Bowel Movement 01/08/18 01/08/18 # Bowel Movements 1 0 Narrative: GENERAL: Well-developed, well-nourished, patient continues to be in respiratory failure. alert and orientated HEENT: Head is normocephalic without any lesions or masses noted. Facial features are symmetric. Eyes: Extraocular muscles are intact. Conjunctivae were clear. NECK: Supple without any masses. Trachea midline no deviation. No JVD, CARDIAC: Regular rhythm, regular rate. S1/S2 are heard. 2/6 ejection murmur, no gallops or rubs. LUNGS: Diminished breath sounds noted throughout, air movement improving. No wheeze, rhonchi or rales. using accessory. Patient with wet cough ABDOMEN: Soft, nontender. Nondistended. Bowel sounds heard in all 4 quadrants. No organomegaly or masses. Negative rebound, negative guarding. Urinary Plascencia in place with improved urinary output, still dark urine EXTREMITIES: No edema, pulses are equal bilaterally. No cyanosis or clubbing NEUROLOGY: Mood and affect appear appropriate. Cranial nerves II through XII grossly intact. Moving all extremities, speech is clear - Urinary Catheter Management Indwelling Urethral Catheter Cath placed during this visit: yes, but has since been removed by the nurse Reason for continuing: Hourly intake/output Insertion date: 01/05/18 Insertion time: 18:00 Removal date: 01/08/18 Results - Labs CBC & Chem 7: 01/09/18 06:40 01/09/18 06:40 Laboratory Results - last 24 hr 01/09/18 01/09/18 06:40 06:40 CBC w Diff Auto diff final WBC 12.2 H RBC 3.97 L Hgb 13.5 Hct 39.5 MCV 99.4 MCH 34.1 H MCHC 34.3 RDW 12.0 Plt Count 148 L MPV 10.9 Neut % (Auto) 92.1 H Lymph % (Auto) 3.7 L [place] % (Auto) 3.2 Eos % (Auto) 0.0 Baso % (Auto) 1.0 Neut # (Auto) 11.2 H Lymph # (Auto) 0.5 L [place] # (Auto) 0.4 Eos # (Auto) 0.0 Baso # (Auto) 0.1 WBC Differential . Differential Comment . Sodium 143 Potassium 3.5 Chloride 106 Carbon Dioxide 25.3 Anion Gap 12 BUN 71 H Creatinine 1.90 H Estimated GFR 34 L Random Glucose 153 H Calcium 8.3 L Microbiology 01/05/18 10:50 Blood - Peripheral Aerobic Blood Culture - Preliminary No growth in 3 days 01/05/18 10:50 Blood - Peripheral Anaerobic Blood Culture - Preliminary No growth in 3 days 01/05/18 10:40 Blood - Peripheral Aerobic Blood Culture - Preliminary No growth in 3 days 01/05/18 10:40 Blood - Peripheral Anaerobic Blood Culture - Preliminary No growth in 3 days 01/05/18 12:20 Fluid - Pleural fluid Gram Stain - Final 01/05/18 12:20 Fluid - Pleural fluid Body Fluid Culture - Final No growth in 72 hours (aerobically and anaerobically ) - Procedures ECHOCARDIOGRAM CONCLUSIONS The left ventricular systolic function is hyperdynamic with an estimated ejection fraction in the range of 65- 70%. Wall thickness is normal. No regional wall motion abnormalities are present. Severe biatrial enlargement. A possible atrial level shunt is demonstrated by color flow Doppler interrogation, clinical correlation recommended. Moderate thickening of the mitral valve leaflets. [id number]-[id number] mitral valve regurgitation. Mitral annular calcification is present. Can not rule out a mobile echodensity located on the anterior mitral valve leaflet. Clinical correlation recommended. Aortic valve sclerosis is present. Trace aortic valve regurgitation. There is moderate tricuspid regurgitation. The estimated pulmonary arterial pressure is 57.6 mmHg. 01/05/18: Thoracentesis with 850 cc of fluid removal from the right side Assessment and Plan - Plan Acute hypoxic respiratory failure, stabilized -Multifactorial with findings of congestive heart failure, elevated BNP, significant pleural effusion, severe biatrial enlargement, possible atrial level shunt -Unable to treat effectively without intubation, patient is a DO NOT RESUSCITATE , will respect the patient's wishes -Continue high flow oxygen and BiPAP to maintain O2 sats greater than 92% -Recreational Sports Director was consulted who performed right-sided thoracentesis with 850 cc of fluid removal -Fluid studies indicating transudate fluid -Bumex 1 mg IV twice daily, patient has increased diuresis secondary to changing to Bumex -Continue Solu-Medrol 40 mg every 6 hours -Continue empirical antibiotics include vancomycin and Zosyn -Aviation Operations Specialist following the patient -Patient would likely benefit from repeat thoracentesis, possible may require chest tube placement since fluid continues to reaccumulate -Palliative care consulted for further recommendations and treatment plan goals Acute renal failure with decreased urinary output, continues to improve daily -Could be secondary to tubular necrosis from hypotension -Renal bladder ultrasound was performed which showed right renal cyst no hydronephrosis -Renal functions have started to improved, creatinine now 2.1 -Avoid nephrotoxins -[facility] following the patient -[place] for strict ins and outs management -Patient will likely need dialysis in order to manage appropriately to help with renal function, fluid removal Hypotension, improved -Unknown if this is related to diuresis, sepsis, cardiorenal syndrome -Patient was given fluid boluses, albumin bolus -Patient blood pressure medications have hold parameters Atrial fibrillation with RVR, heart rate 91-118 -Status post Cardizem IV with discontinuation -Patient continued on Cardizem CD 240 mg daily -Metoprolol 12.5 mg twice daily, -Needed to adjust medications for hypotension, heart rate may worsen -If heart rate worsens possible consider digoxin to help with rate control and cardiac function -Patient is on Xarelto for anticoagulation Hyperglycemia -Likely secondary to stress and Solu-Medrol -Hemoglobin A1c 4.7 -Continue monitor and start Accu-Cheks with sliding scale insulin if needed DVT prevention -Xarelto
[2018-01-09] MEDS: Rivaroxaban 15 MG Tablet PO SCH (09:57)
[2018-01-09] MEDS: dilTIAZem CD 240 MG Capsule PO SCH (09:57)
[2018-01-09] MEDS: Metoprolol Tartrate 25 MG Tablet PO SCH ×2 (09:57→20:22)
--- NOTE | 2018-01-09 16:31 | P.PN ---
Subjective Interval history: He is better overall. on N/C at 5 L. Good output. No chest pain or fever Physical Exam Vital signs: Vital Signs 01/08/18 19:19 01/08/18 19:20 01/08/18 19:21 Temperature Pulse Rate 118 H 118 H Respiratory Rate 23 23 Blood Pressure Pulse Oximetry 94 L 01/08/18 19:37 01/08/18 20:00 01/09/18 00:00 Temperature 98.1 F 97.9 F Pulse Rate 105 H 108 H Respiratory Rate 28 H 24 Blood Pressure 91/45 L 104/53 L Pulse Oximetry 94 L 95 95 01/09/18 00:45 01/09/18 00:47 01/09/18 04:00 Temperature 97.6 F Pulse Rate 96 H 91 H Respiratory Rate 34 H 20 Blood Pressure 113/58 L Pulse Oximetry 97 95 01/09/18 04:10 01/09/18 07:00 01/09/18 07:03 Temperature 98.1 F Pulse Rate 94 H 92 H Respiratory Rate 28 H 30 H Blood Pressure 82/57 L 99/62 L Pulse Oximetry 99 99 98 01/09/18 07:24 01/09/18 08:00 01/09/18 09:00 Temperature Pulse Rate 114 H 98 H 112 H Respiratory Rate 22 39 H 27 H Blood Pressure 121/48 L 117/53 L Pulse Oximetry 95 94 L 96 01/09/18 10:00 01/09/18 10:31 01/09/18 11:00 Temperature Pulse Rate 102 H 100 H Respiratory Rate 27 H 37 H Blood Pressure 119/45 L 113/49 L Pulse Oximetry 98 94 L 86 L 01/09/18 12:00 01/09/18 12:05 01/09/18 13:00 Temperature 99.1 F Pulse Rate 100 H 104 H 104 H Respiratory Rate 29 H 33 H 40 H Blood Pressure 86/44 L 97/50 L 95/45 L Pulse Oximetry 95 95 93 L 01/09/18 14:00 01/09/18 14:11 01/09/18 14:31 Temperature Pulse Rate 98 H 96 H Respiratory Rate 32 H 22 Blood Pressure 107/49 L Pulse Oximetry 93 L 95 Intake & Output 01/08/18 01/09/18 01/09/18 18:59 06:59 18:59 Intake Total 50 / 50 880 / 880 50 / 50 Output Total 600 / 600 900 / 900 Balance -550 / -550 -20 / -20 50 / 50 Intake: IV 50 / 50 400 / 400 50 / 50 Azithromycin Inj 500 MG In NS 250 / 250 Inj 250 ML @ 250 mls/hr IV.SIG Q24H [facility] Rx#:[id number] Zosyn 2.25 GM Premix 50 ML @ 50 / 50 150 / 150 50 / 50 100 mls/hr IV.SIG Q6H [facility]NA Rx#: [id number] Oral 480 / 480 Output: Urine 900 / 900 Urine Amount (Catheter) 600 / 600 Indwelling Urethral Catheter 600 / 600 Other: Date of Last Bowel Movement 01/08/18 01/08/18 01/08/18 # Bowel Movements 1 0 Narrative: GENERAL: Well-developed, well-nourished, patient . alert and orientated HEENT: Head is normocephalic without any lesions or masses noted. Facial features are symmetric. Conjunctivae were clear. NECK: Supple without any masses. Trachea midline no deviation. No JVD, CARDIAC: Irregular rhythm, regular rate. S1/S2 are heard. 2/6 ejection murmur, no gallops or rubs. LUNGS: Diminished breath sounds noted throughout, air movement improving. Occ Basal crackles. ABDOMEN: Soft, nontender. Nondistended. Bowel sounds heard in all 4 quadrants. No organomegaly or masses. Negative rebound, negative guarding. EXTREMITIES: No edema, pulses are equal bilaterally. No cyanosis or clubbing NEUROLOGY: Mood and affect appear appropriate. Cranial nerves II through XII grossly intact. Moving all extremities, speech is clear - Urinary Catheter Management Indwelling Urethral Catheter Cath placed during this visit: yes, but has since been removed by the nurse Reason for continuing: Hourly intake/output Insertion date: 01/05/18 Insertion time: 18:00 Removal date: 01/08/18 Results - Labs CBC & Chem 7: 01/09/18 06:40 01/09/18 06:40 Laboratory Results - last 24 hr 01/09/18 01/09/18 06:40 06:40 CBC w Diff Auto diff final WBC 12.2 H RBC 3.97 L Hgb 13.5 Hct 39.5 MCV 99.4 MCH 34.1 H MCHC 34.3 RDW 12.0 Plt Count 148 L MPV 10.9 Neut % (Auto) 92.1 H Lymph % (Auto) 3.7 L [place] % (Auto) 3.2 Eos % (Auto) 0.0 Baso % (Auto) 1.0 Neut # (Auto) 11.2 H Lymph # (Auto) 0.5 L [place] # (Auto) 0.4 Eos # (Auto) 0.0 Baso # (Auto) 0.1 WBC Differential . Differential Comment . Sodium 143 Potassium 3.5 Chloride 106 Carbon Dioxide 25.3 Anion Gap 12 BUN 71 H Creatinine 1.90 H Estimated GFR 34 L Random Glucose 153 H Calcium 8.3 L Microbiology 01/05/18 10:50 Blood - Peripheral Aerobic Blood Culture - Preliminary No growth in 4 days 01/05/18 10:50 Blood - Peripheral Anaerobic Blood Culture - Preliminary No growth in 4 days 01/05/18 10:40 Blood - Peripheral Aerobic Blood Culture - Preliminary No growth in 4 days 01/05/18 10:40 Blood - Peripheral Anaerobic Blood Culture - Preliminary No growth in 4 days - Procedures ECHOCARDIOGRAM CONCLUSIONS The left ventricular systolic function is hyperdynamic with an estimated ejection fraction in the range of 65- 70%. Wall thickness is normal. No regional wall motion abnormalities are present. Severe biatrial enlargement. A possible atrial level shunt is demonstrated by color flow Doppler interrogation, clinical correlation recommended. Moderate thickening of the mitral valve leaflets. Drvx-ah-svhnoitx mitral valve regurgitation. Mitral annular calcification is present. Can not rule out a mobile echodensity located on the anterior mitral valve leaflet. Clinical correlation recommended. Aortic valve sclerosis is present. Trace aortic valve regurgitation. There is moderate tricuspid regurgitation. The estimated pulmonary arterial pressure is 57.6 mmHg. 01/05/18: Thoracentesis with 850 cc of fluid removal from the right side Assessment and Plan - Assessment (1) Pneumonia Code(s): J18.9 - Pneumonia, unspecified organism Status: Acute (2) Atrial fibrillation with RVR Code(s): I48.91 - Unspecified atrial fibrillation Status: Acute (3) Congestive heart failure Code(s): I50.9 - Heart failure, unspecified Status: Acute (4) Hypoxia Code(s): R09.02 - Hypoxemia Status: Acute (5) Respiratory failure Code(s): J96.90 - Respiratory failure, unspecified, unspecified whether with hypoxia or hypercapnia Status: Acute (6) Acute kidney injury Code(s): N17.9 - Acute kidney failure, unspecified Status: Acute (7) Heart failure Code(s): I50.9 - Heart failure, unspecified Status: Acute (8) Pulmonary hypertension Code(s): I27.20 - Pulmonary hypertension, unspecified Status: Acute (9) Dyspnea Code(s): R06.00 - Dyspnea, unspecified Status: Acute - Plan 1. Continue BiPAP 12/5 cm , FIo2 35 % at HS and PRN 2. Wean O2 to Keep sat >92. 3. Duonebs qid. 4. Continue antibiotic Zosyn 5. Wean solumedrol 40 mg IV Q12H 6. Bumex IV 1 mg bid daily 7. CXR ,labs in am (3) Congestive heart failure Qualifiers: Heart failure type: unspecified Heart failure chronicity: acute Qualified Code(s): I50.9 - Heart failure, unspecified
[2018-01-09] MEDS: Azithromycin Inj 500 MG in Sodium Chlor 0.9% Inj 250 ML IV.SIG SCH (17:17)
--- NOTE | 2018-01-09 18:10 | P.PNNP ---
Subjective Interval history: Patient is sitting on the chair, breathing is better, with high flow O2. Physical Exam Vital signs: Vital Signs 01/08/18 19:19 01/08/18 19:20 01/08/18 19:21 Temperature Pulse Rate 118 H 118 H Respiratory Rate 23 23 Blood Pressure Pulse Oximetry 94 L 01/08/18 19:37 01/08/18 20:00 01/09/18 00:00 Temperature 98.1 F 97.9 F Pulse Rate 105 H 108 H Respiratory Rate 28 H 24 Blood Pressure 91/45 L 104/53 L Pulse Oximetry 94 L 95 95 01/09/18 00:45 01/09/18 00:47 01/09/18 04:00 Temperature 97.6 F Pulse Rate 96 H 91 H Respiratory Rate 34 H 20 Blood Pressure 113/58 L Pulse Oximetry 97 95 01/09/18 04:10 01/09/18 07:00 01/09/18 07:03 Temperature 98.1 F Pulse Rate 94 H 92 H Respiratory Rate 28 H 30 H Blood Pressure 82/57 L 99/62 L Pulse Oximetry 99 99 98 01/09/18 07:24 01/09/18 08:00 01/09/18 09:00 Temperature Pulse Rate 114 H 98 H 112 H Respiratory Rate 22 39 H 27 H Blood Pressure 121/48 L 117/53 L Pulse Oximetry 95 94 L 96 01/09/18 10:00 01/09/18 10:31 01/09/18 11:00 Temperature Pulse Rate 102 H 100 H Respiratory Rate 27 H 37 H Blood Pressure 119/45 L 113/49 L Pulse Oximetry 98 94 L 86 L 01/09/18 12:00 01/09/18 12:05 01/09/18 13:00 Temperature 99.1 F Pulse Rate 100 H 104 H 104 H Respiratory Rate 29 H 33 H 40 H Blood Pressure 86/44 L 97/50 L 95/45 L Pulse Oximetry 95 95 93 L 01/09/18 14:00 01/09/18 14:11 01/09/18 14:31 Temperature Pulse Rate 98 H 96 H Respiratory Rate 32 H 22 Blood Pressure 107/49 L Pulse Oximetry 93 L 95 01/09/18 15:13 01/09/18 16:17 Temperature 97.8 F Pulse Rate 96 H 92 H Respiratory Rate 33 H 26 H Blood Pressure 112/40 L 114/50 L Pulse Oximetry 91 L 92 L Intake & Output 01/08/18 01/09/18 01/09/18 18:59 06:59 18:59 Intake Total 50 / 50 880 / 880 100 / 100 Output Total 600 / 600 900 / 900 Balance -550 / -550 -20 / -20 100 / 100 Intake: IV 50 / 50 400 / 400 100 / 100 Azithromycin Inj 500 MG In NS 250 / 250 Inj 250 ML @ 250 mls/hr IV.SIG Q24H YVOANA Rx#:[id number] Zosyn 2.25 GM Premix 50 ML @ 50 / 50 150 / 150 100 / 100 100 mls/hr IV.SIG Q6H YOVANA Rx#: [id number] Oral 480 / 480 Output: Urine 900 / 900 Urine Amount (Catheter) 600 / 600 Indwelling Urethral Catheter 600 / 600 Other: Date of Last Bowel Movement 01/08/18 01/08/18 01/09/18 # Bowel Movements 1 0 Narrative: GENERAL: Well-developed, well-nourished, patient continues to be in respiratory failure. alert and orientated HEENT: Head is normocephalic without any lesions or masses noted. Facial features are symmetric. Eyes: Extraocular muscles are intact. Conjunctivae were clear. NECK: Supple without any masses. Trachea midline no deviation. No JVD, CARDIAC: Regular rhythm, regular rate. S1/S2 are heard. 2/6 ejection murmur, no gallops or rubs. LUNGS: Diminished breath sounds noted throughout, air movement improving. No wheeze, rhonchi or rales. using accessory. ABDOMEN: Soft, nontender. Nondistended. Bowel sounds heard in all 4 quadrants. No organomegaly or masses. Negative rebound, negative guarding. Urinary Plascencia in place with improved urinary output, still dark urine EXTREMITIES: No edema, pulses are equal bilaterally. No cyanosis or clubbing NEUROLOGY: Mood and affect appear appropriate. Cranial nerves II through XII grossly intact. Moving all extremities, speech is clear - Urinary Catheter Management Indwelling Urethral Catheter Cath placed during this visit: yes, but has since been removed by the nurse Reason for continuing: Hourly intake/output Insertion date: 01/05/18 Insertion time: 18:00 Removal date: 01/08/18 Assessment and Plan - Plan Assessment: 1. Acute kidney injury. 2. Congestive heart failure and fluid overload status. 3. Atrial fibrillation with rapid ventricular rate. 4. Respiratory failure. Plan: Patient has LINK , mainly either cardio renal or ATN. Urine out put is on the lower side. Creatinine is improving, now 1.9. Try to keep in negative fluid balance. Continue the Bumex. Palliative care is following, Continue diuretics, keep in negative fluid balance.
[2018-01-10] MEDS: Piperacil/Tazo 2.25 GM Premix 50 ML IV.SIG SCH ×5 (00:18→23:06)
[2018-01-10 05:29] LABS: Hemoglobin 12.6 gm/dL (13.0-17.0); Lymph # (Auto) 0.3 th/mm3 (1.0-4.8); Lymph % (Auto) 2.4 % (9.0-44.0); Mean Corpuscular HGB Conc 34.9 % (32.0-36.0); Mean Corpuscular Hemoglobin 33.6 pg (27.0-34.0); Mean Corpuscular Volume 96.3 fL (80.0-100.0); Mean Platelet Volume 10.8 fL (7.0-11.0); Mono # (Auto) 0.8 th/mm3 (0.0-0.9); Mono % (Auto) 6.7 % (0.0-8.0); Neut # (Auto) 11.3 th/mm3 (1.8-7.7); Neut % (Auto) 90.9 % (16.0-70.0); Platelet Count 165 th/mm3 (150-450); Red Blood Count 3.74 mil/mm3 (4.50-5.90); White Blood Count 12.4 th/mm3 (4.0-11.0)
[2018-01-10 05:41] LABS: Calcium 8.1 mg/dL (8.5-10.1); Carbon Dioxide 26.5 meq/L (21.0-32.0)
[2018-01-10 05:49] LABS: Potassium 2.9 meq/L (3.5-5.1)
--- NOTE | 2018-01-10 05:53 | XR ---
EXAM DATE: 01/10/2018 5:25 AM EDT AGE/SEX: 82 years / Male INDICATIONS: Shortness of breath. CLINICAL DATA: This is the patient's subsequent encounter. Patient reports that signs and symptoms h ave been present for 4 - 6 days and indicates a pain score of Nonresponsive. MEDICAL/SURGICAL HISTORY: . Hypertension. Ankylosing spondylitis. Atrial fibrillation. Cardiove rsion. None. COMPARISON: [facility], CHEST 1V SINGLE AP, 01/08/2018. . FINDINGS: Bilateral perihilar and basilar parenchymal opacities are slightly improved. Patchy pleural calcifica tion again noted primarily on the left. Visualized cardiac contours are grossly unchanged. CONCLUSION: Slight interval improvement in aeration. Electronically signed by: Narinder Olivera MD 01/10/2018 5:52 AM EDT
[2018-01-10 07:06] LABS: Magnesium 2.2 mg/dL (1.5-2.5)
[2018-01-10] MEDS: MethylPREDNISolone Sod Succinate Inj 40 MG/ML Vial IV.PUSH SCH (08:42)
[2018-01-10] MEDS: dilTIAZem CD 240 MG Capsule PO SCH (08:43)
[2018-01-10] MEDS: Rivaroxaban 15 MG Tablet PO SCH (08:43)
[2018-01-10] MEDS: Metoprolol Tartrate 25 MG Tablet PO SCH ×2 (08:46→21:29)
--- NOTE | 2018-01-10 09:36 | P.PN ---
Subjective Interval history: 82-year-old male who is seen and examined today for follow-up on renal failure, respiratory failure. Patient continues to improve on a daily basis. Patient is now on nasal cannula oxygenation. Patient had a bad night last night on the BiPAP. Did not sleep well. Very agitated. Vital signs are stable. Patient remains afebrile. Physical Exam Vital signs: Vital Signs 01/09/18 10:00 01/09/18 10:31 01/09/18 11:00 Temperature Pulse Rate 102 H 100 H Respiratory Rate 27 H 37 H Blood Pressure 119/45 L 113/49 L Pulse Oximetry 98 94 L 86 L 01/09/18 12:00 01/09/18 12:05 01/09/18 13:00 Temperature 99.1 F Pulse Rate 100 H 104 H 104 H Respiratory Rate 29 H 33 H 40 H Blood Pressure 86/44 L 97/50 L 95/45 L Pulse Oximetry 95 95 93 L 01/09/18 14:00 01/09/18 14:11 01/09/18 14:31 Temperature Pulse Rate 98 H 96 H Respiratory Rate 32 H 22 Blood Pressure 107/49 L Pulse Oximetry 93 L 95 01/09/18 15:13 01/09/18 16:17 01/09/18 19:30 Temperature 97.8 F Pulse Rate 96 H 92 H 94 H Respiratory Rate 33 H 26 H 25 H Blood Pressure 112/40 L 114/50 L Pulse Oximetry 91 L 92 L 88 L 01/09/18 19:45 01/09/18 20:00 01/10/18 00:00 Temperature 96.7 F L 98.5 F Pulse Rate 92 H 96 H Respiratory Rate 18 23 Blood Pressure 125/72 118/50 L Pulse Oximetry 95 92 L 99 01/10/18 00:20 01/10/18 03:45 01/10/18 04:00 Temperature 98.1 F Pulse Rate 98 H Respiratory Rate 26 H Blood Pressure 110/69 Pulse Oximetry 97 95 98 01/10/18 07:09 Temperature Pulse Rate 105 H Respiratory Rate 24 Blood Pressure Pulse Oximetry 93 L Intake & Output 01/09/18 01/10/18 01/10/18 18:59 06:59 18:59 Intake Total 100 / 100 590 / 590 Output Total 350 / 350 500 / 500 Balance -250 / -250 90 / 90 Intake: IV 100 / 100 350 / 350 Azithromycin Inj 500 MG In NS 250 / 250 Inj 250 ML @ 250 mls/hr IV.SIG Q24H YOVANA Rx#:[id number] Zosyn 2.25 GM Premix 50 ML @ 100 / 100 100 / 100 100 mls/hr IV.SIG Q6H YOVANA Rx#: [id number] Oral 240 / 240 Output: Urine 350 / 350 500 / 500 Other: Date of Last Bowel Movement 01/09/18 01/09/18 # Bowel Movements 0 0 Narrative: GENERAL: Well-developed, well-nourished, patient continues to be in respiratory failure. alert and orientated HEENT: Head is normocephalic without any lesions or masses noted. Facial features are symmetric. Eyes: Extraocular muscles are intact. Conjunctivae were clear. NECK: Supple without any masses. Trachea midline no deviation. No JVD, CARDIAC: Regular rhythm, regular rate. S1/S2 are heard. 2/6 ejection murmur, no gallops or rubs. LUNGS: Diminished breath sounds noted throughout, air movement improving. No wheeze, rhonchi or rales. using accessory. ABDOMEN: Soft, nontender. Nondistended. Bowel sounds heard in all 4 quadrants. No organomegaly or masses. Negative rebound, negative guarding. Urinary Plascencia in place with improved urinary output, still dark urine EXTREMITIES: No edema, pulses are equal bilaterally. No cyanosis or clubbing NEUROLOGY: Mood and affect appear appropriate. Cranial nerves II through XII grossly intact. Moving all extremities, speech is clear - Urinary Catheter Management Indwelling Urethral Catheter Cath placed during this visit: yes, but has since been removed by the nurse Reason for continuing: Hourly intake/output Insertion date: 01/05/18 Insertion time: 18:00 Removal date: 01/08/18 Results - Labs CBC & Chem 7: 01/10/18 04:35 01/10/18 04:35 Laboratory Results - last 24 hr 01/10/18 01/10/18 04:35 04:35 CBC w Diff Auto diff final WBC 12.4 H RBC 3.74 L Hgb 12.6 L Hct 36.0 L MCV 96.3 MCH 33.6 MCHC 34.9 RDW 12.0 Plt Count 165 MPV 10.8 Neut % (Auto) 90.9 H Lymph % (Auto) 2.4 L [place] % (Auto) 6.7 Eos % (Auto) 0.0 Baso % (Auto) 0.0 Neut # (Auto) 11.3 H Lymph # (Auto) 0.3 L [place] # (Auto) 0.8 Eos # (Auto) 0.0 Baso # (Auto) 0.0 WBC Differential . Differential Comment . Sodium 142 Potassium 2.9 L* Chloride 104 Carbon Dioxide 26.5 Anion Gap 12 BUN 70 H Creatinine 1.60 H Estimated GFR 41 L Random Glucose 147 H Calcium 8.1 L Magnesium 2.2 Microbiology 01/05/18 10:50 Blood - Peripheral Aerobic Blood Culture - Preliminary No growth in 4 days 01/05/18 10:50 Blood - Peripheral Anaerobic Blood Culture - Preliminary No growth in 4 days 01/05/18 10:40 Blood - Peripheral Aerobic Blood Culture - Preliminary No growth in 4 days 01/05/18 10:40 Blood - Peripheral Anaerobic Blood Culture - Preliminary No growth in 4 days - Imaging Impressions Chest X-Ray 01/10/18 00:00 CONCLUSION: Slight interval improvement in aeration. - Procedures ECHOCARDIOGRAM CONCLUSIONS The left ventricular systolic function is hyperdynamic with an estimated ejection fraction in the range of 65- 70%. Wall thickness is normal. No regional wall motion abnormalities are present. Severe biatrial enlargement. A possible atrial level shunt is demonstrated by color flow Doppler interrogation, clinical correlation recommended. Moderate thickening of the mitral valve leaflets. Fekn-[id number] mitral valve regurgitation. Mitral annular calcification is present. Can not rule out a mobile echodensity located on the anterior mitral valve leaflet. Clinical correlation recommended. Aortic valve sclerosis is present. Trace aortic valve regurgitation. There is moderate tricuspid regurgitation. The estimated pulmonary arterial pressure is 57.6 mmHg. 01/05/18: Thoracentesis with 850 cc of fluid removal from the right side Assessment and Plan - Plan Acute hypoxic respiratory failure, improving -Multifactorial with findings of congestive heart failure, elevated BNP, significant pleural effusion, severe biatrial enlargement, possible atrial level shunt -Unable to treat effectively without intubation, patient is a DO NOT RESUSCITATE , will respect the patient's wishes -Continue high flow oxygen and BiPAP to maintain O2 sats greater than 92% -Manager Enrollment was consulted who performed right-sided thoracentesis with 850 cc of fluid removal -Fluid studies indicating transudate fluid -Bumex 1 mg IV twice daily, changed to p.o. -Continue Solu-Medrol 40 mg every 6 hours, changed to p.o. prednisone 40 mg p.o. twice daily -Continue empirical antibiotics include vancomycin and Zosyn, discontinue IV antibiotics, start Levaquin 750 mg every other day for 8 more days for total of 14 days of antibiotic treatment -Clerk Supervisor following the patient -Patient would likely benefit from repeat thoracentesis, possible may require chest tube placement since fluid continues to reaccumulate -Palliative care consulted for further recommendations and treatment plan goals Acute renal failure with decreased urinary output, continues to improve daily -Could be secondary to tubular necrosis from hypotension -Renal bladder ultrasound was performed which showed right renal cyst no hydronephrosis -Renal functions have continued to improved, creatinine now 1.6 -Avoid nephrotoxins -Casing Sewer following the patient -Temo for strict ins and outs management -Patient will likely need dialysis in order to manage appropriately to help with renal function, fluid removal Hypotension, improved -Unknown if this is related to diuresis, sepsis, cardiorenal syndrome -Patient was given fluid boluses, albumin bolus -Patient blood pressure medications have hold parameters Atrial fibrillation with RVR, heart rate 92-111 -Status post Cardizem IV with discontinuation -Patient continued on Cardizem CD 240 mg daily -Metoprolol 12.5 mg twice daily, -Needed to adjust medications for hypotension, heart rate may worsen -If heart rate worsens possible consider digoxin to help with rate control and cardiac function -Patient is on Xarelto for anticoagulation Hyperglycemia -Likely secondary to stress and Solu-Medrol -Hemoglobin A1c 4.7 -Continue monitor and start Accu-Cheks with sliding scale insulin if needed DVT prevention -Xarelto
[2018-01-10] MEDS: levoFLOXacin 750 MG Tablet PO SCH (11:29)
--- NOTE | 2018-01-10 17:20 | P.PNPAL ---
Reason for Visit Reason for visit: a. To assist with evaluation and management of symptoms including: Dyspnea b. To assist medical decision maker(s) with: better understanding of current medical conditions; weighing benefits/burdens of medical treatment options; making medical treatment decisions. Subjective Subjective/Interval History: INTERVAL NOTE: Follow-up visit for symptom management of dyspnea and clarification of medical treatment goals. Patient had a difficult night and had to be put on BiPAP. Currently tolerating 6 L oxygen via nasal cannula with oxygen saturations in the mid to high 90s. He becomes short of breath with conversation. Follow-up chest x-ray this morning 01/10/2018 showed slight interval improvement in aeration. Creatinine decreased from 1.90 yesterday to 1.60 today (01/10/18). GFR increased from 34 to 41 today. Patient was started on Bumex 1 mg PO 2 times daily. Nephrology continues to follow. Patient spoke with Dr. Day, palliative care, on 01/07/2018. At that time he said he was ready to speak to hospice and wanted to transition to the hospice care center for his "last days." Hospice was consulted. Patient later changed his mind after talking to his friends who urged him to "keep fighting." Patient's nephew and niece (who is a Palliative RADIOLOGICAL HEALTH SPECIALIST in [place]) are concerned patient will not tolerate rehab and will end up coming right back to the hospital. Palliative care met with the patient and his nephew (Eulalio) . During our conversation, the patient stated regaining his independence was most important to him. He stated he would go to rehab if it meant he would return to his previous functioning level, but he does not want to live like he is now. He states he will only tolerate BiPAP for a short period of time and would not consent to dialysis if it were indicated. He would like to see if he improves in the upcoming days before he makes any changes in his medical treatment goals. Advance Directives Living Will: Copy in medical record Health Care Surrogate: Copy in medical record Health Care Surrogate Name and Number: Isa Webster and eddie Zaragoza Objective Vital Signs: Vital Signs 01/09/18 19:30 01/09/18 19:45 01/09/18 20:00 Temperature 96.7 F L Pulse Rate 94 H 92 H Respiratory Rate 25 H 18 Blood Pressure 125/72 Pulse Oximetry 88 L 95 92 L 09/17/18 00:00 01/10/18 00:20 01/10/18 03:45 Temperature 98.5 F Pulse Rate 96 H Respiratory Rate 23 Blood Pressure 118/50 L Pulse Oximetry 99 97 95 01/10/18 04:00 01/10/18 07:09 01/10/18 08:00 Temperature 98.1 F Pulse Rate 98 H 105 H 98 H Respiratory Rate 26 H 24 23 Blood Pressure 110/69 113/55 L Pulse Oximetry 98 93 L 96 01/10/18 12:00 01/10/18 13:28 01/10/18 16:00 Temperature Pulse Rate 100 H 101 H 96 H Respiratory Rate 25 H 24 27 H Blood Pressure 106/45 L 128/51 L Pulse Oximetry 96 96 94 L Intake & Output 01/09/18 01/10/18 01/10/18 18:59 06:59 18:59 Intake Total 100 / 100 590 / 590 50 / 50 Output Total 350 / 350 500 / 500 Balance -250 / -250 90 / 90 50 / 50 Intake: IV 100 / 100 350 / 350 50 / 50 Azithromycin Inj 500 MG In NS 250 / 250 Inj 250 ML @ 250 mls/hr IV.SIG Q24H YOVANA Rx#:[id number] Zosyn 2.25 GM Premix 50 ML @ 100 / 100 100 / 100 50 / 50 100 mls/hr IV.SIG Q6H YOVANA Rx#: [id number] Oral 240 / 240 Output: Urine 350 / 350 500 / 500 Other: Date of Last Bowel Movement 01/09/18 01/09/18 01/09/18 # Bowel Movements 0 0 Physical Exam: CONSTITUTIONAL/GENERAL: This is an elderly, mildly tachypneic patient, in mild respiratory distress. TUBES/LINES/DRAINS: Nasal cannula, IV access, Plascencia SKIN: No jaundice, rashes, or lesions. Ecchymoses on upper extremities. No wounds seen anteriorly. Skin temperature appropriate. Not CARDIOVASCULAR: Irregular rhythm without murmurs, gallops, or rubs. No JVD. Peripheral pulses diminished. RESPIRATORY/CHEST: Patient becomes mildly dyspneic with conversation. Breath sounds diminished bilaterally. A few scattered rales bilateral. GASTROINTESTINAL: Abdomen soft, non-tender, nondistended. No guarding. Bowel sounds present. GENITOURINARY: Without palpable bladder distension. MUSCULOSKELETAL: Extremities without clubbing, cyanosis, or edema. No mottling or clubbing. NEUROLOGICAL: Awake and alert. Motor and sensory grossly within normal limits. Follows commands. Cognitively sharp. Moves all extremities. PSYCHIATRIC: No obvious anxiety/depression. No apparent hallucinations or other psychotic thought process. Diagnostic Tests Laboratory: Laboratory Results - last 72 hr 01/08/18 01/08/18 01/09/18 06:20 06:20 06:40 CBC w Diff Auto diff final WBC 15.1 H RBC 3.97 L Hgb 13.4 Hct 38.9 L MCV 98.1 MCH 33.8 MCHC 34.5 RDW 11.9 Plt Count 163 MPV 10.9 Neut % (Auto) 92.0 H Lymph % (Auto) 1.[address] % (Auto) 6.2 Eos % (Auto) 0.0 Baso % (Auto) 0.1 Neut # (Auto) 13.9 H Lymph # (Auto) 0.[address] [place] # (Auto) 0.9 Eos # (Auto) 0.0 Baso # (Auto) 0.0 WBC Differential . Differential Comment . Sodium 143 143 Potassium 3.7 D 3.5 Chloride 107 106 Carbon Dioxide 22.8 25.3 Anion Gap 13 12 BUN 69 H 71 H Creatinine 2.10 H 1.90 H Estimated GFR 30 L 34 L Random Glucose 144 H 153 H Calcium 8.5 8.3 L Magnesium 01/09/18 01/10/18 01/10/18 06:40 04:35 04:35 CBC w Diff Auto diff final Auto diff final WBC 12.2 H 12.4 H RBC 3.97 L 3.74 L Hgb 13.5 12.6 L Hct 39.5 36.0 L MCV 99.4 96.3 MCH 34.1 H 33.6 MCHC 34.3 34.9 RDW 12.0 12.0 Plt Count 148 L 165 MPV 10.9 10.8 Neut % (Auto) 92.1 H 90.9 H Lymph % (Auto) 3.[address] [place] % (Auto) 3.2 6.7 Eos % (Auto) 0.0 0.0 Baso % (Auto) 1.0 0.0 Neut # (Auto) 11.2 H 11.3 H Lymph # (Auto) 0.[address] [place] # (Auto) 0.4 0.8 Eos # (Auto) 0.0 0.0 Baso # (Auto) 0.1 0.0 WBC Differential . . Differential Comment . . Sodium 142 Potassium 2.9 L* Chloride 104 Carbon Dioxide 26.5 Anion Gap 12 BUN 70 H Creatinine 1.60 H Estimated GFR 41 L Random Glucose 147 H Calcium 8.1 L Magnesium 2.2 01/10/18 14:00 CBC w Diff WBC RBC Hgb Hct MCV MCH MCHC RDW Plt Count MPV Neut % (Auto) Lymph % (Auto) [facility] % (Auto) Eos % (Auto) Baso % (Auto) Neut # (Auto) Lymph # (Auto) [facility] # (Auto) Eos # (Auto) Baso # (Auto) WBC Differential Differential Comment Sodium Potassium 3.1 L Chloride Carbon Dioxide Anion Gap BUN Creatinine Estimated GFR Random Glucose Calcium Magnesium Result Diagrams: 01/10/18 04:35 01/11/18 04:20 Microbiology: Microbiology 01/05/18 10:50 Aerobic Blood Culture - Final Blood - Peripheral No growth in 5 days Anaerobic Blood Culture - Final No growth in 5 days 01/05/18 10:40 Aerobic Blood Culture - Final Blood - Peripheral No growth in 5 days Anaerobic Blood Culture - Final No growth in 5 days 01/05/18 12:20 Gram Stain - Final Fluid - Pleural fluid Body Fluid Culture - Final No growth in 72 hours (aerobically and anaerobically) Imaging: Abdomen/Bladder Ultrasound 01/06/18 00:00 CONCLUSION: Right renal cyst. No hydronephrosis Chest X-Ray 01/10/18 00:00 CONCLUSION: Slight interval improvement in aeration. Procedures: Thoracentesis 01/05/18 (850 cc) Assessment and Plan - Disease Oriented Problem List (1) Respiratory failure (2) Acute kidney injury Comment: Creatinine and GFR worsening each day (3) Heart failure (4) Pulmonary hypertension - Symptom Scale (1) Dyspnea 0-10 Scale: 5 Pertinent Non-Medical Issues: Psychosocial: Originally from [place], [place], moved to the [facility] to work for [employer] in 1969. Works as an traveling electrician for many years. and twice; has no children, but does have 1 stepson from his first . Niece and nephew are frequent visitors. Spiritual: [employer] background, members of his shinto have visited him here. Legal: The patient has capacity for decision-making; he has designated his nephew Darin and eddie Zaragoza as healthcare surrogates. Ethical issues impacting care: No known ethical issues impacting care at this time. Important Contacts: Nephew: Darin Meyers, Niece: Mila Borden (Palliative Medicine [facility] in [place]): [phone] Prognosis: The patient has been declining for months, and now has worsening/symptomatic pulmonary hypertension, heart failure, and kidney injury. His overall prognosis is poor, and he now wants to transition to hospice services for end-of -life. Code Status: No Code DNR Plan: * DO NOT RESUSCITATE * DECISION-MAKING: The patient has capacity for decision-making; he has designated his nephew Darin and eddie Zaragoaz as healthcare surrogates. * GOALS are aggressive up to the point of cardiopulmonary resuscitation. * Palliative care met with the patient and his nephew (Eulalio). During our conversation, the patient stated regaining his independence was most important to him. He stated he would go to rehab if it meant he would return to his previous functioning level, but he does not want to live like he is now. He states he will only tolerate BiPAP for a short period of time and but not consent to dialysis if it were indicated. He would like to see if he improves in the upcoming before he makes any changes in his medical treatment goals. * Hospice was consulted on 01/07/2018; patient decided not to transition to comfort focused care at that time wanting instead to go to rehab with the intent of regaining his independence. If he does not improve in the upcoming days; he and his family may reconsider hospice services. * SYMPTOMS: The patient remains somewhat dyspneic requiring BiPAP overnight. Currently tolerating 6 L oxygen via nasal cannula with oxygen saturations in the mid to high 90s. Morphine and Ativan are available. * Palliative care will continue to follow this patient to establish trust, assist with symptom management and clarification medical treatment goals.
--- NOTE | 2018-01-10 18:21 | P.PNNP ---
Subjective Interval history: Patient is clinically same , sitting on the chair, with high flow O2. Physical Exam Vital signs: Vital Signs 01/09/18 19:30 01/09/18 19:45 01/09/18 20:00 Temperature 96.7 F L Pulse Rate 94 H 92 H Respiratory Rate 25 H 18 Blood Pressure 125/72 Pulse Oximetry 88 L 95 92 L 01/10/18 00:00 01/10/18 00:20 01/10/18 03:45 Temperature 98.5 F Pulse Rate 96 H Respiratory Rate 23 Blood Pressure 118/50 L Pulse Oximetry 99 97 95 01/10/18 04:00 01/10/18 07:09 01/10/18 08:00 Temperature 98.1 F Pulse Rate 98 H 105 H 98 H Respiratory Rate 26 H 24 23 Blood Pressure 110/69 113/55 L Pulse Oximetry 98 93 L 96 01/10/18 12:00 01/10/18 13:28 01/10/18 16:00 Temperature Pulse Rate 100 H 101 H 96 H Respiratory Rate 25 H 24 27 H Blood Pressure 106/45 L 128/51 L Pulse Oximetry 96 96 94 L Intake & Output 01/09/18 01/10/18 01/10/18 18:59 06:59 18:59 Intake Total 100 / 100 590 / 590 50 / 50 Output Total 350 / 350 500 / 500 Balance -250 / -250 90 / 90 50 / 50 Intake: IV 100 / 100 350 / 350 50 / 50 Azithromycin Inj 500 MG In NS 250 / 250 Inj 250 ML @ 250 mls/hr IV.SIG Q24H YOVANA Rx#:[id number] Zosyn 2.25 GM Premix 50 ML @ 100 / 100 100 / 100 50 / 50 100 mls/hr IV.SIG Q6H YOVANA Rx#: [id number] Oral 240 / 240 Output: Urine 350 / 350 500 / 500 Other: Date of Last Bowel Movement 01/09/18 01/09/18 01/09/18 # Bowel Movements 0 0 Narrative: GENERAL: Well-developed, well-nourished, patient continues to be in respiratory failure. alert and orientated HEENT: Head is normocephalic without any lesions or masses noted. Facial features are symmetric. Eyes: Extraocular muscles are intact. Conjunctivae were clear. NECK: Supple without any masses. Trachea midline no deviation. No JVD, CARDIAC: Regular rhythm, regular rate. S1/S2 are heard. 2/6 ejection murmur, no gallops or rubs. LUNGS: Diminished breath sounds noted throughout, air movement improving. No wheeze, rhonchi or rales. using accessory. ABDOMEN: Soft, nontender. Nondistended. Bowel sounds heard in all 4 quadrants. No organomegaly or masses. Negative rebound, negative guarding. Urinary Plascencia in place with improved urinary output, still dark urine EXTREMITIES: No edema, pulses are equal bilaterally. No cyanosis or clubbing NEUROLOGY: Mood and affect appear appropriate. Cranial nerves II through XII grossly intact. Moving all extremities, speech is clear - Urinary Catheter Management Indwelling Urethral Catheter Cath placed during this visit: yes, but has since been removed by the nurse Reason for continuing: Hourly intake/output Insertion date: 01/05/18 Insertion time: 18:00 Removal date: 01/08/18 Assessment and Plan - Plan Assessment: 1. Acute kidney injury. 2. Congestive heart failure and fluid overload status. 3. Atrial fibrillation with rapid ventricular rate. 4. Respiratory failure. Plan: Patient has LINK , mainly either cardio renal or ATN. Urine out put is on the lower side. Creatinine is improving, now 1.6. K is low, replaced. Try to keep in negative fluid balance. Continue the Bumex. Palliative care is following, Continue diuretics, keep in negative fluid balance. Follow the urine out put and BMP.
[2018-01-10] MEDS: Azithromycin Inj 500 MG in Sodium Chlor 0.9% Inj 250 ML IV.SIG SCH (18:45)
--- NOTE | 2018-01-10 18:45 | P.PN ---
Subjective Interval history: Doing better. On O2 5 l. Used BiPAP at HS Output remains good. Physical Exam Vital signs: Vital Signs 01/09/18 19:30 01/09/18 19:45 01/09/18 20:00 Temperature 96.7 F L Pulse Rate 94 H 92 H Respiratory Rate 25 H 18 Blood Pressure 125/72 Pulse Oximetry 88 L 95 92 L 01/10/18 00:00 01/10/18 00:20 01/10/18 03:45 Temperature 98.5 F Pulse Rate 96 H Respiratory Rate 23 Blood Pressure 118/50 L Pulse Oximetry 99 97 95 01/10/18 04:00 01/10/18 07:09 01/10/18 08:00 Temperature 98.1 F Pulse Rate 98 H 105 H 98 H Respiratory Rate 26 H 24 23 Blood Pressure 110/69 113/55 L Pulse Oximetry 98 93 L 96 01/10/18 12:00 01/10/18 13:28 01/10/18 16:00 Temperature Pulse Rate 100 H 101 H 96 H Respiratory Rate 25 H 24 27 H Blood Pressure 106/45 L 128/51 L Pulse Oximetry 96 96 94 L Intake & Output 01/09/18 01/10/18 01/10/18 18:59 06:59 18:59 Intake Total 100 / 100 590 / 590 1010 / 1010 Output Total 350 / 350 500 / 500 1200 / 1200 Balance -250 / -250 90 / 90 -190 / -190 Intake: IV 100 / 100 350 / 350 50 / 50 Azithromycin Inj 500 MG In NS 250 / 250 Inj 250 ML @ 250 mls/hr IV.SIG Q24H YOVANA Rx#:[id number] Zosyn 2.25 GM Premix 50 ML @ 100 / 100 100 / 100 50 / 50 100 mls/hr IV.SIG Q6H YOVANA Rx#: [id number] Oral 240 / 240 960 / 960 Output: Urine 350 / 350 500 / 500 1200 / 1200 Other: # Voids 4 Date of Last Bowel Movement 01/09/18 01/09/18 01/09/18 # Bowel Movements 0 0 0 Narrative: GENERAL: Well-developed, well-nourished, patient in Mild distress HEENT: Head is normocephalic without any lesions or masses noted. Facial features are symmetric. Eyes: Extraocular muscles are intact. Conjunctivae were clear. NECK: Supple without any masses. Trachea midline no deviation. No JVD, CARDIAC: Regular rhythm, regular rate. S1/S2 are heard. 2/6 ejection murmur, no gallops or rubs. LUNGS: Diminished breath sounds noted throughout, with Occ Wheeze ABDOMEN: Soft, nontender. Nondistended. Bowel sounds heard in all 4 quadrants. No organomegaly or masses. Negative rebound, negative guarding. Urinary Plascencia in place with improved urinary output, still dark urine EXTREMITIES: No edema, pulses are equal bilaterally. No cyanosis or clubbing NEUROLOGY: Mood and affect appear appropriate. Moving all extremities, speech is clear - Urinary Catheter Management Indwelling Urethral Catheter Cath placed during this visit: yes, but has since been removed by the nurse Reason for continuing: Hourly intake/output Insertion date: 01/05/18 Insertion time: 18:00 Removal date: 01/08/18 Results - Labs CBC & Chem 7: 01/10/18 04:35 01/10/18 14:00 Laboratory Results - last 24 hr 01/10/18 01/10/18 01/10/18 04:35 04:35 14:00 CBC w Diff Auto diff final WBC 12.4 H RBC 3.74 L Hgb 12.6 L Hct 36.0 L MCV 96.3 MCH 33.6 MCHC 34.9 RDW 12.0 Plt Count 165 MPV 10.8 Neut % (Auto) 90.9 H Lymph % (Auto) 2.4 L Crowley % (Auto) 6.7 Eos % (Auto) 0.0 Baso % (Auto) 0.0 Neut # (Auto) 11.3 H Lymph # (Auto) 0.3 L Crowley # (Auto) 0.8 Eos # (Auto) 0.0 Baso # (Auto) 0.0 WBC Differential . Differential Comment . Sodium 142 Potassium 2.9 L* 3.1 L Chloride 104 Carbon Dioxide 26.5 Anion Gap 12 BUN 70 H Creatinine 1.60 H Estimated GFR 41 L Random Glucose 147 H Calcium 8.1 L Magnesium 2.2 Microbiology 01/05/18 10:50 Blood - Peripheral Aerobic Blood Culture - Final No growth in 5 days 01/05/18 10:50 Blood - Peripheral Anaerobic Blood Culture - Final No growth in 5 days 01/05/18 10:40 Blood - Peripheral Aerobic Blood Culture - Final No growth in 5 days 01/05/18 10:40 Blood - Peripheral Anaerobic Blood Culture - Final No growth in 5 days - Imaging Impressions Chest X-Ray 01/10/18 00:00 CONCLUSION: Slight interval improvement in aeration. - Procedures ECHOCARDIOGRAM CONCLUSIONS The left ventricular systolic function is hyperdynamic with an estimated ejection fraction in the range of 65- 70%. Wall thickness is normal. No regional wall motion abnormalities are present. Severe biatrial enlargement. A possible atrial level shunt is demonstrated by color flow Doppler interrogation, clinical correlation recommended. Moderate thickening of the mitral valve leaflets. [id number] mitral valve regurgitation. Mitral annular calcification is present. Can not rule out a mobile echodensity located on the anterior mitral valve leaflet. Clinical correlation recommended. Aortic valve sclerosis is present. Trace aortic valve regurgitation. There is moderate tricuspid regurgitation. The estimated pulmonary arterial pressure is 57.6 mmHg. 01/05/18: Thoracentesis with 850 cc of fluid removal from the right side Assessment and Plan - Assessment (1) Pneumonia Code(s): J18.9 - Pneumonia, unspecified organism Status: Acute (2) Atrial fibrillation with RVR Code(s): I48.91 - Unspecified atrial fibrillation Status: Acute (3) Congestive heart failure Code(s): I50.9 - Heart failure, unspecified Status: Acute (4) Hypoxia Code(s): R09.02 - Hypoxemia Status: Acute (5) Respiratory failure Code(s): J96.90 - Respiratory failure, unspecified, unspecified whether with hypoxia or hypercapnia Status: Acute (6) Acute kidney injury Code(s): N17.9 - Acute kidney failure, unspecified Status: Acute (7) Heart failure Code(s): I50.9 - Heart failure, unspecified Status: Acute (8) Pulmonary hypertension Code(s): I27.20 - Pulmonary hypertension, unspecified Status: Acute (9) Dyspnea Code(s): R06.00 - Dyspnea, unspecified Status: Acute - Plan 1. Continue BiPAP 12/5 cm , FIo2 35 % at HS and PRN 2. O2 n/c 4 L 3. Cont Duonebs qid. 4. Continue antibiotic Zosyn 5. D/C solumedrol 6. Bumex IV 1 mg bid daily 7. Prednisone 40 gm BID and taper (3) Congestive heart failure Qualifiers: Heart failure type: unspecified Heart failure chronicity: acute Qualified Code(s): I50.9 - Heart failure, unspecified
[2018-01-10] MEDS: predniSONE 20 MG Tablet PO SCH (21:29)
[2018-01-10] MEDS: Melatonin 5 MG Tablet PO PRN (23:07)
[2018-01-11] MEDS: Piperacil/Tazo 2.25 GM Premix 50 ML IV.SIG SCH ×4 (04:21→22:03)
[2018-01-11 05:13] LABS: Potassium 3.9 meq/L (3.5-5.1)
[2018-01-11 05:16] LABS: Calcium 8.2 mg/dL (8.5-10.1); Carbon Dioxide 25.7 meq/L (21.0-32.0)
--- NOTE | 2018-01-11 05:19 | XR ---
EXAM DATE: 01/11/2018 4:08 AM EDT AGE/SEX: 82 years / Male INDICATIONS: Congestion. CLINICAL DATA: This is the patient's subsequent encounter. Patient reports that signs and symptoms h ave been present for 1 week and indicates a pain score of Nonresponsive. MEDICAL/SURGICAL HISTORY: . Hypertension. Ankylosing spondylitis. Atrial fibrillation. Cardiove rsion. None. COMPARISON: [facility], CHEST 1V SINGLE AP, 01/10/2018. . FINDINGS: Bilateral perihilar infiltrates and layering effusions are grossly unchanged. Lateral left chest pleu ral calcification is again noted. Visualized cardiac contours are unchanged. CONCLUSION: No significant change Electronically signed by: Narinder Olivera MD 01/11/2018 5:17 AM EDT
[2018-01-11] MEDS: predniSONE 20 MG Tablet PO SCH ×2 (07:39→10:08)
[2018-01-11] MEDS: dilTIAZem CD 240 MG Capsule PO SCH ×2 (07:39→10:08)
[2018-01-11] MEDS: Metoprolol Tartrate 25 MG Tablet PO SCH ×3 (07:39→20:40)
[2018-01-11] MEDS: Rivaroxaban 15 MG Tablet PO SCH (10:08)
--- NOTE | 2018-01-11 11:05 | P.PNIM ---
Subjective Interval history: Follow up renal failure and resp failure. Patient seen and examined, lying in bed on supplemental O2. Mild accessory muscle use. Adequate saturations. Patient gets winded with conversation. Denies any pain. Vital signs are stable at this time. Spoke with pulmonology, will see later today. Has been eating well, denies any fever, chills, headache, abdominal pain, nausea, vomiting, diarrhea or dysuria. Physical Exam Vital signs: Vital Signs 01/10/18 12:00 01/10/18 13:28 01/10/18 16:00 Temperature Pulse Rate 100 H 101 H 96 H Respiratory Rate 25 H 24 27 H Blood Pressure 106/45 L 128/51 L Pulse Oximetry 96 96 94 L 01/10/18 19:00 01/10/18 19:58 01/10/18 20:00 Temperature 97.5 F L Pulse Rate 106 H 108 H 112 H Respiratory Rate 28 H 22 22 Blood Pressure 116/56 L 114/55 L Pulse Oximetry 96 91 L 01/10/18 21:01 01/10/18 21:40 01/10/18 22:01 Temperature Pulse Rate 122 H 122 H Respiratory Rate 29 H 37 H Blood Pressure 124/65 144/70 H Pulse Oximetry 91 L 95 95 01/10/18 23:00 01/11/18 00:01 01/11/18 00:40 Temperature 97 F L Pulse Rate 114 H 106 H Respiratory Rate 37 H 24 Blood Pressure 109/66 113/54 L Pulse Oximetry 94 L 97 97 01/11/18 01:00 01/11/18 02:00 01/11/18 03:01 Temperature Pulse Rate 100 H 106 H 104 H Respiratory Rate 26 H 28 H 25 H Blood Pressure 107/54 L 101/51 L 114/53 L Pulse Oximetry 93 L 90 L 92 L 01/11/18 03:40 01/11/18 03:55 01/11/18 04:00 Temperature Pulse Rate 108 H Respiratory Rate 32 H Blood Pressure Pulse Oximetry 94 L 94 L 01/11/18 04:01 01/11/18 05:01 01/11/18 06:01 Temperature Pulse Rate 116 H 122 H 120 H Respiratory Rate 36 H 39 H 40 H Blood Pressure 121/79 124/65 133/66 Pulse Oximetry 91 L 94 L 91 L 01/11/18 07:01 01/11/18 07:50 01/11/18 07:53 Temperature Pulse Rate 130 H 125 H Respiratory Rate 37 H 33 H Blood Pressure 124/64 Pulse Oximetry 96 91 L 01/11/18 08:00 Temperature Pulse Rate 119 H Respiratory Rate Blood Pressure Pulse Oximetry 91 L Intake & Output 01/10/18 01/11/18 01/11/18 18:59 06:59 18:59 Intake Total 1060 / 1060 220 / 220 Output Total 1200 / 1200 800 / 800 Balance -140 / -140 -580 / -580 Weight 74 kg Intake: IV 100 / 100 100 / 100 Zosyn 2.25 GM Premix 50 ML @ 100 / 100 100 / 100 100 mls/hr IV.SIG Q6H YOVANA Rx#: [id number] Oral 960 / 960 120 / 120 Output: Urine 1200 / 1200 800 / 800 Other: # Voids 4 4 Date of Last Bowel Movement 01/09/18 01/09/18 01/09/18 # Bowel Movements 0 0 Narrative: GENERAL: Well-developed, well-nourished elderly white male patient on supplemental O2. SKIN: Warm and dry. No rash. HEAD: Normocephalic. Atraumatic. EYES: Pupils equal and round. No scleral icterus. No injection or drainage. ENT: No nasal bleeding or discharge. Mucous membranes pink and moist. NECK: Supple. Trachea midline. CARDIOVASCULAR: Regular rate and rhythm. S1, S2 noted. RESPIRATORY: Mild accessory muscle use. Diminished breath sounds throughout. GASTROINTESTINAL: Abdomen soft, non-tender, nondistended. Normoactive bowel sounds x4. MUSCULOSKELETAL: No obvious deformities. Extremities without clubbing, cyanosis , or edema. NEUROLOGICAL: Awake and alert. No obvious cranial nerve deficits. Motor grossly within normal limits. 5/5 muscle strength in bilateral upper and lower extremities. Normal speech. PSYCHIATRIC: Appropriate mood and affect; insight and judgment normal. - Urinary Catheter Management Indwelling Urethral Catheter Cath placed during this visit: yes, but has since been removed by the nurse Reason for continuing: Hourly intake/output Insertion date: 01/05/18 Insertion time: 18:00 Removal date: 01/08/18 Results - Labs CBC & Chem 7: 01/10/18 04:35 01/11/18 04:20 Laboratory Results - last 24 hr 01/10/18 01/10/18 01/11/18 14:00 22:00 04:20 Sodium 144 Potassium 3.1 L 3.6 3.9 Chloride 106 Carbon Dioxide 25.7 Anion Gap 12 BUN 73 H Creatinine 1.80 H Estimated GFR 36 L Random Glucose 152 H Calcium 8.2 L Microbiology 01/05/18 10:50 Blood - Peripheral Aerobic Blood Culture - Final No growth in 5 days 01/05/18 10:50 Blood - Peripheral Anaerobic Blood Culture - Final No growth in 5 days 01/05/18 10:40 Blood - Peripheral Aerobic Blood Culture - Final No growth in 5 days 01/05/18 10:40 Blood - Peripheral Anaerobic Blood Culture - Final No growth in 5 days - Imaging Impressions Chest X-Ray 01/11/18 00:00 CONCLUSION: No significant change - Procedures ECHOCARDIOGRAM CONCLUSIONS The left ventricular systolic function is hyperdynamic with an estimated ejection fraction in the range of 65- 70%. Wall thickness is normal. No regional wall motion abnormalities are present. Severe biatrial enlargement. A possible atrial level shunt is demonstrated by color flow Doppler interrogation, clinical correlation recommended. Moderate thickening of the mitral valve leaflets. [id number] mitral valve regurgitation. Mitral annular calcification is present. Can not rule out a mobile echodensity located on the anterior mitral valve leaflet. Clinical correlation recommended. Aortic valve sclerosis is present. Trace aortic valve regurgitation. There is moderate tricuspid regurgitation. The estimated pulmonary arterial pressure is 57.6 mmHg. 01/05/18: Thoracentesis with 850 cc of fluid removal from the right side Assessment and Plan - Plan Acute hypoxic respiratory failure, improving -Multifactorial with findings of congestive heart failure, elevated BNP, significant pleural effusion, severe biatrial enlargement, possible atrial level shunt -Unable to treat effectively without intubation, patient is a DO NOT RESUSCITATE , will respect the patient's wishes -Continue high flow oxygen and BiPAP to maintain O2 sats greater than 92% -Bean Picker was consulted who performed right-sided thoracentesis with 850 cc of fluid removal. -Fluid studies indicating transudate fluid -Bumex 1 mg IV twice daily, changed to p.o. -Continue Solu-Medrol 40 mg every 6 hours, changed to p.o. prednisone 40 mg p.o. twice daily -Continue empirical antibiotics include vancomycin and Zosyn, discontinue IV antibiotics, start Levaquin 750 mg every other day for 8 more days for total of 14 days of antibiotic treatment -Steel Loader following the patient, appreciate input and recommendations. -Patient would likely benefit from repeat thoracentesis, possible may require chest tube placement since fluid continues to reaccumulate. -Palliative care consulted for further recommendations and treatment plan goals. Acute renal failure with decreased urinary output, continues to improve daily -Could be secondary to tubular necrosis from hypotension -Renal bladder ultrasound was performed which showed right renal cyst no hydronephrosis -Renal functions have continued to improved, creatinine now 1.6 -Avoid nephrotoxins -Rim Technician following the patient -[place] for strict ins and outs management -Patient will likely need dialysis in order to manage appropriately to help with renal function, fluid removal Hypotension, improved -Unknown if this is related to diuresis, sepsis, cardiorenal syndrome -Patient was given fluid boluses, albumin bolus -Patient blood pressure medications have hold parameters Atrial fibrillation with RVR, heart rate 92-111 -Status post Cardizem IV with discontinuation -Patient continued on Cardizem CD 240 mg daily -Metoprolol 12.5 mg twice daily -Needed to adjust medications for hypotension, heart rate may worsen -If heart rate worsens possible consider digoxin to help with rate control and cardiac function -Patient is on Xarelto for anticoagulation Hyperglycemia -Likely secondary to stress and Solu-Medrol -Hemoglobin A1c 4.7 -Continue monitor and start Accu-Cheks with sliding scale insulin if needed DVT prevention -Xarelto Discharge Planning: Await for improvement or final decision for goals of care. Palliative care following. Goals remain aggressive at this time. Ultimately would need rehab if able medically clear to be discharged later on.
--- NOTE | 2018-01-11 13:49 | P.PNPAL ---
Reason for Visit Reason for visit: a. To assist with evaluation and management of symptoms including: Dyspnea b. To assist medical decision maker(s) with: better understanding of current medical conditions; weighing benefits/burdens of medical treatment options; making medical treatment decisions. Subjective Subjective/Interval History: INTERVAL NOTE: Follow-up visit for symptom management of dyspnea and clarification of medical treatment goals. Patient was admitted with respiratory failure and acute renal failure. He presents sitting on the side of his bed, no apparent distress. Oxygen saturations in the low to mid 90s on 6 L via nasal cannula this morning. Patient becomes short of breath with conversation, mild accessory muscle use. Pulmonology and nephrology following. Clinical data: = Sodium 144, potassium 3.9, chloride 106, carbon dioxide 25.7, calcium 8.2 = BUN increased was 70 yesterday increasing to 73 today; creatinine increased from 1.60 to 1.80; GFR 36 (decreasing from 41 yesterday 01/10/2018 He states, "everyone keeps telling me I am getting better, but I am not so sure. " Reviewed current medical conditions and overall prognosis. We talked about aggressive versus comfort focused goals; talked about hospice again. Patient wants to see how he feels in the upcoming days. If goals remain aggressive, patient will need SNF placement for rehab when stable enough to be discharged. Palliative care will continue to follow. Advance Directives Living Will: Copy in medical record Health Care Surrogate: Copy in medical record Health Care Surrogate Name and Number: Isa Webster and eddie Zaragoza Objective Vital Signs: Vital Signs 01/10/18 16:00 01/10/18 19:00 01/10/18 19:58 Temperature 97.5 F L Pulse Rate 96 H 106 H 108 H Respiratory Rate 27 H 28 H 22 Blood Pressure 128/51 L 116/56 L Pulse Oximetry 94 L 96 01/10/18 20:00 01/10/18 21:01 01/10/18 21:40 Temperature Pulse Rate 112 H 122 H Respiratory Rate 22 29 H Blood Pressure 114/55 L 124/65 Pulse Oximetry 91 L 91 L 95 01/10/18 22:01 01/10/18 23:00 01/11/18 00:01 Temperature 97 F L Pulse Rate 122 H 114 H 106 H Respiratory Rate 37 H 37 H 24 Blood Pressure 144/70 H 109/66 113/54 L Pulse Oximetry 95 94 L 97 01/11/18 00:40 01/11/18 01:00 01/11/18 02:00 Temperature Pulse Rate 100 H 106 H Respiratory Rate 26 H 28 H Blood Pressure 107/54 L 101/51 L Pulse Oximetry 97 93 L 90 L 01/11/18 03:01 01/11/18 03:40 01/11/18 03:55 Temperature Pulse Rate 104 H 108 H Respiratory Rate 25 H 32 H Blood Pressure 114/53 L Pulse Oximetry 92 L 94 L 01/11/18 04:00 01/11/18 04:01 01/11/18 05:01 Temperature Pulse Rate 116 H 122 H Respiratory Rate 36 H 39 H Blood Pressure 121/79 124/65 Pulse Oximetry 94 L 91 L 94 L 01/11/18 06:01 01/11/18 07:01 01/11/18 07:50 Temperature Pulse Rate 120 H 130 H 125 H Respiratory Rate 40 H 37 H 33 H Blood Pressure 133/66 124/64 Pulse Oximetry 91 L 96 01/11/18 07:53 01/11/18 08:00 01/11/18 12:02 Temperature Pulse Rate 119 H Respiratory Rate Blood Pressure Pulse Oximetry 91 L 91 L 97 Intake & Output 01/10/18 01/11/18 01/11/18 18:59 06:59 18:59 Intake Total 1060 / 1060 220 / 220 Output Total 1200 / 1200 800 / 800 Balance -140 / -140 -580 / -580 Weight 74 kg Intake: IV 100 / 100 100 / 100 Zosyn 2.25 GM Premix 50 ML @ 100 / 100 100 / 100 100 mls/hr IV.SIG Q6H YOVANA Rx#: [id number] Oral 960 / 960 120 / 120 Output: Urine 1200 / 1200 800 / 800 Other: # Voids 4 4 Date of Last Bowel Movement 01/09/18 01/09/18 01/09/18 # Bowel Movements 0 0 Physical Exam: CONSTITUTIONAL/GENERAL: This is an elderly, mildly tachypneic and tachycardic. TUBES/LINES/DRAINS: Nasal cannula, IV access, [place] SKIN: No jaundice, rashes, or lesions. Ecchymoses on upper extremities. No wounds seen anteriorly. Skin temperature appropriate. Not CARDIOVASCULAR: Irregular rhythm without murmurs, gallops, or rubs. No JVD. Peripheral pulses diminished. RESPIRATORY/CHEST: Patient becomes mildly dyspneic with conversation. Breath sounds diminished bilaterally. A few scattered rales bilateral. GASTROINTESTINAL: Abdomen soft, non-tender, nondistended. No guarding. Bowel sounds present. GENITOURINARY: Without palpable bladder distension. MUSCULOSKELETAL: Extremities without clubbing, cyanosis, or edema. No mottling or clubbing. NEUROLOGICAL: Awake and alert. Motor and sensory grossly within normal limits. Follows commands. Cognitively sharp. Moves all extremities. PSYCHIATRIC: No obvious anxiety/depression. No apparent hallucinations or other psychotic thought process. Diagnostic Tests Laboratory: Laboratory Results - last 72 hr 01/09/18 01/09/18 01/10/18 06:40 06:40 04:35 CBC w Diff Auto diff final WBC 12.2 H RBC 3.97 L Hgb 13.5 Hct 39.5 MCV 99.4 MCH 34.1 H MCHC 34.3 RDW 12.0 Plt Count 148 L MPV 10.9 Neut % (Auto) 92.1 H Lymph % (Auto) 3.7 L [place] % (Auto) 3.2 Eos % (Auto) 0.0 Baso % (Auto) 1.0 Neut # (Auto) 11.2 H Lymph # (Auto) 0.5 L [place] # (Auto) 0.4 Eos # (Auto) 0.0 Baso # (Auto) 0.1 WBC Differential . Differential Comment . Sodium 143 142 Potassium 3.5 2.9 L* Chloride 106 104 Carbon Dioxide 25.3 26.5 Anion Gap 12 12 BUN 71 H 70 H Creatinine 1.90 H 1.60 H Estimated GFR 34 L 41 L Random Glucose 153 H 147 H Calcium 8.3 L 8.1 L Magnesium 2.2 01/10/18 01/10/18 01/10/18 04:35 14:00 22:00 CBC w Diff Auto diff final WBC 12.4 H RBC 3.74 L Hgb 12.6 L Hct 36.0 L MCV 96.3 MCH 33.6 MCHC 34.9 RDW 12.0 Plt Count 165 MPV 10.8 Neut % (Auto) 90.9 H Lymph % (Auto) 2.4 L [place] % (Auto) 6.7 Eos % (Auto) 0.0 Baso % (Auto) 0.0 Neut # (Auto) 11.3 H Lymph # (Auto) 0.3 L [place] # (Auto) 0.8 Eos # (Auto) 0.0 Baso # (Auto) 0.0 WBC Differential . Differential Comment . Sodium Potassium 3.1 L 3.6 Chloride Carbon Dioxide Anion Gap BUN Creatinine Estimated GFR Random Glucose Calcium Magnesium 01/11/18 04:20 CBC w Diff WBC RBC Hgb Hct MCV MCH MCHC RDW Plt Count MPV Neut % (Auto) Lymph % (Auto) [place] % (Auto) Eos % (Auto) Baso % (Auto) Neut # (Auto) Lymph # (Auto) [place] # (Auto) Eos # (Auto) Baso # (Auto) WBC Differential Differential Comment Sodium 144 Potassium 3.9 Chloride 106 Carbon Dioxide 25.7 Anion Gap 12 BUN 73 H Creatinine 1.80 H Estimated GFR 36 L Random Glucose 152 H Calcium 8.2 L Magnesium Result Diagrams: 01/10/18 04:35 01/13/18 04:35 Microbiology: Microbiology 01/05/18 10:50 Aerobic Blood Culture - Final Blood - Peripheral No growth in 5 days Anaerobic Blood Culture - Final No growth in 5 days 01/05/18 10:40 Aerobic Blood Culture - Final Blood - Peripheral No growth in 5 days Anaerobic Blood Culture - Final No growth in 5 days Imaging: Abdomen/Bladder Ultrasound 01/06/18 00:00 CONCLUSION: Right renal cyst. No hydronephrosis Chest X-Ray 01/11/18 00:00 CONCLUSION: No significant change Procedures: Thoracentesis 01/05/18 (850 cc) Assessment and Plan - Disease Oriented Problem List (1) Respiratory failure (2) Acute kidney injury Comment: Creatinine and GFR worsening each day (3) Heart failure (4) Pulmonary hypertension Pertinent Non-Medical Issues: Psychosocial: Originally from [place], [place], moved to the [facility] to work for [employer] in 1969. Works as an aircraft electrician for many years. and twice; has no children, but does have 1 stepson from his first . Niece and nephew are frequent visitors. Spiritual: Church background, members of his adventist have visited him here. Legal: The patient has capacity for decision-making; he has designated his nephew Darin and niece Mila as healthcare surrogates. Ethical issues impacting care: No known ethical issues impacting care at this time. Important Contacts: Nephew: Darin Meyers [phone] Niece: Mila Borden (Palliative Medicine [facility] in [place]): [phone] Prognosis: The patient has been declining for months, and now has worsening/symptomatic pulmonary hypertension, heart failure, and kidney injury. His overall prognosis is poor, and he now wants to transition to hospice services for end-of -life. Code Status: No Code DNR Plan: * DO NOT RESUSCITATE * DECISION-MAKING: The patient has capacity for decision-making; he has designated his nephew Darin and niece Mila as healthcare surrogates. * GOALS are aggressive up to the point of cardiopulmonary resuscitation. * Patient states, "everyone keeps telling me I am getting better, but I am not so sure." Reviewed current medical conditions and overall prognosis. We talked about aggressive versus comfort focused goals; talked about hospice again. Patient wants to see how he feels in the upcoming days. If goals remain aggressive, patient will need SNF placement for rehab when stable enough to be discharged. Palliative care will continue to follow. * SYMPTOMS: The patient remains somewhat dyspneic requiring BiPAP overnight. Currently tolerating 6 L oxygen via nasal cannula with oxygen saturations in the mid to high 90s. Morphine and Ativan are available. * Palliative care will continue to follow this patient to establish trust, assist with symptom management and clarification medical treatment goals. Attestation Attestation: To help prompt me to consider important information that might be impacting today's encounter and assessment, information from prior notes written by myself or my colleagues may have been "brought forward" into today's note. My signature on this note, however, is an attestation that I personally performed the exam, history, and/or decision-making noted today, and, unless otherwise indicated, the interactions with patient, family, and staff as well as the review of records all occurred today. I also attest that the listed assessment and stated plan reflect my best clinical judgment today based on the combination of historical information, prior notes, and today's exam/ interactions. When time spent is documented, it refers only to time spent today by the signer, or if indicated, combined time spent today by collaborating physician/nurse practitioner.
--- NOTE | 2018-01-11 15:09 | P.PNNP ---
Subjective Interval history: Patient has still has mild SOB, with high flow O2. Physical Exam Vital signs: Vital Signs 01/10/18 16:00 01/10/18 19:00 01/10/18 19:58 Temperature 97.5 F L Pulse Rate 96 H 106 H 108 H Respiratory Rate 27 H 28 H 22 Blood Pressure 128/51 L 116/56 L Pulse Oximetry 94 L 96 01/10/18 20:00 01/10/18 21:01 01/10/18 21:40 Temperature Pulse Rate 112 H 122 H Respiratory Rate 22 29 H Blood Pressure 114/55 L 124/65 Pulse Oximetry 91 L 91 L 95 01/10/18 22:01 01/10/18 23:00 01/11/18 00:01 Temperature 97 F L Pulse Rate 122 H 114 H 106 H Respiratory Rate 37 H 37 H 24 Blood Pressure 144/70 H 109/66 113/54 L Pulse Oximetry 95 94 L 97 01/11/18 00:40 01/11/18 01:00 01/11/18 02:00 Temperature Pulse Rate 100 H 106 H Respiratory Rate 26 H 28 H Blood Pressure 107/54 L 101/51 L Pulse Oximetry 97 93 L 90 L 01/11/18 03:01 01/11/18 03:40 01/11/18 03:55 Temperature Pulse Rate 104 H 108 H Respiratory Rate 25 H 32 H Blood Pressure 114/53 L Pulse Oximetry 92 L 94 L 01/11/18 04:00 01/11/18 04:01 01/11/18 05:01 Temperature Pulse Rate 116 H 122 H Respiratory Rate 36 H 39 H Blood Pressure 121/79 124/65 Pulse Oximetry 94 L 91 L 94 L 01/11/18 06:01 01/11/18 07:01 01/11/18 07:50 Temperature Pulse Rate 120 H 130 H 125 H Respiratory Rate 40 H 37 H 33 H Blood Pressure 133/66 124/64 Pulse Oximetry 91 L 96 01/11/18 07:53 01/11/18 08:00 01/11/18 12:02 Temperature Pulse Rate 119 H Respiratory Rate Blood Pressure Pulse Oximetry 91 L 91 L 97 01/11/18 14:00 Temperature Pulse Rate 106 H Respiratory Rate 27 H Blood Pressure Pulse Oximetry Intake & Output 01/10/18 01/11/18 01/11/18 18:59 06:59 18:59 Intake Total 1060 / 1060 220 / 220 Output Total 1200 / 1200 800 / 800 Balance -140 / -140 -580 / -580 Weight 74 kg Intake: IV 100 / 100 100 / 100 Zosyn 2.25 GM Premix 50 ML @ 100 / 100 100 / 100 100 mls/hr IV.SIG Q6H YOVANA Rx#: [id number] Oral 960 / 960 120 / 120 Output: Urine 1200 / 1200 800 / 800 Other: # Voids 4 4 Date of Last Bowel Movement 01/09/18 01/09/18 01/09/18 # Bowel Movements 0 0 - Urinary Catheter Management Indwelling Urethral Catheter Cath placed during this visit: yes, but has since been removed by the nurse Reason for continuing: Hourly intake/output Insertion date: 01/05/18 Insertion time: 18:00 Removal date: 01/08/18 Assessment and Plan - Plan Assessment: 1. Acute kidney injury. 2. Congestive heart failure and fluid overload status. 3. Atrial fibrillation with rapid ventricular rate. 4. Respiratory failure. Plan: Patient has LINK , mainly either cardio renal or ATN. Urine out put is on the lower side. Creatinine is stable, possibly close to baseline. K is low, replaced. Try to keep in negative fluid balance. Continue diuretics, keep in negative fluid balance. Follow the urine out put and BMP. Continue the Bumex. Palliative care is following.
[2018-01-11] MEDS: Azithromycin Inj 500 MG in Sodium Chlor 0.9% Inj 250 ML IV.SIG SCH (18:02)
--- NOTE | 2018-01-11 18:11 | P.PN ---
Subjective Interval history: He is now on High flow O2 at 50 %. Feels tired, and coughed up bloody sputum. CXR showing basal infiltrates. Physical Exam Vital signs: Vital Signs 01/10/18 19:00 01/10/18 19:58 01/10/18 20:00 Temperature 97.5 F L Pulse Rate 106 H 108 H 112 H Respiratory Rate 28 H 22 22 Blood Pressure 116/56 L 114/55 L Pulse Oximetry 96 91 L 01/10/18 21:01 01/10/18 21:40 01/10/18 22:01 Temperature Pulse Rate 122 H 122 H Respiratory Rate 29 H 37 H Blood Pressure 124/65 144/70 H Pulse Oximetry 91 L 95 95 01/10/18 23:00 01/11/18 00:01 01/11/18 00:40 Temperature 97 F L Pulse Rate 114 H 106 H Respiratory Rate 37 H 24 Blood Pressure 109/66 113/54 L Pulse Oximetry 94 L 97 97 01/11/18 01:00 01/11/18 02:00 01/11/18 03:01 Temperature Pulse Rate 100 H 106 H 104 H Respiratory Rate 26 H 28 H 25 H Blood Pressure 107/54 L 101/51 L 114/53 L Pulse Oximetry 93 L 90 L 92 L 01/11/18 03:40 01/11/18 03:55 01/11/18 04:00 Temperature Pulse Rate 108 H Respiratory Rate 32 H Blood Pressure Pulse Oximetry 94 L 94 L 01/11/18 04:01 01/11/18 05:01 01/11/18 06:01 Temperature Pulse Rate 116 H 122 H 120 H Respiratory Rate 36 H 39 H 40 H Blood Pressure 121/79 124/65 133/66 Pulse Oximetry 91 L 94 L 91 L 01/11/18 07:01 01/11/18 07:50 01/11/18 07:53 Temperature Pulse Rate 130 H 125 H Respiratory Rate 37 H 33 H Blood Pressure 124/64 Pulse Oximetry 96 91 L 01/11/18 08:00 01/11/18 08:01 01/11/18 09:01 Temperature 97.9 F Pulse Rate 119 H 122 H 120 H Respiratory Rate 35 H 34 H Blood Pressure 125/66 103/62 Pulse Oximetry 91 L 90 L 92 L 01/11/18 10:01 01/11/18 11:00 01/11/18 11:01 Temperature Pulse Rate 110 H 112 H 112 H Respiratory Rate 33 H 30 H 32 H Blood Pressure 117/60 108/53 L Pulse Oximetry 95 86 L 86 L 01/11/18 12:00 01/11/18 12:01 01/11/18 12:02 Temperature 97.5 F L Pulse Rate 106 H Respiratory Rate 28 H Blood Pressure 146/66 H Pulse Oximetry 95 97 97 01/11/18 13:01 01/11/18 14:00 01/11/18 14:01 Temperature Pulse Rate 114 H 106 H 104 H Respiratory Rate 30 H 27 H 28 H Blood Pressure 119/68 113/56 L Pulse Oximetry 91 L 94 L 01/11/18 15:01 Temperature Pulse Rate 110 H Respiratory Rate 30 H Blood Pressure 119/50 L Pulse Oximetry 95 Intake & Output 01/10/18 01/11/18 01/11/18 18:59 06:59 18:59 Intake Total 1060 / 1060 220 / 220 50 / 50 Output Total 1200 / 1200 800 / 800 Balance -140 / -140 -580 / -580 50 / 50 Weight 74 kg Intake: IV 100 / 100 100 / 100 50 / 50 Zosyn 2.25 GM Premix 50 ML @ 100 / 100 100 / 100 50 / 50 100 mls/hr IV.SIG Q6H YOVANA Rx#: [id number] Oral 960 / 960 120 / 120 Output: Urine 1200 / 1200 800 / 800 Other: # Voids 4 4 Date of Last Bowel Movement 01/09/18 01/09/18 01/09/18 # Bowel Movements 0 0 Narrative: GENERAL: Well-developed, well-nourished elderly white male patient alert SKIN: Warm and dry. No rash. HEAD: Normocephalic. Atraumatic. EYES: Pupils equal and round. No scleral icterus. No injection or drainage. ENT: No nasal bleeding or discharge. Mucous membranes pink and moist. NECK: Supple. Trachea midline. CARDIOVASCULAR: Regular rate and rhythm. S1, S2 noted. RESPIRATORY: Mild accessory muscle use. Occ wheeze upper chest .Diminished breath sounds throughout. GASTROINTESTINAL: Abdomen soft, non-tender, nondistended. Normoactive bowel sounds x4. MUSCULOSKELETAL: No obvious deformities. Extremities without clubbing, cyanosis , or edema. NEUROLOGICAL: Awake and alert. No obvious cranial nerve deficits. Motor grossly within normal limits. Normal speech. PSYCHIATRIC: Appropriate mood and affect; insight and judgment normal. - Urinary Catheter Management Indwelling Urethral Catheter Cath placed during this visit: yes, but has since been removed by the nurse Reason for continuing: Hourly intake/output Insertion date: 01/05/18 Insertion time: 18:00 Removal date: 01/08/18 Results - Labs CBC & Chem 7: 01/10/18 04:35 01/11/18 04:20 Laboratory Results - last 24 hr 01/10/18 01/11/18 22:00 04:20 Sodium 144 Potassium 3.6 3.9 Chloride 106 Carbon Dioxide 25.7 Anion Gap 12 BUN 73 H Creatinine 1.80 H Estimated GFR 36 L Random Glucose 152 H Calcium 8.2 L - Imaging Impressions Chest X-Ray 01/11/18 00:00 CONCLUSION: No significant change - Procedures ECHOCARDIOGRAM CONCLUSIONS The left ventricular systolic function is hyperdynamic with an estimated ejection fraction in the range of 65- 70%. Wall thickness is normal. No regional wall motion abnormalities are present. Severe biatrial enlargement. A possible atrial level shunt is demonstrated by color flow Doppler interrogation, clinical correlation recommended. Moderate thickening of the mitral valve leaflets. Jctv-[id number] mitral valve regurgitation. Mitral annular calcification is present. Can not rule out a mobile echodensity located on the anterior mitral valve leaflet. Clinical correlation recommended. Aortic valve sclerosis is present. Trace aortic valve regurgitation. There is moderate tricuspid regurgitation. The estimated pulmonary arterial pressure is 57.6 mmHg. 01/05/18: Thoracentesis with 850 cc of fluid removal from the right side Assessment and Plan - Assessment (1) Pneumonia Code(s): J18.9 - Pneumonia, unspecified organism Status: Acute (2) Atrial fibrillation with RVR Code(s): I48.91 - Unspecified atrial fibrillation Status: Acute (3) Congestive heart failure Code(s): I50.9 - Heart failure, unspecified Status: Acute (4) Hypoxia Code(s): R09.02 - Hypoxemia Status: Acute (5) Respiratory failure Code(s): J96.90 - Respiratory failure, unspecified, unspecified whether with hypoxia or hypercapnia Status: Acute (6) Acute kidney injury Code(s): N17.9 - Acute kidney failure, unspecified Status: Acute (7) Heart failure Code(s): I50.9 - Heart failure, unspecified Status: Acute (8) Pulmonary hypertension Code(s): I27.20 - Pulmonary hypertension, unspecified Status: Acute (9) Dyspnea Code(s): R06.00 - Dyspnea, unspecified Status: Acute - Plan 1. Continue BiPAP 12/5 cm , FIo2 35 % at HS and PRN 2. O2 via N/C 5 L and taper 3. Cont Duonebs qid. 4. Continue antibiotic Zosyn 5. D/C Zithromax IV 6. Bumex IV 1 mg bid daily 7. Prednisone 30 gm BID and taper (3) Congestive heart failure Qualifiers: Heart failure type: unspecified Heart failure chronicity: acute Qualified Code(s): I50.9 - Heart failure, unspecified
[2018-01-11] MEDS: predniSONE 10 MG Tablet PO SCH (20:40)
[2018-01-12] MEDS: Piperacil/Tazo 2.25 GM Premix 50 ML IV.SIG SCH ×2 (04:50→09:56)
[2018-01-12] MEDS: Rivaroxaban 15 MG Tablet PO SCH (08:03)
[2018-01-12] MEDS: predniSONE 10 MG Tablet PO SCH ×2 (08:03→21:04)
[2018-01-12] MEDS: dilTIAZem CD 240 MG Capsule PO SCH (08:03)
[2018-01-12] MEDS: Metoprolol Tartrate 25 MG Tablet PO SCH ×2 (08:03→21:04)
[2018-01-12] MEDS: levoFLOXacin 750 MG Tablet PO SCH (09:56)
--- NOTE | 2018-01-12 10:41 | P.PNIM ---
Subjective Interval history: Follow up acute resp failure and renal failure. Patient seen and examined, lying in bed on supplemental O2. Still requiring high flow O2. Mild accessory muscle use. O2 desaturations with conversation and activity. No improvement overnight. Does state he has slept well overnight. Afebrile. VSS. Mild tachycardia. Eating well. Denies any fever, chills, abdominal pain, nausea, vomiting, diarrhea or dysuria. Physical Exam Vital signs: Vital Signs 01/11/18 11:00 01/11/18 11:01 01/11/18 12:00 Temperature 97.5 F L Pulse Rate 112 H 112 H Respiratory Rate 30 H 32 H Blood Pressure 108/53 L Pulse Oximetry 86 L 86 L 95 01/11/18 12:01 01/11/18 12:02 01/11/18 13:01 Temperature Pulse Rate 106 H 114 H Respiratory Rate 28 H 30 H Blood Pressure 146/66 H 119/68 Pulse Oximetry 97 97 91 L 01/11/18 14:00 01/11/18 14:01 01/11/18 15:01 Temperature Pulse Rate 106 H 104 H 110 H Respiratory Rate 27 H 28 H 30 H Blood Pressure 113/56 L 119/50 L Pulse Oximetry 94 L 95 01/11/18 18:39 01/11/18 19:17 01/11/18 20:00 Temperature 98.0 F 97.6 F Pulse Rate 102 H 105 H Respiratory Rate 28 H 24 Blood Pressure 123/54 L Pulse Oximetry 91 L 92 L 01/11/18 21:30 01/11/18 23:30 01/12/18 00:00 Temperature 98.3 F Pulse Rate 107 H Respiratory Rate 26 H Blood Pressure 123/69 Pulse Oximetry 95 91 L 92 L 01/12/18 01:50 01/12/18 04:00 01/12/18 04:11 Temperature Pulse Rate 100 H Respiratory Rate 20 Blood Pressure 122/61 Pulse Oximetry 92 L 95 95 01/12/18 06:15 01/12/18 07:00 01/12/18 07:30 Temperature Pulse Rate 124 H 115 H Respiratory Rate 31 H 23 Blood Pressure 140/63 Pulse Oximetry 98 97 95 01/12/18 08:00 01/12/18 09:01 01/12/18 09:18 Temperature 97.6 F Pulse Rate 120 H 110 H Respiratory Rate 24 27 H 20 Blood Pressure 119/71 117/66 Pulse Oximetry 95 93 L Intake & Output 01/11/18 01/12/18 01/12/18 18:59 06:59 18:59 Intake Total 220 / 220 340 / 340 Output Total 800 / 800 700 / 700 Balance -580 / -580 -360 / -360 Weight 74.1 kg Intake: IV 100 / 100 100 / 100 Zosyn 2.25 GM Premix 50 ML @ 100 / 100 100 / 100 100 mls/hr IV.SIG Q6H [facility] Rx#: [id number] Oral 120 / 120 240 / 240 Output: Urine 800 / 800 700 / 700 Other: Post Void Residual 300 # Voids 4 Date of Last Bowel Movement 01/09/18 01/09/18 01/09/18 # Bowel Movements 0 0 Narrative: GENERAL: Well-developed, well-nourished elderly white male patient alert and awake on supplemental O2. SKIN: Warm and dry. No rash. HEAD: Normocephalic. Atraumatic. EYES: Pupils equal and round. No scleral icterus. No injection or drainage. ENT: No nasal bleeding or discharge. Mucous membranes pink and moist. NECK: Supple. Trachea midline. CARDIOVASCULAR: Regular rate and rhythm. S1, S2 noted. RESPIRATORY: Mild accessory muscle use. Occ wheeze in posterior bilateral upper chest. GASTROINTESTINAL: Abdomen soft, non-tender, nondistended. Normoactive bowel sounds x4. MUSCULOSKELETAL: No obvious deformities. Extremities without clubbing, cyanosis , or edema. NEUROLOGICAL: Awake and alert. No obvious cranial nerve deficits. Motor grossly within normal limits. Normal speech. PSYCHIATRIC: Appropriate mood and affect; insight and judgment normal. - Urinary Catheter Management Indwelling Urethral Catheter Cath placed during this visit: yes, but has since been removed by the nurse Reason for continuing: Hourly intake/output Insertion date: 01/05/18 Insertion time: 18:00 Removal date: 01/08/18 Results - Labs CBC & Chem 7: 01/10/18 04:35 01/11/18 04:20 - Procedures ECHOCARDIOGRAM CONCLUSIONS The left ventricular systolic function is hyperdynamic with an estimated ejection fraction in the range of 65- 70%. Wall thickness is normal. No regional wall motion abnormalities are present. Severe biatrial enlargement. A possible atrial level shunt is demonstrated by color flow Doppler interrogation, clinical correlation recommended. Moderate thickening of the mitral valve leaflets. [id number] mitral valve regurgitation. Mitral annular calcification is present. Can not rule out a mobile echodensity located on the anterior mitral valve leaflet. Clinical correlation recommended. Aortic valve sclerosis is present. Trace aortic valve regurgitation. There is moderate tricuspid regurgitation. The estimated pulmonary arterial pressure is 57.6 mmHg. 01/05/18: Thoracentesis with 850 cc of fluid removal from the right side Assessment and Plan - Plan Acute hypoxic respiratory failure, minimal improvement. -Multifactorial with findings of congestive heart failure, elevated BNP, significant pleural effusion, severe biatrial enlargement, possible atrial level shunt -Unable to treat effectively without intubation, patient is a DO NOT RESUSCITATE , will respect the patient's wishes -Continue high flow oxygen and BiPAP to maintain O2 sats greater than 92% -Retail Store Associate was consulted who performed right-sided thoracentesis with 850 cc of fluid removal. -Fluid studies indicating transudate fluid -Bumex 1 mg IV twice daily, changed to p.o. -Continue Solu-Medrol 40 mg every 6 hours, changed to p.o. prednisone 40 mg p.o. twice daily -Was initially started on empirical antibiotics vancomycin and Zosyn, these have been discontinued, start Levaquin 750 mg every other day for a total of 14 days of antibiotic treatment. -Finish Machine Tender following the patient, appreciate input and recommendations. -Palliative care consulted for further recommendations and treatment plan goals. Goals remain aggressive at this time. Acute renal failure with decreased urinary output, improving slowly, at baseline. -Could be secondary to tubular necrosis from hypotension. -Renal bladder ultrasound was performed which showed right renal cyst no hydronephrosis. -Renal functions have continued to improved, creatinine now 1.8. -Avoid nephrotoxins. -Central Scheduler following the patient, appreciate input and recs. Hypotension, improved. -Unknown if this is related to diuresis, sepsis, cardiorenal syndrome. -Patient was given fluid boluses, albumin bolus. -Patient blood pressure medications have hold parameters. Atrial fibrillation with RVR, heart rate 92-111. Stable. -Status post Cardizem IV with discontinuation -Patient continued on Cardizem CD 240 mg daily -Metoprolol 12.5 mg twice daily -Patient is on Xarelto for anticoagulation Hyperglycemia. Improved. -Likely secondary to stress and Solu-Medrol -Hemoglobin A1c 4.7 -Continue monitor and start Accu-Cheks with sliding scale insulin if needed DVT prevention: Xarelto Discharge Planning: Await for improvement or final decision for goals of care. Palliative care following. Goals remain aggressive at this time. Ultimately would need rehab if able medically clear to be discharged later on.
--- NOTE | 2018-01-12 12:22 | P.PNPAL ---
Reason for Visit Reason for visit: a. To assist with evaluation and management of symptoms including: Dyspnea b. To assist medical decision maker(s) with: better understanding of current medical conditions; weighing benefits/burdens of medical treatment options; making medical treatment decisions. Subjective Subjective/Interval History: INTERVAL NOTE: Follow-up visit for symptom management of dyspnea and clarification of medical treatment goals. Patient was admitted with respiratory failure and acute renal failure. Dual visit with Carlita Purcell, palliative care SPEECH THERAPY ASSISTANT. He presents sitting upright in bed, requiring high flow oxygen. Patient is tachypneic with mild accessory muscle use. Pulmonology following. On the Levaquin; duo nebs every 6 hours while awake and every 2 hours PRN and prednisone. No recent BMP. Patient remains on diuretics. Nephrology continues to following. Patient verbalizing frustration that he is not getting better. He is uncertain whether he wants to pursue aggressive treatment or transition to comfort focused care. He appears fatigued and slightly more confused than usual, asking the same question repeatedly. Reviewed current medical conditions and overall prognosis. We talked about aggressive versus comfort focused goals; talked about hospice again. Spoke with patient's nephew, Darin, via telephone to provide a medical update. Mila Hodge (who is a palliative care PLASTER CASTER in [place]) , arrives sometime on 01/14/2018. Palliative care left a message for Mila on her voicemail in an attempt to schedule a family meeting for Wednesday. Advance Directives Living Will: Copy in medical record Health Care Surrogate: Copy in medical record Health Care Surrogate Name and Number: Isa Webster and eddie Mila Objective Vital Signs: Vital Signs 01/11/18 13:01 01/11/18 14:00 01/11/18 14:01 Temperature Pulse Rate 114 H 106 H 104 H Respiratory Rate 30 H 27 H 28 H Blood Pressure 119/68 113/56 L Pulse Oximetry 91 L 94 L 01/11/18 15:01 01/11/18 18:39 01/11/18 19:17 Temperature 98.0 F Pulse Rate 110 H 102 H Respiratory Rate 30 H 28 H Blood Pressure 119/50 L Pulse Oximetry 95 91 L 01/11/18 20:00 01/11/18 21:30 01/11/18 23:30 Temperature 97.6 F Pulse Rate 105 H Respiratory Rate 24 Blood Pressure 123/54 L Pulse Oximetry 92 L 95 91 L 01/12/18 00:00 01/12/18 01:50 01/12/18 04:00 Temperature 98.3 F Pulse Rate 107 H 100 H Respiratory Rate 26 H 20 Blood Pressure 123/69 122/61 Pulse Oximetry 92 L 92 L 95 01/12/18 04:11 01/12/18 06:15 01/12/18 07:00 Temperature Pulse Rate 124 H Respiratory Rate 31 H Blood Pressure 140/63 Pulse Oximetry 95 98 97 01/12/18 07:30 01/12/18 08:00 01/12/18 09:01 Temperature 97.6 F Pulse Rate 115 H 120 H 110 H Respiratory Rate 23 24 27 H Blood Pressure 119/71 117/66 Pulse Oximetry 95 95 93 L 01/12/18 09:18 01/12/18 10:01 01/12/18 10:02 Temperature Pulse Rate 112 H 108 H Respiratory Rate 20 28 H 29 H Blood Pressure 83/51 L 103/61 Pulse Oximetry 95 95 01/12/18 11:01 01/12/18 11:03 Temperature Pulse Rate 110 H 110 H Respiratory Rate 31 H 30 H Blood Pressure 80/53 L 112/49 L Pulse Oximetry 90 L 88 L Intake & Output 01/11/18 01/12/18 01/12/18 18:59 06:59 18:59 Intake Total 220 / 220 340 / 340 50 / 50 Output Total 800 / 800 700 / 700 Balance -580 / -580 -360 / -360 50 / 50 Weight 74.1 kg Intake: IV 100 / 100 100 / 100 50 / 50 Zosyn 2.25 GM Premix 50 ML @ 100 / 100 100 / 100 50 / 50 100 mls/hr IV.SIG Q6H [facility] Rx#: [id number] Oral 120 / 120 240 / 240 Output: Urine 800 / 800 700 / 700 Other: Post Void Residual 300 # Voids 4 Date of Last Bowel Movement 01/09/18 01/09/18 01/09/18 # Bowel Movements 0 0 Physical Exam: CONSTITUTIONAL/GENERAL: This is an elderly man who is tachypneic and requiring high flow oxygen. TUBES/LINES/DRAINS: High flow oxygen IV access, [place] SKIN: No jaundice, rashes, or lesions. Ecchymoses on upper extremities. No wounds seen anteriorly. Skin temperature appropriate. Not CARDIOVASCULAR: Irregular rhythm without murmurs, gallops, or rubs. No JVD. Peripheral pulses diminished. RESPIRATORY/CHEST: Requiring high flow oxygen. Respirations are elevated with mild accessory muscle use. Breath sounds diminished bilaterally. A few scattered rales bilateral. GASTROINTESTINAL: Abdomen soft, non-tender, nondistended. No guarding. Bowel sounds present. GENITOURINARY: Without palpable bladder distension. MUSCULOSKELETAL: Extremities without clubbing, cyanosis, or edema. No mottling or clubbing. NEUROLOGICAL: Awake and alert. More fatigued than yesterday, forgetful. Attempting to answer questions and follow commands. Asking some questions repeatedly. PSYCHIATRIC: No obvious anxiety/depression. No apparent hallucinations or other psychotic thought process. Diagnostic Tests Laboratory: Laboratory Results - last 72 hr 01/10/18 01/10/18 01/10/18 04:35 04:35 14:00 CBC w Diff Auto diff final WBC 12.4 H RBC 3.74 L Hgb 12.6 L Hct 36.0 L MCV 96.3 MCH 33.6 MCHC 34.9 RDW 12.0 Plt Count 165 MPV 10.8 Neut % (Auto) 90.9 H Lymph % (Auto) 2.4 L [place] % (Auto) 6.7 Eos % (Auto) 0.0 Baso % (Auto) 0.0 Neut # (Auto) 11.3 H Lymph # (Auto) 0.3 L [place] # (Auto) 0.8 Eos # (Auto) 0.0 Baso # (Auto) 0.0 WBC Differential . Differential Comment . Sodium 142 Potassium 2.9 L* 3.1 L Chloride 104 Carbon Dioxide 26.5 Anion Gap 12 BUN 70 H Creatinine 1.60 H Estimated GFR 41 L Random Glucose 147 H Calcium 8.1 L Magnesium 2.2 01/10/18 01/11/18 22:00 04:20 CBC w Diff WBC RBC Hgb Hct MCV MCH MCHC RDW Plt Count MPV Neut % (Auto) Lymph % (Auto) [place] % (Auto) Eos % (Auto) Baso % (Auto) Neut # (Auto) Lymph # (Auto) [place] # (Auto) Eos # (Auto) Baso # (Auto) WBC Differential Differential Comment Sodium 144 Potassium 3.6 3.9 Chloride 106 Carbon Dioxide 25.7 Anion Gap 12 BUN 73 H Creatinine 1.80 H Estimated GFR 36 L Random Glucose 152 H Calcium 8.2 L Magnesium Result Diagrams: 01/10/18 04:35 01/13/18 04:35 Microbiology: Microbiology 01/05/18 10:50 Aerobic Blood Culture - Final Blood - Peripheral No growth in 5 days Anaerobic Blood Culture - Final No growth in 5 days 01/05/18 10:40 Aerobic Blood Culture - Final Blood - Peripheral No growth in 5 days Anaerobic Blood Culture - Final No growth in 5 days Imaging: Abdomen/Bladder Ultrasound 01/06/18 00:00 CONCLUSION: Right renal cyst. No hydronephrosis Chest X-Ray 01/11/18 00:00 CONCLUSION: No significant change Procedures: Thoracentesis 01/05/18 (850 cc) Assessment and Plan - Disease Oriented Problem List (1) Respiratory failure (2) Acute kidney injury Comment: Creatinine and GFR worsening each day (3) Heart failure (4) Pulmonary hypertension Pertinent Non-Medical Issues: Psychosocial: Originally from [place], [place], moved to the [facility] to work for [employer] in 1969. Works as an data reporting analyst for many years. and twice; has no children, but does have 1 stepson from his first . Niece and nephew are frequent visitors. Spiritual: Voodoo background, members of his yazidism have visited him here. Legal: The patient has capacity for decision-making; he has designated his nephew Darin and niece Mila as healthcare surrogates. Ethical issues impacting care: No known ethical issues impacting care at this time. Important Contacts: Nephew: Darin Meyers, Niece: Mila Borden (Palliative Medicine [facility] in [place]): [phone] Prognosis: The patient has been declining for months, and now has worsening/symptomatic pulmonary hypertension, heart failure, and kidney injury. His overall prognosis is poor, and he now wants to transition to hospice services for end-of -life. Code Status: No Code DNR Plan: * DO NOT RESUSCITATE * DECISION-MAKING: Patient fatigued with increased confusion today. Would recommend joint decision-making at this time; he has designated his nephew Darin and niece Mila as healthcare surrogates. * GOALS are aggressive up to the point of cardiopulmonary resuscitation. * Patient verbalizing frustration that he is not getting better. He is uncertain whether he wants to pursue aggressive treatment or transition to comfort focused care. He appears fatigued and slightly more confused than usual , asking the same question repeatedly. Reviewed current medical conditions and overall prognosis. We talked about aggressive versus comfort focused goals; talked about hospice again. * Palliative care spoke with patient's nephew, Darin, via telephone to provide a medical update. Niece, Mila (who is a palliative care PLASTER CASTER in [place]), arrives sometime on 01/14/2018. Palliative care left a message for Mila on her voicemail in an attempt to schedule a family meeting for Wednesday. * SYMPTOMS: The patient remains dyspneic with mild accessory muscle use; requiring high flow oxygen. Respirations are elevated. Morphine and Ativan are available. * Palliative care will continue to follow this patient to establish trust, assist with symptom management and clarification medical treatment goals. Attestation Attestation: To help prompt me to consider important information that might be impacting today's encounter and assessment, information from prior notes written by myself or my colleagues may have been "brought forward" into today's note. My signature on this note, however, is an attestation that I personally performed the exam, history, and/or decision-making noted today, and, unless otherwise indicated, the interactions with patient, family, and staff as well as the review of records all occurred today. I also attest that the listed assessment and stated plan reflect my best clinical judgment today based on the combination of historical information, prior notes, and today's exam/ interactions. When time spent is documented, it refers only to time spent today by the signer, or if indicated, combined time spent today by collaborating physician/nurse practitioner.
--- NOTE | 2018-01-12 15:06 | P.PNNP ---
Subjective Interval history: Patient is still with high flow O2, and clinically same, mild SOB. Physical Exam Vital signs: Vital Signs 01/11/18 18:39 01/11/18 19:17 01/11/18 20:00 Temperature 98.0 F 97.6 F Pulse Rate 102 H 105 H Respiratory Rate 28 H 24 Blood Pressure 123/54 L Pulse Oximetry 91 L 92 L 01/11/18 21:30 01/11/18 23:30 01/12/18 00:00 Temperature 98.3 F Pulse Rate 107 H Respiratory Rate 26 H Blood Pressure 123/69 Pulse Oximetry 95 91 L 92 L 01/12/18 01:50 01/12/18 04:00 01/12/18 04:11 Temperature Pulse Rate 100 H Respiratory Rate 20 Blood Pressure 122/61 Pulse Oximetry 92 L 95 95 01/12/18 06:15 01/12/18 07:00 01/12/18 07:30 Temperature Pulse Rate 124 H 115 H Respiratory Rate 31 H 23 Blood Pressure 140/63 Pulse Oximetry 98 97 95 01/12/18 08:00 01/12/18 09:01 01/12/18 09:18 Temperature 97.6 F Pulse Rate 120 H 110 H Respiratory Rate 24 27 H 20 Blood Pressure 119/71 117/66 Pulse Oximetry 95 93 L 01/12/18 10:01 01/12/18 10:02 01/12/18 11:01 Temperature Pulse Rate 112 H 108 H 110 H Respiratory Rate 28 H 29 H 31 H Blood Pressure 83/51 L 103/61 80/53 L Pulse Oximetry 95 95 90 L 01/12/18 11:03 Temperature Pulse Rate 110 H Respiratory Rate 30 H Blood Pressure 112/49 L Pulse Oximetry 88 L Intake & Output 01/11/18 01/12/18 01/12/18 18:59 06:59 18:59 Intake Total 220 / 220 340 / 340 50 / 50 Output Total 800 / 800 700 / 700 Balance -580 / -580 -360 / -360 50 / 50 Weight 74.1 kg Intake: IV 100 / 100 100 / 100 50 / 50 Zosyn 2.25 GM Premix 50 ML @ 100 / 100 100 / 100 50 / 50 100 mls/hr IV.SIG Q6H [facility] Rx#: [id number] Oral 120 / 120 240 / 240 Output: Urine 800 / 800 700 / 700 Other: Post Void Residual 300 # Voids 4 Date of Last Bowel Movement 01/09/18 01/09/18 01/09/18 # Bowel Movements 0 0 Narrative: GENERAL: Well-developed, well-nourished elderly white male patient alert and awake on supplemental O2. SKIN: Warm and dry. No rash. HEAD: Normocephalic. Atraumatic. EYES: Pupils equal and round. No scleral icterus. No injection or drainage. ENT: No nasal bleeding or discharge. Mucous membranes pink and moist. NECK: Supple. Trachea midline. CARDIOVASCULAR: Regular rate and rhythm. S1, S2 noted. RESPIRATORY: Mild accessory muscle use. Occ wheeze in posterior bilateral upper chest. GASTROINTESTINAL: Abdomen soft, non-tender, nondistended. Normoactive bowel sounds x4. MUSCULOSKELETAL: No obvious deformities. Extremities without clubbing, cyanosis , or edema. NEUROLOGICAL: Awake and alert. No obvious cranial nerve deficits. Motor grossly within normal limits. Normal speech. PSYCHIATRIC: Appropriate mood and affect; insight and judgment normal. - Urinary Catheter Management Indwelling Urethral Catheter Cath placed during this visit: yes, but has since been removed by the nurse Reason for continuing: Hourly intake/output Insertion date: 01/05/18 Insertion time: 18:00 Removal date: 01/08/18 Assessment and Plan - Plan Assessment: 1. Acute kidney injury. 2. Congestive heart failure and fluid overload status. 3. Atrial fibrillation with rapid ventricular rate. 4. Respiratory failure. Plan: Patient has LINK , mainly either cardio renal or ATN. Urine out put is on the lower side. Try to keep in negative fluid balance. Continue diuretics, keep in negative fluid balance. Follow the urine out put and BMP. Continue the Bumex. Palliative care is following. Patient still want aggressive treatment. No new BMP, continue diuretics.
--- NOTE | 2018-01-12 17:49 | P.PN ---
Subjective Interval history: Remains on high flow O2 at 40 % FIO2. Sats 92. Output was OK. No chest pain. Physical Exam Vital signs: Vital Signs 01/11/18 18:39 01/11/18 19:17 01/11/18 20:00 Temperature 98.0 F 97.6 F Pulse Rate 102 H 105 H Respiratory Rate 28 H 24 Blood Pressure 123/54 L Pulse Oximetry 91 L 92 L 01/11/18 21:30 01/11/18 23:30 01/12/18 00:00 Temperature 98.3 F Pulse Rate 107 H Respiratory Rate 26 H Blood Pressure 123/69 Pulse Oximetry 95 91 L 92 L 01/12/18 01:50 01/12/18 04:00 01/12/18 04:11 Temperature Pulse Rate 100 H Respiratory Rate 20 Blood Pressure 122/61 Pulse Oximetry 92 L 95 95 01/12/18 06:15 01/12/18 07:00 01/12/18 07:30 Temperature Pulse Rate 124 H 115 H Respiratory Rate 31 H 23 Blood Pressure 140/63 Pulse Oximetry 98 97 95 01/12/18 08:00 01/12/18 09:01 01/12/18 09:18 Temperature 97.6 F Pulse Rate 120 H 110 H Respiratory Rate 24 27 H 20 Blood Pressure 119/71 117/66 Pulse Oximetry 95 93 L 01/12/18 10:01 01/12/18 10:02 01/12/18 11:01 Temperature Pulse Rate 112 H 108 H 110 H Respiratory Rate 28 H 29 H 31 H Blood Pressure 83/51 L 103/61 80/53 L Pulse Oximetry 95 95 90 L 01/12/18 11:03 01/12/18 11:51 01/12/18 12:00 Temperature 97.8 F Pulse Rate 110 H 106 H 114 H Respiratory Rate 30 H 47 H 30 H Blood Pressure 112/49 L 120/43 L 120/43 L Pulse Oximetry 88 L 89 L 91 L 01/12/18 12:01 01/12/18 13:01 01/12/18 14:01 Temperature Pulse Rate 114 H 112 H 100 H Respiratory Rate 32 H 32 H 26 H Blood Pressure 118/46 L 117/53 L 127/60 Pulse Oximetry 92 L 92 L 94 L 01/12/18 15:01 01/12/18 15:08 Temperature Pulse Rate 102 H 98 H Respiratory Rate 29 H 20 Blood Pressure 137/57 L Pulse Oximetry 91 L Intake & Output 01/11/18 01/12/18 01/12/18 18:59 06:59 18:59 Intake Total 220 / 220 340 / 340 50 / 50 Output Total 800 / 800 700 / 700 Balance -580 / -580 -360 / -360 50 / 50 Weight 74.1 kg Intake: IV 100 / 100 100 / 100 50 / 50 Zosyn 2.25 GM Premix 50 ML @ 100 / 100 100 / 100 50 / 50 100 mls/hr IV.SIG Q6H YOVANA Rx#: [id number] Oral 120 / 120 240 / 240 Output: Urine 800 / 800 700 / 700 Other: Post Void Residual 300 # Voids 4 Date of Last Bowel Movement 01/09/18 01/09/18 01/09/18 # Bowel Movements 0 0 Narrative: GENERAL: Well-developed, well-nourished elderly white male patient alert and awake . SKIN: Warm and dry. No rash. HEAD: Normocephalic. Atraumatic. EYES: Pupils equal and round. No scleral icterus. No injection or drainage. ENT: No nasal bleeding or discharge. Mucous membranes pink and moist. NECK: Supple. Trachea midline. CARDIOVASCULAR: Regular rate and rhythm. S1, S2 noted. RESPIRATORY: Mild accessory muscle use. Occ wheeze and basal crackles GASTROINTESTINAL: Abdomen soft, non-tender, nondistended. Normoactive bowel sounds x4. MUSCULOSKELETAL: No obvious deformities. Extremities without clubbing, cyanosis , or edema. NEUROLOGICAL: Awake and alert. No obvious cranial nerve deficits. Motor grossly within normal limits. Normal speech. PSYCHIATRIC: Appropriate mood and affect. - Urinary Catheter Management Indwelling Urethral Catheter Cath placed during this visit: yes, but has since been removed by the nurse Reason for continuing: Hourly intake/output Insertion date: 01/05/18 Insertion time: 18:00 Removal date: 01/08/18 Results - Labs CBC & Chem 7: 01/10/18 04:35 01/11/18 04:20 Microbiology 01/05/18 12:20 Fluid - Pleural fluid Fungal Smear - Final No fungal elements seen 01/05/18 12:20 Fluid - Pleural fluid Fungal Culture - Preliminary No growth in 1 week 01/05/18 12:20 Fluid - Pleural fluid Acid Fast Bacilli Smear - Final No acid fast bacilli seen 01/05/18 12:20 Fluid - Pleural fluid Mycobacterial Culture - Preliminary No growth in 1 week - Procedures ECHOCARDIOGRAM CONCLUSIONS The left ventricular systolic function is hyperdynamic with an estimated ejection fraction in the range of 65- 70%. Wall thickness is normal. No regional wall motion abnormalities are present. Severe biatrial enlargement. A possible atrial level shunt is demonstrated by color flow Doppler interrogation, clinical correlation recommended. Moderate thickening of the mitral valve leaflets. [id number] mitral valve regurgitation. Mitral annular calcification is present. Can not rule out a mobile echodensity located on the anterior mitral valve leaflet. Clinical correlation recommended. Aortic valve sclerosis is present. Trace aortic valve regurgitation. There is moderate tricuspid regurgitation. The estimated pulmonary arterial pressure is 57.6 mmHg. 01/05/18: Thoracentesis with 850 cc of fluid removal from the right side Assessment and Plan - Assessment (1) Pneumonia Code(s): J18.9 - Pneumonia, unspecified organism Status: Acute (2) Atrial fibrillation with RVR Code(s): I48.91 - Unspecified atrial fibrillation Status: Acute (3) Congestive heart failure Code(s): I50.9 - Heart failure, unspecified Status: Acute (4) Hypoxia Code(s): R09.02 - Hypoxemia Status: Acute (5) Respiratory failure Code(s): J96.90 - Respiratory failure, unspecified, unspecified whether with hypoxia or hypercapnia Status: Acute (6) Acute kidney injury Code(s): N17.9 - Acute kidney failure, unspecified Status: Acute (7) Heart failure Code(s): I50.9 - Heart failure, unspecified Status: Acute (8) Pulmonary hypertension Code(s): I27.20 - Pulmonary hypertension, unspecified Status: Acute (9) Dyspnea Code(s): R06.00 - Dyspnea, unspecified Status: Acute - Plan 1. Continue BiPAP 12/5 cm , FIo2 35 % at HS 2. High flow O2 and FIO2 40 % and wean to N/C 4 L 3. Cont Duonebs qid. 4. Continue antibiotic Zosyn 5. CBC,BMP in am 6. Bumex IV 1 mg bid daily 7. Prednisone 30 gm BID and taper 8. He will decide on Hospice care. (3) Congestive heart failure Qualifiers: Heart failure type: unspecified Heart failure chronicity: acute Qualified Code(s): I50.9 - Heart failure, unspecified
[2018-01-12] MEDS: Melatonin 5 MG Tablet PO PRN (22:17)
--- NOTE | 2018-01-13 06:31 | XR ---
EXAM DATE: 01/13/2018 6:27 AM EDT AGE/SEX: 82 years / Male INDICATIONS: Short of breath. CLINICAL DATA: This is the patient's subsequent encounter. Patient reports that signs and symptoms h ave been present for 1 week and indicates a pain score of 0/10. MEDICAL/SURGICAL HISTORY: Hypertension. Ankylosing spondylitis. Atrial fibrillation. Cardiovers ion. None. COMPARISON: [facility], CHEST 1V SINGLE AP, 01/11/2018. . FINDINGS: There is persistent alveolar disease in the perihilar regions and lung bases bilaterally with associa crispin effusions. No significant change from prior exam. CONCLUSION: Stable exam appearance Electronically signed by: Narinder Olivera MD 01/13/2018 6:30 AM EDT
[2018-01-13] MEDS: predniSONE 10 MG Tablet PO SCH ×2 (08:15→20:16)
[2018-01-13] MEDS: dilTIAZem CD 240 MG Capsule PO SCH (08:15)
[2018-01-13] MEDS: Rivaroxaban 15 MG Tablet PO SCH (08:15)
[2018-01-13] MEDS: Metoprolol Tartrate 25 MG Tablet PO SCH ×2 (08:15→21:32)
--- NOTE | 2018-01-13 09:50 | P.PNNP ---
Subjective Interval history: Patient is sitting on the chair, mild SOB, remain with high flow O2. Physical Exam Vital signs: Vital Signs 01/12/18 10:01 01/12/18 10:02 01/12/18 11:01 Temperature Pulse Rate 112 H 108 H 110 H Respiratory Rate 28 H 29 H 31 H Blood Pressure 83/51 L 103/61 80/53 L Pulse Oximetry 95 95 90 L 01/12/18 11:03 01/12/18 11:51 01/12/18 12:00 Temperature 97.8 F Pulse Rate 110 H 106 H 114 H Respiratory Rate 30 H 47 H 30 H Blood Pressure 112/49 L 120/43 L 120/43 L Pulse Oximetry 88 L 89 L 91 L 01/12/18 12:01 01/12/18 13:01 01/12/18 14:01 Temperature Pulse Rate 114 H 112 H 100 H Respiratory Rate 32 H 32 H 26 H Blood Pressure 118/46 L 117/53 L 127/60 Pulse Oximetry 92 L 92 L 94 L 01/12/18 15:01 01/12/18 15:08 01/12/18 16:00 Temperature Pulse Rate 102 H 98 H Respiratory Rate 29 H 20 20 Blood Pressure 137/57 L Pulse Oximetry 91 L 01/12/18 19:00 01/12/18 19:40 01/12/18 20:00 Temperature 98.9 F Pulse Rate 78 119 H 78 Respiratory Rate 19 20 Blood Pressure 123/54 L Pulse Oximetry 94 L 01/12/18 22:13 01/12/18 22:48 01/13/18 00:00 Temperature 98.4 F Pulse Rate 100 H Respiratory Rate 22 22 Blood Pressure 134/8 L Pulse Oximetry 94 L 91 L 01/13/18 03:46 01/13/18 04:00 01/13/18 07:23 Temperature Pulse Rate 80 90 Respiratory Rate 16 20 Blood Pressure 110/58 L Pulse Oximetry 95 96 95 01/13/18 08:00 01/13/18 08:01 Temperature 98.1 F Pulse Rate 101 H 100 H Respiratory Rate 25 H Blood Pressure Pulse Oximetry 93 L 96 Intake & Output 01/12/18 01/13/18 01/13/18 18:59 06:59 18:59 Intake Total 50 / 50 480 / 480 Output Total 300 / 300 1800 / 1800 Balance -250 / -250 -1320 / -1320 Weight 73.8 kg Intake: IV 50 / 50 Zosyn 2.25 GM Premix 50 ML @ 50 / 50 100 mls/hr IV.SIG Q6H YOVANA Rx#: [id number] Oral 480 / 480 Output: Urine 300 / 300 1800 / 1800 Other: # Incontinent Voids 1 Date of Last Bowel Movement 01/09/18 01/11/18 # Bowel Movements 0 Narrative: GENERAL: Well-developed, well-nourished elderly white male patient alert and awake . SKIN: Warm and dry. No rash. HEAD: Normocephalic. Atraumatic. EYES: Pupils equal and round. No scleral icterus. No injection or drainage. ENT: No nasal bleeding or discharge. Mucous membranes pink and moist. NECK: Supple. Trachea midline. CARDIOVASCULAR: Regular rate and rhythm. S1, S2 noted. RESPIRATORY: Mild accessory muscle use. Occ wheeze and basal crackles GASTROINTESTINAL: Abdomen soft, non-tender, nondistended. Normoactive bowel sounds x4. MUSCULOSKELETAL: No obvious deformities. Extremities without clubbing, cyanosis , or edema. NEUROLOGICAL: Awake and alert. No obvious cranial nerve deficits. Motor grossly within normal limits. Normal speech. PSYCHIATRIC: Appropriate mood and affect. - Urinary Catheter Management Indwelling Urethral Catheter Cath placed during this visit: yes, but has since been removed by the nurse Reason for continuing: Hourly intake/output Insertion date: 01/05/18 Insertion time: 18:00 Removal date: 01/08/18 Assessment and Plan - Plan Assessment: 1. Acute kidney injury. 2. Congestive heart failure and fluid overload status. 3. Atrial fibrillation with rapid ventricular rate. 4. Respiratory failure. Plan: Patient has LINK , mainly either cardio renal or ATN. Urine out put is on the lower side. Try to keep in negative fluid balance. Continue diuretics, keep in negative fluid balance. Follow the urine out put and BMP. Continue the Bumex. Palliative care is following. Patient still want aggressive treatment. Creatinine is better, 1.6. I will increase Bumex to 2 mg BID and add Metolazone.
--- NOTE | 2018-01-13 10:14 | P.PNIM ---
Subjective Interval history: Follow up acute resp failure and renal failure. Patient seen and examined, sitting up in chair comfortably in no apparent distress. Continued on hi-flow oxygen. No use of accessory muscles today. Able to carry on a conversation without desaturating. VSS overnight. No acute events. Still considering hospice although waiting on niece to arrive in town. Physical Exam Vital signs: Vital Signs 01/12/18 11:01 01/12/18 11:03 01/12/18 11:51 Temperature Pulse Rate 110 H 110 H 106 H Respiratory Rate 31 H 30 H 47 H Blood Pressure 80/53 L 112/49 L 120/43 L Pulse Oximetry 90 L 88 L 89 L 01/12/18 12:00 01/12/18 12:01 01/12/18 13:01 Temperature 97.8 F Pulse Rate 114 H 114 H 112 H Respiratory Rate 30 H 32 H 32 H Blood Pressure 120/43 L 118/46 L 117/53 L Pulse Oximetry 91 L 92 L 92 L 01/12/18 14:01 01/12/18 15:01 01/12/18 15:08 Temperature Pulse Rate 100 H 102 H 98 H Respiratory Rate 26 H 29 H 20 Blood Pressure 127/60 137/57 L Pulse Oximetry 94 L 91 L 01/12/18 16:00 01/12/18 19:00 01/12/18 19:40 Temperature Pulse Rate 78 119 H Respiratory Rate 20 19 Blood Pressure Pulse Oximetry 01/12/18 20:00 01/12/18 22:13 01/12/18 22:48 Temperature 98.9 F Pulse Rate 78 Respiratory Rate 20 22 Blood Pressure 123/54 L Pulse Oximetry 94 L 94 L 01/13/18 00:00 01/13/18 03:46 01/13/18 04:00 Temperature 98.4 F Pulse Rate 100 H 80 Respiratory Rate 22 16 Blood Pressure 134/8 L 110/58 L Pulse Oximetry 91 L 95 96 01/13/18 07:23 01/13/18 08:00 01/13/18 08:01 Temperature 98.1 F Pulse Rate 90 101 H 100 H Respiratory Rate 20 25 H Blood Pressure Pulse Oximetry 95 93 L 96 Intake & Output 01/12/18 01/13/18 01/13/18 18:59 06:59 18:59 Intake Total 50 / 50 480 / 480 Output Total 300 / 300 1800 / 1800 Balance -250 / -250 -1320 / -1320 Weight 73.8 kg Intake: IV 50 / 50 Zosyn 2.25 GM Premix 50 ML @ 50 / 50 100 mls/hr IV.SIG Q6H YOVANA Rx#: [id number] Oral 480 / 480 Output: Urine 300 / 300 1800 / 1800 Other: # Incontinent Voids 1 Date of Last Bowel Movement 01/09/18 01/11/18 # Bowel Movements 0 Narrative: GENERAL: Well-developed, well-nourished elderly white male patient alert and awake on supplemental O2. SKIN: Warm and dry. No rash. HEAD: Normocephalic. Atraumatic. EYES: Pupils equal and round. No scleral icterus. No injection or drainage. ENT: No nasal bleeding or discharge. Mucous membranes pink and moist. NECK: Supple. Trachea midline. CARDIOVASCULAR: Regular rate and rhythm. S1, S2 noted. RESPIRATORY: Mild accessory muscle use. Occ wheeze in posterior bilateral upper chest. GASTROINTESTINAL: Abdomen soft, non-tender, nondistended. Normoactive bowel sounds x4. MUSCULOSKELETAL: No obvious deformities. Extremities without clubbing, cyanosis , or edema. NEUROLOGICAL: Awake and alert. No obvious cranial nerve deficits. Motor grossly within normal limits. Normal speech. PSYCHIATRIC: Appropriate mood and affect; insight and judgment normal. - Urinary Catheter Management Indwelling Urethral Catheter Cath placed during this visit: yes, but has since been removed by the nurse Reason for continuing: Hourly intake/output Insertion date: 01/05/18 Insertion time: 18:00 Removal date: 01/08/18 Results - Labs CBC & Chem 7: 01/10/18 04:35 01/13/18 04:35 Laboratory Results - last 24 hr 01/13/18 04:35 Creatinine 1.60 H Estimated GFR 41 L Microbiology 01/05/18 12:20 Fluid - Pleural fluid Fungal Smear - Final No fungal elements seen 01/05/18 12:20 Fluid - Pleural fluid Fungal Culture - Preliminary No growth in 1 week 01/05/18 12:20 Fluid - Pleural fluid Acid Fast Bacilli Smear - Final No acid fast bacilli seen 01/05/18 12:20 Fluid - Pleural fluid Mycobacterial Culture - Preliminary No growth in 1 week - Imaging Impressions Chest X-Ray 01/13/18 00:00 CONCLUSION: Stable exam appearance - Procedures ECHOCARDIOGRAM CONCLUSIONS The left ventricular systolic function is hyperdynamic with an estimated ejection fraction in the range of 65- 70%. Wall thickness is normal. No regional wall motion abnormalities are present. Severe biatrial enlargement. A possible atrial level shunt is demonstrated by color flow Doppler interrogation, clinical correlation recommended. Moderate thickening of the mitral valve leaflets. [id number] mitral valve regurgitation. Mitral annular calcification is present. Can not rule out a mobile echodensity located on the anterior mitral valve leaflet. Clinical correlation recommended. Aortic valve sclerosis is present. Trace aortic valve regurgitation. There is moderate tricuspid regurgitation. The estimated pulmonary arterial pressure is 57.6 mmHg. 01/05/18: Thoracentesis with 850 cc of fluid removal from the right side Assessment and Plan - Plan Acute hypoxic respiratory failure, minimal improvement. -Multifactorial with findings of congestive heart failure, elevated BNP, significant pleural effusion, severe biatrial enlargement, possible atrial level shunt -Unable to treat effectively without intubation, patient is a DO NOT RESUSCITATE , will respect the patient's wishes -Continue high flow oxygen and BiPAP to maintain O2 sats greater than 92%. -Scaffold Builder was consulted who performed right-sided thoracentesis with 850 cc of fluid removal. -Fluid studies indicating transudate fluid. -Bumex increased yesterday to 2 mg PO twice daily. Add Metolazone. -Continue Solu-Medrol 40 mg every 6 hours, changed to p.o. prednisone 30 mg p.o. twice daily -Was initially started on empirical antibiotics vancomycin and Zosyn, these have been discontinued, start Levaquin 750 mg every other day for a total of 14 days of antibiotic treatment. -Sonography Technician following the patient, appreciate input and recommendations. -Palliative care consulted for further recommendations and treatment plan goals. Goals remain aggressive at this time. Considering Hospice although still undecided. Acute renal failure with decreased urinary output, improving slowly, at baseline. -Could be secondary to tubular necrosis from hypotension. -Renal bladder ultrasound was performed which showed right renal cyst no hydronephrosis. -Renal functions have continued to improved, creatinine now 1.6. -Avoid nephrotoxins. -Piccolo Mechanic following the patient, appreciate input and recs. Hypotension, improved. -Unknown if this is related to diuresis, sepsis, cardiorenal syndrome. -Patient was given fluid boluses, albumin bolus. -Patient blood pressure medications have hold parameters. Atrial fibrillation with RVR, heart rate 92-111. Stable. -Status post Cardizem IV with discontinuation -Patient continued on Cardizem CD 240 mg daily -Metoprolol 12.5 mg twice daily -Patient is on Xarelto for anticoagulation Hyperglycemia. Improved. -Likely secondary to stress and Solu-Medrol -Hemoglobin A1c 4.7 -Continue monitor and start Accu-Cheks with sliding scale insulin if needed DVT prevention: Xarelto Discharge Planning: Await for improvement or final decision for goals of care. Palliative care following. Goals remain aggressive at this time. Considering Hospice. Patient is awaiting niece to arrive into [facility] to have discussion regarding Hospice.
--- NOTE | 2018-01-13 13:08 | P.PN ---
Subjective Interval history: Alert and seems stable. On 70 % FIO2 with high flow O2. Output was OK. On Bumex. No fever Physical Exam Vital signs: Vital Signs 01/12/18 14:01 01/12/18 15:01 01/12/18 15:08 Temperature Pulse Rate 100 H 102 H 98 H Respiratory Rate 26 H 29 H 20 Blood Pressure 127/60 137/57 L Pulse Oximetry 94 L 91 L 01/12/18 16:00 01/12/18 19:00 01/12/18 19:40 Temperature Pulse Rate 78 119 H Respiratory Rate 20 19 Blood Pressure Pulse Oximetry 01/12/18 20:00 01/12/18 22:13 01/12/18 22:48 Temperature 98.9 F Pulse Rate 78 Respiratory Rate 20 22 Blood Pressure 123/54 L Pulse Oximetry 94 L 94 L 01/13/18 00:00 01/13/18 03:46 01/13/18 04:00 Temperature 98.4 F Pulse Rate 100 H 80 Respiratory Rate 22 16 Blood Pressure 134/8 L 110/58 L Pulse Oximetry 91 L 95 96 01/13/18 07:23 01/13/18 08:00 01/13/18 08:01 Temperature 98.1 F Pulse Rate 90 101 H 100 H Respiratory Rate 20 25 H Blood Pressure Pulse Oximetry 95 93 L 96 01/13/18 09:00 01/13/18 10:00 01/13/18 11:00 Temperature Pulse Rate 100 H 94 H 96 H Respiratory Rate 24 22 20 Blood Pressure Pulse Oximetry 100 97 95 01/13/18 12:00 Temperature Pulse Rate 100 H Respiratory Rate 20 Blood Pressure 132/82 Pulse Oximetry 97 Intake & Output 01/12/18 01/13/18 01/13/18 18:59 06:59 18:59 Intake Total 50 / 50 480 / 480 Output Total 300 / 300 1800 / 1800 Balance -250 / -250 -1320 / -1320 Weight 73.8 kg Intake: IV 50 / 50 Zosyn 2.25 GM Premix 50 ML @ 50 / 50 100 mls/hr IV.SIG Q6H YOVANA Rx#: [id number] Oral 480 / 480 Output: Urine 300 / 300 1800 / 1800 Other: # Incontinent Voids 1 Date of Last Bowel Movement 01/09/18 01/11/18 # Bowel Movements 0 Narrative: GENERAL: Well-developed, well-nourished elderly white male patient alert SKIN: Warm and dry. No rash. HEAD: Normocephalic. Atraumatic. EYES: Pupils equal and round. No scleral icterus. No injection or drainage. ENT: No nasal bleeding or discharge. Mucous membranes pink and moist. NECK: Supple. Trachea midline. CARDIOVASCULAR: Regular rate and rhythm. no murmur .S1, S2 noted. RESPIRATORY: Occ wheeze and basal crackles GASTROINTESTINAL: Abdomen soft, non-tender, nondistended. Normoactive bowel sounds x4. MUSCULOSKELETAL: No obvious deformities. Extremities without clubbing, cyanosis , or edema. NEUROLOGICAL: Awake and alert. No obvious cranial nerve deficits. Motor grossly within normal limits. Normal speech. PSYCHIATRIC: Appropriate mood and affect; insight and judgment normal. - Urinary Catheter Management Indwelling Urethral Catheter Cath placed during this visit: yes, but has since been removed by the nurse Reason for continuing: Hourly intake/output Insertion date: 01/05/18 Insertion time: 18:00 Removal date: 01/08/18 Results - Labs CBC & Chem 7: 01/10/18 04:35 01/13/18 04:35 Laboratory Results - last 24 hr 01/13/18 04:35 Creatinine 1.60 H Estimated GFR 41 L Microbiology 01/05/18 12:20 Fluid - Pleural fluid Fungal Smear - Final No fungal elements seen 01/05/18 12:20 Fluid - Pleural fluid Fungal Culture - Preliminary No growth in 1 week 01/05/18 12:20 Fluid - Pleural fluid Acid Fast Bacilli Smear - Final No acid fast bacilli seen 01/05/18 12:20 Fluid - Pleural fluid Mycobacterial Culture - Preliminary No growth in 1 week - Imaging Impressions Chest X-Ray 01/13/18 00:00 CONCLUSION: Stable exam appearance - Procedures ECHOCARDIOGRAM CONCLUSIONS The left ventricular systolic function is hyperdynamic with an estimated ejection fraction in the range of 65- 70%. Wall thickness is normal. No regional wall motion abnormalities are present. Severe biatrial enlargement. A possible atrial level shunt is demonstrated by color flow Doppler interrogation, clinical correlation recommended. Moderate thickening of the mitral valve leaflets. [id number] mitral valve regurgitation. Mitral annular calcification is present. Can not rule out a mobile echodensity located on the anterior mitral valve leaflet. Clinical correlation recommended. Aortic valve sclerosis is present. Trace aortic valve regurgitation. There is moderate tricuspid regurgitation. The estimated pulmonary arterial pressure is 57.6 mmHg. 01/05/18: Thoracentesis with 850 cc of fluid removal from the right side Assessment and Plan - Assessment (1) Pneumonia Code(s): J18.9 - Pneumonia, unspecified organism Status: Acute (2) Atrial fibrillation with RVR Code(s): I48.91 - Unspecified atrial fibrillation Status: Acute (3) Congestive heart failure Code(s): I50.9 - Heart failure, unspecified Status: Acute (4) Hypoxia Code(s): R09.02 - Hypoxemia Status: Acute (5) Respiratory failure Code(s): J96.90 - Respiratory failure, unspecified, unspecified whether with hypoxia or hypercapnia Status: Acute (6) Acute kidney injury Code(s): N17.9 - Acute kidney failure, unspecified Status: Acute (7) Heart failure Code(s): I50.9 - Heart failure, unspecified Status: Acute (8) Pulmonary hypertension Code(s): I27.20 - Pulmonary hypertension, unspecified Status: Acute (9) Dyspnea Code(s): R06.00 - Dyspnea, unspecified Status: Acute - Plan 1. Continue BiPAP 12/5 cm , FIo2 35 % at HS 2. High flow O2 and wean FIO2 50 % and wean to N/C 5 L 3. Cont Duonebs qid. 4. Continue antibiotic 5. CBC,BMP in am 6. Bumex IV 1 mg bid 7. Prednisone 30 gm BID and taper 8. Chest Xray in am (3) Congestive heart failure Qualifiers: Heart failure type: unspecified Heart failure chronicity: acute Qualified Code(s): I50.9 - Heart failure, unspecified
[2018-01-13] MEDS: Melatonin 5 MG Tablet PO PRN (21:31)
--- NOTE | 2018-01-14 06:07 | XR ---
EXAM DATE: 01/14/2018 6:02 AM EDT AGE/SEX: 82 years / Male INDICATIONS: Shortness of breath. CLINICAL DATA: This is the patient's subsequent encounter. Patient reports that signs and symptoms h ave been present for 1 week and indicates a pain score of 0/10. MEDICAL/SURGICAL HISTORY: . Hypertension. Ankylosing spondylitis. Atrial fibrillation. Cardiove rsion. None. COMPARISON: [facility], CHEST 1V SINGLE AP, 01/13/2018. . FINDINGS: Moderate right and small left pleural effusions with parenchymal consolidation again noted and not si gnificantly changed. No pneumothorax. Chronic pleural calcification again noted, mostly on the left. Heart size stable, within normal limits. CONCLUSION: No significant change right greater than left basilar consolidation and effusions. Electronically signed by: Narinder Reynolds MD 01/14/2018 6:06 AM EDT
[2018-01-14] MEDS: Rivaroxaban 15 MG Tablet PO SCH (09:00)
[2018-01-14] MEDS: predniSONE 10 MG Tablet PO SCH ×2 (09:00→21:06)
[2018-01-14] MEDS: dilTIAZem CD 240 MG Capsule PO SCH (10:15)
[2018-01-14] MEDS: Metoprolol Tartrate 25 MG Tablet PO SCH ×2 (10:16→21:07)
[2018-01-14] MEDS: levoFLOXacin 750 MG Tablet PO SCH (10:16)
--- NOTE | 2018-01-14 10:40 | P.PNNP ---
Subjective Interval history: Patient is alert, sitting on the bed, and eating breakfast, mild SOB. Physical Exam Vital signs: Vital Signs 01/13/18 11:00 01/13/18 12:00 01/13/18 13:00 Temperature Pulse Rate 96 H 100 H 94 H Respiratory Rate 20 20 24 Blood Pressure 132/82 Pulse Oximetry 95 97 93 L 01/13/18 14:00 01/13/18 14:06 01/13/18 15:00 Temperature 98.2 F Pulse Rate 102 H 94 H Respiratory Rate 31 H 27 H Blood Pressure Pulse Oximetry 90 L 91 L 95 01/13/18 16:00 01/13/18 17:00 01/13/18 18:00 Temperature Pulse Rate 108 H 98 H 108 H Respiratory Rate 27 H 34 H 27 H Blood Pressure 129/52 L Pulse Oximetry 91 L 97 01/13/18 18:14 01/13/18 19:00 01/13/18 19:16 Temperature Pulse Rate 114 H 100 H 101 H Respiratory Rate 40 H 24 25 H Blood Pressure 129/50 L 98/46 L Pulse Oximetry 93 L 94 L 01/13/18 19:45 01/13/18 20:00 01/13/18 20:15 Temperature 97.4 F L Pulse Rate 98 H Respiratory Rate 27 H Blood Pressure 102/51 L Pulse Oximetry 99 99 97 01/13/18 20:45 01/13/18 21:00 01/13/18 22:00 Temperature Pulse Rate 100 H 108 H Respiratory Rate 24 24 Blood Pressure 106/56 L 106/43 L Pulse Oximetry 97 94 L 94 L 01/13/18 23:00 01/13/18 23:20 01/13/18 23:38 Temperature Pulse Rate 102 H Respiratory Rate 34 H Blood Pressure 100/57 L Pulse Oximetry 91 L 95 100 01/13/18 23:40 01/14/18 00:00 01/14/18 01:00 Temperature Pulse Rate 94 H 100 H Respiratory Rate 34 H 24 Blood Pressure 113/54 L 108/51 L Pulse Oximetry 100 96 97 01/14/18 02:00 01/14/18 02:30 01/14/18 03:00 Temperature Pulse Rate 86 86 Respiratory Rate 24 26 H Blood Pressure 95/43 L 100/34 L Pulse Oximetry 94 L 97 94 L 01/14/18 04:00 01/14/18 04:55 01/14/18 05:00 Temperature 98 F Pulse Rate 90 82 Respiratory Rate 28 H 29 H Blood Pressure 93/52 L 98/44 L Pulse Oximetry 90 L 95 97 01/14/18 07:48 01/14/18 08:00 01/14/18 09:00 Temperature 98.2 F Pulse Rate 89 86 108 H Respiratory Rate 21 31 H 31 H Blood Pressure 101/41 L 108/47 L Pulse Oximetry 100 95 Intake & Output 01/13/18 01/14/18 01/14/18 18:59 06:59 18:59 Intake Total 620 / 620 420 / 420 Output Total 1600 / 1600 1200 / 1200 Balance -980 / -980 -780 / -780 Weight 72 kg Intake: Oral 620 / 620 420 / 420 Output: Urine 1600 / 1600 1200 / 1200 Other: Date of Last Bowel Movement 01/11/18 01/11/18 01/11/18 # Bowel Movements 0 Narrative: GENERAL: Well-developed, well-nourished elderly white male patient alert SKIN: Warm and dry. No rash. HEAD: Normocephalic. Atraumatic. EYES: Pupils equal and round. No scleral icterus. No injection or drainage. ENT: No nasal bleeding or discharge. Mucous membranes pink and moist. NECK: Supple. Trachea midline. CARDIOVASCULAR: Regular rate and rhythm. no murmur .S1, S2 noted. RESPIRATORY: Occ wheeze and basal crackles GASTROINTESTINAL: Abdomen soft, non-tender, nondistended. Normoactive bowel sounds x4. MUSCULOSKELETAL: No obvious deformities. Extremities without clubbing, cyanosis , or edema. NEUROLOGICAL: Awake and alert. No obvious cranial nerve deficits. Motor grossly within normal limits. Normal speech. PSYCHIATRIC: Appropriate mood and affect; insight and judgment normal. - Urinary Catheter Management Indwelling Urethral Catheter Cath placed during this visit: yes, but has since been removed by the nurse Reason for continuing: Hourly intake/output Insertion date: 01/05/18 Insertion time: 18:00 Removal date: 01/08/18 Assessment and Plan - Plan Assessment: 1. Acute kidney injury. 2. Congestive heart failure and fluid overload status. 3. Atrial fibrillation with rapid ventricular rate. 4. Respiratory failure. Plan: Patient has LINK , mainly either cardio renal or ATN. Urine out put is on the lower side. Try to keep in negative fluid balance. Continue diuretics, keep in negative fluid balance. Follow the urine out put and BMP. Continue the Bumex. Palliative care is following. Patient still want aggressive treatment. No new BMP today. Change Bumex to IV 2 mg BID and continue Metolazone. Follow the urine out put and BMP.
--- NOTE | 2018-01-14 13:16 | P.PNIM ---
Subjective Interval history: Follow up acute resp failure and renal failure. Patient seen and examined, lying in bed on 6LNC. Off high flow oxygen. States he is feeling mildly improved. No use of accessory muscle use. RN has been restricting visitors and allowing patient to sleep, this has significantly helped patient's respiratory status. I would encourage enforcement of limiting visitors. Patient denies any chest pain, headache, ab pain, n/v/d or dysuria. He has been eating well without any problems. Still deciding on Hospice. Physical Exam Vital signs: Vital Signs 01/13/18 14:00 01/13/18 14:06 01/13/18 15:00 Temperature 98.2 F Pulse Rate 102 H 94 H Respiratory Rate 31 H 27 H Blood Pressure Pulse Oximetry 90 L 91 L 95 01/13/18 16:00 01/13/18 17:00 01/13/18 18:00 Temperature Pulse Rate 108 H 98 H 108 H Respiratory Rate 27 H 34 H 27 H Blood Pressure 129/52 L Pulse Oximetry 91 L 97 01/13/18 18:14 01/13/18 19:00 01/13/18 19:16 Temperature Pulse Rate 114 H 100 H 101 H Respiratory Rate 40 H 24 25 H Blood Pressure 129/50 L 98/46 L Pulse Oximetry 93 L 94 L 01/13/18 19:45 01/13/18 20:00 01/13/18 20:15 Temperature 97.4 F L Pulse Rate 98 H Respiratory Rate 27 H Blood Pressure 102/51 L Pulse Oximetry 99 99 97 01/13/18 20:45 01/13/18 21:00 01/13/18 22:00 Temperature Pulse Rate 100 H 108 H Respiratory Rate 24 24 Blood Pressure 106/56 L 106/43 L Pulse Oximetry 97 94 L 94 L 01/13/18 23:00 01/13/18 23:20 01/13/18 23:38 Temperature Pulse Rate 102 H Respiratory Rate 34 H Blood Pressure 100/57 L Pulse Oximetry 91 L 95 100 01/13/18 23:40 01/14/18 00:00 01/14/18 01:00 Temperature Pulse Rate 94 H 100 H Respiratory Rate 34 H 24 Blood Pressure 113/54 L 108/51 L Pulse Oximetry 100 96 97 01/14/18 02:00 01/14/18 02:30 09/21/18 03:00 Temperature Pulse Rate 86 86 Respiratory Rate 24 26 H Blood Pressure 95/43 L 100/34 L Pulse Oximetry 94 L 97 94 L 01/14/18 04:00 01/14/18 04:55 01/14/18 05:00 Temperature 98 F Pulse Rate 90 82 Respiratory Rate 28 H 29 H Blood Pressure 93/52 L 98/44 L Pulse Oximetry 90 L 95 97 01/14/18 07:48 01/14/18 08:00 01/14/18 09:00 Temperature 98.2 F Pulse Rate 89 86 108 H Respiratory Rate 21 31 H 31 H Blood Pressure 101/41 L 108/47 L Pulse Oximetry 100 95 01/14/18 12:10 01/14/18 12:20 Temperature Pulse Rate Respiratory Rate Blood Pressure Pulse Oximetry 97 95 Intake & Output 01/13/18 01/14/18 01/14/18 18:59 06:59 18:59 Intake Total 620 / 620 420 / 420 Output Total 1600 / 1600 1200 / 1200 Balance -980 / -980 -780 / -780 Weight 72 kg Intake: Oral 620 / 620 420 / 420 Output: Urine 1600 / 1600 1200 / 1200 Other: Date of Last Bowel Movement 01/11/18 01/11/18 01/11/18 # Bowel Movements 0 Narrative: GENERAL: Well-developed, well-nourished elderly white male patient alert and awake SKIN: Warm and dry. No rash. HEAD: Normocephalic. Atraumatic. EYES: Pupils equal and round. No scleral icterus. No injection or drainage. ENT: No nasal bleeding or discharge. Mucous membranes pink and moist. NECK: Supple. Trachea midline. CARDIOVASCULAR: Regular rate and rhythm. no murmur .S1, S2 noted. RESPIRATORY: Diminished bs throughout GASTROINTESTINAL: Abdomen soft, non-tender, nondistended. Normoactive bowel sounds x4. MUSCULOSKELETAL: No obvious deformities. Extremities without clubbing, cyanosis , or edema. NEUROLOGICAL: Awake and alert. No obvious cranial nerve deficits. Motor grossly within normal limits. Normal speech. PSYCHIATRIC: Appropriate mood and affect; insight and judgment normal. - Urinary Catheter Management Indwelling Urethral Catheter Cath placed during this visit: yes, but has since been removed by the nurse Reason for continuing: Hourly intake/output Insertion date: 01/05/18 Insertion time: 18:00 Removal date: 09/15/18 Results - Labs CBC & Chem 7: 01/10/18 04:35 01/13/18 04:35 - Imaging Impressions Chest X-Ray 01/14/18 00:00 CONCLUSION: No significant change right greater than left basilar consolidation and effusions. - Procedures ECHOCARDIOGRAM CONCLUSIONS The left ventricular systolic function is hyperdynamic with an estimated ejection fraction in the range of 65- 70%. Wall thickness is normal. No regional wall motion abnormalities are present. Severe biatrial enlargement. A possible atrial level shunt is demonstrated by color flow Doppler interrogation, clinical correlation recommended. Moderate thickening of the mitral valve leaflets. Iokb-ne-vejbmoyi mitral valve regurgitation. Mitral annular calcification is present. Can not rule out a mobile echodensity located on the anterior mitral valve leaflet. Clinical correlation recommended. Aortic valve sclerosis is present. Trace aortic valve regurgitation. There is moderate tricuspid regurgitation. The estimated pulmonary arterial pressure is 57.6 mmHg. 01/05/18: Thoracentesis with 850 cc of fluid removal from the right side Assessment and Plan - Plan Acute hypoxic respiratory failure, minimal improvement. -Multifactorial with findings of congestive heart failure, elevated BNP, significant pleural effusion, severe biatrial enlargement, possible atrial level shunt -Unable to treat effectively without intubation, patient is a DO NOT RESUSCITATE , will respect the patient's wishes -Continue high flow oxygen as needed although patient is tolerating 6 LNC at this time. BiPAP as needed as well to maintain O2 sats greater than 92%. -[employer] Repairer was consulted who performed right-sided thoracentesis with 850 cc of fluid removal. -Fluid studies indicating transudate fluid. -Bumex increased yesterday to 2 mg PO twice daily. Continue Metolazone. -Continue Solu-Medrol 40 mg every 6 hours, changed to p.o. prednisone 30 mg p.o. twice daily -Was initially started on empirical antibiotics vancomycin and Zosyn, these have been discontinued, start Levaquin 750 mg every other day for a total of 14 days of antibiotic treatment. -Hemodialysis Patient Care Specialist following the patient, appreciate input and recommendations. -Palliative care consulted for further recommendations and treatment plan goals. Goals remain aggressive at this time. Considering Hospice although still undecided. Acute renal failure with decreased urinary output, improving slowly, at baseline. -Could be secondary to tubular necrosis from hypotension. -Renal bladder ultrasound was performed which showed right renal cyst no hydronephrosis. -Renal functions have continued to improved, creatinine now 1.6. Check labs tomorrow. -Avoid nephrotoxins. -[employer] Leverman following the patient, appreciate input and recs. Hypotension, improved. -Unknown if this is related to diuresis, sepsis, cardiorenal syndrome. -Patient was given fluid boluses, albumin bolus. -Patient blood pressure medications have hold parameters. Atrial fibrillation with RVR, heart rate 92-111. Stable. -Status post Cardizem IV with discontinuation -Patient continued on Cardizem CD 240 mg daily -Metoprolol 12.5 mg twice daily -Patient is on Xarelto for anticoagulation Hyperglycemia. Improved. -Likely secondary to stress and Solu-Medrol -Hemoglobin A1c 4.7 -Continue monitor and start Accu-Cheks with sliding scale insulin if needed DVT prevention: Xarelto Discharge Planning: Await for improvement or final decision for goals of care. Palliative care following. Goals remain aggressive at this time. Considering Hospice. Patient is awaiting niece to arrive into [facility] to have discussion regarding Hospice.
--- NOTE | 2018-01-14 15:13 | P.PNPL ---
Subjective Interval history: Patient is awake and alert down to 4L oxygen with good sats. Afebrile. Physical Exam Vital signs: Vital Signs 01/13/18 16:00 01/13/18 17:00 01/13/18 18:00 Temperature Pulse Rate 108 H 98 H 108 H Respiratory Rate 27 H 34 H 27 H Blood Pressure 129/52 L Pulse Oximetry 91 L 97 01/13/18 18:14 01/13/18 19:00 01/13/18 19:16 Temperature Pulse Rate 114 H 100 H 101 H Respiratory Rate 40 H 24 25 H Blood Pressure 129/50 L 98/46 L Pulse Oximetry 93 L 94 L 01/13/18 19:45 01/13/18 20:00 01/13/18 20:15 Temperature 97.4 F L Pulse Rate 98 H Respiratory Rate 27 H Blood Pressure 102/51 L Pulse Oximetry 99 99 97 01/13/18 20:45 01/13/18 21:00 01/13/18 22:00 Temperature Pulse Rate 100 H 108 H Respiratory Rate 24 24 Blood Pressure 106/56 L 106/43 L Pulse Oximetry 97 94 L 94 L 01/13/18 23:00 01/13/18 23:20 01/13/18 23:38 Temperature Pulse Rate 102 H Respiratory Rate 34 H Blood Pressure 100/57 L Pulse Oximetry 91 L 95 100 01/13/18 23:40 01/14/18 00:00 01/14/18 01:00 Temperature Pulse Rate 94 H 100 H Respiratory Rate 34 H 24 Blood Pressure 113/54 L 108/51 L Pulse Oximetry 100 96 97 01/14/18 02:00 01/14/18 02:30 01/14/18 03:00 Temperature Pulse Rate 86 86 Respiratory Rate 24 26 H Blood Pressure 95/43 L 100/34 L Pulse Oximetry 94 L 97 94 L 01/14/18 04:00 01/14/18 04:55 01/14/18 05:00 Temperature 98 F Pulse Rate 90 82 Respiratory Rate 28 H 29 H Blood Pressure 93/52 L 98/44 L Pulse Oximetry 90 L 95 97 01/14/18 07:48 01/14/18 08:00 01/14/18 09:00 Temperature 98.2 F Pulse Rate 89 86 108 H Respiratory Rate 21 31 H 31 H Blood Pressure 101/41 L 108/47 L Pulse Oximetry 100 95 01/14/18 10:00 01/14/18 10:02 01/14/18 11:00 Temperature 98.5 F Pulse Rate 106 H 112 H 98 H Respiratory Rate 31 H 24 28 H Blood Pressure 82/54 L 91/40 L Pulse Oximetry 92 L 94 L 90 L 01/14/18 12:00 01/14/18 12:10 01/14/18 12:20 Temperature Pulse Rate 102 H Respiratory Rate 26 H Blood Pressure 95/37 L Pulse Oximetry 93 L 97 95 01/14/18 13:00 01/14/18 13:19 Temperature Pulse Rate 100 H 93 H Respiratory Rate 25 H 22 Blood Pressure 96/38 L Pulse Oximetry 95 96 Intake & Output 01/13/18 01/14/18 01/14/18 18:59 06:59 18:59 Intake Total 620 / 620 420 / 420 Output Total 1600 / 1600 1200 / 1200 Balance -980 / -980 -780 / -780 Weight 72 kg Intake: Oral 620 / 620 420 / 420 Output: Urine 1600 / 1600 1200 / 1200 Other: Date of Last Bowel Movement 01/11/18 01/11/18 01/11/18 # Bowel Movements 0 - Constitutional no acute distress - Routine HEENT Exam Head: Present: normocephalic, atraumatic Eye: Present: EOMI, PERRL, normal accommodation ENT: Present: mucous membranes moist - Routine Neck Exam Present: supple, full ROM, trachea midline - Routine Respiratory Exam Present: CTA bilaterally - Routine Cardiovascular Exam Present: RRR, S1, S2 - Routine Abdominal Exam Present: soft, normoactive bowel sounds - Routine Extremities Exam Present: full ROM, pulses intact - Routine Skin Exam Present: intact, dry - Routine Neurological Exam Present: alert, oriented X3, CN II-XII intact - Routine Psychiatric Exam Present: normal affect - Urinary Catheter Management Indwelling Urethral Catheter Cath placed during this visit: yes, but has since been removed by the nurse Reason for continuing: Hourly intake/output Insertion date: 01/05/18 Insertion time: 18:00 Removal date: 01/08/18 Assessment and Plan - Plan 1)Resp Insuff 2)COPD 3)CHF 4)Leukocytosis 5)LINK 6)Afib Plan Continue to wean down oxygen as isatu keep sats >92% Bronchodilators, on Prednisone 30mg BID BIPAP PRN for resp distress Continue with abx ( Levaquin)monitor for signs of infections ( Fever, WBC) Diuretics- On Bumex and Zaroxolyn. Renal is following Monitor renal function, electrolytes replacement as needed GI/DVT prophylaxis - on Xarelto 15mg daily Palliative care is following Code status: No code DNR
--- NOTE | 2018-01-14 16:53 | P.PNPAL ---
Reason for Visit Reason for visit: a. To assist with evaluation and management of symptoms including: Dyspnea b. To assist medical decision maker(s) with: better understanding of current medical conditions; weighing benefits/burdens of medical treatment options; making medical treatment decisions. Subjective Subjective/Interval History: INTERVAL NOTE: Follow-up visit for symptom management of dyspnea and clarification of medical treatment goals. Patient was admitted with respiratory failure and acute renal failure. Dual visit with Carlita Purcell, palliative care SANDBLAST CARVER. He presents sitting upright in bed, off high flow oxygen. Respirations are unlabored, no accessory muscle use. Patient does become mildly dyspneic with conversation, appears fatigued. Pulmonology following. On the Levaquin; duo nebs every 6 hours while awake and every 2 hours PRN and prednisone. Most recent creatine/GFR on 01/13/2018: 1.60/41 Patient remains on diuretics. Nephrology continues to following. Met with patient's niece (Mila), who is a palliative care nurse practitioner. She states the patient appears more frail than he did when she saw him last; reports the patient had apparently been declining over recent months, having dyspnea with minimal exertion. Patient remains hopeful that he will be able to regain some of his independence in the future. Family will support patient's medical treatment goals whether they are aggressive or comfort oriented. Mila states if the patient has another acute decline or is unable to tolerate rehab, he may then decide to transition to hospice services. Advance Directives Living Will: Copy in medical record Health Care Surrogate: Copy in medical record Health Care Surrogate Name and Number: Isa Webster and nipaulie Zaragoza Objective Vital Signs: Vital Signs 01/13/18 17:00 01/13/18 18:00 01/13/18 18:14 Temperature Pulse Rate 98 H 108 H 114 H Respiratory Rate 34 H 27 H 40 H Blood Pressure 129/52 L 129/50 L Pulse Oximetry 97 01/13/18 19:00 01/13/18 19:16 01/13/18 19:45 Temperature Pulse Rate 100 H 101 H Respiratory Rate 24 25 H Blood Pressure 98/46 L Pulse Oximetry 93 L 94 L 99 01/13/18 20:00 01/13/18 20:15 01/13/18 20:45 Temperature 97.4 F L Pulse Rate 98 H Respiratory Rate 27 H Blood Pressure 102/51 L Pulse Oximetry 99 97 97 09/20/18 21:00 01/13/18 22:00 01/13/18 23:00 Temperature Pulse Rate 100 H 108 H 102 H Respiratory Rate 24 24 34 H Blood Pressure 106/56 L 106/43 L 100/57 L Pulse Oximetry 94 L 94 L 91 L 01/13/18 23:20 01/13/18 23:38 01/13/18 23:40 Temperature Pulse Rate Respiratory Rate Blood Pressure Pulse Oximetry 95 100 100 01/14/18 00:00 01/14/18 01:00 01/14/18 02:00 Temperature Pulse Rate 94 H 100 H 86 Respiratory Rate 34 H 24 24 Blood Pressure 113/54 L 108/51 L 95/43 L Pulse Oximetry 96 97 94 L 01/14/18 02:30 01/14/18 03:00 01/14/18 04:00 Temperature 98 F Pulse Rate 86 90 Respiratory Rate 26 H 28 H Blood Pressure 100/34 L 93/52 L Pulse Oximetry 97 94 L 90 L 01/14/18 04:55 01/14/18 05:00 01/14/18 07:48 Temperature Pulse Rate 82 89 Respiratory Rate 29 H 21 Blood Pressure 98/44 L Pulse Oximetry 95 97 01/14/18 08:00 01/14/18 09:00 01/14/18 10:00 Temperature 98.2 F Pulse Rate 86 108 H 106 H Respiratory Rate 31 H 31 H 31 H Blood Pressure 101/41 L 108/47 L Pulse Oximetry 100 95 92 L 01/14/18 10:02 01/14/18 11:00 01/14/18 12:00 Temperature 98.5 F Pulse Rate 112 H 98 H 102 H Respiratory Rate 24 28 H 26 H Blood Pressure 82/54 L 91/40 L 95/37 L Pulse Oximetry 94 L 90 L 93 L 01/14/18 12:10 01/14/18 12:20 01/14/18 13:00 Temperature Pulse Rate 100 H Respiratory Rate 25 H Blood Pressure 96/38 L Pulse Oximetry 97 95 95 01/14/18 13:19 Temperature Pulse Rate 93 H Respiratory Rate 22 Blood Pressure Pulse Oximetry 96 Intake & Output 01/13/18 01/14/18 01/14/18 18:59 06:59 18:59 Intake Total 620 / 620 420 / 420 Output Total 1600 / 1600 1200 / 1200 Balance -980 / -980 -780 / -780 Weight 72 kg Intake: Oral 620 / 620 420 / 420 Output: Urine 1600 / 1600 1200 / 1200 Other: Date of Last Bowel Movement 01/11/18 01/11/18 01/11/18 # Bowel Movements 0 Physical Exam: CONSTITUTIONAL/GENERAL: This is an elderly man who is tachypneic and requiring high flow oxygen. TUBES/LINES/DRAINS: High flow oxygen IV access, [place] SKIN: No jaundice, rashes, or lesions. Ecchymoses on upper extremities. No wounds seen anteriorly. Skin temperature appropriate. Not CARDIOVASCULAR: Irregular rhythm; rate 82-112. No JVD. Peripheral pulses diminished. RESPIRATORY/CHEST: Off high flow oxygen. Oxygen saturations stable on 6 L via nasal cannula. Patient becomes dyspneic with conversation. GASTROINTESTINAL: Abdomen soft, non-tender, nondistended. No guarding. Bowel sounds present. GENITOURINARY: Without palpable bladder distension. MUSCULOSKELETAL: Extremities without clubbing, cyanosis, or edema. No mottling or clubbing. NEUROLOGICAL: Awake and alert. Fatigues easily. Able to answer questions and follow simple commands. Able to make his needs known. PSYCHIATRIC: No obvious anxiety/depression. No apparent hallucinations or other psychotic thought process. Diagnostic Tests Laboratory: Laboratory Results - last 72 hr 01/13/18 04:35 Creatinine 1.60 H Estimated GFR 41 L Result Diagrams: 01/10/18 04:35 01/13/18 04:35 Microbiology: Microbiology 01/05/18 12:20 Fungal Smear - Final Fluid - Pleural fluid No fungal elements seen Fungal Culture - Preliminary No growth in 1 week 01/05/18 12:20 Acid Fast Bacilli Smear - Final Fluid - Pleural fluid No acid fast bacilli seen Mycobacterial Culture - Preliminary No growth in 1 week Imaging: Abdomen/Bladder Ultrasound 01/06/18 00:00 CONCLUSION: Right renal cyst. No hydronephrosis Chest X-Ray 01/14/18 00:00 CONCLUSION: No significant change right greater than left basilar consolidation and effusions. Procedures: Thoracentesis 01/05/18 (850 cc) Assessment and Plan - Disease Oriented Problem List (1) Respiratory failure (2) Acute kidney injury Comment: Creatinine and GFR worsening each day (3) Heart failure (4) Pulmonary hypertension Pertinent Non-Medical Issues: Psychosocial: Originally from [place], [place], moved to the [facility] to work for [email or web address] in 1969. Works as an chief electrician for many years. and twice; has no children, but does have 1 stepson from his first . Niece and nephew are frequent visitors. Spiritual: Roman Catholic background, members of his roman catholic have visited him here. Legal: The patient has capacity for decision-making; he has designated his nephew Darin and niece Mila as healthcare surrogates. Ethical issues impacting care: No known ethical issues impacting care at this time. Important Contacts: Nephew: Darin Meyers, Niece: Mila Borden (Palliative Medicine [facility] in [place]): [phone] Prognosis: The patient has been declining for months, and now has worsening/symptomatic pulmonary hypertension, heart failure, and kidney injury. His overall prognosis is poor, and he now wants to transition to hospice services for end-of -life. Code Status: No Code DNR Plan: * DO NOT RESUSCITATE * DECISION-MAKING: Patient fatigued with increased confusion today. Would recommend joint decision-making at this time; he has designated his nephew Darin and eddie Zaragoza as healthcare surrogates. * GOALS are aggressive up to the point of cardiopulmonary resuscitation. * Met with patient's niece (Mila), who is a palliative care nurse practitioner. She states the patient appears more frail than he did when she saw him last; reports the patient had apparently been declining over recent months, having dyspnea with minimal exertion. Patient remains hopeful that he will be able to regain some of his independence in the future. Family will support patient's medical treatment goals whether they are aggressive or comfort oriented. Mila states if the patient has another acute decline or is unable to tolerate rehab, he may then decide to transition to hospice services. * Discussed patient with RN; spoke with Jamie and Megan at hospice intake. Hospice intake well wait to hear from palliative care before they follow up with the patient again. * SYMPTOMS: Dyspnea: Off high flow oxygen to day. Oxygen saturations stable on 6 L via nasal cannula. Follow-up chest x-ray this morning shows no significant change; right greater than left basilar consolidation and effusions. Pulmonology is following. Morphine and Ativan are available. * Palliative care will continue to follow this patient to establish trust, assist with symptom management and clarification medical treatment goals. Attestation Attestation: To help prompt me to consider important information that might be impacting today's encounter and assessment, information from prior notes written by myself or my colleagues may have been "brought forward" into today's note. My signature on this note, however, is an attestation that I personally performed the exam, history, and/or decision-making noted today, and, unless otherwise indicated, the interactions with patient, family, and staff as well as the review of records all occurred today. I also attest that the listed assessment and stated plan reflect my best clinical judgment today based on the combination of historical information, prior notes, and today's exam/ interactions. When time spent is documented, it refers only to time spent today by the signer, or if indicated, combined time spent today by collaborating physician/nurse practitioner.
[2018-01-15 06:31] LABS: Baso % (Auto) 0.1 % (0.0-2.0); Eos % (Auto) 0.1 % (0.0-4.0); Hematocrit 36.7 % (39.0-51.0); Hemoglobin 12.3 gm/dL (13.0-17.0); Lymph # (Auto) 0.7 th/mm3 (1.0-4.8); Lymph % (Auto) 3.9 % (9.0-44.0); Mean Corpuscular HGB Conc 33.5 % (32.0-36.0); Mean Corpuscular Hemoglobin 32.9 pg (27.0-34.0); Mean Corpuscular Volume 98.3 fL (80.0-100.0); Mono # (Auto) 0.9 th/mm3 (0.0-0.9); Mono % (Auto) 5.4 % (0.0-8.0); Neut # (Auto) 15.4 th/mm3 (1.8-7.7); Neut % (Auto) 90.5 % (16.0-70.0); Platelet Count 234 th/mm3 (150-450); Red Blood Count 3.73 mil/mm3 (4.50-5.90)
[2018-01-15 06:36] LABS: Potassium 3.4 meq/L (3.5-5.1)
[2018-01-15 06:39] LABS: Calcium 8.7 mg/dL (8.5-10.1); Carbon Dioxide 41.7 meq/L (21.0-32.0)
[2018-01-15] MEDS: dilTIAZem CD 240 MG Capsule PO SCH ×2 (08:37→12:49)
[2018-01-15] MEDS: predniSONE 10 MG Tablet PO SCH ×2 (08:38→21:36)
[2018-01-15] MEDS: Rivaroxaban 15 MG Tablet PO SCH (08:39)
[2018-01-15] MEDS ORDERED: Sodium Chlor 0.9% Inj 500 ML IV.SIG SCH ×2 (11:05→12:42)
--- NOTE | 2018-01-15 12:46 | P.PNIM ---
Subjective Interval history: Follow up acute resp failure and renal failure. Patient seen and examined, sitting in chair on 4LNC. Off high flow oxygen. Family at bedside. Spoke to Niece who is a palliative care FNP at length regarding diagnosis and plan. Patient is debating whether he would like Hospice. All questions answered, he would like to have the weekend to determine his goals. Remain aggressive at this time. Patients BP is labile today, given 500 ml NS bolus x 2. May be dry secondary to increase in Bumex dose. Will continue to monitor closely. Physical Exam Vital signs: Vital Signs 01/14/18 13:00 01/14/18 13:19 01/14/18 14:00 Temperature Pulse Rate 100 H 93 H 84 Respiratory Rate 25 H 22 25 H Blood Pressure 96/38 L 91/50 L Pulse Oximetry 95 96 94 L 01/14/18 15:00 01/14/18 16:00 01/14/18 17:00 Temperature Pulse Rate 90 92 H 98 H Respiratory Rate 21 26 H 35 H Blood Pressure 105/39 L 108/44 L 100/43 L Pulse Oximetry 97 96 93 L 01/14/18 19:30 01/14/18 20:00 01/14/18 21:00 Temperature 97.6 F Pulse Rate 95 H 101 H 91 H Respiratory Rate 28 H 24 Blood Pressure 112/68 Pulse Oximetry 98 96 96 01/14/18 23:45 01/15/18 00:00 01/15/18 02:50 Temperature 97.6 F Pulse Rate 91 H Respiratory Rate 24 Blood Pressure 99/45 L Pulse Oximetry 95 95 96 01/15/18 04:00 01/15/18 05:05 01/15/18 07:34 Temperature 96.4 F L Pulse Rate 82 96 H Respiratory Rate 30 H 16 Blood Pressure 97/49 L Pulse Oximetry 96 99 Intake & Output 01/14/18 01/15/18 01/15/18 18:59 06:59 18:59 Intake Total 840 / 840 360 / 360 Output Total 900 / 900 2074 Balance -60 / -60 -5 / -1714 Weight 68.9 kg Intake: Oral 840 / 840 360 / 360 Output: Urine 900 / 900 2074 Other: Date of Last Bowel Movement 01/11/18 # Bowel Movements 1 Narrative: GENERAL: Well-developed, well-nourished elderly white male patient alert and awake on supplemental o2 SKIN: Warm and dry. No rash. HEAD: Normocephalic. Atraumatic. EYES: Pupils equal and round. No scleral icterus. No injection or drainage. ENT: No nasal bleeding or discharge. Mucous membranes pink and moist. NECK: Supple. Trachea midline. CARDIOVASCULAR: Regular rate and rhythm. no murmur .S1, S2 noted. RESPIRATORY: Diminished bs throughout GASTROINTESTINAL: Abdomen soft, non-tender, nondistended. Normoactive bowel sounds x4. MUSCULOSKELETAL: No obvious deformities. Extremities without clubbing, cyanosis , or edema. NEUROLOGICAL: Awake and alert. No obvious cranial nerve deficits. Motor grossly within normal limits. Normal speech. PSYCHIATRIC: Appropriate mood and affect; insight and judgment normal. - Urinary Catheter Management Indwelling Urethral Catheter Cath placed during this visit: yes, but has since been removed by the nurse Reason for continuing: Hourly intake/output Insertion date: 01/05/18 Insertion time: 18:00 Removal date: 01/08/18 Results - Labs CBC & Chem 7: 01/15/18 05:55 01/15/18 05:55 Laboratory Results - last 24 hr 01/15/18 01/15/18 05:55 05:55 CBC w Diff Auto diff final WBC 17.0 H RBC 3.73 L Hgb 12.3 L Hct 36.7 L MCV 98.3 MCH 32.9 MCHC 33.5 RDW 12.0 Plt Count 234 D MPV 10.0 Neut % (Auto) 90.5 H Lymph % (Auto) 3.9 L [place] % (Auto) 5.4 Eos % (Auto) 0.1 Baso % (Auto) 0.1 Neut # (Auto) 15.4 H Lymph # (Auto) 0.7 L [place] # (Auto) 0.9 Eos # (Auto) 0.0 Baso # (Auto) 0.0 WBC Differential . Differential Comment . Sodium 138 Potassium 3.4 L Chloride 86 L Carbon Dioxide 41.7 H Anion Gap 10 BUN 81 H Creatinine 2.20 H Estimated GFR 29 L Random Glucose 135 H Calcium 8.7 - Procedures ECHOCARDIOGRAM CONCLUSIONS The left ventricular systolic function is hyperdynamic with an estimated ejection fraction in the range of 65- 70%. Wall thickness is normal. No regional wall motion abnormalities are present. Severe biatrial enlargement. A possible atrial level shunt is demonstrated by color flow Doppler interrogation, clinical correlation recommended. Moderate thickening of the mitral valve leaflets. [id number] mitral valve regurgitation. Mitral annular calcification is present. Can not rule out a mobile echodensity located on the anterior mitral valve leaflet. Clinical correlation recommended. Aortic valve sclerosis is present. Trace aortic valve regurgitation. There is moderate tricuspid regurgitation. The estimated pulmonary arterial pressure is 57.6 mmHg. 01/05/18: Thoracentesis with 850 cc of fluid removal from the right side Assessment and Plan - Plan Acute hypoxic respiratory failure, minimal improvement. Community acquired pneumonia -Multifactorial with findings of congestive heart failure, elevated BNP, significant pleural effusion, severe biatrial enlargement, possible atrial level shunt -Unable to treat effectively without intubation, patient is a DO NOT RESUSCITATE , will respect the patient's wishes -Continue high flow oxygen as needed although patient is tolerating 6 LNC at this time. BiPAP as needed as well to maintain O2 sats greater than 92%. -Tube Skiver was consulted who performed right-sided thoracentesis with 850 cc of fluid removal. -Fluid studies indicating transudate fluid. -Bumex increased yesterday to 2 mg PO twice daily. Was started on Metolazone. Will place on hold for now, patient appears to be dry with hypotension. Will give fluid bolus slow. Continue to monitor fluid status. -Continue Solu-Medrol 40 mg every 6 hours, changed to p.o. prednisone 30 mg p.o. twice daily -Was initially started on empirical antibiotics vancomycin and Zosyn, these have been discontinued, start Levaquin 750 mg every other day for a total of 14 days of antibiotic treatment. -Media Marketing Manager following the patient, appreciate input and recommendations. -Palliative care consulted for further recommendations and treatment plan goals. Goals remain aggressive at this time. Considering Hospice although still undecided. Hypotension, asymptomatic -BP 90/42 and running low today. Given 500 ml NS bolus x 2. -Continue to monitor. Suspect secondary diuretics. Hold diuretics for now as well as beta rajan. Acute renal failure with decreased urinary output -Could be secondary to tubular necrosis from hypotension. -Renal bladder ultrasound was performed which showed right renal cyst no hydronephrosis. -Renal functions have continued to improved, creatinine now worsening, will attempt fluid. -Avoid nephrotoxins. -Oyster Worker following the patient, appreciate input and recs. Hypotension, improved. -Unknown if this is related to diuresis, sepsis, cardiorenal syndrome. -Patient was given fluid boluses, albumin bolus. -Patient blood pressure medications have hold parameters. Atrial fibrillation with RVR, heart rate 92-111. Stable. -Status post Cardizem IV with discontinuation -Patient continued on Cardizem CD 240 mg daily. On hold for now due to hypotension. -Metoprolol 12.5 mg twice daily. On hold for now due to hypotension. -Patient is on Xarelto for anticoagulation. Hyperglycemia. Improved. -Likely secondary to stress and Solu-Medrol -Hemoglobin A1c 4.7 -Continue monitor and start Accu-Cheks with sliding scale insulin if needed. DVT prevention: Xarelto Discharge Planning: Await for improvement or final decision for goals of care. Palliative care following. Goals remain aggressive at this time. Considering Hospice.
[2018-01-15] MEDS: Metoprolol Tartrate 25 MG Tablet PO SCH (12:49)
--- NOTE | 2018-01-15 13:40 | P.PNNP ---
Subjective Interval history: Sitting on a chair. Receiving IVF. Hypotension is noted. Physical Exam Vital signs: Vital Signs 01/14/18 14:00 01/14/18 15:00 01/14/18 16:00 Temperature Pulse Rate 84 90 92 H Respiratory Rate 25 H 21 26 H Blood Pressure 91/50 L 105/39 L 108/44 L Pulse Oximetry 94 L 97 96 01/14/18 17:00 01/14/18 19:30 01/14/18 20:00 Temperature Pulse Rate 98 H 95 H 101 H Respiratory Rate 35 H 28 H Blood Pressure 100/43 L Pulse Oximetry 93 L 98 96 01/14/18 21:00 01/14/18 23:45 01/15/18 00:00 Temperature 97.6 F 97.6 F Pulse Rate 91 H 91 H Respiratory Rate 24 24 Blood Pressure 112/68 99/45 L Pulse Oximetry 96 95 95 01/15/18 02:50 01/15/18 04:00 01/15/18 05:05 Temperature 96.4 F L Pulse Rate 82 Respiratory Rate 30 H Blood Pressure 97/49 L Pulse Oximetry 96 96 99 01/15/18 07:29 01/15/18 07:34 01/15/18 08:01 Temperature 97.6 F Pulse Rate 86 96 H 94 H Respiratory Rate 23 16 27 H Blood Pressure 100/47 L 104/56 L Pulse Oximetry 100 99 01/15/18 08:39 01/15/18 09:05 01/15/18 10:00 Temperature Pulse Rate 94 H 94 H 90 Respiratory Rate 31 H 43 H 34 H Blood Pressure 96/42 L 97/36 L 103/41 L Pulse Oximetry 97 100 100 01/15/18 11:00 01/15/18 11:43 01/15/18 12:00 Temperature 97.6 F Pulse Rate 96 H 98 H 104 H Respiratory Rate 28 H 31 H 24 Blood Pressure 107/37 L 107/44 L 92/34 L Pulse Oximetry 100 97 95 01/15/18 12:28 01/15/18 13:00 Temperature Pulse Rate 98 H 118 H Respiratory Rate 32 H 37 H Blood Pressure 103/40 L 90/47 L Pulse Oximetry 100 87 L Intake & Output 01/14/18 01/15/18 01/15/18 18:59 06:59 18:59 Intake Total 840 / 840 360 / 360 500 / 500 Output Total 900 / 900 2074 Balance -60 / -60 -1715 / -1715 500 / 500 Weight 68.9 kg Intake: IV 500 / 500 NS Inj 500 ML @ Wide Open IV. 500 / 500 SIG BOLUS YOVANA Rx#:[id number] Oral 840 / 840 360 / 360 Output: Urine 900 / 900 2074 Other: Date of Last Bowel Movement 01/11/18 # Bowel Movements 1 Narrative: Frail, elderly. Chest: clear. In atrial fibrillation. Abdomen is soft. No edema. - Urinary Catheter Management Indwelling Urethral Catheter Cath placed during this visit: yes, but has since been removed by the nurse Reason for continuing: Hourly intake/output Insertion date: 01/05/18 Insertion time: 18:00 Removal date: 01/08/18 Assessment and Plan - Plan Assessment: 1. Acute kidney injury. 2. Congestive heart failure and fluid overload status. 3. Atrial fibrillation with rapid ventricular rate. 4. Respiratory failure. Plan: renal function is worse today. Hypotensive, being given IVF bolus. He is a DNR. Patient is considering hospice. Discussed with family at the bedside. Diuretics held due to hypotension Prognosis is guarded to poor.
--- NOTE | 2018-01-15 13:46 | P.PNPL ---
Subjective Interval history: Patient is lying in bed in NAD. Afebrile. Renal function is worse with Cr: 2.20 from 1.60 Physical Exam Vital signs: Vital Signs 01/14/18 14:00 01/14/18 15:00 01/14/18 16:00 Temperature Pulse Rate 84 90 92 H Respiratory Rate 25 H 21 26 H Blood Pressure 91/50 L 105/39 L 108/44 L Pulse Oximetry 94 L 97 96 01/14/18 17:00 01/14/18 19:30 01/14/18 20:00 Temperature Pulse Rate 98 H 95 H 101 H Respiratory Rate 35 H 28 H Blood Pressure 100/43 L Pulse Oximetry 93 L 98 96 01/14/18 21:00 01/14/18 23:45 01/15/18 00:00 Temperature 97.6 F 97.6 F Pulse Rate 91 H 91 H Respiratory Rate 24 24 Blood Pressure 112/68 99/45 L Pulse Oximetry 96 95 95 01/15/18 02:50 01/15/18 04:00 01/15/18 05:05 Temperature 96.4 F L Pulse Rate 82 Respiratory Rate 30 H Blood Pressure 97/49 L Pulse Oximetry 96 96 99 01/15/18 07:29 01/15/18 07:34 01/15/18 08:01 Temperature 97.6 F Pulse Rate 86 96 H 94 H Respiratory Rate 23 16 27 H Blood Pressure 100/47 L 104/56 L Pulse Oximetry 100 99 01/15/18 08:39 01/15/18 09:05 01/15/18 10:00 Temperature Pulse Rate 94 H 94 H 90 Respiratory Rate 31 H 43 H 34 H Blood Pressure 96/42 L 97/36 L 103/41 L Pulse Oximetry 97 100 100 01/15/18 11:00 01/15/18 11:43 01/15/18 12:00 Temperature 97.6 F Pulse Rate 96 H 98 H 104 H Respiratory Rate 28 H 31 H 24 Blood Pressure 107/37 L 107/44 L 92/34 L Pulse Oximetry 100 97 95 01/15/18 12:28 01/15/18 13:00 Temperature Pulse Rate 98 H 118 H Respiratory Rate 32 H 37 H Blood Pressure 103/40 L 90/47 L Pulse Oximetry 100 87 L Intake & Output 01/14/18 01/15/18 01/15/18 18:59 06:59 18:59 Intake Total 840 / 840 360 / 360 500 / 500 Output Total 900 / 900 2074 Balance -60 / -60 -1715 / -1715 500 / 500 Weight 68.9 kg Intake: IV 500 / 500 NS Inj 500 ML @ Wide Open IV. 500 / 500 SIG BOLUS YOVANA Rx#:[id number] Oral 840 / 840 360 / 360 Output: Urine 900 / 900 2074 Other: Date of Last Bowel Movement 01/11/18 # Bowel Movements 1 - Constitutional no acute distress - Routine HEENT Exam Head: Present: normocephalic, atraumatic Eye: Present: EOMI, PERRL, normal accommodation, conjunctivae pink ENT: Present: mucous membranes moist - Routine Neck Exam Present: supple, full ROM, trachea midline - Routine Respiratory Exam Present: CTA bilaterally - Routine Cardiovascular Exam Present: RRR, S1, S2 - Routine Abdominal Exam Present: soft, normoactive bowel sounds - Routine Extremities Exam Present: full ROM, pulses intact - Routine Skin Exam Present: intact, dry - Routine Neurological Exam Present: alert, oriented X3 - Routine Psychiatric Exam Present: normal affect - Urinary Catheter Management Indwelling Urethral Catheter Cath placed during this visit: yes, but has since been removed by the nurse Reason for continuing: Hourly intake/output Insertion date: 01/05/18 Insertion time: 18:00 Removal date: 01/08/18 Assessment and Plan - Plan 1)Resp Insuff 2)COPD 3)CHF 4)Leukocytosis 5)LINK 6)Afib Plan Continue to wean down oxygen as isatu keep sats >92% Bronchodilators, on Prednisone 30mg BID BIPAP PRN for resp distress Will give Diamox 250mg IV x1 s/p right sided thoracentesis on 01/05 with removal 850 pleural fluid ( transudative effusion) Continue with abx ( Levaquin)monitor for signs of infections ( Fever, WBC) Monitor renal function,would hold diuretics given worsening renal function, renal is following- Dr. Phillips Gentle IV hydration Repeat CXR in 2 days if there is any increase in pleural effusion patient might need repeat thoracentesis. Echo showed EF 65-70% GI/DVT prophylaxis - on Xarelto 15mg daily Palliative care is following Code status: No code DNR
[2018-01-15] MEDS: Sod Chloride 0.9% Inj 1,000 ML IV.CONT SCH (15:53)
[2018-01-16 06:39] LABS: Calcium 8.3 mg/dL (8.5-10.1)
[2018-01-16 06:40] LABS: Carbon Dioxide 36.8 meq/L (21.0-32.0)
[2018-01-16] MEDS: levoFLOXacin 750 MG Tablet PO SCH (09:12)
[2018-01-16] MEDS: predniSONE 10 MG Tablet PO SCH ×2 (09:12→20:54)
[2018-01-16] MEDS: Rivaroxaban 15 MG Tablet PO SCH (10:54)
--- NOTE | 2018-01-16 11:27 | XR ---
EXAM DATE: 01/16/2018 10:59 AM EDT AGE/SEX: 82 years / Male INDICATIONS: Short of breath CLINICAL DATA: This is the patient's subsequent encounter. Patient reports that signs and symptoms h ave been present for 1 week and indicates a pain score of 0/10. MEDICAL/SURGICAL HISTORY: . Hypertension. Ankylosing spondylitis. Atrial fibrillation. Cardiove rsion None. COMPARISON: [facility], CHEST 1V SINGLE AP, 01/14/2018. . FINDINGS: Interval improvement with less interstitial edema. Small right pleural effusion is evident. Scattered apparent pleural calcifications are noted. The portion of the bony skeleton visualized is unremarkab le. CONCLUSION: Interval improvement with less interstitial edema. Trace pleural effusion remaining on the right. Electronically signed by: Emory Torres MD 01/16/2018 11:26 AM EDT
[2018-01-16] MEDS ORDERED: Sodium Chlor 0.9% Inj 500 ML IV.SIG SCH ×2 (11:31→13:00)
--- NOTE | 2018-01-16 11:31 | P.PNIM ---
Subjective Interval history: Follow up acute resp failure and renal failure. Patient seen and examined, sitting up in chair on 2L NC. HR is elevated with low BP today. Ordered CXR, 1 LNS bolus today. Spoke with patient and Niece today, requesting to speak with Hospice today, most likely will move forward with Hospice. Pulm still following. Physical Exam Vital signs: Vital Signs 01/15/18 11:43 01/15/18 12:00 01/15/18 12:28 Temperature 97.6 F Pulse Rate 98 H 104 H 98 H Respiratory Rate 31 H 24 32 H Blood Pressure 107/44 L 92/34 L 103/40 L Pulse Oximetry 97 95 100 01/15/18 13:00 01/15/18 13:46 01/15/18 19:31 Temperature Pulse Rate 118 H 86 98 H Respiratory Rate 37 H 15 18 Blood Pressure 90/47 L Pulse Oximetry 87 L 96 01/15/18 20:00 01/16/18 00:00 01/16/18 01:30 Temperature 97.5 F L 98.6 F Pulse Rate 91 H 69 Respiratory Rate 15 24 Blood Pressure 92/43 L 119/76 Pulse Oximetry 100 93 L 97 01/16/18 04:00 01/16/18 07:00 01/16/18 07:43 Temperature 97.7 F Pulse Rate 105 H 98 H 108 H Respiratory Rate 14 17 19 Blood Pressure 95/59 L 90/59 L 107/47 L Pulse Oximetry 98 100 96 01/16/18 08:00 01/16/18 08:10 01/16/18 08:12 Temperature 97.6 F Pulse Rate 101 H 120 H Respiratory Rate 31 H 20 Blood Pressure 95/48 L Pulse Oximetry 100 96 Intake & Output 01/15/18 01/16/18 01/16/18 18:59 06:59 18:59 Intake Total 1240 / 1240 360 / 360 Output Total 580 / 580 900 / 900 Balance 660 / 660 -540 / -540 Weight 69.3 kg Intake: IV 1000 / 1000 NS Inj 500 ML @ Wide Open IV. 1000 / 1000 SIG BOLUS YOVANA Rx#:[id number] Oral 240 / 240 360 / 360 Output: Urine 580 / 580 900 / 900 Other: Date of Last Bowel Movement 01/15/18 # Bowel Movements 1 0 Narrative: GENERAL: Well-developed, well-nourished elderly white male patient alert and awake on supplemental o2 SKIN: Warm and dry. No rash. HEAD: Normocephalic. Atraumatic. EYES: Pupils equal and round. No scleral icterus. No injection or drainage. ENT: No nasal bleeding or discharge. Mucous membranes pink and moist. NECK: Supple. Trachea midline. CARDIOVASCULAR: Regular rate and rhythm. no murmur .S1, S2 noted. RESPIRATORY: Diminished bs throughout. Right lower posterior lobe with rhonchi. GASTROINTESTINAL: Abdomen soft, non-tender, nondistended. Normoactive bowel sounds x4. MUSCULOSKELETAL: No obvious deformities. Extremities without clubbing, cyanosis , or edema. NEUROLOGICAL: Awake and alert. No obvious cranial nerve deficits. Motor grossly within normal limits. Normal speech. PSYCHIATRIC: Appropriate mood and affect; insight and judgment normal. - Urinary Catheter Management Indwelling Urethral Catheter Cath placed during this visit: yes, but has since been removed by the nurse Reason for continuing: Hourly intake/output Insertion date: 01/05/18 Insertion time: 18:00 Removal date: 01/08/18 Results - Labs CBC & Chem 7: 01/15/18 05:55 01/16/18 06:03 Laboratory Results - last 24 hr 01/16/18 06:03 Sodium 136 Potassium 3.0 L Chloride 89 L Carbon Dioxide 36.8 H Anion Gap 10 BUN 75 H Creatinine 2.00 H Estimated GFR 32 L Random Glucose 118 H Calcium 8.3 L - Imaging Impressions Chest X-Ray 01/16/18 00:00 CONCLUSION: Interval improvement with less interstitial edema. Trace pleural effusion remaining on the right. - Procedures ECHOCARDIOGRAM CONCLUSIONS The left ventricular systolic function is hyperdynamic with an estimated ejection fraction in the range of 65- 70%. Wall thickness is normal. No regional wall motion abnormalities are present. Severe biatrial enlargement. A possible atrial level shunt is demonstrated by color flow Doppler interrogation, clinical correlation recommended. Moderate thickening of the mitral valve leaflets. [id number] mitral valve regurgitation. Mitral annular calcification is present. Can not rule out a mobile echodensity located on the anterior mitral valve leaflet. Clinical correlation recommended. Aortic valve sclerosis is present. Trace aortic valve regurgitation. There is moderate tricuspid regurgitation. The estimated pulmonary arterial pressure is 57.6 mmHg. 01/05/18: Thoracentesis with 850 cc of fluid removal from the right side Assessment and Plan - Plan Acute hypoxic respiratory failure, minimal improvement. Community acquired pneumonia -Multifactorial with findings of congestive heart failure, elevated BNP, significant pleural effusion, severe biatrial enlargement, possible atrial level shunt -Unable to treat effectively without intubation, patient is a DO NOT RESUSCITATE , will respect the patient's wishes -Continue high flow oxygen as needed although patient is tolerating 2 LNC at this time. BiPAP as needed as well to maintain O2 sats greater than 92%. -Risk Management Analyst was consulted who performed right-sided thoracentesis with 850 cc of fluid removal. -Fluid studies indicating transudate fluid. -Bumex increased yesterday to 2 mg PO twice daily. Was started on Metolazone. Will place on hold for now, patient appears to be dry with hypotension. Will give fluid bolus slow today, CXR today and reviewed, patient is dry. Continue to monitor fluid status. -Continue Solu-Medrol 40 mg every 6 hours, changed to p.o. prednisone 30 mg p.o. twice daily -Was initially started on empirical antibiotics vancomycin and Zosyn, these have been discontinued, start Levaquin 750 mg every other day for a total of 14 days of antibiotic treatment. -Barrel Bridge Assembler following the patient, appreciate input and recommendations. -Palliative care consulted for further recommendations and treatment plan goals. Goals remain aggressive at this time. Considering Hospice although still undecided. Hypotension, asymptomatic -BP is running low today. Given 500 ml NS bolus x 2 again today. CXR today and reviewed, no fluid overload. Assess response. -Continue to monitor. Suspect secondary diuretics. Hold diuretics for now as well as beta rajan. Acute renal failure with decreased urinary output -Could be secondary to tubular necrosis from hypotension. -Renal bladder ultrasound was performed which showed right renal cyst no hydronephrosis. -Renal functions improved initially, creatinine now 2.0. Will attempt fluid. -Avoid nephrotoxins. -Blood Bank Order Control Clerk following the patient, appreciate input and recs. Atrial fibrillation with RVR, heart rate 92-120's. -Status post Cardizem IV with discontinuation -Patient continued on Cardizem CD 240 mg daily. On hold for now due to hypotension. -Metoprolol 12.5 mg twice daily. On hold for now due to hypotension. -Patient is on Xarelto for anticoagulation. Hyperglycemia. Improved. -Likely secondary to stress and Solu-Medrol -Hemoglobin A1c 4.7 -Continue monitor and start Accu-Cheks with sliding scale insulin if needed. DVT prevention: Xarelto Discharge Planning: Await for improvement or final decision for goals of care. Palliative care following. Goals remain aggressive at this time. Considering Hospice.
[2018-01-16 12:06] LABS: Magnesium 2.7 mg/dL (1.5-2.5)
[2018-01-16] MEDS: Sod Chloride 0.9% Inj 1,000 ML IV.CONT SCH (13:20)
--- NOTE | 2018-01-16 13:44 | P.PNPL ---
Subjective Interval history: Patient was hypotensive given IVF, CXR showed less interstitial edema. Currently on 2L oxygen, afebrile. Physical Exam Vital signs: Vital Signs 01/15/18 13:46 01/15/18 19:31 01/15/18 20:00 Temperature 97.5 F L Pulse Rate 86 98 H 91 H Respiratory Rate 15 18 15 Blood Pressure 92/43 L Pulse Oximetry 96 100 01/16/18 00:00 01/16/18 01:30 01/16/18 04:00 Temperature 98.6 F 97.7 F Pulse Rate 69 105 H Respiratory Rate 24 14 Blood Pressure 119/76 95/59 L Pulse Oximetry 93 L 97 98 01/16/18 07:00 01/16/18 07:43 01/16/18 08:00 Temperature 97.6 F Pulse Rate 98 H 108 H 101 H Respiratory Rate 17 19 31 H Blood Pressure 90/59 L 107/47 L 95/48 L Pulse Oximetry 100 96 100 01/16/18 08:10 01/16/18 08:12 01/16/18 13:27 Temperature Pulse Rate 120 H 108 H Respiratory Rate 20 20 Blood Pressure Pulse Oximetry 96 Intake & Output 01/15/18 01/16/18 01/16/18 18:59 06:59 18:59 Intake Total 1240 / 1240 360 / 360 500 / 500 Output Total 580 / 580 900 / 900 Balance 660 / 660 -540 / -540 500 / 500 Weight 69.3 kg Intake: IV 1000 / 1000 500 / 500 NS Inj 500 ML @ Wide Open IV. 1000 / 1000 500 / 500 SIG BOLUS YOVANA Rx#:[id number] Oral 240 / 240 360 / 360 Output: Urine 580 / 580 900 / 900 Other: Date of Last Bowel Movement 01/15/18 # Bowel Movements 1 0 - Constitutional no acute distress - Routine HEENT Exam Head: Present: normocephalic, atraumatic Eye: Present: EOMI, PERRL, normal accommodation, conjunctivae pink ENT: Present: mucous membranes moist - Routine Neck Exam Present: supple, full ROM - Routine Respiratory Exam Present: CTA bilaterally - Routine Cardiovascular Exam Present: RRR, S1 - Routine Abdominal Exam Present: soft, normoactive bowel sounds - Routine Extremities Exam Present: full ROM, pulses intact - Routine Skin Exam Present: intact, dry - Routine Neurological Exam Present: alert, oriented X3, CN II-XII intact - Routine Psychiatric Exam Present: normal affect - Urinary Catheter Management Indwelling Urethral Catheter Cath placed during this visit: yes, but has since been removed by the nurse Reason for continuing: Hourly intake/output Insertion date: 01/05/18 Insertion time: 18:00 Removal date: 01/08/18 Assessment and Plan - Plan 1)Resp Insuff 2)COPD 3)CHF 4)Leukocytosis 5)LINK 6)Afib Plan Continue with oxygen keep sats >92% Bronchodilators, on Prednisone 30mg BID BIPAP PRN for resp distress s/p right sided thoracentesis on 01/05 with removal 850 pleural fluid ( transudative effusion) Pleural fluid culture- No growth. Continue with abx (Levaquin)monitor for signs of infections ( Fever, WBC) Monitor renal function avoid nephrotoxins, renal is following- Dr. Phillips Gentle IV hydration CXR today showed less interstitial edema Echo showed EF 65-70% GI/DVT prophylaxis - on Xarelto 15mg daily Palliative care is following Code status: No code DNR Hospice to talk to patient and family today. Continue treatment plan
[2018-01-16] MEDS ORDERED: Metoprolol Tartrate 25 MG Tablet PO ONE (15:05)
[2018-01-16] MEDS ORDERED: dilTIAZem CD 120 MG Capsule PO ONE (15:06)
[2018-01-16 20:44] VITALS: BP 96/53; PULSE 117; RESP 26; TEMP 98.2; O2SAT 90
[2018-01-16] MEDS: Metoprolol Tartrate 25 MG Tablet PO SCH (20:54)
--- NOTE | 2018-02-11 15:21 | P.DS ---
Date of admission: 01/04/18 09:51 Primary care physician: PROVIDER NON STAFF Brief History from admission: The patient is an 82-year-old male with a past medical history of atrial fibrillation who is presenting to the hospital with shortness of breath. The patient says that yesterday he walked around for 2 miles and then he went to his car and it would not start. [place] so he got very stressed out and upset. Eventually the car started and he got out of there. In the evening he started to experience shortness of breath so he tried walking around to alleviate that. He says laying down helps with his breathing. He has not been coughing or having any sputum production. He denied any chest pain. He says he has never had this shortness of breath before. He says the last time he saw his swat team member was about 4 months ago. He believes he had an echocardiogram done at that time. The patient says he did not sleep much last night and at 7:30 in the morning decided to come to the hospital for further evaluation. DS: Summary Hospital Course: Acute hypoxic respiratory failure, minimal improvement. Community acquired pneumonia -Multifactorial with findings of congestive heart failure, elevated BNP, significant pleural effusion, severe biatrial enlargement, possible atrial level shunt -Unable to treat effectively without intubation, patient is a DO NOT RESUSCITATE , will respect the patient's wishes -Continue high flow oxygen as needed although patient is tolerating 2 LNC at this time. BiPAP as needed as well to maintain O2 sats greater than 92%. -Field Contact Person was consulted who performed right-sided thoracentesis with 850 cc of fluid removal. -Fluid studies indicating transudate fluid. -Bumex increased yesterday to 2 mg PO twice daily. Was started on Metolazone. Will place on hold for now, patient appears to be dry with hypotension. Will give fluid bolus slow today, CXR today and reviewed, patient is dry. Continue to monitor fluid status. -Continue Solu-Medrol 40 mg every 6 hours, changed to p.o. prednisone 30 mg p.o. twice daily -Was initially started on empirical antibiotics vancomycin and Zosyn, these have been discontinued, start Levaquin 750 mg every other day for a total of 14 days of antibiotic treatment. -Stitcher Set Up Operator Automatic following the patient, appreciate input and recommendations. -Palliative care consulted for further recommendations and treatment plan goals. Goals remain aggressive at this time. Considering Hospice although still undecided. Hypotension, asymptomatic -BP is running low today. Given 500 ml NS bolus x 2 again today. CXR today and reviewed, no fluid overload. Assess response. -Continue to monitor. Suspect secondary diuretics. Hold diuretics for now as well as beta rajan. Acute renal failure with decreased urinary output -Could be secondary to tubular necrosis from hypotension. -Renal bladder ultrasound was performed which showed right renal cyst no hydronephrosis. -Renal functions improved initially, creatinine now 2.0. Will attempt fluid. -Avoid nephrotoxins. -Key Filer following the patient, appreciate input and recs. Atrial fibrillation with RVR, heart rate 92-120's. -Status post Cardizem IV with discontinuation -Patient continued on Cardizem CD 240 mg daily. On hold for now due to hypotension. -Metoprolol 12.5 mg twice daily. On hold for now due to hypotension. -Patient is on Xarelto for anticoagulation. Hyperglycemia. Improved. -Likely secondary to stress and Solu-Medrol -Hemoglobin A1c 4.7 -Continue monitor and start Accu-Cheks with sliding scale insulin if needed. DVT prevention: Xarelto Discharge Planning: Hospice. - Time Spent with Patient Total time spent providing and/or coordinating discharge services: Greater than 30 minutes - Quality: VTE Deep Vein Thrombosis/Pulmonary Embolism Present on Admission: No Exam - Constitutional mild distress - Routine HEENT Exam Eye: Present: PERRL - Routine Respiratory Exam Present: accessory muscle use Results Procedures completed during hospitalization: ECHOCARDIOGRAM CONCLUSIONS The left ventricular systolic function is hyperdynamic with an estimated ejection fraction in the range of 65- 70%. Wall thickness is normal. No regional wall motion abnormalities are present. Severe biatrial enlargement. A possible atrial level shunt is demonstrated by color flow Doppler interrogation, clinical correlation recommended. Moderate thickening of the mitral valve leaflets. [id number] mitral valve regurgitation. Mitral annular calcification is present. Can not rule out a mobile echodensity located on the anterior mitral valve leaflet. Clinical correlation recommended. Aortic valve sclerosis is present. Trace aortic valve regurgitation. There is moderate tricuspid regurgitation. The estimated pulmonary arterial pressure is 57.6 mmHg. 01/05/18: Thoracentesis with 850 cc of fluid removal from the right side Labs on day of discharge: Preliminary micro results at discharge 01/05/18 12:20 Mycobacterial Culture - Preliminary Fluid - Pleural fluid No growth in 5 weeks - Impressions ITS Impressions Abdomen/Bladder Ultrasound 01/06/18 00:00 CONCLUSION: Right renal cyst. No hydronephrosis Chest X-Ray 01/16/18 00:00 CONCLUSION: Interval improvement with less interstitial edema. Trace pleural effusion remaining on the right. Discharge Plan - Discharge Disposition Patient Disposition: [facility] Hospice/Med Facility - Discharge Condition Condition: Stable - Discharge Order Discharge Orders: Discharge Order (Routine); Ordered 01/16/18 Ordered By: Lizzie Dick - Physicians Team Primary Care Provider: NON STAFF,PROVIDER Attending Provider: Hilario Gunderson Other Providers: ; Ander Norris MD ; Melanie Barcenas MD ; Narinder Vargas MD ; Russel Haney MD ; Aminah Burr
== END 2018-01-16 21:45 | disposition hospice, inpatient (51) ==
LOC: PHED 08:06 → PHEDA 09:51 → PHICU 11:54 → HIMC 01-05 12:34 → PHICU 01-05 12:37
PROVIDERS: ADMIT Internal Medicine; ATTEND Internal Medicine